=== PATIENT | male | born 1945 | race African-American/Black ===

== ENCOUNTER 2020-05-02 05:22 | Inpatient (IN) | payer MEDICARE, SELFPAY ==
[2020-05-02] VITALS (12 sets, daily range): BP systolic 133–177; BP diastolic 71–101; PULSE 62–86; RESP 16–30; TEMP 36.5–37.1; O2SAT 95–100; BMI 32.3
--- NOTE | 2020-05-02 06:03 | XR_ITS ---
EXAMINATION: CHEST 1 VIEW CLINICAL INFORMATION: Shortness of breath. COMPARISON: 05/26/2016. TECHNIQUE: An AP view of the chest is provided. FINDINGS: The cardiac silhouette is prominent, though stable. There is mild diffuse interstitial prominence. There is retrocardiac opacification and likely small left pleural effusion. The osseous structures are stable. XR/XR chest 1V IMPRESSION: Stable cardiomegaly with likely mild vascular congestion. Retrocardiac airspace disease and a small left pleural effusion.
--- NOTE | 2020-05-02 06:04 | ECG_ITS ---
Test Reason : SOB Blood Pressure : / mmHG Vent. Rate : 075 BPM Atrial Rate : 075 BPM P-R Int : 192 ms QRS Dur : 136 ms QT Int : 444 ms P-R-T Axes : 054 -11 133 degrees QTc Int : 495 ms Normal sinus rhythm Possible Left atrial enlargement Left bundle branch block Abnormal ECG When compared with ECG of 26-MAY-2016 16:27, Left bundle branch block is now Present Referred By: Lizbeth Gordon Electronically Signed By:MARCIA HERNANDEZ MD
--- NOTE | 2020-05-02 06:04 | ED_ITS ---
HPI - General Adult General Chief complaint: Dyspnea Stated complaint: SOB Time Seen by Provider: 05/02/20 05:52 Source: patient Mode of arrival: ambulatory Limitations: no limitations History of Present Illness HPI narrative: patient comes to emergency room complaining of shortness or breath for 4 days. Patient states tonight he was sleeping, he woke up gasping for air. Patient states his legs have been swollen more than usual. Patient is poor historian. patient has history of being admitted to the hospital in 2016 for CHF exacerbation MD complaint: shortness of breaths Related Data Home Medications Medication Instructions Recorded Confirmed allopurinol 100 mg PO DAILY 05/02/20 atorvastatin 20 mg PO DAILY 05/02/20 05/02/20 carvedilol 25 mg PO BID 05/02/20 05/02/20 furosemide 40 mg PO DAILY 05/02/20 05/02/20 hydralazine 50 mg PO BID 05/02/20 05/02/20 lisinopril 30 mg PO DAILY 05/02/20 05/02/20 Allergies Allergy/AdvReac Type Severity Reaction Status Date / Time No Known Allergies Allergy Verified 05/02/20 05:40 [No Known Allergies*] Review of Systems Review of Systems: Constitutional : No Weight loss, No Fever, No Chills, No Night Sweats, No Fatigue, No Malaise ENT/Mouth : No Hearing loss, No Ear Pain, No Nasal Congestion, No Sinus Pain, No Hoarseness, No sore throat, No Rhinorrhea, No Swallowing Difficulty Eyes: No Eye Pain, No Swelling, No Redness, No Foreign Body, No Discharge, No Vision Changes Cardiovascular shortness of breath with exertion, orthopnea Respiratory : dyspnea Gastrointestinal : No Nausea, No Vomiting, No Diarrhea, No Constipation, No abdominal Pain, No Hematochezia, No Melena Genitourinary : no irregular bleeding, No Dysuria, No Urinary Frequency, No Hematuria, No Urinary Incontinence, No Urgency, No Flank Pain, No Urinary Flow Changes, No Hesitancy Musculoskeletal : No joint pain, No Myalgias, No Joint Swelling Skin : No Skin Lesions, No rash Neuro : No Weakness, No Numbness, No Paresthesias, No Loss of Consciousness, No Dizziness, No Headache Psych : No Anxiety/Panic, No Depression, No SI/HI/AH/VH, No Social Issues, Heme/Lymph: No Bruising, No Bleeding,No Lymphadenopathy Endocrine : No Polyuria, No Polydipsia, No Temperature Intolerance [facility] Past Medical History Medical History (Updated 05/02/20 @ 08:17 by Lizbeth Gordon MD) CHF (congestive heart failure) HTN (hypertension) Hypercholesteremia Social History Social History Advance Directives: No Physical Exam Vital Signs: Vital Signs: Last Vital Signs Temp 98.0 F 05/02/20 05:41 Pulse 78 05/02/20 07:14 Resp 30 H 05/02/20 07:14 BP 163/93 H 05/02/20 07:14 Pulse Ox 100 05/02/20 07:14 Body Mass Index 32.3 Appearance: Alert. Oriented X3. No acute distress. Eyes: Pupils equal, round and reactive to light. ENT: Pharynx normal. Neck: Normal inspection. Neck supple. No lymph nodes noted. No crepitus CVS: Normal heart rate and rhythm. Pulses normal. Normal S1 and S2 Respiratory: No respiratory distress. patient is tachypneic, respiratory rate approximately 30, oxygen saturation in the low 90s, able to speak in full sentences, lung sounds decreased bilaterally, crackles bilaterally Abdomen: Soft and nontender. No rigidity. No distention. good BS x4 Skin: Skin warm and dry. Normal skin color. Normal skin turgor. Extremities: No lower extremity edema. No lower extremity edema. No Lacerati ons. No Rash Neuro: Oriented X 3. No motor deficit. No sensory deficit. Moving all extermities. No slurred speech. Medical Decision Making Lab Data Result diagrams: 05/02/20 06:36 05/02/20 06:36 Labs: Lab Results 05/02/20 05/02/20 05/02/20 Range/Units 06:36 06:36 06:36 WBC 6.2 (4.8-10.8) X10*3/uL RBC 3.86 L (4.60-5.80) X10*6/uL Hgb 11.9 L (14.0-18.0) g/dl Hct 37.1 L (42-52) % MCV 96.1 (80-98) fL MCH 30.8 (27.0-33.0) pg MCHC 32.1 (31.0-36.0) g/dl RDW 14.1 (11.0-16.0) % Plt Count 222 (160-400) X10*3/uL MPV 10.5 (9.4-12.4) fL Immature Gran % (Auto) 0.3 (0.0-0.4) % Neut % (Auto) 82.8 H (45-73) % Lymph % (Auto) 9.2 L (20-40) % [place] % (Auto) 6.9 (2-11) % Eos % (Auto) 0.6 (0-4) % Baso % (Auto) 0.2 (0-2) % Lymph # (Auto) 0.6 L (1.2-4.9) X10*3/uL [place] # (Auto) 0.4 (0.1-1.2) X10*3/uL Eos # (Auto) 0.0 (0.0-0.4) X10*3/uL Baso # (Auto) 0.0 (0.0-0.2) X10*3/uL Abs Immat Gran (auto) 0.02 (0.00-0.03) X10*3/uL Absolute Neuts (auto) 5.2 (2.0-8.3) X10*3/uL Absolute Nucleated RBC 0.000 (0.0-0.012) X10*3/uL Nucleated RBC % (auto) 0.0 (0.0-0.2) /100WBC Smear Tech's Comments VERIFIED Sodium 143 (135-145) mmol/L Potassium 3.7 (3.3-5.1) mmol/l Chloride 110 H (96-108) mmol/L Carbon Dioxide 25 (22-29) mmol/L Anion Gap 12 (12-20) BUN 34 H (9-16) mg/dL Creatinine 1.39 (0.5-1.4) mg/dL Estim Creat Clear Calc 48.4 Estimated GFR 50 Random Glucose 127 H (60-115) mg/dL Lactic Acid 0.8 (0.5-2.0) mmol/L Calcium 8.7 (8.4-10.2) mg/dL Total Bilirubin 0.3 (0.0-1.0) mg/dL Direct Bilirubin 0.2 (0.0-0.5) mg/dL AST 121 H (5-37) U/L ALT 159 H (0-40) U/L Alkaline Phosphatase 80 (39-117) U/L Troponin I High Sens (<3.5-35.0) ng/L B-Natriuretic Peptide (<100) pg/mL Total Protein 6.2 L (6.5-8.0) g/dL Albumin 3.8 (3.5-5.0) g/dL 05/02/20 Range/Units 06:36 WBC (4.8-10.8) X10*3/uL RBC (4.60-5.80) X10*6/uL Hgb (14.0-18.0) g/dl Hct (42-52) % MCV (80-98) fL MCH (27.0-33.0) pg MCHC (31.0-36.0) g/dl RDW (11.0-16.0) % Plt Count (160-400) X10*3/uL MPV (9.4-12.4) fL Immature Gran % (Auto) (0.0-0.4) % Neut % (Auto) (45-73) % Lymph % (Auto) (20-40) % [place] % (Auto) (2-11) % Eos % (Auto) (0-4) % Baso % (Auto) (0-2) % Lymph # (Auto) (1.2-4.9) X10*3/uL [place] # (Auto) (0.1-1.2) X10*3/uL Eos # (Auto) (0.0-0.4) X10*3/uL Baso # (Auto) (0.0-0.2) X10*3/uL Abs Immat Gran (auto) (0.00-0.03) X10*3/uL Absolute Neuts (auto) (2.0-8.3) X10*3/uL Absolute Nucleated RBC (0.0-0.012) X10*3/uL Nucleated RBC % (auto) (0.0-0.2) /100WBC Smear Tech's Comments Sodium (135-145) mmol/L Potassium (3.3-5.1) mmol/l Chloride (96-108) mmol/L Carbon Dioxide (22-29) mmol/L Anion Gap (12-20) BUN (9-16) mg/dL Creatinine (0.5-1.4) mg/dL Estim Creat Clear Calc Estimated GFR Random Glucose (60-115) mg/dL Lactic Acid (0.5-2.0) mmol/L Calcium (8.4-10.2) mg/dL Total Bilirubin (0.0-1.0) mg/dL Direct Bilirubin (0.0-0.5) mg/dL AST (5-37) U/L ALT (0-40) U/L Alkaline Phosphatase (39-117) U/L Troponin I High Sens 64.1 H (<3.5-35.0) ng/L B-Natriuretic Peptide 2259 H (<100) pg/mL Total Protein (6.5-8.0) g/dL Albumin (3.5-5.0) g/dL Discharge Plan Discharge Clinical Impression: CHF (congestive heart failure) Patient Disposition: Admitted As Inpatient Prescriptions: No Action furosemide 40 mg tablet 40 mg PO DAILY RF: 0 carvedilol 25 mg tablet 25 mg PO BID RF: 0 atorvastatin 20 mg tablet 20 mg PO DAILY RF: 0 allopurinol 100 mg tablet 100 mg PO DAILY RF: 0 lisinopril 30 mg tablet 30 mg PO DAILY RF: 0 hydralazine 50 mg tablet 50 mg PO BID RF: 0
[2020-05-02 06:52] LABS: Basophils Percent Auto 0.2 % (0-2); Eosinophils Percent Auto 0.6 % (0-4); Hematocrit 37.1 % (42-52); Hemoglobin 11.9 g/dl (14.0-18.0); Imm Gran Abs Auto 0.02 X10*3/uL (0.00-0.03); Imm Gran Pct Auto 0.3 % (0.0-0.4); Lymphocytes Absolute Auto 0.6 X10*3/uL (1.2-4.9); Lymphocytes Percent Auto 9.2 % (20-40); MANUAL DIFF FLAG SCAN; Mean Corpuscular HGB Conc 32.1 g/dl (31.0-36.0); Mean Corpuscular Hemoglobin 30.8 pg (27.0-33.0); Mean Corpuscular Volume 96.1 fL (80-98); Mean Platelet Volume 10.5 fL (9.4-12.4); Monocytes Absolute Auto 0.4 X10*3/uL (0.1-1.2); Monocytes Percent Auto 6.9 % (2-11); Neutrophils Absolute Auto 5.2 X10*3/uL (2.0-8.3); Neutrophils Percent Auto 82.8 % (45-73); Platelet Count 222 X10*3/uL (160-400); Red Blood Count 3.86 X10*6/uL (4.60-5.80); Red Cell Distribution Width 14.1 % (11.0-16.0); SCAN SMEAR FLAG 1; White Blood Count 6.2 X10*3/uL (4.8-10.8)
[2020-05-02 07:02] LABS: SLIDE REVIEW VERIFIED
[2020-05-02 07:09] LABS: Lactic Acid 0.8 mmol/L (0.5-2.0)
[2020-05-02] MEDS: Furosemide 100 MG/10 ML VIAL 60 MG IVPUSH (07:14)
[2020-05-02 07:20] LABS: Alanine Aminotransferase 159 U/L (0-40); Albumin Level 3.8 g/dL (3.5-5.0); Alkaline Phosphatase 80 U/L (39-117); Anion Gap 12 (12-20); Aspartate Amino Transferase 121 U/L (5-37); Bilirubin Direct 0.2 mg/dL (0.0-0.5); Bilirubin Total 0.3 mg/dL (0.0-1.0); Blood Urea Nitrogen 34 mg/dL (9-16); Calcium 8.7 mg/dL (8.4-10.2); Carbon Dioxide 25 mmol/L (22-29); Chloride 110 mmol/L (96-108); Creatinine Clr Calc Pharmacy 48.4; Estimated Glomerular Filt Rate 50; Glucose Random 127 mg/dL (60-115); Potassium 3.7 mmol/l (3.3-5.1); Sodium 143 mmol/L (135-145); Total Protein 6.2 g/dL (6.5-8.0)
[2020-05-02 07:22] LABS: B Type Natriuretic Peptide 2259 pg/mL (<100); Troponin-I High Sensitivity 64.1 ng/L (<3.5-35.0)
[2020-05-02 09:17] LABS: COVID-19 Test Negative (Negative)
[2020-05-02 09:33] LABS: Troponin-I High Sensitivity 85.3 ng/L (<3.5-35.0)
--- NOTE | 2020-05-02 09:54 | PC.NURSE ---
called to give report to C
--- NOTE | 2020-05-02 10:06 | PC.NURSE ---
GAVE REPORT TO [facility] RN
[2020-05-02] MEDS: lisinopriL 10 MG TABLET 30 MG PO (10:29)
[2020-05-02] MEDS: hydrALAZINE HCl 50 MG TABLET 25 MG PO (10:30)
[2020-05-02] MEDS: carvediloL 25 MG TABLET PO ×2 (10:30→20:29)
[2020-05-02] MEDS: Enoxaparin Sodium 40 MG/0.4 ML SYRINGE SUBCUT (10:32)
--- NOTE | 2020-05-02 11:07 | PM.CNCAR ---
History of Present Illness History of Present Illness Date of Consult: May 02, 2020 Requesting physician: Tomas Bailey Consult reason: congestive heart failure Chief complaint: CHF exacerbation Narrative: Thank you for calling us in consultation for management of congestive heart failure on [place]. He is a 74-year-old man with prior history of severe nonischemic cardiomyopathy as well as heart failure with reduced ejection fraction. He has been noncompliant with his office visit. In the past he has also been noncompliant with his medications. He says over the last month he has not been taking his medications as prescribed and for a week or so he has not been taking his medications at all. About 4 or 5 days ago he started getting significant increasing shortness of breath including shortness of breath at rest and possible orthopnea. He says he has lost weight. He does not notice that he has developed leg edema or any other symptoms. Denies any chest pain. No palpitations, lightheadedness, syncope. Unsure as to why he stopped taking his medications. No other systemic symptoms. Review of Systems Constitutional: Constitutional: Denies chills, Denies fever(s), Reports malaise and Reports poor appetite Eyes: Eyes: Reports no additional eye complaints ENT: Reports system reviewed and no additional complaints, except as documented Cardiovascular: Cardiovascular: Denies chest pain, Denies rapid heart rate, Reports pedal edema, Denies lightheadedness, Reports dyspnea on exertion and Reports orthopnea Respiratory: Respiratory: Denies chest congestion, Denies excessive phlegm production and Reports dyspnea on exertion Gastrointestinal: Gastrointestinal: Reports no additional gastrointestinal complaints Musculoskeletal: Musculoskeletal: Reports no additional musculoskeletal complaints Neurologic: Reports system reviewed and no additional complaints, except as documented Psychiatric: Psychiatric: Reports no additional psychiatric complaints Endocrine: Endocrine: Reports no additional endocrine complaints Hematologic/Lymphatic: Hematologic/Lymphatic: Reports no additional hematologic/lymphatic complaints [facility] Past Medical History Medical History CHF (congestive heart failure) HTN (hypertension) Hypercholesteremia Social History Social History Household Members: Spouse Housing: House Housing Other:: lives in a 2 family home per pt Do you presently have visiting nurse or other home services: Yes (Once a year per pt) Alcohol intake: never Smoking Status: Never smoker Use of substances other than those prescribed or required for medical reasons: No Have you been hit, kicked, punched, or otherwise hurt by someone within the past year? If so, by whom?: No Do you feel safe in your current relationship?: Yes Is there a partner from a previous relationship who is making you feel unsafe now?: No Are you made to feel afraid or neglected: No Advance Directives: No Do you have thoughts of harming others: None Do you have a plan to hurt others: No Plan Recently lost weight without trying: No Meds Allergies Allergy/AdvReac Type Severity Reaction Status Date / Time No Known Allergies Allergy Verified 05/02/20 05:40 [No Known Allergies*] Home Medications Medication Instructions Recorded Confirmed Type allopurinol 100 mg PO DAILY 05/02/20 05/02/20 History atorvastatin 20 mg PO DAILY 05/02/20 05/02/20 History carvedilol 25 mg PO BID 05/02/20 05/02/20 History furosemide 40 mg PO DAILY 05/02/20 05/02/20 History hydralazine 50 mg PO BID 05/02/20 05/02/20 History lisinopril 30 mg PO DAILY 05/02/20 05/02/20 History Physical Exam Vital Signs: Vital Signs: Last Vital Signs Temp 97.8 F 05/02/20 10:25 Pulse 76 05/02/20 10:30 Resp 20 05/02/20 10:25 BP 177/93 H 05/02/20 10:30 Pulse Ox 99 05/02/20 10:25 Body Mass Index 32.3 Const: General: cooperative, alert, awake and in distress (Mildly short of breath) Nutritional Appearance: obese Orientation/consciousness: patient oriented x3 Limitations: no limitations HENMT: Head: Yes normal to inspection, Yes normocephalic and Yes atraumatic Eyes: General: appearance normal, both eyes and all related structures Neck: Neck: Yes full ROM, Yes trachea midline, Yes supple and Yes JVD Chest: Chest palpation & inspection: normal inspection of the chest Resp: Effort & Inspection: normal respiratory effort Auscultation: rales bilateral at the base Cardio: Palpation: abnormal PMI (PMI is diffuse and heaving) displaced PMI Rate: regular rate Rhythm: regular rhythm Heart sounds: S1 normal heart sound present, S2 normal heart sound present and Gallop heart sound present S4 gallop Peripheral pulses: Peripheral pulses 2+ throughout GI: Inspection: Yes normal to inspection Auscultation: normal bowel sounds Skin: General skin exam: no rashes or lesions noted Neuro: General: patient oriented x3 and no focal motor deficits Extrem: General: No clubbing, No cyanosis and Yes edema Psych: Appearance: grossly normal Results Labs and Meds Result diagrams: 05/02/20 06:36 05/02/20 06:36 Lab results: Laboratory Results - last 24 hr 05/02/20 05/02/20 05/02/20 06:36 06:36 06:36 WBC 6.2 RBC 3.86 L Hgb 11.9 L Hct 37.1 L MCV 96.1 MCH 30.8 MCHC 32.1 RDW 14.1 Plt Count 222 MPV 10.5 Immature Gran % (Auto) 0.3 Neut % (Auto) 82.8 H Lymph % (Auto) 9.2 L [place] % (Auto) 6.9 Eos % (Auto) 0.6 Baso % (Auto) 0.2 Lymph # (Auto) 0.6 L [place] # (Auto) 0.4 Eos # (Auto) 0.0 Baso # (Auto) 0.0 Abs Immat Gran (auto) 0.02 Absolute Neuts (auto) 5.2 Absolute Nucleated RBC 0.000 Nucleated RBC % (auto) 0.0 Smear Tech's Comments VERIFIED Sodium 143 Potassium 3.7 Chloride 110 H Carbon Dioxide 25 Anion Gap 12 BUN 34 H Creatinine 1.39 Estim Creat Clear Calc 48.4 Estimated GFR 50 Random Glucose 127 H Lactic Acid 0.8 Calcium 8.7 Total Bilirubin 0.3 Direct Bilirubin 0.2 AST 121 H ALT 159 H Alkaline Phosphatase 80 Troponin I High Sens B-Natriuretic Peptide Total Protein 6.2 L Albumin 3.8 COVID-19 ([facility]) COVID-19 Clin Com 05/02/20 05/02/20 05/02/20 06:36 08:49 08:49 WBC RBC Hgb Hct MCV MCH MCHC RDW Plt Count MPV Immature Gran % (Auto) Neut % (Auto) Lymph % (Auto) [place] % (Auto) Eos % (Auto) Baso % (Auto) Lymph # (Auto) [place] # (Auto) Eos # (Auto) Baso # (Auto) Abs Immat Gran (auto) Absolute Neuts (auto) Absolute Nucleated RBC Nucleated RBC % (auto) Smear Tech's Comments Sodium Potassium Chloride Carbon Dioxide Anion Gap BUN Creatinine Estim Creat Clear Calc Estimated GFR Random Glucose Lactic Acid Calcium Total Bilirubin Direct Bilirubin AST ALT Alkaline Phosphatase Troponin I High Sens 64.1 H 85.3 H B-Natriuretic Peptide 2259 H Total Protein Albumin COVID-19 ([facility]) Negative COVID-19 Clin Com See Note IMPRESSION: Stable cardiomegaly with likely mild vascular congestion. Retrocardiac airspace disease and a small left pleural effusion. EKG shows normal sinus rhythm with left atrial enlargement with widened QRS suggestive of left bundle-branch block Assessment and Plan (1) Heart failure, systolic, with acute decompensation: Status: Acute acute decompensation of systolic heart failure secondary to noncompliance with medications. Patient has been noncompliant in the past especially also with his follow-ups in the office. He had done very well with medical therapy. We discussed about this in details with him. He is not sure as to why he stopped taking his medications but felt like it. Currently fluid overloaded. Continue IV diuresis with Lasix 40 mg b.i.d.. Will switch his lisinopril to Diovan 160 mg b.i.d., with a plan for eventually switching him to Entresto therapy for better outcome. Continue carvedilol therapy. Continue aggressive blood pressure control. May add nitro paste if blood pressure remains difficult to control. Hold off on hydralazine therapy. Continue strict intake and output chart. Daily weight monitoring. Continue to trend BMP and BNP on a daily basis. Echocardiogram can be requested as well. Out of bed to chair. DVT prophylaxis as per hospitalist team. (2) Nonischemic cardiomyopathy: Status: Acute See above. Continue neurohormonal modulation with carvedilol. Will switch lisinopril to Diovan and eventually to Entresto therapy. Hold off on hydralazine therapy at this point in time. Will follow with the patient. Thank you for inviting us in the consult of this patient
[2020-05-02] MEDS: Valsartan 160 MG TABLET PO ×2 (12:43→20:29)
--- NOTE | 2020-05-02 14:43 | PM.IMHP ---
History of Present Illness Date of Service: 05/02/20 Chief Complaint: Shortness of breath A 74 years old male with PMH of systolic CHF, CMP, HTN among others who presented to the hospital from with worsening shortness of breath and dyspnea. The patient reported he started feeling short of breath last Thursday and symptoms continue to get worse the last few days. This morning he woke up feeling very short of breath and dyspneic. He reports not taking his medications up to 2 months now for no clear reason. He has history of noncompliance with followups before with the clinic. He reports chest heaviness but denies any pain, palpitation, nausea or vomiting, change in bowel habit or urinary symptoms. In the emergency CXR showed signs of CHF exacerbation along with edema in his extremities. He was admitted for further evaluation and treatment. Review of Systems Review of Systems: No fever, chills or weakness No chest pain, palpitation Moderate to severe shortness of breath, dyspnea on exertion, orthopnea, dry coughing No abdominal pain, nausea or vomiting No urinary symptoms No any rash or wounds Yes all other systems are reviewed and are negative Neurologic: Reports system reviewed and no additional complaints, except as documented [facility] Medical History CHF (congestive heart failure) HTN (hypertension) Hypercholesteremia Nonischemic cardiomyopathy Social History Household Members: Spouse Housing: House Housing Other:: lives in a 2 family home per pt Do you presently have visiting nurse or other home services: Yes (Once a year per pt) Alcohol intake: never Smoking Status: Never smoker Use of substances other than those prescribed or required for medical reasons: No Have you been hit, kicked, punched, or otherwise hurt by someone within the past year? If so, by whom?: No Do you feel safe in your current relationship?: Yes Is there a partner from a previous relationship who is making you feel unsafe now?: No Are you made to feel afraid or neglected: No Advance Directives: No Do you have thoughts of harming others: None Do you have a plan to hurt others: No Plan Recently lost weight without trying: No Meds Allergies Allergy/AdvReac Type Severity Reaction Status Date / Time No Known Allergies Allergy Verified 05/02/20 05:40 [No Known Allergies*] Home Medications Medication Instructions Recorded Confirmed Type allopurinol 100 mg PO DAILY 05/02/20 05/02/20 History atorvastatin 20 mg PO DAILY 05/02/20 05/02/20 History carvedilol 25 mg PO BID 05/02/20 05/02/20 History furosemide 40 mg PO DAILY 05/02/20 05/02/20 History hydralazine 50 mg PO BID 05/02/20 05/02/20 History lisinopril 30 mg PO DAILY 05/02/20 05/02/20 History Physical Exam Vital Signs and Narrative: Vital Signs: Last Vital Signs Temp 97.9 F 05/02/20 12:00 Pulse 63 05/02/20 12:43 Resp 20 05/02/20 12:00 BP 140/71 H 05/02/20 12:43 Pulse Ox 95 05/02/20 12:00 Body Mass Index 32.3 Constitutional : Alert, oriented, not in distress Neck : Normal inspection, Supple Cardiovascular : RRR, S1 S2, +2 lower extremity edema Respiratory : Decrease bilateral air entry, bilateral bases crackles, no wheezes or rhonchi Gastrointestinal: soft, lax, Normal bowel sounds, Non tender Skin : Warm/Dry, No rash Neurological : Alert & oriented x3, No focal deficit Results Labs CBC and Chem 7: 05/02/20 06:36 05/02/20 06:36 Labs: Laboratory Results - last 24 hr 05/02/20 05/02/20 05/02/20 06:36 06:36 06:36 MCV 96.1 MCH 30.8 MCHC 32.1 RDW 14.1 Plt Count 222 MPV 10.5 Immature Gran % (Auto) 0.3 Neut % (Auto) 82.8 H Lymph % (Auto) 9.2 L [place] % (Auto) 6.9 Eos % (Auto) 0.6 Baso % (Auto) 0.2 Lymph # (Auto) 0.6 L [place] # (Auto) 0.4 Eos # (Auto) 0.0 Baso # (Auto) 0.0 Abs Immat Gran (auto) 0.02 Absolute Neuts (auto) 5.2 Absolute Nucleated RBC 0.000 Nucleated RBC % (auto) 0.0 Smear Tech's Comments VERIFIED Anion Gap 12 Estim Creat Clear Calc 48.4 Estimated GFR 50 Random Glucose 127 H Lactic Acid 0.8 Calcium 8.7 Total Bilirubin 0.3 Direct Bilirubin 0.2 AST 121 H ALT 159 H Alkaline Phosphatase 80 Troponin I High Sens B-Natriuretic Peptide Total Protein 6.2 L Albumin 3.8 COVID-19 ([facility]) COVID-19 Clin Com 05/02/20 05/02/20 05/02/20 06:36 08:49 08:49 MCV MCH MCHC RDW Plt Count MPV Immature Gran % (Auto) Neut % (Auto) Lymph % (Auto) [place] % (Auto) Eos % (Auto) Baso % (Auto) Lymph # (Auto) [place] # (Auto) Eos # (Auto) Baso # (Auto) Abs Immat Gran (auto) Absolute Neuts (auto) Absolute Nucleated RBC Nucleated RBC % (auto) Smear Tech's Comments Anion Gap Estim Creat Clear Calc Estimated GFR Random Glucose Lactic Acid Calcium Total Bilirubin Direct Bilirubin AST ALT Alkaline Phosphatase Troponin I High Sens 64.1 H 85.3 H B-Natriuretic Peptide 2259 H Total Protein Albumin COVID-19 ([facility]) Negative COVID-19 Clin Com See Note Imaging Radiologist's Impressions: Impressions Chest X-Ray 05/02/20 06:03 IMPRESSION: Stable cardiomegaly with likely mild vascular congestion. Retrocardiac airspace disease and a small left pleural effusion. Assessment and Plan (1) Heart failure, systolic, with acute decompensation: Status: Acute (2) Nonischemic cardiomyopathy: Status: Acute (3) HTN (hypertension): Status: Acute (4) CHF (congestive heart failure): Qualifiers: Heart failure chronicity: unspecified Heart failure type: unspecified Qualified Code(s): I50.9 - Heart failure, unspecified Status: Acute A 74 years old male with PMH of systolic CHF, CMP, HTN among others who presented to the hospital from with worsening shortness of breath and dyspnea. Acute CHF exacerbation, systolic Elevated BMP around 3000 Start Lasix 40 mg b.i.d. next [place] to repeat echo Follow intake and output Change from lisinopril to Diovan Cardiology input appreciated, consider starting Entresto at discharge Nonischemic cardiomyopathy Last echo from 2018 showed EF of 25% To repeat echo Medical management Uncontrolled HTN Continue carvedilol and hydralazine Change lisinopril to valsartan Discontinue hydralazine pair cardiology Consider Imdur if blood pressure not Better controlled Gout Continue allopurinol DVT PPX Lovenox
[2020-05-02] MEDS: 0.9 % Sodium Chloride Flush 3 ML SYRINGE IVFLUSH ×2 (15:56→20:29)
[2020-05-02] MEDS: Furosemide 40 MG/4 ML VIAL IVPUSH (15:58)
[2020-05-03] VITALS (7 sets, daily range): BP systolic 126–169; BP diastolic 64–86; PULSE 50–78; RESP 18–20; TEMP 36.6–37.8; O2SAT 92–97; BMI 32.3
[2020-05-03 05:05] LABS: Hemoglobin 11.7 g/dl (14.0-18.0); Mean Corpuscular HGB Conc 32.5 g/dl (31.0-36.0); Mean Corpuscular Hemoglobin 32.1 pg (27.0-33.0); Mean Corpuscular Volume 98.6 fL (80-98); Mean Platelet Volume 10.9 fL (9.4-12.4); Platelet Count 186 X10*3/uL (160-400); Red Blood Count 3.65 X10*6/uL (4.60-5.80); Red Cell Distribution Width 14.2 % (11.0-16.0); White Blood Count 4.2 X10*3/uL (4.8-10.8)
[2020-05-03 05:31] LABS: Anion Gap 12 (12-20); Blood Urea Nitrogen 27 mg/dL (9-16); Calcium 8.2 mg/dL (8.4-10.2); Carbon Dioxide 29 mmol/L (22-29); Chloride 106 mmol/L (96-108); Creatinine Clr Calc Pharmacy 60.1; Estimated Glomerular Filt Rate > 60; Glucose Random 87 mg/dL (60-115); Potassium 3.1 mmol/l (3.3-5.1); Sodium 144 mmol/L (135-145)
[2020-05-03 05:36] LABS: B Type Natriuretic Peptide 2323 pg/mL (<100)
[2020-05-03] MEDS: Furosemide 40 MG/4 ML VIAL IVPUSH ×2 (08:59→17:56)
[2020-05-03] MEDS: 0.9 % Sodium Chloride Flush 3 ML SYRINGE IVFLUSH ×3 (09:00→20:12)
[2020-05-03] MEDS: Atorvastatin Calcium 20 MG TABLET PO (09:00)
[2020-05-03] MEDS: carvediloL 25 MG TABLET PO ×2 (09:00→20:12)
[2020-05-03] MEDS: Valsartan 160 MG TABLET PO ×2 (09:00→20:12)
--- NOTE | 2020-05-03 09:03 | P.PNCA_ITS ---
Subjective Subjective Principal diagnosis: CHF Interval history: Patient is in good humor and feeling well today. Has diuresed well. Blood pressure still remains elevated. BNP still elevated. Still short of breath but much improved. Denies palpitations, chest pain, lightheadedness. Review of Systems Constitutional: Reports no additional constitutional complaints Cardiovascular: Denies chest pain, Reports pedal edema, Denies palpitations and Reports dyspnea on exertion Respiratory: Reports dyspnea on exertion Gastrointestinal: Reports no additional gastrointestinal complaints Reports system reviewed and no additional complaints, except as documented Endocrine: Reports no additional endocrine complaints and Denies palpitations Hematologic/Lymphatic: Reports no additional hematologic/lymphatic complaints Physical Exam Vital Signs: Last Vital Signs Temp 98.1 F 05/03/20 07:23 Pulse 72 05/03/20 07:23 Resp 18 05/03/20 07:23 BP 158/81 H 05/03/20 07:23 Pulse Ox 97 05/03/20 07:23 Body Mass Index 32.3 Const General: cooperative, healthy appearing, comfortable, no acute distress, alert and awake Nutritional Appearance: obese Orientation/consciousness: patient oriented x3 Limitations: no limitations HENMT Head: Yes normal to inspection, Yes normocephalic and Yes atraumatic Eyes General: appearance normal, both eyes and all related structures Neck Neck: Yes trachea midline, Yes supple and Yes JVD Chest Chest palpation & inspection: normal inspection of the chest Resp Effort & Inspection: normal respiratory effort Auscultation: rales (Much improved at bases) Cardio Jugular venous distension: JVD Palpation: abnormal PMI displaced PMI Rate: regular rate Rhythm: regular rhythm Heart sounds: S1 normal heart sound present and S2 normal heart sound present GI Inspection: Yes normal to inspection Auscultation: normal bowel sounds Skin General skin exam: no rashes or lesions noted Neuro General: patient oriented x3 Extrem General: No clubbing, No cyanosis and Yes pedal edema Psych Appearance: grossly normal Results Labs and Meds Result diagrams: 05/03/20 03:59 05/03/20 03:59 Lab results: Laboratory Results - last 24 hr 05/02/20 05/02/20 05/03/20 08:49 08:49 03:59 WBC RBC Hgb Hct MCV MCH MCHC RDW Plt Count MPV Absolute Nucleated RBC Nucleated RBC % (auto) Sodium Potassium Chloride Carbon Dioxide Anion Gap BUN Creatinine Estim Creat Clear Calc Estimated GFR Random Glucose Calcium Troponin I High Sens 85.3 H B-Natriuretic Peptide 2323 H COVID-19 ([facility]IA) Negative COVID-19 Clin Com See Note 05/03/20 05/03/20 03:59 03:59 WBC 4.2 L RBC 3.65 L Hgb 11.7 L Hct 36.0 L MCV 98.6 H MCH 32.1 MCHC 32.5 RDW 14.2 Plt Count 186 MPV 10.9 Absolute Nucleated RBC 0.000 Nucleated RBC % (auto) 0.0 Sodium 144 Potassium 3.1 L Chloride 106 Carbon Dioxide 29 Anion Gap 12 BUN 27 H Creatinine 1.12 Estim Creat Clear Calc 60.1 Estimated GFR > 60 Random Glucose 87 Calcium 8.2 L Troponin I High Sens B-Natriuretic Peptide COVID-19 ([facility]IA) COVID-19 Clin Com Progress Note: A&P Assessment and plan (1) Heart failure, systolic, with acute decompensation: Status: Acute Assessment and Plan: Decompensated heart failure due to noncompliance. Patient is gradually improving with IV diuresis. Continue IV diuresis for 1 more day. Trend BMP and BNP. Continue carvedilol and Diovan. Add Aldactone 25 mg to his regimen. E chocardiogram is pending Will follow with him. Importance of compliance with medication was discussed. Ambulate today. Will follow the patient. (2) Nonischemic cardiomyopathy: Status: Acute Assessment and Plan: Continue neurohormonal modulation with carvedilol and Diovan. Eventually switch him to Entresto as outpatient. Add Aldactone to his therapy as above. Fall Risk Details Current Medications: Current Medications Generic Name Dose Route Start Last Admin Trade Name Richie PRN Reason Stop Dose Admin Acetaminophen 650 mg 05/02/20 10:07 Acetaminophen 325 Mg Tablet PO Q6H PRN Pain, Mild (Pain Scale 1-3) Al Hydroxide/Mg Hydroxide 30 ml 05/02/20 10:07 Magnesium Hydrox/Alum Hydrox 30 Ml Oral.Susp PO Q4H PRN Heartburn/Nausea Allopurinol 100 mg 05/03/20 09:00 Allopurinol 100 Mg Tablet PO DAILY DEXTER Atorvastatin Calcium 20 mg 05/03/20 09:00 05/03/20 09:00 Atorvastatin Calcium 20 Mg Tablet PO 20 mg DAILY COUNTS INCLUDE 234 BEDS AT THE [facility] Administration Carvedilol 25 mg 05/02/20 10:07 05/03/20 09:00 Carvedilol 25 Mg Tablet PO 25 mg BID DEXTER Administration Protocol Enoxaparin Sodium 40 mg 05/02/20 11:00 05/02/20 10:32 Enoxaparin Sodium 40 Mg/0.4 Ml Syringe SUBCUT 40 mg Q24H DEXTER Administration Furosemide 40 mg 05/02/20 17:00 05/03/20 08:59 Furosemide 40 Mg/4 Ml Vial IVPUSH 40 mg BIDWM DEXTER Administration Protocol Ondansetron HCl 4 mg 05/02/20 10:07 Ondansetron Hcl 4 Mg/2 Ml Vial IVPUSH Q8H PRN Nausea and Vomiting Pharmacy Consult 1 each 05/02/20 07:46 Consult Rx Perform Med Rec MISCELLANE ONCE PRN Consult order Sodium Chloride 3 ml 05/02/20 16:00 05/03/20 09:00 0.9 % Sodium Chloride Flush 3 Ml Syringe IVFLUSH 3 ml QSHIFT DEXTER Administration Spironolactone 25 mg 05/03/20 09:00 Spironolactone 25 Mg Tablet PO DAILY COUNTS INCLUDE 234 BEDS AT THE [facility] Protocol Valsartan 160 mg 05/02/20 11:15 05/03/20 09:00 Valsartan 160 Mg Tablet PO 160 mg BID DEXTER Administration Protocol Time Spent With Patient Time: Total time spent is greater than 50% in coordination of care (as documented) at patient's floor/unit and/or counseling patient: Time with patient: 15 - 24 minutes
[2020-05-03] MEDS: allopurinoL 100 MG TABLET PO (09:07)
--- NOTE | 2020-05-03 09:55 | P.PNIM_ITS ---
Subjective Subjective Date of Service: 05/03/20 Interval History: Seen in f/u for decompensated heart failure due to non compliance, feels better, no sob ROS; Gen: no fever Resp: no sob, no cough CV: no chest, + WINKLER, + leg edema GI: No n/v, no abd pain Neuro: No confusion Physical Exam Vital Signs: Vital Signs: Last Vital Signs Temp 98.1 F 05/03/20 07:23 Pulse 72 05/03/20 07:23 Resp 18 05/03/20 07:23 BP 158/81 H 05/03/20 07:23 Pulse Ox 97 05/03/20 07:23 Body Mass Index 32.3 Constitutional : Alert, oriented, not in distress Neck : Normal inspection, Supple Cardiovascular : RRR, S1 S2, +1-2 lower extremity edema Respiratory : bilateral bases crackles, no wheezes or rhonchi Gastrointestinal: soft, lax, Normal bowel sounds, Non tender Skin : Warm/Dry, No rash Neurological : Alert & oriented x3, No focal deficit Objective Data Current Medications Generic Name Dose Route Start Last Admin Trade Name Freq PRN Reason Stop Dose Admin Acetaminophen 650 mg 05/02/20 10:07 Acetaminophen 325 Mg Tablet PO Q6H PRN Pain, Mild (Pain Scale 1-3) Al Hydroxide/Mg Hydroxide 30 ml 05/02/20 10:07 Magnesium Hydrox/Alum Hydrox 30 Ml Oral.Susp PO Q4H PRN Heartburn/Nausea Allopurinol 100 mg 05/03/20 09:00 05/03/20 09:07 Allopurinol 100 Mg Tablet PO 100 mg DAILY DEXTER Administration Atorvastatin Calcium 20 mg 05/03/20 09:00 05/03/20 09:00 Atorvastatin Calcium 20 Mg Tablet PO 20 mg DAILY DEXTER Administration Carvedilol 25 mg 05/02/20 10:07 05/03/20 09:00 Carvedilol 25 Mg Tablet PO 25 mg BID DEXTER Administration Protocol Enoxaparin Sodium 40 mg 05/02/20 11:00 05/02/20 10:32 Enoxaparin Sodium 40 Mg/0.4 Ml Syringe SUBCUT 40 mg Q24H DEXTER Administration Furosemide 40 mg 05/02/20 17:00 05/03/20 08:59 Furosemide 40 Mg/4 Ml Vial IVPUSH 40 mg BIDWM DEXTER Administration Protocol Ondansetron HCl 4 mg 05/02/20 10:07 Ondansetron Hcl 4 Mg/2 Ml Vial IVPUSH Q8H PRN Nausea and Vomiting Pharmacy Consult 1 each 05/02/20 07:46 Consult Rx Perform Med Rec MISCELLANE ONCE PRN Consult order Sodium Chloride 3 ml 05/02/20 16:00 05/03/20 09:00 0.9 % Sodium Chloride Flush 3 Ml Syringe IVFLUSH 3 ml QSHIFT DEXTER Administration Spironolactone 25 mg 05/03/20 09:00 Spironolactone 25 Mg Tablet PO DAILY ON LICENSE OF [facility] Protocol Valsartan 160 mg 05/02/20 11:15 05/03/20 09:00 Valsartan 160 Mg Tablet PO 160 mg BID DEXTER Administration Protocol Labs CBC & Chem 7: 05/03/20 03:59 05/03/20 03:59 Microbiology Microbiology Results: Microbiology 05/02/20 06:36 Blood - Venous Blood Culture - Preliminary No growth after 24 hours. 05/02/20 06:36 Blood - Venous Blood Culture - Preliminary No growth after 24 hours. Assessment and Plan (1) Heart failure, systolic, with acute decompensation: Status: Acute (2) Nonischemic cardiomyopathy: Status: Acute (3) HTN (hypertension): Status: Acute (4) CHF (congestive heart failure): Status: Acute Assessment and Plan: 74 years old male with PMH of systolic CHF, CMP, HTN among others who presented to the hospital from with worsening shortness of breath and dyspnea. Acute CHF exacerbation, systolic, improving Elevated BMP around 3000, repeat today IV Lasix 40 mg b.i.d. for one more day Follow intake and output Continue Diovan, add Aldactone 25 daily Cardiology input appreciated, consider starting Entresto at discharge echo pending Nonischemic cardiomyopathy Last echo from 2018 showed EF of 25% To repeat echo Medical management He has declined AICD Uncontrolled HTN Continue carvedilol, Diovan and Add Aldactone Gout Continue allopurinol DVT PPX Lovenox probably home tomorrow
[2020-05-03 10:18] LABS: B Type Natriuretic Peptide 2367 pg/mL (<100)
[2020-05-03 10:40] LABS: Anion Gap 14 (12-20); Blood Urea Nitrogen 26 mg/dL (9-16); Calcium 8.6 mg/dL (8.4-10.2); Carbon Dioxide 27 mmol/L (22-29); Chloride 105 mmol/L (96-108); Creatinine Clr Calc Pharmacy 54.7; Estimated Glomerular Filt Rate 57; Glucose Random 149 mg/dL (60-115); Potassium 3.3 mmol/l (3.3-5.1); Sodium 143 mmol/L (135-145)
[2020-05-03] MEDS: Enoxaparin Sodium 40 MG/0.4 ML SYRINGE SUBCUT (11:54)
[2020-05-03] MEDS: Spironolactone 25 MG TABLET PO (11:56)
--- NOTE | 2020-05-03 12:01 | MHC.CM.PN ---
PT REPORTS HE LIVES AT HOME WITH HIS AND IS INDEPENDENT WITH CARE AND MOBILITY. PT DENIES THE USE OF ANY DME AND REPORTS THE ONLY SERVICES HE HAS IS THE NURSE FROM HIS INSURANCE COMPANY THAT CHECKS IN ANNUALLY. PT HAS A HCP ON FILE NAMING HIS , LOGAN ([phone]) HIS AGENT, PT CONFIRMS THIS IS ACCURATE. PT ALSO CONFIRMS HIS PCP IS JANE BASS LISTED IN HIS CHART. PT REPORTS HE DOES NOT HAVE ANY CONCERNS RELATED TO GETTING HIS PRESCRIPTIONS. PT REPORTS HE TYPICALLY GETS THEM DELIVERED BUT WHEN HE NEEDS THEM RIGHT AWAY, HIS GOES TO [facility] ON [address] WAS DELIVERED CURRENT DC PLAN IS HOME WITH NO SERVICES PTS WILL PROVIDE TRANSPORTATION AT DC
[2020-05-04 03:42] VITALS: BP 161/73; PULSE 73; RESP 20; TEMP 37.2; O2SAT 97
[2020-05-04 07:50] VITALS: BP 186/76; PULSE 62; RESP 20; TEMP 36.7; O2SAT 93
[2020-05-04] MEDS: 0.9 % Sodium Chloride Flush 3 ML SYRINGE IVFLUSH (08:26)
[2020-05-04] MEDS: carvediloL 25 MG TABLET PO (08:26)
[2020-05-04] MEDS: Spironolactone 25 MG TABLET PO (08:26)
[2020-05-04] MEDS: Atorvastatin Calcium 20 MG TABLET PO (08:26)
[2020-05-04] MEDS: Valsartan 160 MG TABLET PO (08:26)
[2020-05-04] MEDS: allopurinoL 100 MG TABLET PO (08:26)
--- NOTE | 2020-05-04 09:18 | P.DS_ITS ---
DS: Providers Provider Date of admission: 05/02/20 09:11 Primary care physician: Deb Pete MD Consults: 05/02/20 10:07 Consult to Cardiology Routine Consulting Provider: Lorenzo Jordan Reason for consultation: For your kind eval of CHF exacerbation DS: Diagnosis Discharge Diagnosis (1) Heart failure, systolic, with acute decompensation: Status: Resolved (2) Nonischemic cardiomyopathy: (3) HTN (hypertension): (4) CHF (congestive heart failure): DS: Medications Discharge Medications Home Medications: Home Medications Medication Instructions Recorded Confirmed allopurinol 100 mg PO DAILY 05/02/20 05/02/20 atorvastatin 20 mg PO DAILY 05/02/20 05/02/20 carvedilol 25 mg PO BID 05/02/20 05/02/20 furosemide 40 mg PO DAILY 05/02/20 05/02/20 hydralazine 50 mg PO BID 05/02/20 05/02/20 lisinopril 30 mg PO DAILY 05/02/20 05/02/20 DS: Summary Hospital Course Hospital Course: HPI: A 74 years old male with PMH of systolic CHF, CMP, HTN among others who presented to the hospital from with worsening shortness of breath and dyspnea. The patient reported he started feeling short of breath last Thursday and symptoms continue to get worse the last few days. This morning he woke up feeling very short of breath and dyspneic. He reports not taking his medications up to 2 months now for no clear reason. He has history of noncompliance with followups before with the clinic. He reports chest heaviness but denies any pain, palpitation, nausea or vomiting, change in bowel habit or urinary symptoms.In the emergency CXR showed signs of CHF exacerbation along with edema in his extremities. He was admitted for further evaluation and treatment. Hospital course: During hospitalization, his symptoms were treated with IV Lasix with significant negative flui and is feeling better. Cardiology Dr. Jordan saw and guided his medication. He will continue Lasix at 40 mg daily, Coreg at 25 mg bid, Diovan 160 bid to replace Lisinopril 30 daily.Aldactone 25 mg daily added and Hydralazine is discontinued. He he will strat Entresto on outpatient basis. Med compliance has been stressed Time Spent with Patient Discharge coordination time: Greater than 30 minutes Physical Exam Vital Signs: Vital Signs: Last Vital Signs Temp 98.0 F 05/04/20 07:50 Pulse 62 05/04/20 07:50 Resp 20 05/04/20 07:50 BP 186/76 H 05/04/20 07:50 Pulse Ox 93 05/04/20 07:50 Body Mass Index 32.3 Constitutional : Alert, oriented, not in distress Neck : Normal inspection, Supple Cardiovascular : RRR, S1 S2, trace lower extremity edema Respiratory : bilateral bases crackles, no wheezes or rhonchi Gastrointestinal: soft, lax, Normal bowel sounds, Non tender Skin : Warm/Dry, No rash Neurological : Alert & oriented x3, No focal deficit DS: Data Data Completed and Pending Labs on day of discharge: 05/02/20 06:03 XR chest 1V Stat 05/02/20 06:04 ECG 12 lead EKG Stat Furosemide [Lasix] 60 mg IVPUSH ONCE ONE 05/02/20 06:09 EKG Documentation DIRECTED 05/02/20 06:36 B Type Natriuretic Peptide Stat Basic Metabolic Panel Stat Complete Blood Count Auto Diff Stat Lactic Acid Stat Liver Panel Stat SLIDE REVIEW Stat Troponin-I High Sensitivity Stat 05/02/20 08:02 Naloxone HCl [Narcan] 0.2 mg IVPUSH Q2M PRN 05/02/20 08:15 Midazolam HCl/NS [Versed] 50 mg in 50 ml IVCONT 2 mg/hr fentaNYL citrate/NS [Sublimaze/NS] 1,000 mcg in 100 ml IVCONT Per Protocol mcg/hr 05/02/20 08:49 COVID-19 ID NOW ([facility]) Stat Troponin-I High Sensitivity ONCE 05/02/20 09:06 Transfer Order Routine 05/02/20 Breakfast Low Sodium Diet 05/02/20 10:07 hydrALAZINE HCl [Apresoline] 25 mg PO BID lisinopriL [Zestril] 30 mg PO DAILY 05/02/20 10:07 IV insert/maintain Q4HR Vital Signs Q4HR 05/02/20 17:00 Furosemide [Lasix] 40 mg IVPUSH BIDWM 05/02/20 21:00 hydrALAZINE HCl [Apresoline] 25 mg PO BID 05/03/20 03:59 B Type Natriuretic Peptide Routine Basic Metabolic Panel DAILY@0600 Complete Blood Count no Diff DAILY@0600 05/03/20 09:29 B Type Natriuretic Peptide Routine Basic Metabolic Panel Routine Laboratory Last Values WBC 4.2 X10*3/uL (4.8-10.8) L 05/03/20 03:59 RBC 3.65 X10*6/uL (4.60-5.80) L 05/03/20 03:59 Hgb 11.7 g/dl (14.0-18.0) L 05/03/20 03:59 Hct 36.0 % (42-52) L 05/03/20 03:59 MCV 98.6 fL (80-98) H 05/03/20 03:59 MCH 32.1 pg (27.0-33.0) 05/03/20 03:59 MCHC 32.5 g/dl (31.0-36.0) 05/03/20 03:59 RDW 14.2 % (11.0-16.0) 05/03/20 03:59 Plt Count 186 X10*3/uL (160-400) 05/03/20 03:59 MPV 10.9 fL (9.4-12.4) 05/03/20 03:59 Immature Gran % (Auto) 0.3 % (0.0-0.4) 05/02/20 06:36 Neut % (Auto) 82.8 % (45-73) H 05/02/20 06:36 Lymph % (Auto) 9.2 % (20-40) L 05/02/20 06:36 [place] % (Auto) 6.9 % (2-11) 05/02/20 06:36 Eos % (Auto) 0.6 % (0-4) 05/02/20 06:36 Baso % (Auto) 0.2 % (0-2) 05/02/20 06:36 Lymph # (Auto) 0.6 X10*3/uL (1.2-4.9) L 05/02/20 06:36 [place] # (Auto) 0.4 X10*3/uL (0.1-1.2) 05/02/20 06:36 Eos # (Auto) 0.0 X10*3/uL (0.0-0.4) 05/02/20 06:36 Baso # (Auto) 0.0 X10*3/uL (0.0-0.2) 05/02/20 06:36 Abs Immat Gran (auto) 0.02 X10*3/uL (0.00-0.03) 05/02/20 06:36 Absolute Neuts (auto) 5.2 X10*3/uL (2.0-8.3) 05/02/20 06:36 Absolute Nucleated RBC 0.000 X10*3/uL (0.0-0.012) 05/03/20 03:59 Nucleated RBC % (auto) 0.0 /100WBC (0.0-0.2) 05/03/20 03:59 Smear Tech's Comments VERIFIED 05/02/20 06:36 Sodium 143 mmol/L (135-145) 05/03/20 09:29 Potassium 3.3 mmol/l (3.3-5.1) 05/03/20 09:29 Chloride 105 mmol/L (96-108) 05/03/20 09:29 Carbon Dioxide 27 mmol/L (22-29) 05/03/20 09:29 Anion Gap 14 (-20) 05/03/20 09:29 BUN 26 mg/dL (9-16) H 05/03/20 09:29 Creatinine 1.23 mg/dL (0.5-1.4) 05/03/20 09:29 Estim Creat Clear Calc 54.7 05/03/20 09:29 Estimated GFR 57 05/03/20 09:29 Random Glucose 149 mg/dL (60-115) H D 05/03/20 09:29 Lactic Acid 0.8 mmol/L (0.5-2.0) 05/02/20 06:36 Calcium 8.6 mg/dL (8.4-10.2) 05/03/20 09:29 Total Bilirubin 0.3 mg/dL (0.0-1.0) 05/02/20 06:36 Direct Bilirubin 0.2 mg/dL (0.0-0.5) 05/02/20 06:36 AST 121 U/L (5-37) H 05/02/20 06:36 ALT 159 U/L (0-40) H 05/02/20 06:36 Alkaline Phosphatase 80 U/L (39-117) 05/02/20 06:36 Troponin I High Sens 85.3 ng/L (<3.5-35.0) H 05/02/20 08:49 B-Natriuretic Peptide 2367 pg/mL (<100) H 05/03/20 09:29 Total Protein 6.2 g/dL (6.5-8.0) L 05/02/20 06:36 Albumin 3.8 g/dL (3.5-5.0) 05/02/20 06:36 COVID-19 (ANIA) Negative (Negative) 05/02/20 08:49 COVID-19 Clin Com See Note 05/02/20 08:49 Preliminary micro results at discharge 05/02/20 06:36 Blood Culture - Preliminary Blood - Venous No growth after 48 hours. 05/02/20 06:36 Blood Culture - Preliminary Blood - Venous No growth after 48 hours. Discharge Plan Discharge Anticipated Discharge Date/Time: 05/04/20 09:25 Patient Disposition: Home, Self-Care Referrals: Deb Vital MD [Primary Care Provider] - Discharge Medications: New valsartan [Diovan] 160 mg tablet 160 mg PO BID Qty: 60 RF: 0 spironolactone [Aldactone] 25 mg tablet 25 mg PO DAILY Qty: 30 RF: 0 hydralazine 25 mg Tablet 25 mg PO BID Qty: 60 RF: 0 Continued carvedilol 25 mg tablet 25 mg PO BID RF: 0 atorvastatin 20 mg tablet 20 mg PO DAILY RF: 0 allopurinol 100 mg tablet 100 mg PO DAILY RF: 0 furosemide 40 mg tablet 40 mg PO DAILY Qty: 30 RF: 0 Discontinued lisinopril 30 mg tablet 30 mg PO DAILY RF: 0 hydralazine 50 mg tablet 50 mg PO BID RF: 0 No Action lisinopril 30 mg tablet 30 mg PO DAILY RF: 0 metoclopramide HCl 10 mg tablet 10 mg PO Q6H PRN (Reason: nausea and vomiting) Qty: 30 RF: 0 Discharge Orders: Discharge Order (Routine); Ordered 05/04/20 Ordered By: Flo Peace Diet: advance to usual diet and low salt diet Activity on Discharge: As tolerated Discharge Date/Time: 05/04/20 13:08 Visit Report Forms: Patient Portal Discharge page Care Plan Goals: To prevent flare of heart failure Health Concerns: medication compliance Plan of Treatment: Take all medication including lasix, aldactone, diovan and lipitor as directed. Avoid drinking too much water and limit salt intak. Check daily weight and if your weight goes over 2 Ib a day, notify your primary care doctor or heart doctor. Make appointment to follow up with your docotor within a week
--- NOTE | 2020-05-04 10:54 | P.PNCA_ITS ---
Subjective Subjective Principal diagnosis: CHF Interval history: Patient is in good humor and feeling well today. Has diuresed well. Blood pressure still remains elevated. BNP still elevated yesterday. Shortness of breath has improved significantly. He has walked in the hallway without any significant issues. Review of Systems Constitutional: Denies body ache(s), Denies chills, Denies fever(s) and Denies weight gain Cardiovascular: Denies chest pain, Denies rapid heart rate, Denies lightheadedness, Denies Loss of Consciousness and Denies dyspnea Respiratory: Denies dyspnea Gastrointestinal: Reports no additional gastrointestinal complaints Musculoskeletal: Reports no additional musculoskeletal complaints Reports system reviewed and no additional complaints, except as documented Endocrine: Reports no additional endocrine complaints Physical Exam Vital Signs: Last Vital Signs Temp 98.0 F 05/04/20 07:50 Pulse 62 05/04/20 07:50 Resp 20 05/04/20 07:50 BP 186/76 H 05/04/20 07:50 Pulse Ox 93 05/04/20 07:50 Body Mass Index 32.3 Const General: cooperative, healthy appearing, no acute distress, alert and awake Nutritional Appearance: obese Orientation/consciousness: patient oriented x3 Limitations: no limitations HENMT Head: Yes normal to inspection, Yes normocephalic and Yes atraumatic Eyes General: appearance normal, both eyes and all related structures Neck Neck: Yes trachea midline, Yes supple and Yes no JVD Chest Chest palpation & inspection: normal inspection of the chest Resp Effort & Inspection: normal respiratory effort Auscultation: clear to auscultation bilaterally Cardio Palpation: abnormal PMI displaced PMI Rate: regular rate Rhythm: regular rhythm Heart sounds: S1 normal heart sound present, S2 normal heart sound present and Other heart sounds present (S4) Skin General skin exam: no rashes or lesions noted Neuro General: patient oriented x3 and no focal motor deficits Extrem General: Yes no clubbing, cyanosis or edema Psych Appearance: grossly normal Results Labs and Meds Result diagrams: 05/03/20 03:59 05/03/20 09:29 Progress Note: A&P Assessment and plan (1) Heart failure, systolic, with acute decompensation: Status: Acute Assessment and Plan: Heart failure exacerbation doing quite well. Appears to be euvolemic. Can be discharged home today today with p.o. Lasix 40 mg daily his usual dose. We discussed about heart failure management at home. Increase Lasix as needed was discussed with him as well. Daily weight monitoring and avoidance of salt loading was discussed. See other management as below. (2) Nonischemic cardiomyopathy: Status: Acute Assessment and Plan: Severe LV systolic dysfunction from before. Will repeat echocardiogram. Continue neurohormonal modulation with carvedilol and Diovan as well as added Aldactone yesterday. Will eventually as outpatient switch to Entresto therapy. Will add hydralazine 25 mg b.i.d. to his regimen for better blood pressure cont rol. Importance of compliance with medication was discussed. Advised to follow up in the office in 2 weeks time. Thank you for allowing me to partake in his care Fall Risk Details Current Medications: Current Medications Generic Name Dose Route Start Last Admin Trade Name Freq PRN Reason Stop Dose Admin Acetaminophen 650 mg 05/02/20 10:07 Acetaminophen 325 Mg Tablet PO Q6H PRN Pain, Mild (Pain Scale 1-3) Al Hydroxide/Mg Hydroxide 30 ml 05/02/20 10:07 Magnesium Hydrox/Alum Hydrox 30 Ml Oral.Susp PO Q4H PRN Heartburn/Nausea Allopurinol 100 mg 05/03/20 09:00 05/04/20 08:26 Allopurinol 100 Mg Tablet PO 100 mg DAILY DEXTER Administration Atorvastatin Calcium 20 mg 05/03/20 09:00 05/04/20 08:26 Atorvastatin Calcium 20 Mg Tablet PO 20 mg DAILY DEXTER Administration Carvedilol 25 mg 05/02/20 10:07 05/04/20 08:26 Carvedilol 25 Mg Tablet PO 25 mg BID DEXTER Administration Protocol Enoxaparin Sodium 40 mg 05/02/20 11:00 05/03/20 11:54 Enoxaparin Sodium 40 Mg/0.4 Ml Syringe SUBCUT 40 mg Q24H DEXTER Administration Hydralazine HCl 25 mg 05/04/20 10:50 Hydralazine Hcl 25 Mg Tablet PO BID DEXTER Protocol Ondansetron HCl 4 mg 05/02/20 10:07 Ondansetron Hcl 4 Mg/2 Ml Vial IVPUSH Q8H PRN Nausea and Vomiting Pharmacy Consult 1 each 05/02/20 07:46 Consult Rx Perform Med Rec MISCELLANE ONCE PRN Consult order Sodium Chloride 3 ml 05/02/20 16:00 05/04/20 08:26 0.9 % Sodium Chloride Flush 3 Ml Syringe IVFLUSH 3 ml QSHIFT DEXTER Administration Spironolactone 25 mg 05/03/20 09:00 05/04/20 08:26 Spironolactone 25 Mg Tablet PO 25 mg DAILY DEXTER Administration Protocol Valsartan 160 mg 05/02/20 11:15 05/04/20 08:26 Valsartan 160 Mg Tablet PO 160 mg BID DEXTER Administration Protocol Time Spent With Patient Time: Total time spent is greater than 50% in coordination of care (as documented) at patient's floor/unit and/or counseling patient: Time with patient: 15 - 24 minutes Procedures Abscess I/D Date of Service: 05/04/20
[2020-05-04] MEDS: hydrALAZINE HCl 25 MG TABLET PO (11:12)
--- NOTE | 2020-05-04 11:26 | MHC.CM.PN ---
pt expected to dc today home no servceliais
[2020-05-04 11:41] VITALS: BP 152/79; PULSE 58; RESP 18; TEMP 37; O2SAT 97
== END 2020-05-04 13:08 | disposition home or self-care (01) | DRG 293 ==
LOC: HO.ED 08:17 → HO.IMC 09:45
PROVIDERS: Admitting Provider Student in an Organized Health Care Education/Training Program; Emergency Provider Emergency Medicine; PCP Internal Medicine; Visit Provider Internal Medicine
DX: I11.0 Hypertensive heart disease with heart failure (principal); I50.23 Acute on chronic systolic (congestive) heart failure; I42.8 Other cardiomyopathies; E78.00 Pure hypercholesterolemia, unspecified; M10.9 Gout, unspecified; Z20.828 Contact with and (suspected) exposure to other viral communicable diseases; E66.9 Obesity, unspecified; Z68.32 Body mass index [BMI] 32.0-32.9, adult; Z79.899 Other long term (current) drug therapy
CPT/HCPCS: 36415; 71045; 80048; 80076; 83605; 83880; 84484; 85025; 85027; 87040; 87635; 93005; 96374; 96375; 99284; 99285; J1650; J1940

== ENCOUNTER 2020-05-11 13:06 | Outpatient (REF) | payer MEDICARE, SELFPAY ==
[2020-05-11 15:20] LABS: Anion Gap 11 (12-20); Blood Urea Nitrogen 19 mg/dL (9-16); Calcium 8.3 mg/dL (8.4-10.2); Carbon Dioxide 31 mmol/L (22-29); Chloride 106 mmol/L (96-108); Estimated Glomerular Filt Rate 49; Glucose Random 92 mg/dL (60-115); Sodium 144 mmol/L (135-145)
[2020-05-11 15:30] LABS: B Type Natriuretic Peptide 3486 pg/mL (<100)
== END 2020-05-11 13:07 | disposition home or self-care (01) ==
LOC: HO.LAB 13:06
PROVIDERS: PCP Internal Medicine; Visit Provider Internal Medicine Cardiovascular Disease
DX: I50.23 Acute on chronic systolic (congestive) heart failure (principal); I42.8 Other cardiomyopathies; I10 Essential (primary) hypertension
CPT/HCPCS: 80048; 83880

== ENCOUNTER → 2020-05-22 07:24 | Outpatient (REF) | payer MEDICARE, SELFPAY ==
--- NOTE | 2020-05-22 07:27 | CA_ITS ---
Transthoracic Echocardiogram Patient (Last, First, Middle): Tray Bey, Gender: Male Date of : 1945 Age: 74 Procedure Date: 05/22/2020 Procedure Type: Transthoracic Echocardiogram Location: OP Height: 175.26 cm Weight: 81.65 kg BSA: 1.98 m2 Heart Rate: bpm BP: 124 / 78 mmHg Press Writer: Referring MD: Lorenzo Jordan MD Industrial Relations Analyst: Lorenzo Jordan MD Symptoms: I50.23 - Acute on chronic systolic (congestive) heart failure Study Quality: Good ECG Rhythm: Sinus Conclusions: - 1. Moderately dilated LV with moderate LVH with severe LV systolic dysfunction with LVEF of 25-30% 2. Severely dilated left atrium 3. Moderate mitral regurgitation 4. Normal RV systolic pressure 5. No pericardial effusion Findings Left Ventricle Moderately increased left ventricular cavity size. There is moderately increased left ventricular wall thickness. The left ventricular systolic function is severely decreased. The visually estimated ejection fraction is between 25-30%. There is severe global hypokinesis. Spectral Doppler is indicative of an impaired relaxation filling pattern. E/E prime ratio is between 8 and 15 consistent with indeterminate filling pressures. Right Ventricle Normal right ventricular cavity size and systolic function. Atria The left atrium is severely dilated. There is no evidence of interatrial shunt. The right atrium is mildly dilated. Aortic Valve Normal aortic valve structure and function. There is no aortic valve stenosis. There is no aortic valve regurgitation. Mitral Valve There is mild anterior and posterior mitral leaflet thickening. The anterior mitral leaflet has restricted mobility. There is moderate mitral valve regurgitation. The mitral regurgitation jet is directed posteriorly. There is no mitral valve stenosis. There is moderate mitral annular dilatation. Pulmonic Valve The pulmonic valve was not well visualized. Tricuspid Valve Likely normal tricuspid valve structure and function. There is mild tricuspid valve regurgitation. The right ventricular systolic pressure is normal. The right ventricular systolic pressure is 17 mmHg. Normal right atrial pressure. There is no evidence of pulmonary hypertension. Great Vessels All visible segments of the aorta are normal in size. The pulmonary artery was not well visualized. Venous The inferior vena cava is normal in size and collapses greater than 50% with inspiration. Pericardium/Pleural There is no evidence of pericardial effusion. Prior Study Comparison Changes noted compared to prior study dated: 02/23/2018. MR appears to be at least moderate Measurements 2D Linear Measurements IVSd: 1.45 0.6-0.9/0.6-1.0 cm LVIDd: 5.88 3.9-5.3/4.2-5.9 cm LVIDd Index: 2.97 2.4-3.2/2.2-3.1 cm/m2 LVIDs: 5.10 2.0-3.6 cm LVPWd: 1.48 0.7-1.1 cm Ao Root: 3.40 2.1-3.5 cm LA Diam: 5.50 2.7-3.8/3.0-4.0 cm LAIDs Index: 2.78 1.5-2.3 cm/m2 LV Mass: 499.72 67-162/88-224 g LV Mass Index: 252.38 43-95/49-115 g/m2 LVOT Diam: 2.50 3.0+(-)1.3 cm 2D Systolic Function EF 4C: 30.80 >55% EF 2C: 27.30 >55% Mitral Valve MV Pk E: 0.59 MV PK A: 0.66 MV Decel Time: 173.00 E/A: 0.90 E'Lateral: 5.90 E'Medial: 6.48 E/E' Med: 9.10 E/E' Lat: 10.00 PHT: 51.00 MVA PHT: 4.31 Decel [place]: 3.43 Aortic Valve AoV Pk Eugenio: 1.77 AoV Mn Eugenio: 1.19 AoV VTI: 0.37 AoV Pk Grad: 13.00 Aov Mn Grad: 7.00 ROJELIO Cont.VTI: 2.12 LVOT LVOT Pk Eugenio: 0.87 LVOT Mn Eugenio: 0.60 LVOT VTI: 0.16 LVOT Pk Grad: 3.00 LVOT Mn Grad: 2.00 LVOT Diam: 2.50 LVOT Area: 4.91 Diastolic Function MV Pk E: 0.59 MV Pk A: 0.66 E/A: 0.90 E'Medial: 6.48 E/E' Med: 9.10 E' Laterial: 5.90 E/E' Lat: 10.00 Tricuspid Valve TR Pk Eugenio: 1.84 TR Pk Grad: 14.00 RA Press: 3.00 RVSP: 17.00 Great Vessels Aorta Ao Root-2D: 3.40 2.0-3.7 cm Ao Asc: 3.30 2.1-3.4 cm Pulmonary Valve PV Pk Eugenio: 1.17 Peak PV Grad: 5.00 Updated in Other Vendor System with Status of Final Lorenzo Jordan MD electronically signed on 05/23/2020 1:01:55 PM with status of Final
== END ==
LOC: HO.CARD 07:24
PROVIDERS: PCP Internal Medicine; Visit Provider Internal Medicine Cardiovascular Disease
DX: I50.23 Acute on chronic systolic (congestive) heart failure (principal); I42.8 Other cardiomyopathies; I10 Essential (primary) hypertension
CPT/HCPCS: 93306

== ENCOUNTER → 2020-05-28 09:43 | Outpatient (BNVA) | payer MEDICARE, SELFPAY | PROVIDERS: PCP Internal Medicine; Referring Provider Internal Medicine; Visit Provider Nurse Practitioner Family | DX: I50.22 Chronic systolic (congestive) heart failure (principal); I42.0 Dilated cardiomyopathy; E78.00 Pure hypercholesterolemia, unspecified; I10 Essential (primary) hypertension; I25.10 Atherosclerotic heart disease of native coronary artery without angina pectoris; Z98.890 Other specified postprocedural states | CPT/HCPCS: 99212 ==

== ENCOUNTER 2020-07-02 10:20 | Outpatient (REF) | payer MEDICARE, SELFPAY ==
[2020-07-02 13:53] LABS: B Type Natriuretic Peptide 1585 pg/mL (<100)
== END 2020-07-02 10:21 | disposition home or self-care (01) ==
LOC: HO.LAB 10:20
PROVIDERS: PCP Internal Medicine; Visit Provider Nurse Practitioner Family
DX: I11.0 Hypertensive heart disease with heart failure (principal); I50.22 Chronic systolic (congestive) heart failure; I25.10 Atherosclerotic heart disease of native coronary artery without angina pectoris; E78.00 Pure hypercholesterolemia, unspecified; Z79.899 Other long term (current) drug therapy; Z98.890 Other specified postprocedural states
CPT/HCPCS: 36415; 83880; Q3014

== ENCOUNTER 2020-07-20 13:19 | Outpatient (REF) | payer MEDICARE, SELFPAY ==
[2020-07-20 14:30] LABS: MANUAL DIFF FLAG NO
[2020-07-20 14:35] LABS: Eosinophils Absolute Auto 0.2 X10*3/uL (0.0-0.4); Eosinophils Percent Auto 4.1 % (0-4); Hematocrit 38.8 % (42-52); Hemoglobin 12.4 g/dl (14.0-18.0); Lymphocytes Absolute Auto 1.2 X10*3/uL (1.2-4.9); Lymphocytes Percent Auto 32.7 % (20-40); Mean Corpuscular Hemoglobin 31.4 pg (27.0-33.0); Mean Corpuscular Volume 98.2 fL (80-98); Mean Platelet Volume 10.6 fL (9.4-12.4); Monocytes Absolute Auto 0.4 X10*3/uL (0.1-1.2); Monocytes Percent Auto 11.6 % (2-11); Neutrophils Absolute Auto 1.9 X10*3/uL (2.0-8.3); Neutrophils Percent Auto 51.6 % (45-73); Platelet Count 201 X10*3/uL (160-400); Red Blood Count 3.95 X10*6/uL (4.60-5.80); Red Cell Distribution Width 14.8 % (11.0-16.0); White Blood Count 3.7 X10*3/uL (4.8-10.8)
[2020-07-20 15:04] LABS: Alanine Aminotransferase 9 U/L (0-40); Albumin Level 4.3 g/dL (3.5-5.0); Alkaline Phosphatase 54 U/L (39-117); Anion Gap 11 (12-20); Aspartate Amino Transferase 16 U/L (5-37); Bilirubin Total 0.6 mg/dL (0.0-1.0); Blood Urea Nitrogen 24 mg/dL (9-16); Calcium 9.2 mg/dL (8.4-10.2); Carbon Dioxide 32 mmol/L (22-29); Chloride 108 mmol/L (96-108); Cholesterol 142 mg/dL; Estimated Glomerular Filt Rate 54; Glucose Random 97 mg/dL (60-115); HDL Cholesterol 51 mg/dL; LDL Cholesterol Calculated 75 mg/dl; Potassium 4.4 mmol/L (3.3-5.1); Sodium 147 mmol/L (135-145); Total Protein 7.2 g/dL (6.5-8.0); Triglycerides 82 mg/dL
== END 2020-07-20 13:20 | disposition home or self-care (01) ==
LOC: HO.LAB 13:19
PROVIDERS: PCP Internal Medicine; Visit Provider Nurse Practitioner Family
DX: E78.00 Pure hypercholesterolemia, unspecified (principal); I11.0 Hypertensive heart disease with heart failure; I50.22 Chronic systolic (congestive) heart failure
CPT/HCPCS: 36415; 80053; 80061; 85025

== ENCOUNTER → 2020-08-21 12:30 | Outpatient (BNVA) | payer MEDICARE, SELFPAY | PROVIDERS: PCP Internal Medicine; Visit Provider Nurse Practitioner Family | DX: I50.22 Chronic systolic (congestive) heart failure (principal); I42.0 Dilated cardiomyopathy; E78.00 Pure hypercholesterolemia, unspecified; I10 Essential (primary) hypertension; I25.10 Atherosclerotic heart disease of native coronary artery without angina pectoris; Z98.890 Other specified postprocedural states | CPT/HCPCS: 99212 ==

== ENCOUNTER 2020-08-23 12:41 | Outpatient (REF) | payer MEDICARE, SELFPAY ==
[2020-08-23 13:13] LABS: MANUAL DIFF FLAG NO
[2020-08-23 13:20] LABS: Basophils Percent Auto 0.3 % (0-2); Eosinophils Absolute Auto 0.2 X10*3/uL (0.0-0.4); Hematocrit 40.1 % (42-52); Hemoglobin 12.7 g/dl (14.0-18.0); Imm Gran Abs Auto 0.01 X10*3/uL (0.00-0.03); Imm Gran Pct Auto 0.3 % (0.0-0.4); Lymphocytes Absolute Auto 1.2 X10*3/uL (1.2-4.9); Lymphocytes Percent Auto 33.8 % (20-40); Mean Corpuscular HGB Conc 31.7 g/dl (31.0-36.0); Mean Corpuscular Hemoglobin 31.4 pg (27.0-33.0); Mean Platelet Volume 10.6 fL (9.4-12.4); Monocytes Absolute Auto 0.5 X10*3/uL (0.1-1.2); Monocytes Percent Auto 15.3 % (2-11); Neutrophils Absolute Auto 1.5 X10*3/uL (2.0-8.3); Neutrophils Percent Auto 45.3 % (45-73); Platelet Count 196 X10*3/uL (160-400); Red Blood Count 4.05 X10*6/uL (4.60-5.80); Red Cell Distribution Width 14.6 % (11.0-16.0); White Blood Count 3.4 X10*3/uL (4.8-10.8)
[2020-08-23 13:44] LABS: Alanine Aminotransferase 20 U/L (0-40); Albumin Level 4.3 g/dL (3.5-5.0); Alkaline Phosphatase 71 U/L (39-117); Anion Gap 13 (12-20); Aspartate Amino Transferase 16 U/L (5-37); Bilirubin Total 0.4 mg/dL (0.0-1.0); Blood Urea Nitrogen 24 mg/dL (9-16); Calcium 9.4 mg/dL (8.4-10.2); Carbon Dioxide 29 mmol/L (22-29); Chloride 108 mmol/L (96-108); Cholesterol 141 mg/dL; Estimated Glomerular Filt Rate 47; Glucose Fasting 92 mg/dL (60-99); HDL Cholesterol 49 mg/dL; LDL Cholesterol Calculated 70 mg/dl; Potassium 4.1 mmol/L (3.3-5.1); Sodium 146 mmol/L (135-145); Total Protein 7.3 g/dL (6.5-8.0); Triglycerides 110 mg/dL
== END 2020-08-23 12:42 | disposition home or self-care (01) ==
LOC: HO.LAB 12:41
PROVIDERS: Nurse Practitioner Family; Visit Provider Nurse Practitioner Family
DX: I10 Essential (primary) hypertension (principal)
CPT/HCPCS: 36415; 80053; 80061; 85025

== ENCOUNTER → 2020-08-28 12:40 | Outpatient (REF) | payer MEDICARE, SELFPAY ==
--- NOTE | 2020-08-28 12:44 | CA_ITS ---
Transthoracic Echocardiogram Patient (Last, First, Middle): Tray Bey, Gender: Male Date of : 1945 Age: 75 Procedure Date: 08/28/2020 Procedure Type: Transthoracic Echocardiogram Location: OP Height: 182.88 cm Weight: 90.72 kg BSA: 2.13 m2 Heart Rate: bpm BP: 146 / 73 mmHg Rn Endocrinology: ILIA Referring MD: Charlene Mccray CARD PLAYERAdis Symptoms: I42.0 - Dilated cardiomyopathy Study Quality: Fair ECG Rhythm: Sinus Conclusions: - The left ventricular systolic function is severely decreased. The visually estimated ejection fraction is between 15-20%. Findings Left Ventricle Severely increased left ventricular cavity size. The left ventricular systolic function is severely decreased. The visually estimated ejection fraction is between 15-20%. Venous The inferior vena cava is normal in size and collapses greater than 50% with inspiration. Prior Study Comparison No significant change compared to prior study dated: 05/22/2020. Measurements M-Mode Liner Measurements Normals - Women/Men LVIDd: 7.33 3.9-5.3/4.2-5.9 cm LVIDd Index: 3.44 1.9-3.2 cm/m2 LVIDs: 6.27 2.0-3.8 cm M-Mode Volumes LV EDV: 283.00 LV ESV: 199.00 2D Linear Measurements LVIDd: 6.85 3.9-5.3/4.2-5.9 cm LVIDd Index: 3.22 2.4-3.2/2.2-3.1 cm/m2 LVIDs: 6.18 2.0-3.6 cm 2D Systolic Function EF 4C: 36.40 >55% EF 2C: 33.90 >55% M-Mode Systolic Function FS: 14.50 27-47/25-43% LVEF: 29.70 >55% Mitral Valve MV Pk E: 0.39 MV PK A: 0.72 MV Decel Time: 364.00 E/A: 0.50 E'Lateral: 4.24 E'Medial: 5.11 E/E' Med: 7.70 E/E' Lat: 9.30 PHT: 107.00 MVA PHT: 2.06 Decel [place]: 1.08 Diastolic Function MV Pk E: 0.39 MV Pk A: 0.72 E/A: 0.50 E'Medial: 5.11 E/E' Med: 7.70 E' Laterial: 4.24 E/E' Lat: 9.30 Tricuspid Valve RA Press: 3.00 Updated in Other Vendor System with Status of Final Jm Starr MD electronically signed on 08/29/2020 4:44:52 PM with status of Final
== END ==
LOC: HO.CARD 12:40
PROVIDERS: Visit Provider Nurse Practitioner Family
DX: I25.10 Atherosclerotic heart disease of native coronary artery without angina pectoris (principal); I42.0 Dilated cardiomyopathy
CPT/HCPCS: 93308

== ENCOUNTER → 2020-09-21 11:31 | Outpatient (BNVA) | payer MEDICARE, SELFPAY | PROVIDERS: PCP Internal Medicine; Visit Provider Nurse Practitioner Family | DX: I11.0 Hypertensive heart disease with heart failure (principal); I50.22 Chronic systolic (congestive) heart failure; I42.0 Dilated cardiomyopathy; I25.10 Atherosclerotic heart disease of native coronary artery without angina pectoris; E78.00 Pure hypercholesterolemia, unspecified; Z98.890 Other specified postprocedural states; Z79.899 Other long term (current) drug therapy | CPT/HCPCS: Q3014 ==

== ENCOUNTER 2022-05-27 14:13 | Inpatient (IN) | payer MEDICARE, SELFPAY ==
--- NOTE | ~2022-05-27 | XR_ITS ---
EXAMINATION: XR CHEST CLINICAL INFORMATION: Chest pain COMPARISON: Chest x-ray 05/02/2022 TECHNIQUE: 2 views of the chest were obtained. FINDINGS: Heart size mildly enlarged. Mild prominence of the central pulmonary vessels. No overt pulmonary edema. There are small bilateral pleural effusions blunting costophrenic angles bilaterally. No focal consolidation. No pneumothorax. Compared to prior chest x-ray 05/02/2022 severity of the pulmonary vascular congestion is slightly improved however the pleural effusions have increased in volume. XR/XR chest 2V IMPRESSION: Cardiomegaly. Mild pulmonary vascular congestion. Small bilateral pleural effusions.
--- NOTE | 2022-05-27 14:49 | ECG_ITS ---
Test Reason : chest pain Blood Pressure : / mmHG Vent. Rate : 099 BPM Atrial Rate : 099 BPM P-R Int : 166 ms QRS Dur : 130 ms QT Int : 408 ms P-R-T Axes : 065 -16 147 degrees QTc Int : 523 ms Normal sinus rhythm Possible Left atrial enlargement Left bundle branch block Abnormal ECG When compared with ECG of 02-MAY-2020 06:21, No significant change was found Referred By: Hannah Pemberton Electronically Signed By:KELLY LUCIO MD
[2022-05-27 15:11] VITALS: BP 162/109; PULSE 99; RESP 16; TEMP 36.3; O2SAT 98; BMI 26.5
[2022-05-27 15:14] VITALS: BP 150/96
--- NOTE | 2022-05-27 15:15 | ED_ITS ---
HPI - General Adult General Chief complaint: Chest Pain <Hannah Pemberton MD - Last Filed: 05/27/22 15:16> Stated complaint: Chest pain/abd pain sent by pcp <Hannah Pemberton MD - Last Filed: 05/27/22 15:16> Time Seen by Provider: 05/27/22 16:24 <Hannah Pemberton MD - Last Filed: 05/27/22 15:16> Source: patient <Paco Hernandez MD - Last Filed: 05/28/22 01:09> History of Present Illness HPI narrative: Patient is 76 years old with history of hypertension, hyperlipidemia, nonobstructive CAD, nonischemic cardiomyopathy, chronic systolic heart failure with ejection fraction 25-30% comes to the ER for choking feeling the chest for last 2 months apparently patient did not take all of his medication for last 2 months for different reasons as he was busy. Patient feels more shortness of breath when he lays flat or when ambulates On arrival in the triage patient blood pressure was 162/109 pulse rate 99 saturating 98% at room air lab workup done in triage prior to my evaluation showed normal CBC creatinine of 1.42, elevated troponin to 269.4 and BNP 2710 EKG with left bundle-branch block without any significant change <Paco Hernandez MD - Last Filed: 05/28/22 01:09> Related Data Home medications: Home Medications Medication Instructions Recorded Confirmed cyanocobalamin (vitamin B-12) 500 500 mcg PO DAILY 05/27/22 05/27/22 mcg tablet valsartan 160 mg tablet 1 tab PO BID 05/27/22 05/27/22 Previous Rx's Medication Instructions Recorded hydralazine 50 mg tablet 50 mg PO BID #180 tabs 07/19/21 furosemide 40 mg tablet 40 mg PO DAILY #90 tabs 03/31/22 atorvastatin 20 mg tablet 20 mg PO DAILY #90 tabs 05/06/22 carvedilol 25 mg tablet 25 mg PO BID #180 tabs 05/06/22 <Hannah Pemberton MD - Last Filed: 05/27/22 15:16> Allergies/adverse reactions: Allergies Allergy/AdvReac Type Severity Reaction Status Date / Time No Known Allergies Allergy Verified 10/02/21 15:46 [No Known Allergies*] <Hannah Pemberton MD - Last Filed: 05/27/22 15:16> Review of Systems Review of Systems: Yes all other systems are reviewed and are negative <Paco Hernandez MD - Last Filed: 05/28/22 01:09> [facility] Past Medical History Medical History: Medical History CAD (coronary artery disease) CHF (congestive heart failure) Chronic systolic HF (heart failure) Dilated cardiomyopathy High cholesterol HTN (hypertension) Hypercholesteremia Hypertension Nonischemic cardiomyopathy Obesity <Hannah Pemberton MD - Last Filed: 05/27/22 15:16> Surgical History: Surgical History H/O hernia repair History of cardiac cath (~05/2016) <Hannah Pemberton MD - Last Filed: 05/27/22 15:16> Family History Family History: Family History Father Hypertension Mother Stomach cancer <Hannah Pemberton MD - Last Filed: 05/27/22 15:16> Social History Social History: Social History Household Members: Spouse Housing: House Housing Other:: lives in a 2 family home per pt Do you presently have visiting nurse or other home services: Yes (Once a year per pt) Alcohol intake: never Patient Tobacco Use Status: Never used Tobacco Second Hand Smoke Exposure: No Advance Directives: No Advance Directives Information Provided: No service: No Current occupational status: retired Cognitive needs: No Hearing needs: No Vision needs: No <Hannah Pemberton MD - Last Filed: 05/27/22 15:16> Physical Exam ED Vital Signs: Vital Signs - 24 hr 05/27/22 15:11 05/27/22 15:14 05/27/22 17:07 Temperature 97.3 F 98.7 F Pulse Rate 99 93 Respiratory Rate 16 20 Blood Pressure 162/109 H 150/96 H 152/95 H Pulse Oximetry 98 94 Oxygen Delivery Method Room Air Room Air BMI result Body Mass Index 26.5 <Hannah Pemberton MD - Last Filed: 05/27/22 15:16> Vital Signs - 24 hr 05/27/22 15:11 05/27/22 15:14 05/27/22 17:07 Temperature 97.3 F 98.7 F Pulse Rate 99 93 Respiratory Rate 16 20 Blood Pressure 162/109 H 150/96 H 152/95 H Pulse Oximetry 98 94 Oxygen Delivery Method Room Air Room Air BMI result Body Mass Index 26.5 <Paco Hernandez MD - Last Filed: 05/28/22 01:09> Appearance: Alert. Oriented X3. No acute distress. Eyes: pallor++ ENT: Pharynx normal. Oral Mucosa moist Neck: Normal inspection. Neck supple. CVS: Normal heart rate and rhythm. Pulses normal. Respiratory: No respiratory distress. Equal air entry bilateral, decreased air entry bilateral with few crackles at the bases Abdomen: Soft and nontender. Bowel sounds are present, no mass palpable, no CVA tenderness Skin: Skin warm and dry. Normal skin color. Normal skin turgor. Extremities: 1+ lower extremity edema. No calf tenderness Neuro: Oriented X 3. No motor deficit. No sensory deficit.No cerebellar signs , cranial nerves II-XII intact <Paco Hernandez MD - Last Filed: 05/28/22 01:09> Course Course Course Narrative: 76M p/w feeling like a southern biscuit is stuck right there in the middle of the chest for 2 weeks. Denies lower extremity swelling/orthopnea/blood thinner use, fevers, chills. VS Reviewed GEN: NAD EARS: wnl THROAT: wnl LUNGS: CTAB CVS: RRR ABD: NT/ND <Hannah Pemberton MD - Last Filed: 05/27/22 15:16> Medications Administered Generic Name Dose Route Start Last Admin Trade Name Freq PRN Reason Stop Dose Admin Carvedilol 25 mg 05/27/22 21:00 05/27/22 21:50 Carvedilol 25 Mg Tablet PO 25 mg BID DEXTER Administration Protocol Furosemide 40 mg 05/27/22 18:00 05/27/22 18:06 Furosemide 40 Mg/4 Ml Vial IVPUSH Not Given BID@0900,1800 [facility] Protocol Hydralazine HCl 50 mg 05/27/22 21:00 05/27/22 21:50 Hydralazine Hcl 50 Mg Tablet PO 50 mg BID DEXTER Administration Protocol Sodium Chloride 3 ml 05/28/22 00:00 05/28/22 00:10 0.9 % Sodium Chloride Flush 3 Ml Syringe IVFLUSH Not Given QSHIFT [facility] Valsartan 160 mg 05/27/22 21:00 05/27/22 21:50 Valsartan 160 Mg Tablet PO 160 mg BID [facility] Administration Protocol Discontinued Medications Generic Name Dose Route Start Last Admin Trade Name Freq PRN Reason Stop Dose Admin Furosemide 20 mg 05/27/22 16:42 05/27/22 16:55 Furosemide 20 Mg/2 Ml Vial IVPUSH 05/27/22 16:43 20 mg ONCE ONE Administration Protocol Nitroglycerin 0.5 inch 05/27/22 16:43 05/27/22 16:55 Nitroglycerin 2 % Oint 1 Gm Packet TRANSDERMA 05/27/22 16:44 0.5 inch ONCE ONE Administration <Hannah Pemberton MD - Last Filed: 05/27/22 15:16> Medications Administered Generic Name Dose Route Start Last Admin Trade Name Freq PRN Reason Stop Dose Admin Carvedilol 25 mg 05/27/22 21:00 05/27/22 21:50 Carvedilol 25 Mg Tablet PO 25 mg BID [facility] Administration Protocol Furosemide 40 mg 05/27/22 18:00 05/27/22 18:06 Furosemide 40 Mg/4 Ml Vial IVPUSH Not Given BID@0900,1800 [facility] Protocol Hydralazine HCl 50 mg 05/27/22 21:00 05/27/22 21:50 Hydralazine Hcl 50 Mg Tablet PO 50 mg BID [facility] Administration Protocol Sodium Chloride 3 ml 05/28/22 00:00 05/28/22 00:10 0.9 % Sodium Chloride Flush 3 Ml Syringe IVFLUSH Not Given QSHIFT [facility] Valsartan 160 mg 05/27/22 21:00 05/27/22 21:50 Valsartan 160 Mg Tablet PO 160 mg BID [facility] Administration Protocol Discontinued Medications Generic Name Dose Route Start Last Admin Trade Name Freq PRN Reason Stop Dose Admin Furosemide 20 mg 05/27/22 16:42 05/27/22 16:55 Furosemide 20 Mg/2 Ml Vial IVPUSH 05/27/22 16:43 20 mg ONCE ONE Administration Protocol Nitroglycerin 0.5 inch 05/27/22 16:43 05/27/22 16:55 Nitroglycerin 2 % Oint 1 Gm Packet TRANSDERMA 05/27/22 16:44 0.5 inch ONCE ONE Administration <Paco Hernandez MD - Last Filed: 05/28/22 01:09> Medical Decision Making Medical Decision Making MDM Narrative: Patient with fluid overload with elevated BNP level elevated troponin without any significant delta change or ischemic changes EKG will admit patient for IV diuresis extractor filler to follow <Paco Hernandez MD - Last Filed: 05/28/22 01:09> Differential Diagnoses: Differential diagnosis (ACS/CHF/bronchitis/pneumonia/PE) Differential Diagnosis: The differential diagnosis associated with the patient?s presentation includes: <Paco Hernandez MD - Last Filed: 05/28/22 01:09> Lab Attestation: I reviewed the patient's lab results. <Paco Hernandez MD - Last Filed: 05/28/22 01:09> Independent interpretation of EKG, rhythm strip, radiology study: Independent interp EKG,rhythm strip, radiology study I performed an independent interpretation of the: EKG My interpretation is normal sinus rhythm heart rate 99 beats per minute left bundle-branch block no acute ST T wave changes no acute ischemia <Paco Hernandez MD - Last Filed: 05/28/22 01:09> Discharge Plan Discharge Clinical Impression: Congestive heart failure, Non-STEMI (non-ST elevated myocardial infarction) <Hannah Pemberton MD - Last Filed: 05/27/22 15:16> Patient Disposition: Admitted As Inpatient <Hannah Pemberton MD - Last Filed: 05/27/22 15:16>
[2022-05-27 15:31] LABS: MANUAL DIFF FLAG NO
[2022-05-27 15:42] LABS: Basophils Percent Auto 0.3 % (0-2); Eosinophils Absolute Auto 0.1 X10*3/uL (0.0-0.4); Eosinophils Percent Auto 2.3 % (0-4); Hematocrit 40.2 % (42.0-52.0); Imm Gran Abs Auto 0.01 X10*3/uL (0.00-0.03); Imm Gran Pct Auto 0.3 % (0.0-0.4); Lymphocytes Percent Auto 26.4 % (20-40); Mean Corpuscular HGB Conc 32.3 g/dl (31.0-36.0); Mean Corpuscular Hemoglobin 30.8 pg (27.0-33.0); Mean Corpuscular Volume 95.3 fL (80.0-98.0); Mean Platelet Volume 10.4 fL (9.4-12.4); Monocytes Absolute Auto 0.5 X10*3/uL (0.1-1.2); Neutrophils Absolute Auto 2.2 x10*3/uL (2.0-8.3); Neutrophils Percent Auto 56.7 % (45-73); Platelet Count 196 X10*3/uL (160-400); Red Blood Count 4.22 X10*6/uL (4.60-5.80); White Blood Count 3.9 X10*3/uL (4.8-10.8)
[2022-05-27 15:47] LABS: INTERNATIONAL NORM RATIO 1.1 (0.9-1.1); Prothrombin Time 12.4 SEC (10.0-13.1)
[2022-05-27 16:03] LABS: Alanine Aminotransferase 46 U/L (0-40); Albumin Level 3.8 g/dL (3.5-5.0); Alkaline Phosphatase 53 U/L (39-117); Anion Gap 10 (12-20); Aspartate Amino Transferase 35 U/L (5-37); Bilirubin Total 0.6 mg/dL (0.0-1.0); Blood Urea Nitrogen 24 mg/dL (9-16); Calcium 9.5 mg/dL (8.4-10.2); Carbon Dioxide 29 mmol/L (22-29); Chloride 112 mmol/L (96-108); Creatinine Clr Calc Pharmacy 44.9; Estimated Glomerular Filt Rate 48; Glucose Random 94 mg/dL (60-115); Sodium 146 mmol/L (135-145); Total Protein 6.2 g/dL (6.5-8.0)
[2022-05-27 16:07] LABS: B Type Natriuretic Peptide 2710 pg/mL (<100)
[2022-05-27 16:18] LABS: Troponin-I High Sensitivity 269.4 ng/L (<3.5-35.0)
[2022-05-27] MEDS: Nitroglycerin 2 % Oint 1 GM Packet 0.5 INCH TRANSDERMA (16:55)
[2022-05-27] MEDS: Furosemide 20 MG/2 ML VIAL IVPUSH (16:55)
[2022-05-27 17:07] VITALS: BP 152/95; PULSE 93; RESP 20; TEMP 37.1; O2SAT 94
--- NOTE | 2022-05-27 17:51 | PM.IMHP ---
History of Present Illness Date of Service: 05/27/22 [facility] Chief Complaint: Shortness of breath 76-year-old man presented to the ER with complaints of worsening shortness of breath and chest pressure. His was present during the interview and stated that their daughter had been his pills into a pillbox however patient reports that he has been taking his medications in over 3 months. His stated that about 3 months ago is when his daughter stops his pills however his did not realize that he was not taking the pills on his own. Patient did state that he has felt more short of breath especially with exertion, he denies orthopnea, chest pain, nausea, vomiting, diarrhea. In the ER, his blood pressure was noted to be elevated at 160 2/109, heart rate 99, oxygen saturation 98% room air. His troponin was 269.4 with BNP of 2710, creatinine 1.42. EKG showed left bundle-branch block without any significant change from previous. Patient was given a dose of IV Lasix in topical nitroglycerin in the ER. He will be admitted for further management and treatment of acute on chronic heart failure with reduced ejection fraction. Review of Systems Review of Systems: Denies any recent fever chills or decrease in appetite respiratory denies any shortness of breath coverage production cardiovascular denies chest pain gastrointestinal denies any dysphagia abdominal pain nausea vomiting or diarrhea genitourinary denies any dysuria frequency or hematuria musculoskeletal denies any joint pain or swelling neuropsych denies any weakness or seizures all other systems reviewed are negative [facility] Medical History CAD (coronary artery disease) CHF (congestive heart failure) Chronic systolic HF (heart failure) Dilated cardiomyopathy High cholesterol HTN (hypertension) Hypercholesteremia Hypertension Nonischemic cardiomyopathy Obesity Family History Father Hypertension Mother Stomach cancer Surgical History H/O hernia repair History of cardiac cath (~05/2016) Social History Household Members: Spouse Housing: House Housing Other:: lives in a 2 family home per pt Do you presently have visiting nurse or other home services: No Alcohol intake: never Patient Tobacco Use Status: Never used Tobacco e-Cigarette/Vaping Use: Never Used Second Hand Smoke Exposure: No (n/a) Advance Directives Date on File: 05/28/22 service: No Current occupational status: retired Cognitive needs: No Hearing needs: No Vision needs: No Meds Allergies Allergy/AdvReac Type Severity Reaction Status Date / Time No Known Allergies Allergy Verified 10/02/21 15:46 [No Known Allergies*] Active Medications: Current Medications Acetaminophen (Acetaminophen 325 Mg Tablet) 650 mg PO Q6H PRN PRN Reason: Pain, Mild (Pain Scale 1-3) Sodium Chloride (0.9 % Sodium Chloride Flush 3 Ml Syringe) [facility] Medications Medication Instructions Recorded Confirmed Last Taken Type cyanocobalamin (vitamin B-12) 500 500 mcg PO DAILY 05/27/22 05/27/22 Unknown History mcg tablet valsartan 160 mg tablet 1 tab PO BID 05/27/22 05/27/22 Unknown History Physical Exam Vital Signs and Narrative: Vital Signs: Last Vital Signs Temp 98.7 F 05/27/22 17:07 Pulse 93 05/27/22 17:07 Resp 20 05/27/22 17:07 BP 152/95 H 05/27/22 17:07 Pulse Ox 94 05/27/22 17:07 O2 Del Method 05/27/22 17:07 BMI result Body Mass Index 26.5 Appearing in no acute distress head is normocephalic atraumatic eyes pupils are PERRLA sclera is anicteric mouth throat mucous membranes are intact and moist JVD noted lung sounds scattered rales heart regular rate rhythm, clear S1, S2, +1 bilateral lower extremity pitting edema positive bowel sounds, abdomen is soft, nontender neuro patient is alert x3, no focal deficits Results Labs CBC and Chem 7: 05/27/22 15:24 05/30/22 06:02 Labs: Laboratory Results - last 24 hr 05/27/22 05/27/22 05/27/22 15:24 15:24 15:24 MCV 95.3 MCH 30.8 MCHC 32.3 RDW 14.0 Plt Count 196 MPV 10.4 Immature Gran % (Auto) 0.3 Neut % (Auto) 56.7 Lymph % (Auto) 26.4 [place] % (Auto) 14.0 H Eos % (Auto) 2.3 Baso % (Auto) 0.3 Lymph # (Auto) 1.0 L [place] # (Auto) 0.5 Eos # (Auto) 0.1 Baso # (Auto) 0.0 Abs Immat Gran (auto) 0.01 Absolute Neuts (auto) 2.2 Absolute Nucleated RBC 0.000 Nucleated RBC % (auto) 0.0 PT 12.4 INR 1.1 Anion Gap 10 L Estim Creat Clear Calc 44.9 Estimated GFR 48 Random Glucose 94 Calcium 9.5 Total Bilirubin 0.6 AST 35 ALT 46 H Alkaline Phosphatase 53 Troponin I High Sens B-Natriuretic Peptide Total Protein 6.2 L Albumin 3.8 05/27/22 05/27/22 15:24 15:24 MCV MCH MCHC RDW Plt Count MPV Immature Gran % (Auto) Neut % (Auto) Lymph % (Auto) [place] % (Auto) Eos % (Auto) Baso % (Auto) Lymph # (Auto) [place] # (Auto) Eos # (Auto) Baso # (Auto) Abs Immat Gran (auto) Absolute Neuts (auto) Absolute Nucleated RBC Nucleated RBC % (auto) PT INR Anion Gap Estim Creat Clear Calc Estimated GFR Random Glucose Calcium Total Bilirubin AST ALT Alkaline Phosphatase Troponin I High Sens 269.4 H* B-Natriuretic Peptide 2710 H Total Protein Albumin Imaging Radiologist's Impressions: Impressions Chest X-Ray 05/27/22 15:50 IMPRESSION: Cardiomegaly. Mild pulmonary vascular congestion. Small bilateral pleural effusions. Assessment and Plan (1) Congestive heart failure: Status: Acute Plan 76-year-old man with a significant history of ischemic cardiomyopathy, CAD admitted with acute on chronic congestive heart failure with reduced ejection fraction with noted dyspnea and chest pressure Acute on chronic congestive heart failure with reduced ejection fraction Reported that he had not taken his medications in over 3 months BNP 2710 Will start Lasix 40 mg twice daily Continue beta-malgorzata, aspirin and statin Echocardiogram Cardiology consultation Monitor on telemetry Daily weights, strict intake and output LIANA on CKD3 Secondary to acute heart failure Diurese Consider Nephrology consultation if no improvement diuresis Hypernatremia Secondary to fluid overload Diurese and monitor electrolytes Elevated troponin Likely secondary to acute heart failure however will repeat Is significantly elevated discussed with cardiology Hypertension Continue valsartan Needs good blood pressure control DVT prophylaxis with heparin Full code Patient will require 2 inpatient midnights for treatment of acute on chronic congestive heart failure requiring IV diuretics as well as close monitoring of his renal function Quality Stroke Does the patient have a stroke diagnosis?: No VTE Prior VTE?: No VTE Risk Level:: Medical - moderate - high VTE Device Contraindication: Treatment Not Indicated VTE Drug Contraindication: N/A - Med Ordered
[2022-05-27 18:03] LABS: Troponin-I High Sensitivity 344.1 ng/L (<3.5-35.0)
[2022-05-27 18:30] LABS: COVID-19 Test Negative (Negative); IDNOW Serial# 9DB6401D
--- NOTE | 2022-05-27 19:06 | PHA.MEDREC ---
Pharmacy Consult ? Medication Reconciliation Pharmacy has completed the medication reconciliation. Spoke to pt's and daughter over the phone, they noted they had an excess of prescription bottles because patient has been non-adherent. They were able to name atorvastatin, carvedilol, hydralazine and vitamin B. Asked about furosemide that was prescribed in early April however they did not have that prescription on hand. Spoke to Carmencita who agreed to continue meds as patient should be on.
--- NOTE | 2022-05-27 19:15 | MHC.CM.PN ---
IMM 05/27. Lives with . No DME or services. HCP on chart. HCP/ Jade Bey ([phone]). Per , unsure if patient taking all of his medications. Daughter was setting up his pills until 3 months ago. Pt does not believe he is vaccinated against Covid. D/C plan: home with [facility]. May need medication/chronic disease management. No referrals placed at this time, pending hospital course and recommendations at daily rounds. will provide transport. CM will follow for d/c planning.
[2022-05-27 20:14] LABS: Troponin-I High Sensitivity 302.2 ng/L (<3.5-35.0)
[2022-05-27 20:52] VITALS: BP 135/83; PULSE 88; RESP 20; TEMP 36.6; O2SAT 98
[2022-05-27] MEDS: carvediloL 25 MG TABLET PO (21:50)
[2022-05-27] MEDS: Valsartan 160 MG TABLET PO (21:50)
[2022-05-27] MEDS: hydrALAZINE HCl 50 MG TABLET PO (21:50)
[2022-05-27 22:32] VITALS: BP 139/87; PULSE 94; RESP 18; O2SAT 95
--- NOTE | 2022-05-27 22:33 | PC.NURSE ---
Pt resting no complaints at this time.
--- NOTE | 2022-05-28 00:30 | PC.NURSE ---
PT sleeping, respiration regular.
[2022-05-28 02:34] VITALS: BP 123/73; PULSE 72; RESP 21; TEMP 36.6; O2SAT 97
--- NOTE | 2022-05-28 02:43 | PC.NURSE ---
PT sleeping, respiration regular.
--- NOTE | 2022-05-28 05:58 | PC.NURSE ---
Pt resting, no needs expressed at this time.
[2022-05-28 06:00] VITALS: BMI 28.1
[2022-05-28 06:02] VITALS: BP 151/91; PULSE 82; RESP 16; TEMP 36.6; O2SAT 93
--- NOTE | 2022-05-28 07:00 | CA_ITS ---
Transthoracic Echocardiogram Patient (Last, First, Middle): Tray Bey, Gender: Male Date of : 1945 Age: 76 Procedure Date: 05/28/2022 Procedure Type: Transthoracic Echocardiogram Location: ER Height: 177.8 cm Weight: 88.91 kg BSA: 2.07 m2 Heart Rate: 81 bpm BP: 142 / 91 mmHg Testing Manager: JUDIT Referring MD: Carmencita Metz NP Associate Editor: Lorenzo Jordan MD Symptoms: Acute CHF Study Quality: Adequate ECG Rhythm: Sinus Conclusions: - 1. Severely dilated left ventricle with severe LV systolic dysfunction with LVEF of 15-20% with at least grade 2 diastolic dysfunction 2. Severely dilated left atrium 3. At least moderate eccentric mitral regurgitation 4. Normal measured RV systolic pressure with mildly elevated right atrial pressures 5. No gross pericardial effusion Findings Procedure Information Contrast agent, definity, is being given per protocol without apparent complications. Left Ventricle Severely increased left ventricular cavity size. There is normal left ventricular wall thickness. The left ventricular systolic function is severely decreased. The visually estimated ejection fraction is between 15 20%. Spectral Doppler is indicative of a pseudonormal filling pattern. Elevated filling pressures. Evidence suggests grade II (moderate) diastolic dysfunction. Right Ventricle Normal right ventricular cavity size and systolic function. Atria The left atrium is severely dilated. Interatrial shunt cannot be excluded. The right atrium is mildly dilated. Aortic Valve There is mild calcification of the aortic valve. There is no aortic valve stenosis. There is no aortic valve regurgitation. Mitral Valve There is mild anterior and posterior mitral leaflet thickening. There is moderate mitral valve regurgitation. The mitral regurgitation jet is directed posteriorly. There is no mitral valve stenosis. Pulmonic Valve The pulmonic valve was not well visualized. Tricuspid Valve Likely normal tricuspid valve structure and function. There is mild tricuspid valve regurgitation. The right ventricular systolic pressure is normal. The right ventricular systolic pressure is 35 mmHg. Mildly elevated right atrial pressure. There is no evidence of pulmonary hypertension. Great Vessels All visible segments of the aorta are normal in size. The pulmonary artery was not well visualized. Venous The inferior vena cava is mildly dilated and collapses less than 50% with inspiration. Pericardium/Pleural There is no evidence of pericardial effusion. Measurements 2D Linear Measurements IVSd: 1.15 0.6-0.9/0.6-1.0 cm LVIDd: 7.26 3.9-5.3/4.2-5.9 cm LVIDd Index: 3.51 2.4-3.2/2.2-3.1 cm/m2 LVIDs: 6.66 2.0-3.6 cm LVPWd: 0.92 0.7-1.1 cm LA Diam: 5.10 2.7-3.8/3.0-4.0 cm LAIDs Index: 2.46 1.5-2.3 cm/m2 LV Mass: 446.96 67-162/88-224 g LV Mass Index: 215.92 43-95/49-115 g/m2 LVOT Diam: 2.70 3.0+(-)1.3 cm 2D Systolic Function EF 4C: 22.00 >55% EF 2C: 26.30 >55% Mitral Valve MV Pk E: 0.87 MV PK A: 0.50 MV Decel Time: 167.00 E/A: 1.70 E'Lateral: 3.09 E'Medial: 5.22 E/E' Med: 16.70 E/E' Lat: 28.30 PHT: 49.00 MVA PHT: 4.49 Decel Runnels: 5.22 MR Vol - PW Dopp: 18.24 MR VTI: 1.52 MR ERO: 12.00 MR Alias Eugenio: 0.39 MR RAD: 0.50 Aortic Valve AoV Pk Eugenio: 1.76 AoV Pk Grad: 12.00 ROJELIO: 2.60 LVOT LVOT Pk Eugenio: 0.86 LVOT Mn Eugenio: 0.61 LVOT VTI: 0.15 LVOT Pk Grad: 3.00 LVOT Mn Grad: 2.00 LVOT Diam: 2.70 LVOT Area: 5.73 Diastolic Function MV Pk E: 0.87 MV Pk A: 0.50 E/A: 1.70 E'Medial: 5.22 E/E' Med: 16.70 E' Laterial: 3.09 E/E' Lat: 28.30 Right Ventricle TAPSE (mm): 23.00 TVS' Eugenio: 12.50 Tricuspid Valve TR Pk Eugenio: 2.59 TR Pk Grad: 27.00 RA Press: 8.00 RVSP: 35.00 Great Vessels Aorta Sinus of Valsalva: 3.40 2.0-3.5 cm Ao Asc: 3.20 2.1-3.4 cm Pulmonary Veins Pulm Vein S/D 0.40 Pulmonary Valve PV Pk Eugenio: 1.00 Peak PV Grad: 4.00 Updated in Other Vendor System with Status of Final Lorenzo Jordan MD electronically signed on 05/29/2022 3:11:02 PM with status of Final
[2022-05-28 07:05] LABS: Anion Gap 13 (12-20); Blood Urea Nitrogen 24 mg/dL (9-16); Carbon Dioxide 24 mmol/L (22-29); Chloride 112 mmol/L (96-108); Creatinine Clr Calc Pharmacy 55.1; Estimated Glomerular Filt Rate 55; Glucose Random 94 mg/dL (60-115); Potassium 4.7 mmol/L (3.3-5.1); Sodium 144 mmol/L (135-145)
[2022-05-28 07:11] LABS: B Type Natriuretic Peptide 2979 pg/mL (<100)
[2022-05-28 07:18] LABS: Troponin-I High Sensitivity 205.9 ng/L (<3.5-35.0)
[2022-05-28 08:32] VITALS: BP 138/82; PULSE 78; RESP 24; TEMP 36.8; O2SAT 95
--- NOTE | 2022-05-28 08:37 | P.CDIC_ITS ---
CDI Concurrent Query Documentation Clarification: PHYSICIAN'S DOCUMENTATION REQUEST Date of Query: 05/28/22 0837 Patient Name: Tray Bey Admit Date: 05/27/22 Dear Doctor, A review of the medical record indicates additional documentation may be needed. Please review below and update the documentation accordingly. Clinical Indicators: The following clinical information was noted in the record: Risk Factors/Clinical Indicators/Treatments 05/27/22: BUN 24 Creatinine 1.42 Est GFR 48 Please clarify which of the following accurately represents the patient's renal status: * Acute renal failure with suspected ATN * Acute renal failure with other pathology (medullary, papillary, or cortical necrosis) * Acute renal failure (with type, appropriate) on Chronic Kidney Disease (CKD) - see criteria * CKD, please provide stage - see criteria * Other (please specify) * Unable to determine Criteria for LIANA* Stages of Chronic Kidney Disease* 1. Increase in serum creatinine by ? 0.3 mg/dL Level Description GFR (?26.5 micromol/L) within 48 hours, or G1 Normal or High > 90 2. Increase in serum creatinine to ?1.5 times baseline, G2 Mildly decreased 60 ? 89 which is known or presumed to have occurred within 7 days, or G3a Mildly to moderately decreased 45 ? 59 3. Urine volume <0.5 mL/kg/hour for six hours G3b Moderately to severely decreased 30 - 44 G4 Severely decreased 15 ? 29 G5 Kidney failure < 15 *Source: Kidney Disease: Improving Global Outcomes (KDIGO) 2012 Use of terms such as suspected, likely, concern for, or probable (associated with a specific diagnosis that is being evaluated, monitored, or treated as if it exists) are acceptable and can be coded in the inpatient setting, when documented at the time of discharge. Thank you, Agustina Marie RN Extension: [phone] Please use your independent medical judgment in providing your response. THIS QUERY IS PART OF THE PERMANENT MEDICAL RECORD Other Diagnosis: ckd 3
--- NOTE | 2022-05-28 08:47 | PC.NURSE ---
ECHO done at bedside [id number]
[2022-05-28] MEDS: hydrALAZINE HCl 50 MG TABLET PO ×2 (09:09→23:16)
[2022-05-28] MEDS: Furosemide 40 MG/4 ML VIAL IVPUSH ×2 (09:10→19:15)
[2022-05-28] MEDS: Atorvastatin Calcium 20 MG TABLET PO (09:10)
[2022-05-28] MEDS: carvediloL 25 MG TABLET PO (09:10)
--- NOTE | 2022-05-28 09:13 | PC.NURSE ---
patient resting quietly with no complaints. at beside. continuous tele on. Denies CP. BBB at present (no change). NAD. able to speak full sentences with ease. skin p/w/d. will continue to monitor
--- NOTE | 2022-05-28 11:28 | HO.PM.IMPN ---
Subjective Subjective Date of Service: 05/28/22 Interval History: Seen in f/u for decompensated heart failure due to non compliance, feels better, no sob Physical Exam Vital Signs: Vital Signs: Last Vital Signs Temp 98.3 F 05/28/22 08:32 Pulse 78 05/28/22 08:32 Resp 24 H 05/28/22 08:32 BP 138/82 05/28/22 08:32 Pulse Ox 95 05/28/22 08:32 O2 Del Method 05/28/22 08:32 BMI result Body Mass Index 28.1 Appearing in no acute distress lung sounds are clear to auscultation, scattered rales heart regular rate rhythm, clear S1, S2 positive bowel sounds, abdomen is soft, nontender neuro patient is alert x3, no focal deficits Objective Data Active Medications Acetaminophen (Acetaminophen 325 Mg Tablet) 650 mg PO Q6H PRN PRN Reason: Pain, Mild (Pain Scale 1-3) Atorvastatin Calcium (Atorvastatin Calcium 20 Mg Tablet) 20 mg PO DAILY [facility] Last Admin: 05/28/22 09:10 Dose: 20 mg Documented By: ELENA Carvedilol (Carvedilol 25 Mg Tablet) 25 mg PO BID [facility]; Protocol Last Admin: 05/28/22 09:10 Dose: 25 mg Documented By: ELENA Cyanocobalamin (Cyanocobalamin (Vitamin B-12) 500 Mcg Tablet) 500 mcg PO DAILY [facility] Furosemide (Furosemide 40 Mg/4 Ml Vial) 40 mg IVPUSH BID@0900,1800 [facility]; Protocol Last Admin: 05/28/22 09:10 Dose: 40 mg Documented By: ELENA Hydralazine HCl (Hydralazine Hcl 50 Mg Tablet) 50 mg PO BID [facility]; Protocol Last Admin: 05/28/22 09:09 Dose: 50 mg Documented By: ELENA Magnesium Hydroxide (Milk Of Magnesia 30 Ml Oral.Susp) 30 ml PO DAILY PRN PRN Reason: Constipation Melatonin (Melatonin 3 Mg Tablet) 6 mg PO BEDTIME PRN PRN Reason: Insomnia Pharmacy Consult (Consult Rx Perform Med Rec) 1 each MISCELLANE ONCE PRN PRN Reason: Consult order Sodium Chloride (0.9 % Sodium Chloride Flush 3 Ml Syringe) 3 ml IVFLUSH QSHIFT [facility] Last Admin: 05/28/22 07:12 Dose: Not Given Documented By: PRETTY Non-Admin Reason: See Note Valsartan (Valsartan 160 Mg Tablet) 160 mg PO BID [facility]; Protocol Last Admin: 05/27/22 21:50 Dose: 160 mg Documented By: ELIANA Labs CBC & Chem 7: 05/27/22 15:24 05/28/22 06:37 Labs: Laboratory Results - last 24 hr 05/27/22 05/27/22 05/27/22 15:24 15:24 15:24 MCV 95.3 MCH 30.8 MCHC 32.3 RDW 14.0 Plt Count 196 MPV 10.4 Immature Gran % (Auto) 0.3 Neut % (Auto) 56.7 Lymph % (Auto) 26.4 [place] % (Auto) 14.0 H Eos % (Auto) 2.3 Baso % (Auto) 0.3 Lymph # (Auto) 1.0 L [place] # (Auto) 0.5 Eos # (Auto) 0.1 Baso # (Auto) 0.0 Abs Immat Gran (auto) 0.01 Absolute Neuts (auto) 2.2 Absolute Nucleated RBC 0.000 Nucleated RBC % (auto) 0.0 PT 12.4 INR 1.1 Anion Gap 10 L Estim Creat Clear Calc 44.9 Estimated GFR 48 Random Glucose 94 Calcium 9.5 Total Bilirubin 0.6 AST 35 ALT 46 H Alkaline Phosphatase 53 Troponin I High Sens B-Natriuretic Peptide Total Protein 6.2 L Albumin 3.8 COVID-19 (ANIA) COVID-[place] 05/27/22 05/27/22 05/27/22 15:24 15:24 17:32 MCV MCH MCHC RDW Plt Count MPV Immature Gran % (Auto) Neut % (Auto) Lymph % (Auto) [place] % (Auto) Eos % (Auto) Baso % (Auto) Lymph # (Auto) [place] # (Auto) Eos # (Auto) Baso # (Auto) Abs Immat Gran (auto) Absolute Neuts (auto) Absolute Nucleated RBC Nucleated RBC % (auto) PT INR Anion Gap Estim Creat Clear Calc Estimated GFR Random Glucose Calcium Total Bilirubin AST ALT Alkaline Phosphatase Troponin I High Sens 269.4 H* 344.1 H* B-Natriuretic Peptide 2710 H Total Protein Albumin COVID-19 (ANIA) COVID-19 Clin Com 05/27/22 05/27/22 05/28/22 18:11 19:27 06:37 MCV MCH MCHC RDW Plt Count MPV Immature Gran % (Auto) Neut % (Auto) Lymph % (Auto) [place] % (Auto) Eos % (Auto) Baso % (Auto) Lymph # (Auto) [place] # (Auto) Eos # (Auto) Baso # (Auto) Abs Immat Gran (auto) Absolute Neuts (auto) Absolute Nucleated RBC Nucleated RBC % (auto) PT INR Anion Gap Estim Creat Clear Calc Estimated GFR Random Glucose Calcium Total Bilirubin AST ALT Alkaline Phosphatase Troponin I High Sens 302.2 H* 205.9 H* B-Natriuretic Peptide Total Protein Albumin COVID-19 (ANIA) Negative COVID-19 Clin Com See Note 05/28/22 05/28/22 06:37 06:37 MCV MCH MCHC RDW Plt Count MPV Immature Gran % (Auto) Neut % (Auto) Lymph % (Auto) [place] % (Auto) Eos % (Auto) Baso % (Auto) Lymph # (Auto) [place] # (Auto) Eos # (Auto) Baso # (Auto) Abs Immat Gran (auto) Absolute Neuts (auto) Absolute Nucleated RBC Nucleated RBC % (auto) PT INR Anion Gap 13 Estim Creat Clear Calc 55.1 Estimated GFR 55 Random Glucose 94 Calcium 9.0 Total Bilirubin AST ALT Alkaline Phosphatase Troponin I High Sens B-Natriuretic Peptide 2979 H Total Protein Albumin COVID-19 (ANIA) COVID-19 Clin Com Assessment and Plan (1) Heart failure, systolic, with acute decompensation: Status: Acute Plan 76-year-old man with a significant history of ischemic cardiomyopathy, CAD admitted with acute on chronic congestive heart failure with reduced ejection fraction with noted dyspnea and chest pressure Acute on chronic congestive heart failure with reduced ejection fraction Reported that he had not taken his medications in over 3 months BNP 2979 today continue Lasix 40 mg twice daily Stop carvedilol given his acute decompensated heart failure Dive on stopped, Entresto started, Aldactone and Jardiance also added for neural hormonal modulation. Echocardiogram pending Cardiology following Monitor on telemetry Daily weights, strict intake and output LIANA on CKD3. Resolving Secondary to acute heart failure Diurese Consider Nephrology consultation if no improvement diuresis Hypernatremia. Resolved Secondary to fluid overload Diurese and monitor electrolytes Elevated troponin Likely secondary to acute heart failure troponins initially elevated but trended down did not require heparin as per cardiology Hypertension Needs better blood pressure control On Entresto, and Aldactone DVT prophylaxis with heparin Full code Attending Dr. Peace Disposition home when medically cleared continued hospitalization for treatment of acute on chronic congestive heart failure requiring IV diuretics as well as close monitoring of his renal function Quality Stroke Does the patient have a stroke diagnosis?: No VTE Prior VTE?: No VTE Risk Level:: Medical - moderate - high VTE Device Contraindication: Treatment Not Indicated VTE Drug Contraindication: N/A - Med Ordered
[2022-05-28] MEDS: Cyanocobalamin (Vitamin B-12) 500 MCG TABLET PO (11:30)
[2022-05-28] MEDS: Valsartan 160 MG TABLET PO (11:30)
--- NOTE | 2022-05-28 11:40 | P.CONCA_ITS ---
History of Present Illness History of Present Illness Date of Service: 05/28/22 Requesting physician: Carmencita Metz Consult reason: congestive heart failure Chief complaint: heart faiure Narrative: I was consulted to see Feliz in cardiology consultation today for decompensated congestive heart failure. History was obtained from the patient and from the chart and from patient's at bedside. Patient has prior history of severe nonischemic cardiomyopathy and noncompliance. Patient also history of heart failure with reduced ejection fraction but has had no hospitalization while he has been taking medications. His nonobstructive coronary artery disease by cardiac catheterization. In the past he has been advise importance of compliance with medication and has also been advise cardiac resynchronization therapy but he has declined. As per the he stopped taking medicines of unclear duration. Came to the hospital with chest pressure and shortness of breath. He had rising troponins and yesterday I was told that he had ischemic cardiomyopathy with chest pressure and. Decided to start him on IV heparin but this was not started appropriately. Patient since then has received diuresis. Intake and output chart is not well charted and appears that he is in positive balance. His blood pressure is much better control. On presentation blood pressure was very high as he has not been taking medications. As per the hospitalist team he is looking a lot better. Patient self is saying that he is feeling better. He does not provide an explanation as to why he is not taking his medications. As mentioned patient has been very noncompliant with his recommendations in the past. Review of Systems Constitutional: Constitutional: Reports no additional constitutional complaints Eyes: Eyes: Reports no additional eye complaints Cardiovascular: Cardiovascular: Reports chest pain at rest, Denies leg edema, Denies lightheadedness, Denies Loss of Consciousness, Denies palpitations and Reports dyspnea Respiratory: Respiratory: Reports no additional respiratory complaints and Reports dyspnea Gastrointestinal: Gastrointestinal: Reports no additional gastrointestinal complaints Genitourinary: Genitourinary: Reports no additional male genitourinary complaints Musculoskeletal: Musculoskeletal: Reports no additional musculoskeletal complaints Integumentary/Breasts: Skin/Breast: Reports system reviewed and no additional complaints, except as docu Neurologic: Reports system reviewed and no additional complaints, except as documented Psychiatric: Psychiatric: Reports no additional psychiatric complaints Endocrine: Endocrine: Reports no additional endocrine complaints and Denies palpitations PMFSH Past Medical History Medical History CAD (coronary artery disease) CHF (congestive heart failure) Chronic systolic HF (heart failure) Dilated cardiomyopathy High cholesterol HTN (hypertension) Hypercholesteremia Hypertension Nonischemic cardiomyopathy Obesity Family History Family History Father Hypertension Mother Stomach cancer Surgical History Surgical History H/O hernia repair History of cardiac cath (~05/2016) Social History Social History Household Members: Spouse Housing: House Housing Other:: lives in a 2 family home per pt Do you presently have visiting nurse or other home services: Yes (Once a year per pt) Alcohol intake: never Patient Tobacco Use Status: Never used Tobacco Second Hand Smoke Exposure: No Advance Directives: Yes Advance Directives on File: Yes Advance Directives Date on File: 05/28/22 service: No Current occupational status: retired Cognitive needs: No Hearing needs: No Vision needs: No Meds Allergies Allergy/AdvReac Type Severity Reaction Status Date / Time No Known Allergies Allergy Verified 10/02/21 15:46 [No Known Allergies*] Active Medications: Current Medications Acetaminophen (Acetaminophen 325 Mg Tablet) 650 mg PO Q6H PRN PRN Reason: Pain, Mild (Pain Scale 1-3) Atorvastatin Calcium (Atorvastatin Calcium 20 Mg Tablet) 20 mg PO DAILY [facility] Last Admin: 05/28/22 09:10 Dose: 20 mg Carvedilol (Carvedilol 25 Mg Tablet) 25 mg PO BID [facility]; Protocol Last Admin: 05/28/22 09:10 Dose: 25 mg Cyanocobalamin (Cyanocobalamin (Vitamin B-12) 500 Mcg Tablet) 500 mcg PO DAILY [facility] Last Admin: 05/28/22 11:30 Dose: 500 mcg Furosemide (Furosemide 40 Mg/4 Ml Vial) 40 mg IVPUSH BID@0900,1800 [facility]; Protocol Last Admin: 05/28/22 09:10 Dose: 40 mg Heparin Sodium (Porcine) (Heparin Sodium,Porcine 5,000 Unit/Ml Vial) 5,000 unit SUBCUT Q12H [facility] Hydralazine HCl (Hydralazine Hcl 50 Mg Tablet) 50 mg PO BID [facility]; Protocol Last Admin: 05/28/22 09:09 Dose: 50 mg Magnesium Hydroxide (Milk Of Magnesia 30 Ml Oral.Susp) 30 ml PO DAILY PRN PRN Reason: Constipation Melatonin (Melatonin 3 Mg Tablet) 6 mg PO BEDTIME PRN PRN Reason: Insomnia Pharmacy Consult (Consult Rx Perform Med Rec) 1 each MISCELLANE ONCE PRN PRN Reason: Consult order Sodium Chloride (0.9 % Sodium Chloride Flush 3 Ml Syringe) 3 ml IVFLUSH QSHIFT [facility] Last Admin: 05/28/22 07:12 Dose: Not Given Valsartan (Valsartan 160 Mg Tablet) 160 mg PO BID [facility]; Protocol Last Admin: 05/28/22 11:30 Dose: 160 mg Home Medications Medication Instructions Recorded Confirmed Last Taken Type cyanocobalamin (vitamin B-12) 500 500 mcg PO DAILY 05/27/22 05/27/22 Unknown History mcg tablet valsartan 160 mg tablet 1 tab PO BID 05/27/22 05/27/22 Unknown History Physical Exam Vital Signs: Vital Signs: Last Vital Signs Temp 98.3 F 05/28/22 08:32 Pulse 78 05/28/22 08:32 Resp 24 H 05/28/22 08:32 BP 138/82 05/28/22 08:32 Pulse Ox 95 05/28/22 08:32 O2 Del Method 05/28/22 08:32 BMI result Body Mass Index 28.1 Const: General: cooperative, comfortable, alert, awake and in distress mild and respiratory Nutritional Appearance: obese Orientation/consciousness: patient oriented x3 HEENT: Head: Yes normocephalic and Yes atraumatic Neck: Neck: Yes trachea midline, Yes supple and Yes no JVD Resp: Effort & Inspection: normal respiratory effort Auscultation: rales bilateral Cardio: Jugular venous distension: no JVD Palpation: abnormal PMI displaced PMI Rate: regular rate Rhythm: regular rhythm Heart sounds: S1 normal heart sound present, S2 normal heart sound present, no click, no gallops, no murmurs and no rubs GI: Auscultation: normal bowel sounds Skin: General skin exam: no rashes or lesions noted Neuro: General: patient oriented x3 and no focal motor deficits Extrem: General: Yes no clubbing, cyanosis or edema Psych: Appearance: grossly normal Objective Labs and Meds Result diagrams: 05/27/22 15:24 05/28/22 06:37 Lab results: Laboratory Results - last 24 hr 05/27/22 05/27/22 05/27/22 15:24 15:24 15:24 WBC 3.9 L RBC 4.22 L Hgb 13.0 L Hct 40.2 L MCV 95.3 MCH 30.8 MCHC 32.3 RDW 14.0 Plt Count 196 MPV 10.4 Immature Gran % (Auto) 0.3 Neut % (Auto) 56.7 Lymph % (Auto) 26.4 Henderson % (Auto) 14.0 H Eos % (Auto) 2.3 Baso % (Auto) 0.3 Lymph # (Auto) 1.0 L Henderson # (Auto) 0.5 Eos # (Auto) 0.1 Baso # (Auto) 0.0 Abs Immat Gran (auto) 0.01 Absolute Neuts (auto) 2.2 Absolute Nucleated RBC 0.000 Nucleated RBC % (auto) 0.0 PT 12.4 INR 1.1 Sodium 146 H Potassium 5.0 D Chloride 112 H Carbon Dioxide 29 Anion Gap 10 L BUN 24 H Creatinine 1.42 H Estim Creat Clear Calc 44.9 Estimated GFR 48 Random Glucose 94 Calcium 9.5 Total Bilirubin 0.6 AST 35 ALT 46 H Alkaline Phosphatase 53 Troponin I High Sens B-Natriuretic Peptide Total Protein 6.2 L Albumin 3.8 COVID-19 ([facility]) [employer] 05/27/22 05/27/22 05/27/22 15:24 15:24 17:32 WBC RBC Hgb Hct MCV MCH MCHC RDW Plt Count MPV Immature Gran % (Auto) Neut % (Auto) Lymph % (Auto) Henderson % (Auto) Eos % (Auto) Baso % (Auto) Lymph # (Auto) Henderson # (Auto) Eos # (Auto) Baso # (Auto) Abs Immat Gran (auto) Absolute Neuts (auto) Absolute Nucleated RBC Nucleated RBC % (auto) PT INR Sodium Potassium Chloride Carbon Dioxide Anion Gap BUN Creatinine Estim Creat Clear Calc Estimated GFR Random Glucose Calcium Total Bilirubin AST ALT Alkaline Phosphatase Troponin I High Sens 269.4 H* 344.1 H* B-Natriuretic Peptide 2710 H Total Protein Albumin COVID-19 ([facility]) [employer] 05/27/22 05/27/22 05/28/22 18:11 19:27 06:37 WBC RBC Hgb Hct MCV MCH MCHC RDW Plt Count MPV Immature Gran % (Auto) Neut % (Auto) Lymph % (Auto) Henderson % (Auto) Eos % (Auto) Baso % (Auto) Lymph # (Auto) Henderson # (Auto) Eos # (Auto) Baso # (Auto) Abs Immat Gran (auto) Absolute Neuts (auto) Absolute Nucleated RBC Nucleated RBC % (auto) PT INR Sodium Potassium Chloride Carbon Dioxide Anion Gap BUN Creatinine Estim Creat Clear Calc Estimated GFR Random Glucose Calcium Total Bilirubin AST ALT Alkaline Phosphatase Troponin I High Sens 302.2 H* 205.9 H* B-Natriuretic Peptide Total Protein Albumin COVID-19 ([facility]) Negative COVID-19 Clin Com See Note 05/28/22 05/28/22 06:37 06:37 WBC RBC Hgb Hct MCV MCH MCHC RDW Plt Count MPV Immature Gran % (Auto) Neut % (Auto) Lymph % (Auto) Henderson % (Auto) Eos % (Auto) Baso % (Auto) Lymph # (Auto) Henderson # (Auto) Eos # (Auto) Baso # (Auto) Abs Immat Gran (auto) Absolute Neuts (auto) Absolute Nucleated RBC Nucleated RBC % (auto) PT INR Sodium 144 Potassium 4.7 Chloride 112 H Carbon Dioxide 24 Anion Gap 13 BUN 24 H Creatinine 1.26 Estim Creat Clear Calc 55.1 Estimated GFR 55 Random Glucose 94 Calcium 9.0 Total Bilirubin AST ALT Alkaline Phosphatase Troponin I High Sens B-Natriuretic Peptide 2979 H Total Protein Albumin COVID-19 ([facility]) COVID-19 Clin Com EKG shows sinus rhythm with left bundle-branch block Imaging Radiologist's impression: Impressions Chest X-Ray 05/27/22 15:50 IMPRESSION: Cardiomegaly. Mild pulmonary vascular congestion. Small bilateral pleural effusions. Assessment and Plan (1) Heart failure, systolic, with acute decompensation: Status: Acute Patient presents with decompensated congestive heart failure related to noncompliance and due to elevated blood pressure. His troponin elevation is related to myocardial strain and elevated filling pressures and decompensated heart failure. Not related to acute coronary syndrome. Continue IV diuresis with Lasix. Strict intake and output chart needs to be pursued. I would hold off on carvedilol at this point time given his acute decompensated and that he is not taking his carvedilol on a regular basis and this could be a negative ionotropic agent. Would switch is Diovan to Entresto 49-51 mg b.i.d.. Add Aldactone 12.5 mg to his regimen. Also add Jardiance to his regimen. All these medications for neurohormonal modulation which has shown to improve prognosis and heart failure related admissions. However patient is noncompliant with medications as big issue. Please involve Case Management in his care to see if he can afford all his medications. I had a very long discussion with the patient patient's at bedside about compliance with medications. Patient's seem exasperated with his noncompliance. Patient offers no explanation for his noncompliance. I had a long discussion that this would and can lead to further deterioration of his cardiac function and can cause hemorrhagic stroke with his elevated blood pressure as well as a timely that. He showed understanding but remained noncommittal Will continue to follow with you. Procedures Date of Service Date of Service: 05/28/22
[2022-05-28] MEDS: Heparin Sodium,Porcine 5,000 UNIT/ML VIAL 5000 UNIT SUBCUT ×2 (13:18→23:19)
[2022-05-28 14:48] VITALS: BP 132/73; PULSE 70; RESP 24; TEMP 36.5; O2SAT 97
[2022-05-28 21:52] VITALS: BP 134/86; PULSE 78; RESP 17; O2SAT 98
[2022-05-28 23:13] VITALS: BP 138/86; PULSE 74; RESP 18; TEMP 36.5; O2SAT 98
[2022-05-28] MEDS: Sacubitril/Valsartan 49/51 1 TAB TABLET PO (23:16)
[2022-05-28] MEDS: 0.9 % Sodium Chloride Flush 3 ML SYRINGE IVFLUSH (23:17)
[2022-05-29] VITALS (7 sets, daily range): BP systolic 123–150; BP diastolic 64–95; PULSE 72–91; RESP 16–20; TEMP 36.4–37.2; O2SAT 95–99
[2022-05-29] MEDS: Furosemide 40 MG/4 ML VIAL IVPUSH ×2 (10:31→18:22)
[2022-05-29] MEDS: Cyanocobalamin (Vitamin B-12) 500 MCG TABLET PO (10:32)
[2022-05-29] MEDS: Empagliflozin 10 MG TABLET PO (10:32)
[2022-05-29] MEDS: Spironolactone 25 MG TABLET 12.5 MG PO (10:32)
[2022-05-29] MEDS: hydrALAZINE HCl 50 MG TABLET PO (10:32)
[2022-05-29] MEDS: Atorvastatin Calcium 20 MG TABLET PO (10:33)
--- NOTE | 2022-05-29 10:44 | PM.PNCARD ---
Subjective Subjective Date of Service: 05/29/22 Principal diagnosis: CHF Interval history: Patient currently is breathing well. Blood pressure is better controlled. Eyes and nose measured at -1 L overnight. Patient says he also has somewhat incontinent. BNP is further elevated. Review of Systems Constitutional: Reports no additional constitutional complaints Eyes: Reports no additional eye complaints Cardiovascular: Denies chest pain, Denies leg edema, Denies lightheadedness, Denies Loss of Consciousness, Denies palpitations and Reports dyspnea Respiratory: Reports no additional respiratory complaints and Reports dyspnea Gastrointestinal: Reports no additional gastrointestinal complaints Genitourinary: Reports no additional male genitourinary complaints Musculoskeletal: Reports no additional musculoskeletal complaints Skin/Breast: Reports system reviewed and no additional complaints, except as docu Psychiatric: Reports no additional psychiatric complaints Endocrine: Denies palpitations Physical Exam Vital Signs: Last Vital Signs Temp 97.9 F 05/29/22 04:00 Pulse 91 05/29/22 04:00 Resp 20 05/29/22 05:53 BP 123/80 05/29/22 05:53 Pulse Ox 98 05/29/22 05:53 O2 Del Method 05/29/22 05:53 BMI result Body Mass Index 28.1 Const General: cooperative, comfortable, no acute distress, alert and awake Nutritional Appearance: overweight Orientation/consciousness: patient oriented x3 Neck Neck: Yes trachea midline, Yes supple and Yes no JVD Cardio Jugular venous distension: no JVD Palpation: abnormal PMI displaced PMI Rate: regular rate Rhythm: regular rhythm Heart sounds: S1 normal heart sound present, S2 normal heart sound present, no click, no gallops, no murmurs and no rubs GI Auscultation: normal bowel sounds Skin General skin exam: no rashes or lesions noted Neuro General: patient oriented x3 and no focal motor deficits Extrem General: Yes no clubbing, cyanosis or edema Objective Labs and Meds Result diagrams: 05/27/22 15:24 05/28/22 06:37 Progress Note: A&P Assessment and plan (1) Heart failure, systolic, with acute decompensation: Status: Acute Assessment and Plan: Patient with decompensated congestive heart failure responding to current therapy. BNP is further elevated although renal function is improved suggestive improving heart failure status. Continue IV diuresis with Lasix. Strict intake and output chart needs to be pursued. Can restart carvedilol 12.5 mg b.i.d., given that his blood pressure is on the lower side discontinue hydralazine therapy. Continue Entresto and spironolactone. Continue to monitor renal function electrolytes and replace as needed. Follow-up BMP tomorrow. Out of bed to chair and DVT prophylaxis. Again had a discussion with him about compliance of medications in presence of his daughter and his . Will continue to follow with you Time Spent With Patient Time: Total time spent is greater than 50% in coordination of care (as documented) at patient's floor/unit and/or counseling patient: Progress Note: Quality Stroke Does the patient have a stroke diagnosis?: No Procedures Date of Service Date of Service: 05/29/22
--- NOTE | 2022-05-29 10:45 | PC.NURSE ---
pt resting quietly, and daughter at bedside, took pt's belongings home with her, belongings form signed by pt acknowledging that his took his clothes with her. he denies c/p, no apparent distressed. meds given as documented.
[2022-05-29] MEDS: Heparin Sodium,Porcine 5,000 UNIT/ML VIAL 5000 UNIT SUBCUT (12:13)
[2022-05-29] MEDS: Sacubitril/Valsartan 49/51 1 TAB TABLET PO ×2 (12:13→19:58)
--- NOTE | 2022-05-29 13:22 | P.PNIM_ITS ---
Subjective Subjective Date of Service: 05/29/22 Interval History: seen and examined this morning follow up for CHF seems a little disoriented this am, but just woke up denies shortness of breath at this time. Review of Systems Review of Systems: Yes all other systems are reviewed and are negative Constitutional Constitutional: Denies chills and Denies fever(s) ENT Ears, Nose, Mouth, and Throat: Denies dizziness Cardiovascular Cardiovascular: Denies chest pain, Denies palpitations and Denies dyspnea Respiratory Respiratory: Denies cough and Denies dyspnea Gastrointestinal Gastrointestinal: Denies abdominal pain Neurologic Neurologic: Denies dizziness Endocrine Endocrine: Denies palpitations Physical Exam Vital Signs: Vital Signs: Last Vital Signs Temp 97.6 F 05/29/22 11:43 Pulse 80 05/29/22 11:43 Resp 18 05/29/22 11:43 BP 129/78 05/29/22 11:43 Pulse Ox 95 05/29/22 11:43 O2 Del Method 05/29/22 11:43 BMI result Body Mass Index 28.1 Const: General: alert and awake Nutritional Appearance: average body habitus Resp: Effort & Inspection: normal respiratory effort and able to speak in complete sentences Cardio: Jugular venous distension: no JVD Rate: regular rate Heart sounds: S1 normal heart sound present and S2 normal heart sound present GI: Inspection: No distended Palpation (GI): Soft to palpation Neuro: Other: no focal deficits noted Extrem: General: Yes no pedal edema Objective Data Active Medications Acetaminophen (Acetaminophen 325 Mg Tablet) 650 mg PO Q6H PRN PRN Reason: Pain, Mild (Pain Scale 1-3) Atorvastatin Calcium (Atorvastatin Calcium 20 Mg Tablet) 20 mg PO DAILY [facility] Last Admin: 05/29/22 10:33 Dose: 20 mg Documented By: LOUISA Cyanocobalamin (Cyanocobalamin (Vitamin B-12) 500 Mcg Tablet) 500 mcg PO DAILY [facility] Last Admin: 05/29/22 10:32 Dose: 500 mcg Documented By: LOUISA Empagliflozin (Empagliflozin 10 Mg Tablet) 10 mg PO DAILY [facility] Last Admin: 05/29/22 10:32 Dose: 10 mg Documented By: LOUISA Furosemide (Furosemide 40 Mg/4 Ml Vial) 40 mg IVPUSH BID@0900,1800 [facility]; Protocol Last Admin: 05/29/22 10:31 Dose: 40 mg Documented By: LOUISA Heparin Sodium (Porcine) (Heparin Sodium,Porcine 5,000 Unit/Ml Vial) 5,000 unit SUBCUT Q12H [facility] Last Admin: 05/29/22 12:13 Dose: 5,000 unit Documented By: LOUISA Hydralazine HCl (Hydralazine Hcl 50 Mg Tablet) 50 mg PO BID [facility]; Protocol Last Admin: 05/29/22 10:32 Dose: 50 mg Documented By: LOUISA Magnesium Hydroxide (Milk Of Magnesia 30 Ml Oral.Susp) 30 ml PO DAILY PRN PRN Reason: Constipation Melatonin (Melatonin 3 Mg Tablet) 6 mg PO BEDTIME PRN PRN Reason: Insomnia Pharmacy Consult (Consult Rx Perform Med Rec) 1 each MISCELLANE ONCE PRN PRN Reason: Consult order Sacubitril/Valsartan (Sacubitril/Valsartan 49/51 1 Tab Tablet) 1 tab PO BID [facility]; Protocol Last Admin: 05/29/22 12:13 Dose: 1 tab Documented By: LOUISA Sodium Chloride (0.9 % Sodium Chloride Flush 3 Ml Syringe) 3 ml IVFLUSH QSHIFT [facility] Last Admin: 05/29/22 10:16 Dose: Not Given Documented By: LOUISA Non-Admin Reason: IV Running Spironolactone (Spironolactone 25 Mg Tablet) 12.5 mg PO DAILY [facility]; Protocol Last Admin: 05/29/22 10:32 Dose: 12.5 mg Documented By: LOUISA Labs CBC & Chem 7: 05/27/22 15:24 05/28/22 06:37 Assessment and Plan (1) Heart failure, systolic, with acute decompensation: Status: Acute Plan 76-year-old man with a significant history of ischemic cardiomyopathy, CAD admitted with acute on chronic congestive heart failure with reduced ejection fraction with noted dyspnea and chest pressure Acute on chronic congestive heart failure with reduced ejection fraction Reported that he had not taken his medications in over 3 months continue IV Lasix 40 mg twice daily resume carvedilol at 12. 5 bid Diovan stopped, Entresto started, Aldactone and Jardiance also added for neural hormonal modulation. Echocardiogram report pending Cardiology following Daily weights, strict intake and output LIANA on CKD3. Improving Secondary to acute heart failure follow BMP Hypernatremia. Resolved Secondary to fluid overload Diurese and monitor electrolytes Elevated troponin Likely secondary to acute heart failure troponins initially elevated but trended down did not require heparin as per cardiology Hypertension continue Entresto, and Aldactone resume coreg 12.5 bid d/c hydralazine DVT prophylaxis with heparin Full code Attending Dr. Peace Disposition home when medically cleared continued hospitalization for treatment of acute on chronic congestive heart failure requiring IV diuretics as well as close monitoring of his renal function Quality Stroke Does the patient have a stroke diagnosis?: No VTE Prior VTE?: No VTE Risk Level:: Medical - moderate - high VTE Device Contraindication: Treatment Not Indicated VTE Drug Contraindication: N/A - Med Ordered
[2022-05-29] MEDS: 0.9 % Sodium Chloride Flush 3 ML SYRINGE IVFLUSH (17:04)
[2022-05-29] MEDS: carvediloL 12.5 MG TABLET PO (19:58)
[2022-05-30] MEDS: 0.9 % Sodium Chloride Flush 3 ML SYRINGE IVFLUSH ×3 (00:24→18:10)
[2022-05-30] MEDS: Heparin Sodium,Porcine 5,000 UNIT/ML VIAL 5000 UNIT SUBCUT ×2 (00:24→11:22)
[2022-05-30 04:00] VITALS: BP 133/71; PULSE 74; RESP 20; TEMP 37.2; O2SAT 92
[2022-05-30 06:00] VITALS: BMI 14.1
[2022-05-30 07:09] VITALS: BP 135/73; PULSE 74; RESP 20; TEMP 37.2; O2SAT 96
[2022-05-30 07:18] LABS: Anion Gap 14 (12-20); Blood Urea Nitrogen 24 mg/dL (9-16); Carbon Dioxide 25 mmol/L (22-29); Chloride 106 mmol/L (96-108); Creatinine Clr Calc Pharmacy 29.8; Estimated Glomerular Filt Rate 53; Glucose Random 99 mg/dL (60-115); Potassium 3.6 mmol/L (3.3-5.1); Sodium 141 mmol/L (135-145)
[2022-05-30] MEDS: Cyanocobalamin (Vitamin B-12) 500 MCG TABLET PO (07:23)
[2022-05-30] MEDS: carvediloL 12.5 MG TABLET PO (07:23)
[2022-05-30] MEDS: Sacubitril/Valsartan 49/51 1 TAB TABLET PO (07:23)
[2022-05-30] MEDS: Empagliflozin 10 MG TABLET PO (07:23)
[2022-05-30] MEDS: Atorvastatin Calcium 20 MG TABLET PO (07:23)
[2022-05-30] MEDS: Spironolactone 25 MG TABLET 12.5 MG PO (07:24)
[2022-05-30] MEDS: Furosemide 40 MG/4 ML VIAL IVPUSH (07:24)
[2022-05-30 11:11] VITALS: BMI 28.1
[2022-05-30] MEDS: Milk of Magnesia 30 ML ORAL.SUSP PO (11:23)
[2022-05-30] MEDS: Acetaminophen 325 MG TABLET 650 MG PO (11:24)
[2022-05-30 11:30] VITALS: BP 91/55; PULSE 61; RESP 20; TEMP 36.6; O2SAT 97
--- NOTE | 2022-05-30 12:36 | P.PNCA_ITS ---
Subjective Subjective Date of Service: 05/30/22 <SANTANA Oshea - Last Filed: 05/30/22 12:58> 05/30/22 <Lorenzo Jordan MD - Last Filed: 05/30/22 14:25> Principal diagnosis: CHF, Nonischemic CMP <SANTANA Oshea - Last Filed: 05/30/22 12:58> Interval history: Seen at 1015. Today he reports feeling well. Breathing is comfortable, no chest pains, palpitations. Family members at bedside. Tele showing SR, IVCD, PVCs, rate 60-80s. Still on IV lasix and has been started on appropriate HF meds. <SANTANA Oshea - Last Filed: 05/30/22 12:58> Review of Systems Review of Systems as above <SANTANA Oshea - Last Filed: 05/30/22 12:58> Yes all other systems are reviewed and are negative <SANTANA Oshea - Last Filed: 05/30/22 12:58> Physical Exam Vital Signs: Last Vital Signs Temp 97.9 F 05/30/22 11:30 Pulse 61 05/30/22 11:30 Resp 20 05/30/22 11:30 BP 91/55 L 05/30/22 11:30 Pulse Ox 97 05/30/22 11:30 O2 Del Method 05/30/22 11:30 BMI result Body Mass Index 28.1 <SANTANA Oshea - Last Filed: 05/30/22 12:58> Const General: cooperative, healthy appearing, comfortable and no acute distress <SANTANA Oshea - Last Filed: 05/30/22 12:58> Orientation/consciousness: patient oriented x3 <SANTANA Oshea - Last Filed: 05/30/22 12:58> Neck Neck: Yes normal visual inspection and Yes no JVD <SANTANA Oshea - Last Filed: 05/30/22 12:58> Resp Effort & Inspection: normal respiratory effort <SANTANA Oshea - Last Filed: 05/30/22 12:58> Auscultation: clear to auscultation bilaterally, no crackles, no rales, no rhonchi and no wheezes <CATRACHITO Ohsea - Last Filed: 05/30/22 12:58> Cardio Jugular venous distension: no JVD <SANTANA Oshea - Last Filed: 05/30/22 12:58> Rate: regular rate <CATRACHITO Oshea - Last Filed: 05/30/22 12:58> Rhythm: regular rhythm <CATRACHITO Oshea - Last Filed: 05/30/22 12:58> Heart sounds: S1 normal heart sound present, S2 normal heart sound present, no gallops, no murmurs and no rubs <Charlene MccrayYAKeiry - Last Filed: 05/30/22 12:58> Skin General skin exam: no rashes or lesions noted <Charlene Mccray CATRACHITO - Last Filed: 05/30/22 12:58> Neuro General: patient oriented x3 <Charlene MccrayYAKeiry - Last Filed: 05/30/22 12:58> Extrem General: Yes normal to inspection <CATRACHITO Oshea - Last Filed: 05/30/22 12:58> Psych Appearance: grossly normal <Charlene Mccray GLOBAL LOGISTICS ANALYSTKeiry - Last Filed: 05/30/22 12:58> Mental Status: mental status grossly normal <Charlene Mccray CATRACHITO - Last Filed: 05/30/22 12:58> Speech and movement: Normal speech and movement present <Charlene MccrayYAKeiry - Last Filed: 05/30/22 12:58> Objective Labs and Meds Result diagrams: : 05/27/22 15:24 05/30/22 06:02 <Charlene MccrayYAKeiry - Last Filed: 05/30/22 12:58> Lab results: Laboratory Results - last 24 hr 05/30/22 06:02 Sodium 141 Potassium 3.6 D Chloride 106 Carbon Dioxide 25 Anion Gap 14 BUN 24 H Creatinine 1.31 Estim Creat Clear Calc 29.8 Estimated GFR 53 Random Glucose 99 Calcium 9.0 <Charlene MccrayCATRACHITO - Last Filed: 05/30/22 12:58> Progress Note: A&P Assessment and plan (1) Heart failure, systolic, with acute decompensation: Status: Acute <SANTANA Oshea - Last Filed: 05/30/22 12:58> Assessment and Plan: Hx of nonischemic CMP, chronic systolic HF. Notes indicate he has been compliant with meds at home. Admit with decompensated heart failure. BNP elevated to 2979. Troponin elevation related to heart strain. Echocardiogram showed EF 15-20%, grade 2 diastolic dysfunction, moderate MR, severely dilated left atrium. He has been diuresed with IV Lasix with negative fluid balance 1500 cc since admission. On clinical exam he appears euvolemic. He reports breathing is normal. Oxygen sat 96% on room air. He has been started on carvedilol and Entresto for neurohormonal modulation. BP had been normal range however low on last check. Will stop IV Lasix and changed to p.o. once daily. Will reduce Carvedilol to 6.25mg po BID. Will reduce Entresto to 24/26 mg BID. Continue to monitor BP. Will check BNP in am. We will follow. <SANTANA Oshea - Last Filed: 05/30/22 12:58> Hx of nonischemic CMP, chronic systolic HF. Notes indicate he has been compliant with meds at home. Admit with decompensated heart failure. BNP elevated to 2979. Troponin elevation related to heart strain. Echocardiogram showed EF 15-20%, grade 2 diastolic dysfunction, moderate MR, severely dilated left atrium. He has been diuresed with IV Lasix with negative fluid balance 1500 cc since admission. On clinical exam he appears euvolemic. He reports breathing is normal. Oxygen sat 96% on room air. He has been started on carvedilol and Entresto for neurohormonal modulation. BP had been normal range however low on last check. Will stop IV Lasix and changed to p.o. once daily. Will reduce Carvedilol to 6.25mg po BID. Will reduce Entresto to 24/26 mg BID. Continue to monitor BP. Will check BNP in am. We will follow. Patient seen and examined. Case discussed with Charlene Mccray. Patient is feeling much better. Blood pressures improved. LV ejection fraction is 15-20%. BNP needs to be rechecked. Blood pressure on the lower side. Will reduce Entresto as well as carvedilol. Continue Aldactone therapy. Reduce Lasix and switch to p.o. Lasix. Importance of compliance with medication was discussed. Ambulate as tolerated. Potential discharge tomorrow if BNP is greater than 50% reduced compared to admission BNP <Lorenzo Jordan MD - Last Filed: 05/30/22 14:25> (2) Dilated cardiomyopathy: Status: Acute <SANTANA Oshea - Last Filed: 05/30/22 12:58> (3) Hypertension: Status: Acute <SANTANA Oshea - Last Filed: 05/30/22 12:58> Time Spent With Patient Time: Total time spent is greater than 50% in coordination of care (as documente d) at patient's floor/unit and/or counseling patient: 22 <SANTANA Oshea - Last Filed: 05/30/22 12:58> Progress Note: Quality Stroke Does the patient have a stroke diagnosis?: No <SANTANA Oshea - Last Filed: 05/30/22 12:58> Procedures Date of Service Date of Service: 05/30/22 <SANTANA Oshea - Last Filed: 05/30/22 12:58>
--- NOTE | 2022-05-30 12:39 | HO.PM.IMPN ---
Subjective Subjective Date of Service: 05/30/22 Interval History: f/u on heart failure symptomatically feels better Review of Systems no sob no chest pain Physical Exam Vital Signs: Vital Signs: Last Vital Signs Temp 97.9 F 05/30/22 11:30 Pulse 61 05/30/22 11:30 Resp 20 05/30/22 11:30 BP 91/55 L 05/30/22 11:30 Pulse Ox 97 05/30/22 11:30 O2 Del Method 05/30/22 11:30 BMI result Body Mass Index 28.1 Const: General: alert and awake Nutritional Appearance: average body habitus Resp: Effort & Inspection: normal respiratory effort and able to speak in complete sentences Cardio: Jugular venous distension: no JVD Rate: regular rate Heart sounds: S1 normal heart sound present and S2 normal heart sound present GI: Inspection: No distended Palpation (GI): Soft to palpation Neuro: Other: no focal deficits noted Extrem: General: Yes no pedal edema Objective Data Active Medications Acetaminophen (Acetaminophen 325 Mg Tablet) 650 mg PO Q6H PRN PRN Reason: Pain, Mild (Pain Scale 1-3) Last Admin: 05/30/22 11:24 Dose: 650 mg Documented By: BRADLEY Atorvastatin Calcium (Atorvastatin Calcium 20 Mg Tablet) 20 mg PO DAILY [facility] Last Admin: 05/30/22 07:23 Dose: 20 mg Documented By: BRADLEY Carvedilol (Carvedilol 12.5 Mg Tablet) 12.5 mg PO BID [facility]; Protocol Last Admin: 05/30/22 07:23 Dose: 12.5 mg Documented By: BRADLEY Cyanocobalamin (Cyanocobalamin (Vitamin B-12) 500 Mcg Tablet) 500 mcg PO DAILY [facility] Last Admin: 05/30/22 07:23 Dose: 500 mcg Documented By: BRADLEY Empagliflozin (Empagliflozin 10 Mg Tablet) 10 mg PO DAILY [facility] Last Admin: 05/30/22 07:23 Dose: 10 mg Documented By: BRADLEY Furosemide (Furosemide 40 Mg/4 Ml Vial) 40 mg IVPUSH BID@0900,1800 [facility]; Protocol Last Admin: 05/30/22 07:24 Dose: 40 mg Documented By: BRADLEY Heparin Sodium (Porcine) (Heparin Sodium,Porcine 5,000 Unit/Ml Vial) 5,000 unit SUBCUT Q12H [facility] Last Admin: 05/30/22 11:22 Dose: 5,000 unit Documented By: BRADLEY Magnesium Hydroxide (Milk Of Magnesia 30 Ml Oral.Susp) 30 ml PO DAILY PRN PRN Reason: Constipation Last Admin: 05/30/22 11:23 Dose: 30 ml Documented By: BRADLEY Melatonin (Melatonin 3 Mg Tablet) 6 mg PO BEDTIME PRN PRN Reason: Insomnia Pharmacy Consult (Consult Rx Perform Med Rec) 1 each MISCELLANE ONCE PRN PRN Reason: Consult order Sacubitril/Valsartan (Sacubitril/Valsartan 49/51 1 Tab Tablet) 1 tab PO BID [facility]; Protocol Last Admin: 05/30/22 07:23 Dose: 1 tab Documented By: BRADLEY Sodium Chloride (0.9 % Sodium Chloride Flush 3 Ml Syringe) 3 ml IVFLUSH QSHIFT [facility] Last Admin: 05/30/22 07:24 Dose: 3 ml Documented By: BRADLEY Spironolactone (Spironolactone 25 Mg Tablet) 12.5 mg PO DAILY [facility]; Protocol Last Admin: 05/30/22 07:24 Dose: 12.5 mg Documented By: BRADLEY Labs CBC & Chem 7: 05/27/22 15:24 05/30/22 06:02 Labs: Laboratory Results - last 24 hr 05/30/22 06:02 Anion Gap 14 Estim Creat Clear Calc 29.8 Estimated GFR 53 Random Glucose 99 Calcium 9.0 Assessment and Plan (1) Heart failure, systolic, with acute decompensation: Status: Acute Plan 76-year-old man with a significant history of ischemic cardiomyopathy, CAD admitted with acute on chronic congestive heart failure with reduced ejection fraction with noted dyspnea and chest pressure Acute on chronic congestive heart failure with reduced ejection fraction Reported that he had not taken his medications in over 3 months continue IV Lasix 40 mg twice, reduce to daily continue carvedilol at 12. 5 bid Diovan stopped, Entresto started, Aldactone and Jardiance also added for neural hormonal modulation. Echocardiogram EF 1520 Cardiology following Daily weights, strict intake and output check BNP tomorrow ILANA on CKD3, at baselin follow BMP Hypernatremia. Resolved Secondary to fluid overload Diurese and monitor electrolytes Elevated troponin Likely secondary to acute heart failure troponins initially elevated but trended down did not require heparin as per cardiology Hypertension continue Entresto, and Aldactone resume coreg 12.5 bid d/c hydralazine DVT prophylaxis with heparin Full code Disposition home when medically cleared continued hospitalization for treatment of acute on chronic congestive heart failure requiring IV diuretics as well as close monitoring of his renal function Quality Stroke Does the patient have a stroke diagnosis?: No VTE Prior VTE?: No VTE Risk Level:: Medical - moderate - high VTE Device Contraindication: Treatment Not Indicated VTE Drug Contraindication: N/A - Med Ordered
--- NOTE | 2022-05-30 14:50 | MHC.CM.PN ---
per rounds pt will not be ready for dc today dc plans remain the same as home w/vna
[2022-05-30 15:37] VITALS: BP 86/48; PULSE 75; RESP 16; TEMP 36.3; O2SAT 94
[2022-05-30 19:20] VITALS: BP 127/72; PULSE 71; RESP 16; TEMP 36.1; O2SAT 92
[2022-05-30] MEDS: Sacubitril/Valsartan 24/26 1 TAB TABLET PO (19:44)
[2022-05-30] MEDS: carvediloL 6.25 MG TABLET PO (19:46)
[2022-05-30 23:53] VITALS: BP 109/60; PULSE 73; RESP 20; TEMP 36.8; O2SAT 95
[2022-05-31] MEDS: Heparin Sodium,Porcine 5,000 UNIT/ML VIAL 5000 UNIT SUBCUT ×2 (00:37→12:18)
[2022-05-31] MEDS: 0.9 % Sodium Chloride Flush 3 ML SYRINGE IVFLUSH ×2 (00:37→10:07)
[2022-05-31 03:46] VITALS: BP 122/69; PULSE 74; RESP 20; TEMP 36.6; O2SAT 97
[2022-05-31 06:00] VITALS: BMI 26.4
[2022-05-31 07:27] LABS: Anion Gap 15 (12-20); Blood Urea Nitrogen 33 mg/dL (9-16); Carbon Dioxide 25 mmol/L (22-29); Chloride 105 mmol/L (96-108); Creatinine Clr Calc Pharmacy 39.1; Estimated Glomerular Filt Rate 41; Glucose Random 96 mg/dL (60-115); Potassium 3.6 mmol/L (3.3-5.1); Sodium 141 mmol/L (135-145)
[2022-05-31 07:34] LABS: B Type Natriuretic Peptide 1078 pg/mL (<100)
[2022-05-31 08:00] VITALS: BP 108/62; PULSE 51; RESP 16; TEMP 36.3; O2SAT 94
[2022-05-31] MEDS: Spironolactone 25 MG TABLET 12.5 MG PO (10:05)
[2022-05-31] MEDS: Sacubitril/Valsartan 24/26 1 TAB TABLET PO ×2 (10:05→20:04)
[2022-05-31] MEDS: Empagliflozin 10 MG TABLET PO (10:06)
[2022-05-31] MEDS: Atorvastatin Calcium 20 MG TABLET PO (10:06)
[2022-05-31] MEDS: Cyanocobalamin (Vitamin B-12) 500 MCG TABLET PO (10:07)
--- NOTE | 2022-05-31 10:38 | P.PNIM_ITS ---
Subjective Subjective Date of Service: 05/31/22 Interval History: f/u on heart failure symptomatically feels better, no sob, Scr rising Review of Systems no sob no chest pain Physical Exam Vital Signs: Vital Signs: Last Vital Signs Temp 97.3 F 05/31/22 08:00 Pulse 51 05/31/22 08:00 Resp 16 05/31/22 08:00 BP 108/62 05/31/22 08:00 Pulse Ox 94 05/31/22 08:00 O2 Del Method 05/31/22 08:00 BMI result Body Mass Index 26.4 Const: General: alert and awake Nutritional Appearance: average body habitus Resp: Effort & Inspection: normal respiratory effort and able to speak in complete sentences Cardio: Jugular venous distension: no JVD Rate: regular rate Heart sounds: S1 normal heart sound present and S2 normal heart sound present GI: Inspection: No distended Palpation (GI): Soft to palpation Neuro: Other: no focal deficits noted Extrem: General: Yes no pedal edema Objective Data Active Medications Acetaminophen (Acetaminophen 325 Mg Tablet) 650 mg PO Q6H PRN PRN Reason: Pain, Mild (Pain Scale 1-3) Last Admin: 05/30/22 11:24 Dose: 650 mg Documented By: BRADLEY Atorvastatin Calcium (Atorvastatin Calcium 20 Mg Tablet) 20 mg PO DAILY [facility] Last Admin: 05/31/22 10:06 Dose: 20 mg Documented By: ALETA Carvedilol (Carvedilol 6.25 Mg Tablet) 6.25 mg PO BID [facility]; Protocol Last Admin: 05/31/22 10:06 Dose: Not Given Documented By: ALETA Non-Admin Reason: HR< 60 Cyanocobalamin (Cyanocobalamin (Vitamin B-12) 500 Mcg Tablet) 500 mcg PO DAILY [facility] Last Admin: 05/31/22 10:07 Dose: 500 mcg Documented By: ALETA Empagliflozin (Empagliflozin 10 Mg Tablet) 10 mg PO DAILY [facility] Last Admin: 05/31/22 10:06 Dose: 10 mg Documented By: ALETA Heparin Sodium (Porcine) (Heparin Sodium,Porcine 5,000 Unit/Ml Vial) 5,000 unit SUBCUT Q12H [facility] Last Admin: 05/31/22 00:37 Dose: 5,000 unit Documented By: ROSA MARIA Magnesium Hydroxide (Milk Of Magnesia 30 Ml Oral.Susp) 30 ml PO DAILY PRN PRN Reason: Constipation Last Admin: 05/30/22 11:23 Dose: 30 ml Documented By: BRADLEY Melatonin (Melatonin 3 Mg Tablet) 6 mg PO BEDTIME PRN PRN Reason: Insomnia Pharmacy Consult (Consult Rx Perform Med Rec) 1 each MISCELLANE ONCE PRN PRN Reason: Consult order Sacubitril/Valsartan (Sacubitril/Valsartan 1 Tab Tablet) 1 tab PO BID [facility]; Protocol Last Admin: 05/31/22 10:05 Dose: 1 tab Documented By: ALETA Sodium Chloride (0.9 % Sodium Chloride Flush 3 Ml Syringe) 3 ml IVFLUSH QSHIFT [facility] Last Admin: 05/31/22 10:07 Dose: 3 ml Documented By: ALETA Spironolactone (Spironolactone 25 Mg Tablet) 12.5 mg PO DAILY [facility]; Protocol Last Admin: 05/31/22 10:05 Dose: 12.5 mg Documented By: ALETA Labs CBC & Chem 7: 05/27/22 15:24 05/31/22 06:39 Labs: Laboratory Results - last 24 hr 05/31/22 05/31/22 06:39 06:39 Anion Gap 15 Estim Creat Clear Calc 39.1 Estimated GFR 41 Random Glucose 96 Calcium 9.0 B-Natriuretic Peptide 1078 H Assessment and Plan (1) Heart failure, systolic, with acute decompensation: Status: Acute Plan 76-year-old man with a significant history of ischemic cardiomyopathy, CAD admitted with acute on chronic congestive heart failure with reduced ejection fraction with noted dyspnea and chest pressure Acute on chronic congestive heart failure with reduced ejection fraction Reported that he had not taken his medications in over 3 months Hold Lasix today d/t rising Creatinine continue carvedilol at 12. 5 bid Diovan stopped, Entresto started, Aldactone and Jardiance also added for neural hormonal modulation. Echocardiogram EF 15 Cardiology following Daily weights, strict intake and output check BNP is coming down LIANA on CKD3, Scr rising and holding Lasix today follow BMP Hypernatremia. Resolved Secondary to fluid overload Diurese and monitor electrolytes Elevated troponin Likely secondary to acute heart failure troponins initially elevated but trended down did not require heparin as per cardiology Hypertension continue Entresto, and Aldactone resume coreg 12.5 bid d/c hydralazine DVT prophylaxis with heparin Full code Disposition home when medically cleared continued hospitalization for treatment of acute on chronic congestive heart failure requiring IV diuretics as well as close monitoring of his renal function Time Spent With Patient Time: Total time managing care of this patient today ____ minutes. Quality Stroke Does the patient have a stroke diagnosis?: No VTE Prior VTE?: No VTE Risk Level:: Medical - moderate - high VTE Device Contraindication: Treatment Not Indicated VTE Drug Contraindication: N/A - Med Ordered
[2022-05-31 11:46] VITALS: BP 104/57; PULSE 73; RESP 18; TEMP 36.3; O2SAT 97
--- NOTE | 2022-05-31 12:31 | P.PNCA_ITS ---
Subjective Subjective Date of Service: 05/31/22 Principal diagnosis: CHF, Nonischemic CMP Interval history: Patient feeling well. No shortness of breath. No lightheadedness, syncope. No arrhythmias Review of Systems Review of Systems Yes all other systems are reviewed and are negative Physical Exam Vital Signs: Last Vital Signs Temp 97.3 F 05/31/22 11:46 Pulse 73 05/31/22 11:46 Resp 18 05/31/22 11:46 BP 104/57 L 05/31/22 11:46 Pulse Ox 97 05/31/22 11:46 O2 Del Method 05/31/22 11:46 BMI result Body Mass Index 26.4 Const General: cooperative, healthy appearing, comfortable and no acute distress Orientation/consciousness: patient oriented x3 Neck Neck: Yes normal visual inspection and Yes no JVD Resp Effort & Inspection: normal respiratory effort Auscultation: clear to auscultation bilaterally, no crackles, no rales, no rhonchi and no wheezes Cardio Jugular venous distension: no JVD Rate: regular rate Rhythm: regular rhythm Heart sounds: S1 normal heart sound present, S2 normal heart sound present, no gallops, no murmurs and no rubs Skin General skin exam: no rashes or lesions noted Neuro General: patient oriented x3 Extrem General: Yes normal to inspection Psych Appearance: grossly normal Mental Status: mental status grossly normal Speech and movement: Normal speech and movement present Objective Labs and Meds Result diagrams: 05/27/22 15:24 05/31/22 06:39 Lab results: Laboratory Results - last 24 hr 05/31/22 05/31/22 06:39 06:39 Sodium 141 Potassium 3.6 Chloride 105 Carbon Dioxide 25 Anion Gap 15 BUN 33 H Creatinine 1.63 H Estim Creat Clear Calc 39.1 Estimated GFR 41 Random Glucose 96 Calcium 9.0 B-Natriuretic Peptide 1078 H Progress Note: A&P Assessment and plan (1) Heart failure, systolic, with acute decompensation: Status: Acute Assessment and Plan: Decompensated heart failure secondary to severe nonischemic cardiomyopathy due t o noncompliance with medications. Blood pressure is over corrected. Adjustments made yesterday with reduction dose of carvedilol as well as Entresto. Continue the same. Advised to monitor blood pressure at home. Low- salt diet was advised. Can be discharged home today on in addition spironolact one 12.5 mg, Jardiance 10 mg as well as Lasix 40 mg. CHF education to be provided. Will follow-up with lab work in 3-4 days. Will follow up in the clinic in 10-14 days. Thank you for allowing me to partake in his care Time Spent With Patient Time: Total time managing care of this patient today ____ minutes. Progress Note: Quality Stroke Does the patient have a stroke diagnosis?: No Procedures Date of Service Date of Service: 05/31/22
[2022-05-31 15:12] VITALS: BP 101/52; PULSE 72; RESP 17; TEMP 36.5; O2SAT 94
[2022-05-31 19:11] VITALS: BP 125/67; PULSE 74; RESP 20; TEMP 36.3; O2SAT 95
[2022-05-31] MEDS: carvediloL 6.25 MG TABLET PO (20:04)
[2022-05-31 23:41] VITALS: BP 129/83; PULSE 67; RESP 20; TEMP 36.5; O2SAT 96
[2022-06-01] MEDS: 0.9 % Sodium Chloride Flush 3 ML SYRINGE IVFLUSH ×2 (00:29→09:08)
[2022-06-01] MEDS: Heparin Sodium,Porcine 5,000 UNIT/ML VIAL 5000 UNIT SUBCUT (00:29)
[2022-06-01 03:13] VITALS: BP 124/96; PULSE 64; RESP 20; TEMP 36.3; O2SAT 93
[2022-06-01 05:48] VITALS: BMI 26.9
[2022-06-01 07:12] VITALS: BP 122/75; PULSE 71; RESP 18; TEMP 36.6; O2SAT 95
[2022-06-01 07:34] LABS: Anion Gap 15 (12-20); Blood Urea Nitrogen 43 mg/dL (9-16); Carbon Dioxide 24 mmol/L (22-29); Chloride 106 mmol/L (96-108); Creatinine Clr Calc Pharmacy 38.9; Estimated Glomerular Filt Rate 41; Glucose Random 89 mg/dL (60-115); Potassium 3.8 mmol/L (3.3-5.1); Sodium 141 mmol/L (135-145)
[2022-06-01] MEDS: Atorvastatin Calcium 20 MG TABLET PO (09:05)
[2022-06-01] MEDS: carvediloL 6.25 MG TABLET PO (09:05)
[2022-06-01] MEDS: Sacubitril/Valsartan 24/26 1 TAB TABLET PO (09:05)
[2022-06-01] MEDS: Cyanocobalamin (Vitamin B-12) 500 MCG TABLET PO (09:06)
[2022-06-01] MEDS: Empagliflozin 10 MG TABLET PO (09:06)
[2022-06-01] MEDS: Spironolactone 25 MG TABLET 12.5 MG PO (09:06)
--- NOTE | 2022-06-01 09:48 | P.DS_ITS ---
DS: Providers Provider Date of Service: 06/01/22 Date of admission: 05/27/22 17:47 Primary care physician: Deb Pete MD Consults: 05/27/22 17:59 Consult to Cardiology Routine Consulting Provider: Lorenzo Jordan Reason for consultation: Acute on chronic heart failure with reduced ejection fraction Has provider been notified: No DS: Diagnosis Discharge Diagnosis (1) Heart failure, systolic, with acute decompensation: Status: Acute DS: Summary Hospital Course Hospital Course: Chief Complaint: Shortness of breath 76-year-old man presented to the ER with complaints of worsening shortness of breath and chest pressure.? His was present during the interview and stated that their daughter had been his pills into a pillbox however patient reports that he has been taking his medications in over 3 months.? His stated that about 3 months ago is when his daughter stops his pills however his did not realize that he was not taking the pills on his own.? P atient did state that he has felt more short of breath especially with exertion, he denies orthopnea, chest pain, nausea, vomiting, diarrhea.? In the ER, his blood pressure was noted to be elevated at 160 2/109, heart rate 99, oxygen saturation 98% room air.? His troponin was 269.4 with BNP of 2710, creatinine 1.42.? EKG showed left bundle-branch block without any significant change from previous.? Patient was given a dose of IV Lasix in topical nitroglycerin in the ER.? He will be admitted for further management and treatment of acute on chronic heart failure with reduced ejection fraction. Hospital course: He presented with shortness of breath due to acute exacerbation of systolic heart failure due to non compliance with his medication, having not taking meds for nearly 3 months. His EF is 15 to 20 %, while in the hospital he was treated with IV Lasix and restarted on Aldactone, Coreg dose has been reduced to 6.25 twice a day, Valsartan is stopped and in place Entresto addded, Jardiance is added as new med also. There is has been some bump in serum creatine but is stable, presently at 1.64 which is not changed from prior day, at baseline has CKD 3 with baseline Creatine around 1.4, should have outpatient labs. He is instructed to avoid salty food, drink no more than 2 L of water, for investing the weight at home and await himself on a daily basis LIANA on CKD3, baseline creatinine 1.4 present 1.6 and essentially unchanged from prior date, Lasix will be resumed. He will need outpatient follow-up on these lab suggest that this will be check in the middle of this coming week. Hypernatremia. resolved Elevated troponin--d/t heart failure, no evidence of acute ischemia and no indication for further testing or treament Hypertension Hydralazine stopped . Coreg reduced to 6.25 mg twice a day from 625 mg twice a day. Entresto added. Time Spent with Patient Time attestation: Total time managing care of this patient today ____ minutes. Discharge coordination time: Greater than 30 minutes Quality: Safe Use of Opioids Does Pt have an Active Cancer Diagnosis on the Problem List?: No Quality: Stroke Does the patient have a stroke diagnosis?: No Physical Exam Vital Signs: Vital Signs: Last Vital Signs Temp 97.9 F 06/01/22 07:12 Pulse 71 06/01/22 07:12 Resp 18 06/01/22 07:12 BP 122/75 06/01/22 07:12 Pulse Ox 95 06/01/22 07:12 O2 Del Method 06/01/22 07:12 BMI result Body Mass Index 26.9 Const: Other: General: AO X 3, no acute distress Resp: CTA bilateral CVS: S1,S2,RRR GI: +BS, NT, no distention Skin: No rash Neuro: motor grossly intact Psych: appropriate affect DS: Data Data Completed and Pending Labs on day of discharge: Laboratory Results - last 24 hr 06/01/22 05:54 Sodium 141 Potassium 3.8 Chloride 106 Carbon Dioxide 24 Anion Gap 15 BUN 43 H Creatinine 1.64 H Estim Creat Clear Calc 38.9 Estimated GFR 41 Random Glucose 89 Calcium 9.0 Discharge Plan Discharge Anticipated Discharge Date/Time: 06/01/22 09:38 Patient Disposition: Home Health Service Discharge Diagnosis: Acute on chronic systolic heart failure Referrals: Deb Vital MD [Primary Care Provider] - 1 Week Discharge Medications: New Entresto 24-26 mg Tablet 1 tab PO BID Qty: 60 0RF Protocol: Hold for SBP< HOLD for SBP < : 90 carvedilol 6.25 mg Tablet 6.25 mg PO BID Qty: 60 0RF Protocol: Hold for SBP/HR < HOLD for SBP < : 90 HOLD for HR < : 60 spironolactone 25 mg Tablet 12.5 mg PO DAILY Qty: 30 0RF Protocol: Hold for SBP< HOLD for SBP < : 90 Jardiance 10 mg Tablet 10 mg PO DAILY Qty: 30 0RF Continued furosemide 40 mg tablet 40 mg PO DAILY Qty: 90 3RF atorvastatin 20 mg tablet 20 mg PO DAILY Qty: 90 3RF cyanocobalamin (vitamin B-12) 500 mcg Tablet 500 mcg PO DAILY Discontinued hydralazine 50 mg tablet 50 mg PO BID Qty: 180 3RF carvedilol 25 mg tablet 25 mg PO BID Qty: 180 3RF valsartan 160 mg tablet 1 tab PO BID Discharge Orders: Discharge Order (Routine); Ordered 06/01/22 Ordered By: Flo Peace Diet: Low salt diet Activity on Discharge: As tolerated Stand Alone Forms: Patient Portal Discharge page Other Ambulatory Orders: Basic Metabolic Panel (Routine) Timeframe: [id number] Facility: [facility] - Location: Laboratory Ordered By: Flo Peace Care Plan Goals: control of heart failure Health Concerns: Heart failure, chronic kidney disease Plan of Treatment: Stop taking Hydralazine Stop taking valsartan Continue taking Lasix, avoid salty food, do not drink in excess of more than 2 L a day water Take sacubitril (Entresto) as recommended Coreg (carvedilol) dose has been reduced to 6.25 mg twice a day. Follow-up with your primary care doctor within a week, Follow-up with Dr. Jordan your heart doctor. Get lab done later this week VNA check BMP on 06/04 Assessment: as above
--- NOTE | 2022-06-01 10:45 | MHC.CM.PN ---
PT CLEARED TO DC TODAY, [facility] ORDERED DUE TO PT NOT YET BEING ESTABLISHED WITH HIS PCP, [facility] IS [facility]CLEAR IF [facility] INDICATED [facility] ARE WILLING TO ACCEPT AND WILL INITIATE CARE ON THURSDAY, HOWEVER THIS WILL BE DEPENDENT ON DR ABERNATHY WILLINGNESS TO SIGN ORDERS MD AWARE PT WILL ARRANGE TRANSPORT
--- NOTE | 2022-06-01 10:52 | P.F2F_ITS ---
Service Date Service Date: 06/01/22 Encounter Date of encounter: 06/01/22 Reasons for Services Signs and symptoms assessed: Heart failure, shortness of Reason for correction: medication management and teach disease management Homebound: Leaving the home is medically contraindicated at this time without the asist of a device and/or another person due th the listed conditions above and below. Reason homebound: shortness of breath with minimal effort Homebound supporting statement: Homebound due to shortness of breath from heart failure and therefore needs the assistance of another person Certification: Based on the above findings, I certify that this patient is confined to the home and needs intermittent correction care, physical therapy and/or speech therapy, or continues to need occupational therapy. The patient is under my care, and I have initiated the establishment of the plan of care. The patient will be followed by a physician who will periodically review the plan of care. Time Spent With Patient Time: Total time managing care of this patient today ____ minutes.
== END 2022-06-01 12:30 | disposition home health service (06) | DRG 291 ==
LOC: HO.ED 16:47 → HO.EDOVER 18:02 → HO.IMC 05-29 16:50
PROVIDERS: Nurse Practitioner Acute Care; Nurse Practitioner Family; Physician Assistant Medical; Student in an Organized Health Care Education/Training Program; Admitting Provider Internal Medicine; Emergency Provider Internal Medicine; PCP Internal Medicine; Visit Provider Internal Medicine
DX: I13.0 Hypertensive heart and chronic kidney disease with heart failure and stage 1 through stage 4 chronic kidney disease, or unspecified chronic kidney disease (principal); I50.23 Acute on chronic systolic (congestive) heart failure; N17.9 Acute kidney failure, unspecified; E87.0 Hyperosmolality and hypernatremia; R79.89 Other specified abnormal findings of blood chemistry; I42.0 Dilated cardiomyopathy; N18.30 Chronic kidney disease, stage 3 unspecified; I25.10 Atherosclerotic heart disease of native coronary artery without angina pectoris; Z20.822 Contact with and (suspected) exposure to COVID-19; Z91.14 Patient's other noncompliance with medication regimen; Z79.899 Other long term (current) drug therapy
CPT/HCPCS: 36415; 71046; 80048; 80053; 83880; 84484; 85025; 85610; 87635; 93005; 93306; 99285; J1940; Q9957

== ENCOUNTER 2022-06-06 08:16 | Outpatient (REF) | payer MEDICARE, SELFPAY ==
[2022-06-06 10:35] LABS: Anion Gap 14 (12-20); Blood Urea Nitrogen 39 mg/dL (9-16); Calcium 9.2 mg/dL (8.4-10.2); Carbon Dioxide 22 mmol/L (22-29); Chloride 111 mmol/L (96-108); Estimated Glomerular Filt Rate 45; Glucose Random 83 mg/dL (60-115); Potassium 4.3 mmol/L (3.3-5.1); Sodium 143 mmol/L (135-145)
[2022-06-06 10:36] LABS: B Type Natriuretic Peptide 2916 pg/mL (<100)
== END 2022-06-06 08:17 | disposition home or self-care (01) ==
LOC: HO.LAB 08:16
PROVIDERS: Internal Medicine; PCP Internal Medicine; Visit Provider Internal Medicine Cardiovascular Disease
DX: I50.23 Acute on chronic systolic (congestive) heart failure (principal); I21.4 Non-ST elevation (NSTEMI) myocardial infarction; I25.10 Atherosclerotic heart disease of native coronary artery without angina pectoris; N18.9 Chronic kidney disease, unspecified
CPT/HCPCS: 36415; 80048; 83880

== ENCOUNTER 2022-06-12 09:13 | Outpatient (REF) | payer MEDICARE, SELFPAY ==
[2022-06-12 11:07] LABS: Anion Gap 9 (12-20); Blood Urea Nitrogen 30 mg/dL (9-16); Calcium 9.5 mg/dL (8.4-10.2); Carbon Dioxide 28 mmol/L (22-29); Chloride 111 mmol/L (96-108); Estimated Glomerular Filt Rate 40; Glucose Random 112 mg/dL (60-115); Potassium 4.2 mmol/L (3.3-5.1); Sodium 144 mmol/L (135-145)
[2022-06-12 11:49] LABS: B Type Natriuretic Peptide 2695 pg/mL (<100)
== END 2022-06-12 09:14 | disposition home or self-care (01) ==
LOC: HO.LAB 09:13
PROVIDERS: PCP Internal Medicine; Visit Provider Internal Medicine Cardiovascular Disease
DX: I50.22 Chronic systolic (congestive) heart failure (principal); I25.10 Atherosclerotic heart disease of native coronary artery without angina pectoris
CPT/HCPCS: 36415; 80048; 83880; 99212

== ENCOUNTER → 2022-08-25 11:06 | Outpatient (BNVA) | payer MEDICARE, SELFPAY | PROVIDERS: PCP Internal Medicine; Referring Provider Internal Medicine; Visit Provider Internal Medicine Cardiovascular Disease | DX: I50.22 Chronic systolic (congestive) heart failure (principal) | CPT/HCPCS: 99212 ==

== ENCOUNTER 2022-11-24 12:18 | Outpatient (REF) | payer MEDICARE, SELFPAY ==
[2022-10-30 07:51] VITALS: BP 120/74; BP 130/80
[2022-11-24 10:32] VITALS: BP 120/74; BMI 25.4
[2022-11-24 14:08] LABS: Anion Gap 15 (12-20); Blood Urea Nitrogen 20 mg/dL (9-16); Calcium 9.3 mg/dL (8.4-10.2); Carbon Dioxide 27 mmol/L (22-29); Chloride 109 mmol/L (96-108); Estimated Glomerular Filt Rate > 60; Glucose Random 118 mg/dL (60-115); Potassium 3.9 mmol/L (3.3-5.1); Sodium 147 mmol/L (135-145)
[2022-11-24 14:09] LABS: B Type Natriuretic Peptide 4065 pg/mL (<100)
== END 2022-11-24 12:19 | disposition home or self-care (01) ==
LOC: HO.LAB 12:18
PROVIDERS: PCP Internal Medicine; Referring Provider Internal Medicine; Visit Provider Internal Medicine Cardiovascular Disease
DX: I50.22 Chronic systolic (congestive) heart failure (principal)
CPT/HCPCS: 36415; 80048; 83880; 99212

== ENCOUNTER 2022-12-01 12:48 | Inpatient (IN) | payer MEDICARE, SELFPAY ==
[2022-10-30 07:51] VITALS: BP 120/74; BP 130/80
--- NOTE | 2022-12-01 | ECG_ITS ---
Test Reason : A fib? Blood Pressure : / mmHG Vent. Rate : 116 BPM Atrial Rate : 000 BPM P-R Int : 000 ms QRS Dur : 130 ms QT Int : 376 ms P-R-T Axes : 000 -06 150 degrees QTc Int : 522 ms Atrial fibrillation with rapid ventricular response with premature ventricular or aberrantly conducted complexes Left bundle branch block Abnormal ECG When compared with ECG of 01-DEC-2022 13:43, Atrial fibrillation has replaced Sinus rhythm Referred By: Ayana Zamora Electronically Signed By:KELLY LUCIO MD
--- NOTE | ~2022-12-01 | XR_ITS ---
EXAMINATION: XR CHEST CLINICAL INFORMATION: Shortness of breath, CHF. Pitting edema lower extremity. COMPARISON: Chest radiographs 05/27/2022, 05/02/2020 TECHNIQUE: Upright AP view of the chest is performed. FINDINGS: There is lordotic patient positioning. Enlarged cardiopericardial silhouette is similar to prior studies. There is even distribution pulmonary vascularity but no engorgement of the central vasculature. No Sadie B lines. There are probable trace bilateral effusions blunting the costophrenic sulci. No lobar or segmental airspace consolidation or effusion. XR/XR chest 1V IMPRESSION: - Enlarged cardiopericardial silhouette similar to prior studies. - Probable trace effusions. Lungs otherwise clear.
--- NOTE | ~2022-12-01 | US_ITS ---
EXAMINATION: US VENOUS WITH DOPPLER UPPER EXTREMITY, LEFT CLINICAL INFORMATION: Pitting edema. COMPARISON: Chest radiograph 12/01/2022. TECHNIQUE: Ultrasound of the upper extremity is performed using compression sonography and color and pulse Doppler flow with assessment of augmentation of flow. There is also imaging and Doppler assessment of the jugular and subclavian veins. Spectral analysis with color-flow imaging is performed. FINDINGS: Respiratory variation, normal compression, and augmented flow are noted throughout the upper extremity including the axillary, brachial, cubital, and radial and ulnar veins. There is normal flow in the internal jugular and subclavian veins. There is no visible deep or superficial thrombophlebitis. Additional imaging overlying posterior elbow area of swelling demonstrates some focal fluid overlying the triceps suggesting a small bursal effusion. This measures approximately 0.6 cm thickness by 1.7 cm across. Nonspecific soft tissue edema also noted left wrist. US/US venous duplex UE LT IMPRESSION: -No DVT demonstrated in the left upper extremity. -Bursal effusion overlying the olecranon approximately 0.6 cm thickness by 1.7 cm across.
[2022-12-01 13:22] VITALS: BP 138/63; PULSE 92; RESP 17; TEMP 36.6; O2SAT 96; BMI 25.1
--- NOTE | 2022-12-01 13:22 | ED.GENADULT ---
HPI - General Adult General Chief complaint: General Medical Stated complaint: Swollen legs/Sollwen hands Time Seen by Provider: 12/01/22 14:58 Source: patient and family Mode of arrival: ambulatory Limitations: no limitations History of Present Illness HPI narrative: 77-year-old male presents with lower extremity edema. Symptoms started approximately 1 week ago. He is diet compliant. Takes his medications appropriately. His primary care provider increased his Lasix from 40-80 mg daily. Despite this, his lower extremity edema is progressively gotten worse. He denies any chest pain or shortness of breath. He is not ambulating much due to pain in his lower extremities. He denies any orthopnea, PND or dyspnea on exertion. Patient is followed by Cardiology. Has a history of systolic heart failure. His last ejection fraction was approximately 20%. Patient also does describe some mild nausea over the same period of time. Patient noticed some swelling left upper extremity. Related Data Home Medications Medication Instructions Recorded Confirmed cyanocobalamin (vitamin B-12) 500 500 mcg PO DAILY 05/27/22 09/09/22 mcg tablet spironolactone 25 mg tablet 25 mg PO DAILY 08/25/22 09/09/22 Previous Rx's Medication Instructions Recorded furosemide 40 mg tablet 40 mg PO DAILY #90 tabs 03/31/22 atorvastatin 20 mg tablet 20 mg PO DAILY #90 tabs 05/06/22 carvedilol 6.25 mg tablet 6.25 mg PO BID #60 tabs 06/01/22 empagliflozin 10 mg tablet 10 mg PO DAILY #30 tabs 06/01/22 (Jardiance) valsartan 40 mg tablet 40 mg PO BID 90 days #180 tabs 11/21/22 Allergies Allergy/AdvReac Type Severity Reaction Status Date / Time No Known Allergies Allergy Verified 12/01/22 13:22 [No Known Allergies*] Review of Systems Review of Systems: CONSTITUTIONAL: Denies weight loss, fever and chills. HEENT: Denies changes in vision and hearing. RESPIRATORY: Denies SOB and cough. CV: Denies palpitations no CP. GI: Denies abdominal pain, +nausea,- vomiting and diarrhea. : Denies dysuria and urinary frequency. MSK: Denies myalgia and joint pain. SKIN: Denies rash and pruritus. NEUROLOGICAL: Denies headache and syncope. PSYCHIATRIC: Denies recent changes in mood. Denies anxiety and depression. All other ROS are negative unless in HPI [facility] Past Medical History Medical History CAD (coronary artery disease) CHF (congestive heart failure) Chronic systolic HF (heart failure) Congestive heart failure Dilated cardiomyopathy Heart failure, systolic, with acute decompensation High cholesterol HTN (hypertension) Hypercholesteremia Hypertension Nonischemic cardiomyopathy Obesity Surgical History H/O hernia repair History of cardiac cath (~05/2016) Family History Family History Father Hypertension Mother Stomach cancer Social History Social History Household Members: Spouse Housing: House Housing Other:: lives in a 2 family home per pt Do you presently have visiting nurse or other home services: No Alcohol intake: never Patient Tobacco Use Status: Never used Tobacco e-Cigarette/Vaping Use: Never Used Second Hand Smoke Exposure: No (n/a) Advance Directives: Yes Advance Directives on File: Yes Advance Directives Date on File: 05/28/22 service: No Current occupational status: retired Cognitive needs: No Hearing needs: No Vision needs: No Physical Exam ED Vital Signs: Vital Signs - 24 hr 12/01/22 13:22 Temperature 98 F Pulse Rate 92 Respiratory Rate 17 Blood Pressure 138/63 Pulse Oximetry 96 BMI result Body Mass Index 25.1 GEN: Well developed, no acute distress, alert, oriented HEENT: Normocephalic, atraumatic, normal external ears, nose appears normal, no oropharyngeal edema or exudates Eyes: Normal to appearance Neck: Supple, no lymphadenopathy Respiratory: Talks in complete sentences, no respiratory distress, clear to auscultation bilaterally Cardiovascular: Regular rate and rhythm, no murmurs rubs or gallops Abdomen: Soft, nontender, nondistended, no guarding, no rebound Back: No CVA tenderness Extremities: No clubbing cyanosis 3+ edema Neurologic: No focal neurologic deficits, cranial nerves 2-12 intact, strength is 5/5 bilaterally Skin: No rash Course Course Course Narrative: RME: 77yo M w/PMHx HTN, CKD, CAD, CHF, c/o increasing pedal and LUE pitting edema x1 week. Patient follows with Dr. Jordan, has increase Lasix to 80 mg daily x1 week without improvement. Reports mild SOB. 4+ bilateral LE pitting edema & LUE pitting edema EKG, labs, CXR, venous duplex ultrasound ordered Full HPI, ROS and PE to be performed by primary ED provider. Reevaluation(s) Reevaluation #1: Workup is complete. Patient has heart failure that is fairly outpatient diuresis. I did contact patient's blocker polishing who agrees with inpatient status. I contacted the hospitalist. Discussed all results with the patient and family. Time: 15:26 Medical Decision Making Medical Decision Making [facility] Narrative: 77-year-old male with history of systolic heart failure, CKD presents with lower extremity edema. Damn reveals 3 to 4+ by pedal edema. His lungs are clear to auscultation bilaterally. Patient has failed outpatient diuresis. Suspect patient will need to be admitted to the hospital. Workup will include laboratory analysis, chest x-ray, ultrasound lower extremities. Will re-evaluate the patient. Will consult the patient's blocker polishing. Differential Diagnosis Differential Diagnoses: The differential diagnosis associated with the presentation includes (CHF, peripheral edema, anasarca, pulmonary edema, hypoalbuminemia) Admission/Observation Consideration of admission/observation: Escalation of care including admission/observation considered Consult Healthcare Provider Management of the patient was discussed with: Hospitalist and Wafer Production Worker (Cardiology) Lab Data [facility] Lab Attestation statement: I reviewed the patient's lab results. 12/01/22 13:57 12/01/22 13:57 Labs: Lab Results 12/01/22 12/01/22 12/01/22 Range/Units 13:57 13:57 13:57 WBC 7.6 (4.8-10.8) X10*3/uL RBC 3.76 L (4.60-5.80) X10*6/uL Hgb 11.6 L (14.0-18.0) g/dl Hct 36.4 L (42.0-52.0) % MCV 96.8 (80.0-98.0) fL MCH 30.9 (27.0-33.0) pg MCHC 31.9 (31.0-36.0) g/dl RDW 14.0 (11.0-16.0) % Plt Count 225 (160-400) X10*3/uL MPV 10.5 (9.4-12.4) fL Immature Gran % (Auto) 0.5 H (0.0-0.4) % Neut % (Auto) 76.7 H (45-73) % Lymph % (Auto) 6.5 L (20-40) % [place] % (Auto) 16.2 H (2-11) % Eos % (Auto) 0.0 (0-4) % Baso % (Auto) 0.1 (0-2) % Lymph # (Auto) 0.5 L (1.2-4.9) X10*3/uL [place] # (Auto) 1.2 (0.1-1.2) X10*3/uL Eos # (Auto) 0.0 (0.0-0.4) X10*3/uL Baso # (Auto) 0.0 (0.0-0.2) X10*3/uL Abs Immat Gran (auto) 0.04 H (0.00-0.03) X10*3/uL Absolute Neuts (auto) 5.8 (2.0-8.3) x10*3/uL Absolute Nucleated RBC 0.000 (0.0-0.012) X10*3/uL Nucleated RBC % (auto) 0.0 (0.0-0.2) /100WBC PT 14.3 H (10.0-13.1) SEC INR 1.2 H (0.9-1.1) Sodium 143 (135-145) mmol/L Potassium 3.9 (3.3-5.1) mmol/L Chloride 106 (96-108) mmol/L Carbon Dioxide 28 (22-29) mmol/L Anion Gap 13 (12-20) BUN 23 H (9-16) mg/dL Creatinine 1.25 (0.5-1.4) mg/dL Estim Creat Clear Calc 51.8 Estimated GFR 56 Random Glucose 102 (60-115) mg/dL Calcium 8.7 D (8.4-10.2) mg/dL Magnesium 2.1 (1.6-2.6) mg/dL Total Bilirubin 0.7 (0.0-1.0) mg/dL Direct Bilirubin 0.3 (0.0-0.5) mg/dL AST 93 H (5-37) U/L ALT 88 H (0-40) U/L Alkaline Phosphatase 72 (39-117) U/L Troponin I High Sens (<3.5-35.0) ng/L B-Natriuretic Peptide (<100) pg/mL Total Protein 5.9 L (6.5-8.0) g/dL Albumin 3.2 L (3.5-5.0) g/dL 12/01/22 12/01/22 Range/Units 13:57 13:57 WBC (4.8-10.8) X10*3/uL RBC (4.60-5.80) X10*6/uL Hgb (14.0-18.0) g/dl Hct (42.0-52.0) % MCV (80.0-98.0) fL MCH (27.0-33.0) pg MCHC (31.0-36.0) g/dl RDW (11.0-16.0) % Plt Count (160-400) X10*3/uL MPV (9.4-12.4) fL Immature Gran % (Auto) (0.0-0.4) % Neut % (Auto) (45-73) % Lymph % (Auto) (20-40) % [place] % (Auto) (2-11) % Eos % (Auto) (0-4) % Baso % (Auto) (0-2) % Lymph # (Auto) (1.2-4.9) X10*3/uL [place] # (Auto) (0.1-1.2) X10*3/uL Eos # (Auto) (0.0-0.4) X10*3/uL Baso # (Auto) (0.0-0.2) X10*3/uL Abs Immat Gran (auto) (0.00-0.03) X10*3/uL Absolute Neuts (auto) (2.0-8.3) x10*3/uL Absolute Nucleated RBC (0.0-0.012) X10*3/uL Nucleated RBC % (auto) (0.0-0.2) /100WBC PT (10.0-13.1) SEC INR (0.9-1.1) Sodium (135-145) mmol/L Potassium (3.3-5.1) mmol/L Chloride (96-108) mmol/L Carbon Dioxide (22-29) mmol/L Anion Gap (12-20) BUN (9-16) mg/dL Creatinine (0.5-1.4) mg/dL Estim Creat Clear Calc Estimated GFR Random Glucose (60-115) mg/dL Calcium (8.4-10.2) mg/dL Magnesium (1.6-2.6) mg/dL Total Bilirubin (0.0-1.0) mg/dL Direct Bilirubin (0.0-0.5) mg/dL AST (5-37) U/L ALT (0-40) U/L Alkaline Phosphatase (39-117) U/L Troponin I High Sens 88.2 H D (<3.5-35.0) ng/L B-Natriuretic Peptide 4192 H (<100) pg/mL Total Protein (6.5-8.0) g/dL Albumin (3.5-5.0) g/dL Independent Interpretation I performed an independent interpretation of an: EKG (Normal sinus rhythm heart rate 91, left bundle-branch block, LVH, no acute ST elevations or depressions) and Plain X-Ray (Chest: Cardiomegaly, CHF) Independent Historian Clinical information obtained from an independent historian. History obtained from or confirmed by: Spouse External Record Review External record reviewed: Office record and Prior outpatient radiology Prescription Management I considered prescription management with: Pain Medication Chronic Conditions Patient?s care impacted by: Other (CKD, CHF) Discharge Plan Discharge Clinical Impression: Chronic systolic HF (heart failure) Patient Disposition: Admitted As Inpatient Prescriptions: No Action furosemide 40 mg tablet 40 mg PO DAILY Qty: 90 3RF atorvastatin 20 mg tablet 20 mg PO DAILY Qty: 90 3RF valsartan 40 mg tablet 40 mg PO BID 90 Days Qty: 180 3RF cyanocobalamin (vitamin B-12) 500 mcg Tablet 500 mcg PO DAILY carvedilol 6.25 mg Tablet 6.25 mg PO BID Qty: 60 0RF Protocol: Hold for SBP/HR < HOLD for SBP < : 90 HOLD for HR < : 60 Jardiance 10 mg Tablet 10 mg PO DAILY Qty: 30 0RF spironolactone 25 mg tablet 25 mg PO DAILY Protocol: Hold for SBP< HOLD for SBP < : 90
--- NOTE | 2022-12-01 13:24 | ECG_ITS ---
Test Reason : swelling Blood Pressure : / mmHG Vent. Rate : 091 BPM Atrial Rate : 091 BPM P-R Int : 164 ms QRS Dur : 130 ms QT Int : 406 ms P-R-T Axes : 048 -25 126 degrees QTc Int : 499 ms Normal sinus rhythm with sinus arrhythmia Left bundle branch block Abnormal ECG When compared with ECG of 27-MAY-2022 15:15, No significant change was found Referred By: Juju Villaseñor Electronically Signed By:KELLY LUCIO MD
--- NOTE | 2022-12-01 13:59 | MHC.EDTECH ---
EKG completed and signed by . Labs drawn and sent
[2022-12-01 14:03] LABS: MANUAL DIFF FLAG NO
[2022-12-01 14:05] LABS: Basophils Percent Auto 0.1 % (0-2); Hematocrit 36.4 % (42.0-52.0); Hemoglobin 11.6 g/dl (14.0-18.0); Imm Gran Abs Auto 0.04 X10*3/uL (0.00-0.03); Imm Gran Pct Auto 0.5 % (0.0-0.4); Lymphocytes Absolute Auto 0.5 X10*3/uL (1.2-4.9); Lymphocytes Percent Auto 6.5 % (20-40); Mean Corpuscular HGB Conc 31.9 g/dl (31.0-36.0); Mean Corpuscular Hemoglobin 30.9 pg (27.0-33.0); Mean Corpuscular Volume 96.8 fL (80.0-98.0); Mean Platelet Volume 10.5 fL (9.4-12.4); Monocytes Absolute Auto 1.2 X10*3/uL (0.1-1.2); Monocytes Percent Auto 16.2 % (2-11); Neutrophils Absolute Auto 5.8 x10*3/uL (2.0-8.3); Neutrophils Percent Auto 76.7 % (45-73); Platelet Count 225 X10*3/uL (160-400); Red Blood Count 3.76 X10*6/uL (4.60-5.80); White Blood Count 7.6 X10*3/uL (4.8-10.8)
[2022-12-01 14:21] LABS: Alanine Aminotransferase 88 U/L (0-40); Albumin Level 3.2 g/dL (3.5-5.0); Alkaline Phosphatase 72 U/L (39-117); Anion Gap 13 (12-20); Aspartate Amino Transferase 93 U/L (5-37); Bilirubin Direct 0.3 mg/dL (0.0-0.5); Bilirubin Total 0.7 mg/dL (0.0-1.0); Blood Urea Nitrogen 23 mg/dL (9-16); Calcium 8.7 mg/dL (8.4-10.2); Carbon Dioxide 28 mmol/L (22-29); Chloride 106 mmol/L (96-108); Creatinine Clr Calc Pharmacy 51.8; Estimated Glomerular Filt Rate 56; Glucose Random 102 mg/dL (60-115); Magnesium 2.1 mg/dL (1.6-2.6); Potassium 3.9 mmol/L (3.3-5.1); Sodium 143 mmol/L (135-145); Total Protein 5.9 g/dL (6.5-8.0)
[2022-12-01 14:26] LABS: B Type Natriuretic Peptide 4192 pg/mL (<100)
[2022-12-01 14:27] LABS: INTERNATIONAL NORM RATIO 1.2 (0.9-1.1); Prothrombin Time 14.3 SEC (10.0-13.1)
[2022-12-01 14:28] LABS: Troponin-I High Sensitivity 88.2 ng/L (<3.5-35.0)
--- NOTE | 2022-12-01 15:36 | PM.IMHP ---
History of Present Illness Date of Service: 12/01/22 Chief Complaint: SOB and leg edema 69-year-old man presented to the ER with complaints of worsening shortness of breath. He does have a history of systolic heart failure. He reports increased shortness of breath, lower extremity edema. Reports compliance with taking his medications every day. He denied chest pain, nausea, vomiting, diarrhea, recent travel, sick contacts. BNP was noted to be elevated at 4192, troponin 88.2 with no acute changes on EKG no complaints of chest pain. Mild elevation noted to liver enzymes. Chest x-ray indicative of congestive heart failure. In the ER he was given IV Lasix, Zofran and Tylenol. He will be admitted for further management and treatment of acute on chronic congestive heart failure. Review of Systems Review of Systems: Denies any recent fever chills or decrease in appetite respiratory denies any shortness of breath coverage production cardiovascular is adjustment of any PND or edema gastrointestinal denies any dysphagia abdominal pain nausea vomiting or diarrhea genitourinary denies any dysuria frequency or hematuria musculoskeletal denies any joint pain or swelling neuropsych denies any weakness or seizures all other systems reviewed are negative [facility] Medical History (Updated 12/01/22 @ 15:42 by Carmencita Metz NP) CAD (coronary artery disease) Chronic systolic HF (heart failure) Dilated cardiomyopathy Hypercholesteremia Hypertension Nonischemic cardiomyopathy Obesity Family History Father Hypertension Mother Stomach cancer Surgical History H/O hernia repair History of cardiac cath (~05/2016) Social History Household Members: Spouse and Children Housing: House Housing Other:: lives in a 2 family home per pt Do you presently have visiting nurse or other home services: 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 If so, by whom?: No Do you feel safe in your current relationship?: Yes Is there a partner from a previous relationship who is making you feel unsafe now?: No Are you made to feel afraid or neglected: No Advance Directives: Yes Advance Directives on File: Yes Advance Directives Date on File: 05/28/22 Do you have thoughts of harming others: None Do you have a plan to hurt others: No Plan Recently lost weight without trying: No Nutrition Risks: No Nutritional Risk service: No Current occupational status: retired Cognitive needs: No Hearing needs: No Vision needs: No Meds Allergies Allergy/AdvReac Type Severity Reaction Status Date / Time No Known Allergies Allergy Verified 12/01/22 13:22 [No Known Allergies*] Active Medications: Current Medications Acetaminophen (Acetaminophen 325 Mg Tablet) 650 mg PO Q6H PRN PRN Reason: Pain, Mild (Pain Scale 1-3) Furosemide (Furosemide 100 Mg/10 Ml Vial) 80 mg IVPUSH BID@0900,1800 DEXTER; Protocol Heparin Sodium (Porcine) (Heparin Sodium,Porcine 5,000 Unit/Ml Vial) 5,000 unit SUBCUT Q12H DEXTER Ondansetron HCl (Ondansetron Hcl 4 Mg/2 Ml Vial) 4 mg IVPUSH Q8H PRN PRN Reason: Nausea and Vomiting Pharmacy Consult (Consult Rx Perform Med Rec) 1 each MISCELLANE ONCE PRN PRN Reason: Consult order Sodium Chloride (0.9 % Sodium Chloride Flush 3 Ml Syringe) 3 ml IVFLUSH QSHIFT [facility] Home Medications Medication Instructions Recorded Confirmed Last Taken Type carvedilol 25 mg tablet 25 mg PO BID 12/01/22 12/01/22 12/01/22 09:00 History furosemide 40 mg tablet 40 mg PO BID@0900,1600 12/01/22 12/01/22 12/01/22 09:00 History Physical Exam Vital Signs and Narrative: Vital Signs: Last Vital Signs Temp 98 F 12/01/22 13:22 Pulse 92 12/01/22 13:22 Resp 17 12/01/22 13:22 BP 138/63 12/01/22 13:22 Pulse Ox 96 12/01/22 13:22 BMI result Body Mass Index 25.1 Appearing in no acute distress head is normocephalic atraumatic eyes pupils are PERRLA sclera is anicteric mouth throat mucous membranes are intact and moist neck is supple no lymphadenopathy, no JVD noted lung sounds are clear to auscultation heart regular rate rhythm, clear S1, S2 positive bowel sounds, abdomen is soft, nontender neuro patient is alert x3, no focal deficits Results Labs 12/01/22 13:57 12/01/22 13:57 Labs: Laboratory Results - last 24 hr 12/01/22 12/01/22 12/01/22 13:57 13:57 13:57 MCV 96.8 MCH 30.9 MCHC 31.9 RDW 14.0 Plt Count 225 MPV 10.5 Immature Gran % (Auto) 0.5 H Neut % (Auto) 76.7 H Lymph % (Auto) 6.5 L [place] % (Auto) 16.2 H Eos % (Auto) 0.0 Baso % (Auto) 0.1 Lymph # (Auto) 0.5 L [place] # (Auto) 1.2 Eos # (Auto) 0.0 Baso # (Auto) 0.0 Abs Immat Gran (auto) 0.04 H Absolute Neuts (auto) 5.8 Absolute Nucleated RBC 0.000 Nucleated RBC % (auto) 0.0 PT 14.3 H INR 1.2 H Anion Gap 13 Estim Creat Clear Calc 51.8 Estimated GFR 56 Random Glucose 102 Calcium 8.7 D Magnesium 2.1 Total Bilirubin 0.7 Direct Bilirubin 0.3 AST 93 H ALT 88 H Alkaline Phosphatase 72 Troponin I High Sens B-Natriuretic Peptide Total Protein 5.9 L Albumin 3.2 L 12/01/22 12/01/22 13:57 13:57 MCV MCH MCHC RDW Plt Count MPV Immature Gran % (Auto) Neut % (Auto) Lymph % (Auto) [place] % (Auto) Eos % (Auto) Baso % (Auto) Lymph # (Auto) [place] # (Auto) Eos # (Auto) Baso # (Auto) Abs Immat Gran (auto) Absolute Neuts (auto) Absolute Nucleated RBC Nucleated RBC % (auto) PT INR Anion Gap Estim Creat Clear Calc Estimated GFR Random Glucose Calcium Magnesium Total Bilirubin Direct Bilirubin AST ALT Alkaline Phosphatase Troponin I High Sens 88.2 H D B-Natriuretic Peptide 4192 H Total Protein Albumin Imaging Radiologist's Impressions: Impressions Chest X-Ray 12/01/22 14:05 IMPRESSION: - Enlarged cardiopericardial silhouette similar to prior studies. - Probable trace effusions. Lungs otherwise clear. Assessment and Plan (1) Essential hypertension: Status: Acute Plan 76-year-old man with a significant history of ischemic cardiomyopathy, CAD admitted with acute on chronic congestive heart failure with reduced ejection fraction with noted dyspnea and chest pressure Acute on chronic congestive heart failure with reduced ejection fraction BNP 4192 Will start Lasix 80 mg twice daily IV Continue beta-malgorzata, aspirin and statin Cardiology consultation Monitor on telemetry Daily weights, strict intake and output CKD3 baseline Elevated troponin Likely secondary to acute heart failure If significantly elevated discuss with cardiology Hypertension Continue valsartan DVT prophylaxis with heparin Full code Patient will require 2 inpatient midnights for treatment of acute on chronic congestive heart failure requiring IV diuretics as well as close monitoring of his renal function Time Spent With Patient Time: Total time managing care of this patient today ____ minutes. Quality Stroke Does the patient have a stroke diagnosis?: No VTE Prior VTE?: No VTE Risk Level:: Medical - moderate - high VTE Device Contraindication: Treatment Not Indicated VTE Drug Contraindication: N/A - Med Ordered
[2022-12-01] MEDS: Furosemide 100 MG/10 ML VIAL 80 MG IVPUSH ×2 (16:10→20:32)
[2022-12-01] MEDS: 0.9 % Sodium Chloride Flush 3 ML SYRINGE IVFLUSH ×2 (16:11→20:32)
[2022-12-01 16:12] VITALS: BP 135/79; PULSE 98; RESP 18; O2SAT 97
[2022-12-01] MEDS: Heparin Sodium,Porcine 5,000 UNIT/ML VIAL 5000 UNIT SUBCUT (17:53)
--- NOTE | 2022-12-01 18:41 | PHA.MEDREC ---
Pharmacy Consult ? Medication Reconciliation Pharmacy has completed the medication reconciliation.
[2022-12-01 19:15] VITALS: BP 117/74; PULSE 93; RESP 20; TEMP 37.2; O2SAT 96
[2022-12-01 23:37] VITALS: BP 166/71; PULSE 86; RESP 18; TEMP 37.1; O2SAT 95
[2022-12-02 04:00] VITALS: BP 116/80; PULSE 113; RESP 18; TEMP 37.1; O2SAT 96
[2022-12-02] MEDS: Heparin Sodium,Porcine 5,000 UNIT/ML VIAL 5000 UNIT SUBCUT ×2 (05:10→17:26)
[2022-12-02 06:07] LABS: B Type Natriuretic Peptide 4583 pg/mL (<100)
[2022-12-02 06:15] LABS: Alanine Aminotransferase 89 U/L (0-40); Albumin Level 3.1 g/dL (3.5-5.0); Alkaline Phosphatase 71 U/L (39-117); Anion Gap 14 (12-20); Aspartate Amino Transferase 73 U/L (5-37); Bilirubin Total 0.7 mg/dL (0.0-1.0); Blood Urea Nitrogen 25 mg/dL (9-16); Calcium 8.8 mg/dL (8.4-10.2); Carbon Dioxide 27 mmol/L (22-29); Chloride 105 mmol/L (96-108); Creatinine Clr Calc Pharmacy 56.3; Estimated Glomerular Filt Rate > 60; Glucose Random 112 mg/dL (60-115); Potassium 3.7 mmol/L (3.3-5.1); Sodium 142 mmol/L (135-145); Total Protein 5.7 g/dL (6.5-8.0)
[2022-12-02 08:00] VITALS: BP 137/92; PULSE 108; RESP 20; TEMP 36.9; O2SAT 97
--- NOTE | 2022-12-02 08:59 | MHC.CM.PN ---
IMM 12/02/22. Pt admitted with dx CHF. Pt lives at home with his /HCP Jade ([phone]), pt is independent/self-care. D/C plan to return home self-care vs home with [facility]. Pt did have [facility] a few months ago, but is not currently active with them. Pts Jade will find out which [facility] agency it was and get back to us. Pts to transport pt home. PCP: Deb Pete
[2022-12-02] MEDS: Furosemide 100 MG/10 ML VIAL 80 MG IVPUSH ×2 (09:01→17:26)
[2022-12-02] MEDS: 0.9 % Sodium Chloride Flush 3 ML SYRINGE IVFLUSH ×2 (09:01→17:26)
[2022-12-02 11:05] VITALS: BP 140/64; PULSE 99; RESP 20; TEMP 36.9; O2SAT 97
--- NOTE | 2022-12-02 11:54 | P.PNIM_ITS ---
Subjective Subjective Date of Service: 12/02/22 Review of Systems Follow up CHF feeling better today denies sob Physical Exam Vital Signs: Vital Signs: Last Vital Signs Temp 98.5 F 12/02/22 11:05 Pulse 99 12/02/22 11:05 Resp 20 12/02/22 11:05 BP 140/64 H 12/02/22 11:05 Pulse Ox 97 12/02/22 11:05 O2 Del Method Room Air 12/02/22 11:05 BMI result Body Mass Index 25.1 Appearing in no acute distress lung sounds are clear to auscultation heart regular rate rhythm, clear S1, S2 positive bowel sounds, abdomen is soft, nontender neuro patient is alert x3, no focal deficits Bilat LE pitting edema Objective Data Active Medications Acetaminophen (Acetaminophen 325 Mg Tablet) 650 mg PO Q6H PRN PRN Reason: Pain, Mild (Pain Scale 1-3) Furosemide (Furosemide 100 Mg/10 Ml Vial) 80 mg IVPUSH BID@0900,1800 [facility]; Protocol Last Admin: 12/02/22 09:01 Dose: 80 mg Documented By: LULA Heparin Sodium (Porcine) (Heparin Sodium,Porcine 5,000 Unit/Ml Vial) 5,000 unit SUBCUT Q12H [facility] Last Admin: 12/02/22 05:10 Dose: 5,000 unit Documented By: LILO Ondansetron HCl (Ondansetron Hcl 4 Mg/2 Ml Vial) 4 mg IVPUSH Q8H PRN PRN Reason: Nausea and Vomiting Pharmacy Consult (Consult Rx Perform Med Rec) 1 each MISCELLANE ONCE PRN PRN Reason: Consult order Sodium Chloride (0.9 % Sodium Chloride Flush 3 Ml Syringe) 3 ml IVFLUSH QSHIFT [facility] Last Admin: 12/02/22 09:01 Dose: 3 ml Documented By: LULA Labs 12/01/22 13:57 12/02/22 05:20 Labs: Laboratory Results - last 24 hr 12/01/22 12/01/22 12/01/22 13:57 13:57 13:57 MCV 96.8 MCH 30.9 MCHC 31.9 RDW 14.0 Plt Count 225 MPV 10.5 Immature Gran % (Auto) 0.5 H Neut % (Auto) 76.7 H Lymph % (Auto) 6.5 L [place] % (Auto) 16.2 H Eos % (Auto) 0.0 Baso % (Auto) 0.1 Lymph # (Auto) 0.5 L [place] # (Auto) 1.2 Eos # (Auto) 0.0 Baso # (Auto) 0.0 Abs Immat Gran (auto) 0.04 H Absolute Neuts (auto) 5.8 Absolute Nucleated RBC 0.000 Nucleated RBC % (auto) 0.0 PT 14.3 H INR 1.2 H Anion Gap 13 Estim Creat Clear Calc 51.8 Estimated GFR 56 Random Glucose 102 Calcium 8.7 D Magnesium 2.1 Total Bilirubin 0.7 Direct Bilirubin 0.3 AST 93 H ALT 88 H Alkaline Phosphatase 72 Troponin I High Sens B-Natriuretic Peptide Total Protein 5.9 L Albumin 3.2 L 12/01/22 12/01/22 12/02/22 13:57 13:57 05:20 MCV MCH MCHC RDW Plt Count MPV Immature Gran % (Auto) Neut % (Auto) Lymph % (Auto) [place] % (Auto) Eos % (Auto) Baso % (Auto) Lymph # (Auto) [place] # (Auto) Eos # (Auto) Baso # (Auto) Abs Immat Gran (auto) Absolute Neuts (auto) Absolute Nucleated RBC Nucleated RBC % (auto) PT INR Anion Gap 14 Estim Creat Clear Calc 56.3 Estimated GFR > 60 Random Glucose 112 Calcium 8.8 Magnesium Total Bilirubin 0.7 Direct Bilirubin AST 73 H ALT 89 H Alkaline Phosphatase 71 Troponin I High Sens 88.2 H D B-Natriuretic Peptide 4192 H Total Protein 5.7 L Albumin 3.1 L 12/02/22 05:20 MCV MCH MCHC RDW Plt Count MPV Immature Gran % (Auto) Neut % (Auto) Lymph % (Auto) [place] % (Auto) Eos % (Auto) Baso % (Auto) Lymph # (Auto) [place] # (Auto) Eos # (Auto) Baso # (Auto) Abs Immat Gran (auto) Absolute Neuts (auto) Absolute Nucleated RBC Nucleated RBC % (auto) PT INR Anion Gap Estim Creat Clear Calc Estimated GFR Random Glucose Calcium Magnesium Total Bilirubin Direct Bilirubin AST ALT Alkaline Phosphatase Troponin I High Sens B-Natriuretic Peptide 4583 H Total Protein Albumin Assessment and Plan (1) B12 deficiency: Status: Acute Plan 76-year-old man with a significant history of ischemic cardiomyopathy, CAD admitted with acute on chronic congestive heart failure with reduced ejection fraction with noted dyspnea and chest pressure Acute on chronic congestive heart failure with reduced ejection fraction BNP 4583 Lasix 80 mg twice daily IV Continue aspirin and statin Cardiology consultation Monitor on telemetry neg 1.7L Daily weights, strict intake and output CKD3 baseline Elevated troponin Likely secondary to acute heart failure If significantly elevated discuss with cardiology Hypertension Continue valsartan DVT prophylaxis with heparin Full code continued hospital stay for treatment of acute on chronic congestive heart failure requiring IV diuretics as well as close monitoring of his renal function Time Spent With Patient Time: Total time managing care of this patient today ____ minutes. Quality Stroke Does the patient have a stroke diagnosis?: No VTE Prior VTE?: No VTE Risk Level:: Medical - moderate - high VTE Device Contraindication: Treatment Not Indicated VTE Drug Contraindication: N/A - Med Ordered
[2022-12-02 19:23] VITALS: BP 114/59; PULSE 88; RESP 20; TEMP 37.4; O2SAT 96
[2022-12-02] MEDS: Valsartan 40 MG TABLET PO (19:48)
[2022-12-03] VITALS (7 sets, daily range): BP systolic 97–140; BP diastolic 59–77; PULSE 69–106; RESP 18–20; TEMP 36.3–38; O2SAT 92–98
[2022-12-03 03:29] LABS: Anion Gap 15 (12-20); Blood Urea Nitrogen 28 mg/dL (9-16); Calcium 8.8 mg/dL (8.4-10.2); Carbon Dioxide 26 mmol/L (22-29); Chloride 105 mmol/L (96-108); Creatinine Clr Calc Pharmacy 49.4; Estimated Glomerular Filt Rate 53; Glucose Random 117 mg/dL (60-115); Magnesium 2.1 mg/dL (1.6-2.6); Potassium 3.4 mmol/L (3.3-5.1); Sodium 143 mmol/L (135-145)
[2022-12-03] MEDS: Heparin Sodium,Porcine 5,000 UNIT/ML VIAL 5000 UNIT SUBCUT ×2 (06:02→17:34)
[2022-12-03 07:03] LABS: B Type Natriuretic Peptide 3537 pg/mL (<100)
[2022-12-03 07:28] LABS: Anion Gap 13 (12-20); Blood Urea Nitrogen 28 mg/dL (9-16); Calcium 8.9 mg/dL (8.4-10.2); Carbon Dioxide 29 mmol/L (22-29); Chloride 105 mmol/L (96-108); Creatinine Clr Calc Pharmacy 46.3; Estimated Glomerular Filt Rate 49; Glucose Random 116 mg/dL (60-115); Potassium 3.6 mmol/L (3.3-5.1); Sodium 143 mmol/L (135-145)
[2022-12-03] MEDS: Furosemide 100 MG/10 ML VIAL 80 MG IVPUSH (08:44)
[2022-12-03] MEDS: Atorvastatin Calcium 20 MG TABLET PO (08:44)
[2022-12-03] MEDS: 0.9 % Sodium Chloride Flush 3 ML SYRINGE IVFLUSH (08:45)
[2022-12-03] MEDS: Valsartan 40 MG TABLET PO ×2 (08:45→20:02)
--- NOTE | 2022-12-03 09:41 | P.PNIM_ITS ---
Subjective Subjective Date of Service: 12/03/22 Review of Systems Follow up CHF feeling better today denies sob still with rales and sob Physical Exam Vital Signs: Vital Signs: Last Vital Signs Temp 97.3 F 12/03/22 07:27 Pulse 75 12/03/22 07:27 Resp 20 12/03/22 07:27 BP 115/62 12/03/22 07:27 Pulse Ox 92 12/03/22 07:27 O2 Del Method Room Air 12/03/22 07:27 BMI result Body Mass Index 25.1 Appearing in no acute distress lung sounds are clear to auscultation heart regular rate rhythm, clear S1, S2 positive bowel sounds, abdomen is soft, nontender neuro patient is alert x3, no focal deficits Objective Data Active Medications Acetaminophen (Acetaminophen 325 Mg Tablet) 650 mg PO Q6H PRN PRN Reason: Pain, Mild (Pain Scale 1-3) Atorvastatin Calcium (Atorvastatin Calcium 20 Mg Tablet) 20 mg PO DAILY [facility] Last Admin: 12/03/22 08:44 Dose: 20 mg Documented By: FILIPE Furosemide (Furosemide 100 Mg/10 Ml Vial) 80 mg IVPUSH BID@0900,1800 [facility]; Protocol Last Admin: 12/03/22 08:44 Dose: 80 mg Documented By: FILIPE Heparin Sodium (Porcine) (Heparin Sodium,Porcine 5,000 Unit/Ml Vial) 5,000 unit SUBCUT Q12H [facility] Last Admin: 12/03/22 06:02 Dose: 5,000 unit Documented By: KALEE Ondansetron HCl (Ondansetron Hcl 4 Mg/2 Ml Vial) 4 mg IVPUSH Q8H PRN PRN Reason: Nausea and Vomiting Pharmacy Consult (Consult Rx Perform Med Rec) 1 each MISCELLANE ONCE PRN PRN Reason: Consult order Sodium Chloride (0.9 % Sodium Chloride Flush 3 Ml Syringe) 3 ml IVFLUSH QSHIFT [facility] Last Admin: 12/03/22 08:45 Dose: 3 ml Documented By: FILIPE Valsartan (Valsartan 40 Mg Tablet) 40 mg PO BID [facility]; Protocol Last Admin: 12/03/22 08:45 Dose: 40 mg Documented By: FILIPE Labs 12/01/22 13:57 12/03/22 06:19 Labs: Laboratory Results - last 24 hr 12/03/22 12/03/22 12/03/22 02:31 06:19 06:19 Anion Gap 15 13 Estim Creat Clear Calc 49.4 46.3 Estimated GFR 53 49 Random Glucose 117 H 116 H Calcium 8.8 8.9 Magnesium 2.1 B-Natriuretic Peptide 3537 H Assessment and Plan (1) B12 deficiency: Status: Acute Plan 76-year-old man with a significant history of ischemic cardiomyopathy, CAD admitted with acute on chronic congestive heart failure with reduced ejection fraction with noted dyspnea and chest pressure Acute on chronic congestive heart failure with reduced ejection fraction BNP 4583 Lasix 10/hr lopressor 12.5 mg BID added Continue aspirin and statin Cardiology following Monitor on telemetry neg 1.9L Daily weights, strict intake and output CKD3 baseline Elevated troponin Likely secondary to acute heart failure Hypertension Continue valsartan DVT prophylaxis with heparin Full code continued hospital stay for treatment of acute on chronic congestive heart failure requiring IV diuretics as well as close monitoring of his renal function Time Spent With Patient Time: Total time managing care of this patient today ____ minutes. Quality Stroke Does the patient have a stroke diagnosis?: No VTE Prior VTE?: No VTE Risk Level:: Medical - moderate - high VTE Device Contraindication: Treatment Not Indicated VTE Drug Contraindication: N/A - Med Ordered
[2022-12-03] MEDS: Furosemide 200 MG in 0.9 % Sodium Chloride 80 ML IVCONT (12:29)
[2022-12-03] MEDS: Metoprolol Tartrate 12.5 MG HALFTAB PO ×2 (12:30→20:02)
--- NOTE | 2022-12-03 13:17 | P.CONCA_ITS ---
History of Present Illness History of Present Illness Date of Service: 12/03/22 Consult reason: atrial fibrillation and congestive heart failure Chief complaint: CHF Narrative: I was consulted to see Tray in cardiology consultation today for persistent shortness of breath and congestive heart failure. I had recently seen him in the office, patient has prior history of severe nonischemic cardiomyopathy with heart failure with reduced ejection fraction with chronic kidney disease and left bundle-branch block. Patient also has hypertension. He has in the past been noncompliant with medication but more recently has been compliant with his follow-up sent medications. Was seen in the office and was felt that he might be retaining fluid and we had actually called him to increase his Lasix. However as per the he continues to have worsening leg edema and had nocturnal shortness of breath and because of not improving leg edema was brought to the emergency room. He was admitted with decompensated heart failure on 12/01 with a BNP of 4192. He has been diuresed and as per the his leg edema looks much better. However since admission is developed atrial fibrillation rapid ventricular response. This is a new finding for him. Patient has no prior history of atrial fibrillation. Patient denies any significant symptoms but clinically appears to be short of breath. He also has weakness and cannot carry himself requiring assistance. He denies any lightheadedness, syncope. Blood pressures remained stable. Review of Systems Constitutional: Constitutional: Reports weakness and Reports other (Lack of balance) Eyes: Eyes: Reports no additional eye complaints Cardiovascular: Cardiovascular: Denies chest pain, Reports leg edema, Denies lightheadedness, Denies Loss of Consciousness, Denies palpitations, Reports dyspnea, Reports dyspnea on exertion and Reports orthopnea Respiratory: Respiratory: Reports no additional respiratory complaints, Reports dyspnea and Reports dyspnea on exertion Genitourinary: Genitourinary: Reports no additional male genitourinary complaints Musculoskeletal: Musculoskeletal: Reports no additional musculoskeletal complaints Integumentary/Breasts: Skin/Breast: Reports system reviewed and no additional complaints, except as docu Neurologic: Reports system reviewed and no additional complaints, except as documented and Reports weakness Psychiatric: Psychiatric: Reports no additional psychiatric complaints Endocrine: Endocrine: Reports no additional endocrine complaints and Denies palpitations PMFSH Past Medical History Medical History CAD (coronary artery disease) Chronic systolic HF (heart failure) Dilated cardiomyopathy Hypercholesteremia Hypertension Nonischemic cardiomyopathy Obesity Family History Family History Father Hypertension Mother Stomach cancer Surgical History Surgical History H/O hernia repair History of cardiac cath (~05/2016) Social History Social History Household Members: Spouse and Children Housing: House Housing Other:: lives in a 2 family home per pt Do you presently have visiting nurse or other home services: No (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 If so, by whom?: No Do you feel safe in your current relationship?: Yes Is there a partner from a previous relationship who is making you feel unsafe now?: No Are you made to feel afraid or neglected: No Advance Directives: Yes Advance Directives on File: Yes Advance Directives Date on File: 05/28/22 Do you have thoughts of harming others: None Do you have a plan to hurt others: No Plan Recently lost weight without trying: No Nutrition Risks: No Nutritional Risk service: No Current occupational status: retired Cognitive needs: No Hearing needs: No Vision needs: No Meds Allergies Allergy/AdvReac Type Severity Reaction Status Date / Time No Known Allergies Allergy Verified 12/01/22 13:22 [No Known Allergies*] Active Medications: Current Medications Acetaminophen (Acetaminophen 325 Mg Tablet) 650 mg PO Q6H PRN PRN Reason: Pain, Mild (Pain Scale 1-3) Atorvastatin Calcium (Atorvastatin Calcium 20 Mg Tablet) 20 mg PO DAILY [facility] Last Admin: 12/03/22 08:44 Dose: 20 mg Heparin Sodium (Porcine) (Heparin Sodium,Porcine 5,000 Unit/Ml Vial) 5,000 unit SUBCUT Q12H [facility] Last Admin: 12/03/22 06:02 Dose: 5,000 unit Furosemide 200 mg/ Sodium (Chloride) 100 mls @ 5 mls/hr IVCONT .Q20H [facility] Last Admin: 12/03/22 12:29 Dose: 10 mg/hr, 5 mls/hr Metoprolol Tartrate (Metoprolol Tartrate 12.5 Mg Halftab) 12.5 mg PO BID [facility]; Protocol Last Admin: 12/03/22 12:30 Dose: 12.5 mg Ondansetron HCl (Ondansetron Hcl 4 Mg/2 Ml Vial) 4 mg IVPUSH Q8H PRN PRN Reason: Nausea and Vomiting Pharmacy Consult (Consult Rx Perform Med Rec) 1 each MISCELLANE ONCE PRN PRN Reason: Consult order Sodium Chloride (0.9 % Sodium Chloride Flush 3 Ml Syringe) 3 ml IVFLUSH QSHIFT [facility] Last Admin: 12/03/22 08:45 Dose: 3 ml Valsartan (Valsartan 40 Mg Tablet) 40 mg PO BID [facility]; Protocol Last Admin: 12/03/22 08:45 Dose: 40 mg Home Medications Medication Instructions Recorded Confirmed Last Taken Type carvedilol 25 mg tablet 25 mg PO BID 12/01/22 12/01/22 12/01/22 09:00 History furosemide 40 mg tablet 40 mg PO BID@0900,1600 12/01/22 12/01/22 12/01/22 09:00 History Physical Exam 2 Vital Signs: Vital Signs: Last Vital Signs Temp 98.7 F 12/03/22 11:46 Pulse 95 12/03/22 11:46 Resp 20 12/03/22 11:46 BP 128/74 12/03/22 11:46 Pulse Ox 94 12/03/22 11:46 O2 Del Method Room Air 12/03/22 11:46 BMI result Body Mass Index 25.1 Const: General: cooperative and in distress mild and respiratory Nutritional Appearance: average body habitus Orientation/consciousness: patient oriented x3 HEENT: Head: Yes normocephalic and Yes atraumatic Neck: Neck: Yes trachea midline, Yes supple and Yes JVD Resp: Effort & Inspection: normal respiratory effort Auscultation: rales bilateral at the base and 1/[address] up Cardio: Jugular venous distension: JVD Rate: tachycardic Rhythm: abnormal rhythm irregularly irregular Heart sounds: S1 normal heart sound present, S2 normal heart sound present, no click, no gallops, no murmurs and no rubs GI: Auscultation: normal bowel sounds Skin: General skin exam: no rashes or lesions noted Neuro: General: patient oriented x3 and no focal motor deficits Extrem: General: No clubbing, No cyanosis and Yes edema Objective Labs and Meds 12/01/22 13:57 12/03/22 06:19 Lab results: Laboratory Results - last 24 hr 12/03/22 12/03/22 12/03/22 02:31 06:19 06:19 Sodium 143 143 Potassium 3.4 3.6 Chloride 105 105 Carbon Dioxide 26 29 Anion Gap 15 13 BUN 28 H 28 H Creatinine 1.31 1.40 Estim Creat Clear Calc 49.4 46.3 Estimated GFR 53 49 Random Glucose 117 H 116 H Calcium 8.8 8.9 Magnesium 2.1 B-Natriuretic Peptide 3537 H Assessment and Plan (1) Heart failure, systolic, with acute decompensation: Status: Resolved Patient still appears to be in decompensated congestive heart failure bilateral rales and shortness of breath. BNP is improved slightly. I would continue to diurese him aggressively. Strict intake and output chart needs to be pursued w ith addition of 10 mg an hour Lasix drip. Continue monitor renal function as well as his BNP. Continue valsartan therapy. In the past he has not been able to afford Entresto therapy. Will add metoprolol therapy for rate control as well as neurohormonal modulation. Also add Aldactone 12.5 mg to his regimen. He has also not been able to afford Jardiance therapy in the past has refused to take it. Will most likely benefit from rhythm control approach although will need to be optimized prior to pursuing the same. (2) Atrial fibrillation with rapid ventricular response: Status: Acute Atrial fibrillation with rapid ventricular response, new finding for him. Will need rate control but eventually I thing will benefit from rhythm control approach and will require PIPO guided cardioversion. Would start him on metoprolol 12.5 mg q.6 hours for rate control. Also start him on Eliquis 5 mg b.i.d.. If his heart failure syndrome improved significantly over the next couple of days will pursue IPPO guided cardioversion on Thursday. Will continue to follow with you Time Spent With Patient Time: Total time managing care of this patient today ____ minutes. Procedures Date of Service Date of Service: 12/03/22
[2022-12-04 03:15] VITALS: BP 104/70; PULSE 100; RESP 20; TEMP 37.1; O2SAT 94
[2022-12-04] MEDS: Heparin Sodium,Porcine 5,000 UNIT/ML VIAL 5000 UNIT SUBCUT (05:33)
[2022-12-04 07:14] VITALS: BP 132/78; PULSE 94; RESP 20; TEMP 37; O2SAT 94
[2022-12-04 07:36] LABS: Anion Gap 12 (12-20); Blood Urea Nitrogen 32 mg/dL (9-16); Carbon Dioxide 29 mmol/L (22-29); Chloride 104 mmol/L (96-108); Estimated Glomerular Filt Rate 55; Glucose Random 115 mg/dL (60-115); Magnesium 2.2 mg/dL (1.6-2.6); Potassium 3.3 mmol/L (3.3-5.1); Sodium 142 mmol/L (135-145)
[2022-12-04] MEDS: Spironolactone 25 MG TABLET 12.5 MG PO (08:20)
[2022-12-04] MEDS: Metoprolol Tartrate 12.5 MG HALFTAB PO ×3 (08:20→20:27)
[2022-12-04] MEDS: Apixaban 5 MG TABLET PO ×2 (08:20→20:27)
[2022-12-04] MEDS: Valsartan 40 MG TABLET PO ×2 (08:20→20:27)
[2022-12-04] MEDS: Atorvastatin Calcium 20 MG TABLET PO (08:20)
[2022-12-04] MEDS: 0.9 % Sodium Chloride Flush 3 ML SYRINGE IVFLUSH ×2 (08:22→20:28)
--- NOTE | 2022-12-04 10:28 | P.PNCA_ITS ---
Subjective Subjective Date of Service: 12/04/22 Principal diagnosis: Decompensated CHF, atrial fibrillation. Interval history: Patient breathing better. Intake and output chart is not well maintain. Currently receiving Lasix drip and he said he has been diuresing. He has renal function is improved. Still remains in atrial fibrillation with rapid ventricular response with multiple runs of nonsustained VT. Patient denies any palpitations. Complains of weakness. Review of Systems Constitutional: Reports weakness Eyes: Reports no additional eye complaints Cardiovascular: Denies chest pain, Reports leg edema, Denies lightheadedness, Denies Loss of Consciousness and Reports dyspnea Respiratory: Reports dyspnea Gastrointestinal: Reports no additional gastrointestinal complaints Musculoskeletal: Reports other (Leg pain) Reports system reviewed and no additional complaints, except as documented and Reports weakness Physical Exam Vital Signs: Last Vital Signs Temp 98.6 F 12/04/22 07:14 Pulse 94 12/04/22 07:14 Resp 20 12/04/22 07:14 BP 132/78 12/04/22 07:14 Pulse Ox 94 12/04/22 07:14 O2 Del Method Room Air 12/04/22 07:14 BMI result Body Mass Index 25.1 Const General: cooperative and in distress mild and respiratory Nutritional Appearance: average body habitus Orientation/consciousness: patient oriented x3 HEENT Head: Yes normocephalic and Yes atraumatic Neck Neck: Yes trachea midline, Yes supple and Yes JVD Resp Effort & Inspection: normal respiratory effort Auscultation: rales bilateral at the base and 1/[address] up Cardio Jugular venous distension: JVD Rate: tachycardic Rhythm: abnormal rhythm irregularly irregular Heart sounds: S1 normal heart sound present, S2 normal heart sound present, no click, no gallops, no murmurs and no rubs GI Auscultation: normal bowel sounds Skin General skin exam: no rashes or lesions noted Neuro General: patient oriented x3 and no focal motor deficits Extrem General: No clubbing, No cyanosis and Yes edema Objective Labs and Meds 12/01/22 13:57 12/04/22 07:13 Lab results: Laboratory Results - last 24 hr 12/04/22 07:13 Sodium 142 Potassium 3.3 Chloride 104 Carbon Dioxide 29 Anion Gap 12 BUN 32 H Creatinine 1.27 Estim Creat Clear Calc 51.0 Estimated GFR 55 Random Glucose 115 Calcium 9.0 Magnesium 2.2 Progress Note: A&P Assessment and plan (1) Heart failure, systolic, with acute decompensation: Status: Resolved Assessment and Plan: Continue IV Lasix drip. Continue valsartan and maximize as tolerated. Maximize metoprolol therapy to 12.5 mg q.6 hours. Add digoxin 0.25 mg IV push q.6 hours x3 doses. Continue spironolactone. Continue strict intake and output chart which does not appear to be appropriately monitored at this point time. Continue monitor renal function. Replace electrolytes as needed. I think he will benefit from PIPO guided cardioversion to monitor to reestablish AV sy nchrony to help with his cardiac function. (2) Atrial fibrillation with rapid ventricular response: Status: Acute Assessment and Plan: Atrial fibrillation with rapid ventricular response which appears to be new onset. Contributing to his heart failure syndrome. Will pursue rate control f or today but I think he will benefit from rhythm control approach will do PIPO guided cardioversion tomorrow. Discussed the procedures in. Risks and benefits were discussed. He understands and agrees. Will tentatively schedule for tomorrow. Continue Eliquis therapy. Keep him NPO past midnight but give Eliquis dose tomorrow morning. Will follow with him Time Spent With Patient Time: Total time managing care of this patient today ____ minutes. Progress Note: Quality Stroke Does the patient have a stroke diagnosis?: No Procedures Date of Service Date of Service: 12/04/22
[2022-12-04 11:14] VITALS: BP 109/58; PULSE 84; RESP 20; TEMP 37.1; O2SAT 96
--- NOTE | 2022-12-04 11:33 | MHC.CM.PN ---
EMR reviewed and per MD rounds, pt is not medically cleared for D/C with a continued need for IV diuretics. CM will continue to follow.
[2022-12-04] MEDS: Digoxin 0.5 MG/2 ML AMPUL 0.25 MG IVPUSH ×2 (11:35→18:28)
[2022-12-04] MEDS: Furosemide 200 MG in 0.9 % Sodium Chloride 80 ML IVCONT (11:35)
--- NOTE | 2022-12-04 14:33 | HO.PM.IMPN ---
Subjective Subjective Date of Service: 12/04/22 Interval History: seen and examined this morning Follow-up For CHF reporting discomfort in bilateral ankles, denies shortness of breath, cough, chest pain Review of Systems Review of Systems: Yes all other systems are reviewed and are negative Constitutional Constitutional: Denies chills and Denies fever(s) Cardiovascular Cardiovascular: Denies chest pain, Denies palpitations and Denies dyspnea Respiratory Respiratory: Denies cough and Denies dyspnea Gastrointestinal Gastrointestinal: Denies abdominal pain Endocrine Endocrine: Denies palpitations Physical Exam Vital Signs: Vital Signs: Last Vital Signs Temp 98.7 F 12/04/22 11:14 Pulse 84 12/04/22 11:14 Resp 20 12/04/22 11:14 BP 109/58 L 12/04/22 11:14 Pulse Ox 96 12/04/22 11:14 O2 Del Method Room Air 12/04/22 11:14 BMI result Body Mass Index 25.1 Const: General: cooperative, comfortable, no acute distress, alert and awake Nutritional Appearance: average body habitus Orientation/consciousness: oriented to person and oriented to place Resp: Effort & Inspection: normal respiratory effort and able to speak in complete sentences Auscultation: crackles Cardio: Rate: regular rate Heart sounds: S1 normal heart sound present and S2 normal heart sound present GI: Inspection: No distended Palpation (GI): Soft to palpation and nontender Neuro: Other: grossly nonfocal General: oriented to person, oriented to place and moves all extremities Extrem: Other: b/l ankle edema Objective Data Active Medications Acetaminophen (Acetaminophen 325 Mg Tablet) 650 mg PO Q6H PRN PRN Reason: Pain, Mild (Pain Scale 1-3) Apixaban (Apixaban 5 Mg Tablet) 5 mg PO BID [facility] Last Admin: 12/04/22 08:20 Dose: 5 mg Documented By: GREYSON Atorvastatin Calcium (Atorvastatin Calcium 20 Mg Tablet) 20 mg PO DAILY [facility] Last Admin: 12/04/22 08:20 Dose: 20 mg Documented By: GREYSON Digoxin (Digoxin 0.5 Mg/2 Ml Ampul) 0.25 mg IVPUSH Q6H [facility] Stop: 12/04/22 23:01 Last Admin: 12/04/22 11:35 Dose: 0.25 mg Documented By: GREYSON Furosemide 200 mg/ Sodium (Chloride) 100 mls @ 5 mls/hr IVCONT .Q20H [facility] Last Admin: 12/04/22 11:35 Dose: 10 mg/hr, 5 mls/hr Documented By: GREYSON Metoprolol Tartrate (Metoprolol Tartrate 12.5 Mg Halftab) 12.5 mg PO Q6H [facility]; Protocol Ondansetron HCl (Ondansetron Hcl 4 Mg/2 Ml Vial) 4 mg IVPUSH Q8H PRN PRN Reason: Nausea and Vomiting Pharmacy Consult (Consult Rx Perform Med Rec) 1 each MISCELLANE ONCE PRN PRN Reason: Consult order Sodium Chloride (0.9 % Sodium Chloride Flush 3 Ml Syringe) 3 ml IVFLUSH QSHIFT [facility] Last Admin: 12/04/22 08:22 Dose: 3 ml Documented By: GREYSON Spironolactone (Spironolactone 25 Mg Tablet) 12.5 mg PO DAILY [facility]; Protocol Last Admin: 12/04/22 08:20 Dose: 12.5 mg Documented By: GREYSON Valsartan (Valsartan 40 Mg Tablet) 40 mg PO BID [facility]; Protocol Last Admin: 12/04/22 08:20 Dose: 40 mg Documented By: GREYSON Labs 12/01/22 13:57 12/04/22 07:13 Labs: Laboratory Results - last 24 hr 12/04/22 07:13 Anion Gap 12 Estim Creat Clear Calc 51.0 Estimated GFR 55 Random Glucose 115 Calcium 9.0 Magnesium 2.2 Assessment and Plan (1) Chronic systolic HF (heart failure): Status: Acute (2) Atrial fibrillation with rapid ventricular response: Status: Acute Plan 76-year-old man with a significant history of ischemic cardiomyopathy, CAD admitted with acute on chronic congestive heart failure with reduced ejection fraction with noted dyspnea and chest pressure Acute on chronic HFrEF BNP trending down continue Lasix drip increase lopressor 12.5 mg to q6h continue valsartan Continue aspirin and statin Cardiology following Monitor on telemetry Daily weights, strict intake and output atrial fibrillation with rapid ventricular response, new onset HR improving Plan for cardioversion in a.m., NPO at midnight continue metoprolol, increase frequency as above, will load with digoxin Cardiology following Started on Eliquis for AC chronic normocytic anemia H/ H at baseline, above transfusion threshold mild transaminitis Likely related to congestion secondary to CHF CKD3 baseline Elevated troponin Likely demand secondary to rapid afib Hypertension Continue valsartan DVT prophylaxis with eliquis Full code attending-Dr. Aguirre continued hospital stay for treatment of acute on chronic congestive heart failure requiring IV diuretics as well as close monitoring of his renal function Time Spent With Patient Time: Total time managing care of this patient today ____ minutes. Quality Stroke Does the patient have a stroke diagnosis?: No VTE Prior VTE?: No VTE Risk Level:: Medical - moderate - high VTE Device Contraindication: Treatment Not Indicated VTE Drug Contraindication: N/A - Med Ordered
[2022-12-04 15:16] VITALS: BP 102/58; PULSE 82; RESP 18; TEMP 37.4; O2SAT 92
[2022-12-04 20:00] VITALS: BP 137/65; PULSE 66; RESP 20; TEMP 36.4; O2SAT 97
[2022-12-04 23:51] VITALS: BP 135/77; PULSE 52; RESP 18; TEMP 37; O2SAT 94
[2022-12-05] VITALS (10 sets, daily range): BP systolic 96–155; BP diastolic 47–83; PULSE 57–82; RESP 16–20; TEMP 36.1–37.1; O2SAT 92–98
[2022-12-05] MEDS: Digoxin 0.5 MG/2 ML AMPUL 0.25 MG IVPUSH (00:38)
[2022-12-05] MEDS: Metoprolol Tartrate 12.5 MG HALFTAB PO ×3 (02:01→21:09)
[2022-12-05] MEDS: Furosemide 200 MG in 0.9 % Sodium Chloride 80 ML IVCONT ×2 (03:08→23:21)
[2022-12-05 07:08] LABS: Magnesium 2.1 mg/dL (1.6-2.6)
[2022-12-05 08:15] LABS: Anion Gap 15 (12-20)
[2022-12-05 08:17] LABS: Blood Urea Nitrogen 35 mg/dL (9-16); Carbon Dioxide 27 mmol/L (22-29); Chloride 104 mmol/L (96-108); Creatinine Clr Calc Pharmacy 49.1; Estimated Glomerular Filt Rate 52; Glucose Random 103 mg/dL (60-115); Potassium 3.3 mmol/L (3.3-5.1); Sodium 143 mmol/L (135-145)
[2022-12-05] MEDS: Apixaban 5 MG TABLET PO ×2 (08:30→21:08)
[2022-12-05] MEDS: Atorvastatin Calcium 20 MG TABLET PO (08:30)
[2022-12-05] MEDS: Valsartan 40 MG TABLET PO (08:30)
[2022-12-05] MEDS: Spironolactone 25 MG TABLET 12.5 MG PO (08:30)
[2022-12-05] MEDS: 0.9 % Sodium Chloride Flush 3 ML SYRINGE IVFLUSH (08:31)
--- NOTE | 2022-12-05 13:49 | PC.NURSE ---
voided in the urinal 200ml
--- NOTE | 2022-12-05 14:04 | MHC.SHP ---
Pre-Procedural Eval Section A Date of Service: 12/05/22 The patient is an INPATIENT: Yes Changes since office visit: Yes Changes in Medication and Yes Patient answered all questions; No Cold of Flu in the past 2 weeks and No New Medical Problems The History & Physical has been completed within 30 days and I have reviewed it.: Yes Section B Chief Complaint: CHF Allergies: Allergies Allergy/AdvReac Type Severity Reaction Status Date / Time No Known Allergies Allergy Verified 12/01/22 13:22 [No Known Allergies*] Plan I have reviewed the history and physical and performed a pertinent physical examination on my patient. No changes have occurred unless specified. Time Spent With Patient Time: Total time managing care of this patient today ____ minutes.
--- NOTE | 2022-12-05 14:05 | P.PNCA_ITS ---
Subjective Subjective Date of Service: 12/05/22 Principal diagnosis: Decompensated CHF, atrial fibrillation. Interval history: Patient remains with atrial fibrillation with slightly rapid ventricular response with better rate control with IV and increase medical therapy. Says he is not short of breath. Negative balance of about 1800 cc. Review of Systems Constitutional: Reports no additional constitutional complaints Cardiovascular: Denies lightheadedness, Denies Loss of Consciousness, Denies palpitations and Reports dyspnea on exertion Respiratory: Reports no additional respiratory complaints and Reports dyspnea on exertion Reports system reviewed and no additional complaints, except as documented Psychiatric: Reports no additional psychiatric complaints Endocrine: Denies palpitations Physical Exam Vital Signs: Last Vital Signs Temp 97 F 12/05/22 13:36 Pulse 78 12/05/22 13:36 Resp 20 12/05/22 13:36 BP 146/78 H 12/05/22 13:36 Pulse Ox 97 12/05/22 13:36 O2 Del Method Room Air 12/05/22 13:36 BMI result Body Mass Index 25.1 Const General: cooperative and in distress mild and respiratory Nutritional Appearance: average body habitus Orientation/consciousness: patient oriented x3 HEENT Head: Yes normocephalic and Yes atraumatic Neck Neck: Yes trachea midline and Yes supple Resp Effort & Inspection: normal respiratory effort Auscultation: rales bilateral at the base and 1/[address] up Cardio Rate: tachycardic Rhythm: abnormal rhythm irregularly irregular Heart sounds: S1 normal heart sound present, S2 normal heart sound present, no click, no gallops, no murmurs and no rubs GI Auscultation: normal bowel sounds Skin General skin exam: no rashes or lesions noted Neuro General: patient oriented x3 and no focal motor deficits Extrem General: No clubbing, No cyanosis and Yes edema Objective Labs and Meds 12/01/22 13:57 12/05/22 06:24 Lab results: Laboratory Results - last 24 hr 12/05/22 06:24 Sodium 143 Potassium 3.3 Chloride 104 Carbon Dioxide 27 Anion Gap 15 BUN 35 H Creatinine 1.32 Estim Creat Clear Calc 49.1 Estimated GFR 52 Random Glucose 103 Calcium 9.0 Magnesium 2.1 Progress Note: A&P Assessment and plan (1) Heart failure, systolic, with acute decompensation: Status: Resolved Assessment and Plan: Heart failure with acute decompensation. Clinically improving. Continue IV di uresis with Lasix drip. Strict intake and output chart needs to be pursued. Increase valsartan to 80 mg b.i.d. and spironolactone to 25 mg daily. Hold off on digoxin for planned synchronized cardioversion later today. Continue monitor renal function as well as electrolytes and replace as needed. Will continue to follow, plan to pursue rhythm control, see below. (2) Atrial fibrillation with rapid ventricular response: Status: Acute Assessment and Plan: Atrial fibrillation with difficult control rate in this elderly gentleman with severe LV systolic dysfunction heart failure. Will benefit from rhythm control approach. Although on known any clot burden in his left atrium and therefore require PIPO guided cardioversion. Will pursue the same. Continue Eliquis therapy. Hold off on digoxin today. Will continue maximize metoprolol and then if he successfully converted back to sinus rhythm will start him on amiodarone therapy to maintain rhythm as he will require this in the future. Plan was discussed in details the family and they understand agree. Time Spent With Patient Time: Total time managing care of this patient today ____ minutes. Progress Note: Quality Stroke Does the patient have a stroke diagnosis?: No Procedures Date of Service Date of Service: 12/05/22
--- NOTE | 2022-12-05 14:05 | CA_ITS ---
Transesophageal Echocardiogram Patient (Last, First, Middle): Tray Bey, Gender: Male Date of : 1945 Age: 77 Procedure Date: 12/05/2022 Procedure Type: Transesophageal Echocardiogram Location: [facility] [place] Height: 180.34 cm Weight: 81.65 kg BSA: 2.02 m2 Heart Rate: bpm BP: 107 / 47 mmHg Rehabilitation Services Counselor: Referring MD: Lorenzo Jordan MD Symptoms: Pre cardioversion Conclusion: ??? 1. Dilated left ventricle severe LV systolic dysfunction with LVEF of 10-15% 2. Biatrial enlargement, left greater than right 3. No intracardiac thrombi or masses or vegetations 4. No intracardiac shunting 5. At least moderate to severe mitral regurgitation 6. [id number] atherosclerotic plaque noted in the descending thoracic aorta 7. Trivial pericardial effusion noted Findings Procedure Information Consent was obtained prior to the procedure. Pre PIPO oral cavity was checked and revealed no overcrowding. The adult 3D probe was passed with no difficulty. This was a technically good study. Left Ventricle Severely increased left ventricular cavity size. The left ventricular systolic function is severely decreased. The visually estimated ejection fraction is between 10-15%. Diastolic function is indeterminate on the basis of available data. Right Ventricle Mildly increased right ventricular cavity size. There is low normal right ventricular systolic function. Atria The left atrium is moderately dilated. There is no evidence of interatrial shunt. mild intensity smoke formation seen with the left atrial appendage cavity. No clots or masses. The left atrial appendage is large without any evidence of filling defect consistent with clots. There is no significant smoke formation seen. Left upper and right upper pulmonary were identified draining into the left atrium. The right atrium is mildly dilated. mild smoke formation seen. IVC in SVC drain normally into the right atrium. Right atrial appendage identified without any significant clots. Aortic Valve There is mild thickening of the aortic valve. There is no aortic valve stenosis. There is no aortic valve regurgitation. Mitral Valve There is mild anterior and posterior mitral leaflet thickening. There is moderate to severe mitral valve regurgitation. There is no mitral valve stenosis. Pulmonic Valve The pulmonic valve is likely normal. There is no pulmonic valve regurgitation. Tricuspid Valve Normal tricuspid valve structure. There is trace tricuspid valve regurgitation. The right ventricular systolic pressure is not calculated. Great Vessels Moderate plaque is seen in the arch and descending thoracic aorta. The pulmonary artery is mildly dilated. Venous The inferior vena cava is normal in size and collapses greater than 50% with inspiration. Pericardium/Pleural There is a trivial circumferential pericardial effusion. Prior Study Comparison No prior study available for comparison. Updated by Lorenzo Jordan on 04:10 PM with Status of Final Lorenzo Jordan MD electronically signed on 12/05/2022 4:10:33 PM with status of Final
--- NOTE | 2022-12-05 14:10 | P.CONAN_ITS ---
HPI - Anesthesia Eval Consult details Narrative: 77 yo M presenting for PIPO/CV. Admitted with atrial fibrillation with RVR. Hx of systolic HF with EF 15-20%. [facility] Active Problems Active Problems: All Active Problems (Updated 12/03/22 @ 13:22 by Lorenzo Jordan MD) Atrial fibrillation with rapid ventricular response (Acute) B12 deficiency (Acute) Essential hypertension (Acute) CKD (chronic kidney disease) stage 3, GFR 30-59 ml/min (Acute) Dyslipidemia (Acute) Hospital discharge follow-up (Acute) CKD (chronic kidney disease) (Acute) Contact dermatitis (Acute) Visual changes (Acute) Left shoulder pain (Acute) CAD (coronary artery disease) (Acute) Obesity (Acute) Chronic systolic HF (heart failure) (Acute) High cholesterol (Acute) Past Medical History Medical History CAD (coronary artery disease) Chronic systolic HF (heart failure) Dilated cardiomyopathy Hypercholesteremia Hypertension Nonischemic cardiomyopathy Obesity Family History Family History Father Hypertension Mother Stomach cancer Surgical History Surgical History H/O hernia repair History of cardiac cath (~05/2016) History of Problems with Anesthesia: No Social History Social History Household Members: Spouse and Children Housing: House Housing Other:: lives in a 2 family home per pt Do you presently have visiting nurse or other home services: 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 If so, by whom?: No Do you feel safe in your current relationship?: Yes Is there a partner from a previous relationship who is making you feel unsafe now?: No Are you made to feel afraid or neglected: No Advance Directives: Yes Advance Directives on File: Yes Advance Directives Date on File: 05/28/22 Do you have thoughts of harming others: None Do you have a plan to hurt others: No Plan Recently lost weight without trying: No Nutrition Risks: No Nutritional Risk service: No Current occupational status: retired Cognitive needs: No Hearing needs: No Vision needs: No Meds Allergies Allergy/AdvReac Type Severity Reaction Status Date / Time No Known Allergies Allergy Verified 12/01/22 13:22 [No Known Allergies*] Active Medications: Current Medications Acetaminophen (Acetaminophen 325 Mg Tablet) 650 mg PO Q6H PRN PRN Reason: Pain, Mild (Pain Scale 1-3) Apixaban (Apixaban 5 Mg Tablet) [address] [facility] Last Admin: 12/05/22 08:30 Dose: 5 mg Atorvastatin Calcium (Atorvastatin Calcium 20 Mg Tablet) [address] [facility] Last Admin: 12/05/22 08:30 Dose: 20 mg Furosemide 200 mg/ Sodium (Chloride) 100 mls @ 5 mls/hr IVCONT .Q20H [facility] Last Admin: 12/05/22 03:08 Dose: 10 mg/hr, 5 mls/hr Metoprolol Tartrate (Metoprolol Tartrate 12.5 Mg Halftab) 12.[address] [facility]; Protocol Last Admin: 12/05/22 08:30 Dose: 12.5 mg Ondansetron HCl (Ondansetron Hcl 4 Mg/2 Ml Vial) 4 mg IVPUSH Q8H PRN PRN Reason: Nausea and Vomiting Pharmacy Consult (Consult Rx Perform Med Rec) 1 each MISCELLANE ONCE PRN PRN Reason: Consult order Sodium Chloride (0.9 % Sodium Chloride Flush 3 Ml Syringe) [address] [facility] Last Admin: 12/05/22 08:31 Dose: 3 ml Spironolactone (Spironolactone 25 Mg Tablet) 12.[address] [facility]; Protocol Last Admin: 12/05/22 08:30 Dose: 12.5 mg Valsartan (Valsartan 40 Mg Tablet) [address] [facility]; Protocol Last Admin: 12/05/22 08:30 Dose: 40 mg Home Medications Medication Instructions Recorded Confirmed Last Taken Type carvedilol 25 mg tablet 25 mg PO BID 12/01/22 12/01/22 12/01/22 09:00 History furosemide 40 mg tablet 40 mg PO BID@0900,1600 12/01/22 12/01/22 12/01/22 09:00 History Exam Exam Date and Time: December 05, 2022 1410 Height,Weight and Vital Signs: Height 5 ft 11 in Weight 81.647 kg Last Vital Signs Temp 97 F 12/05/22 13:36 Pulse 78 12/05/22 13:36 Resp 20 12/05/22 13:36 BP 146/78 H 12/05/22 13:36 Pulse Ox 97 12/05/22 13:36 O2 Del Method Room Air 12/05/22 13:36 Pertinent Lab Results Pertinent Lab Results: Laboratory Tests 12/01/22 12/01/22 12/01/22 13:57 13:57 13:57 WBC 7.6 RBC 3.76 L Hgb 11.6 L Hct 36.4 L MCV 96.8 MCH 30.9 MCHC 31.9 RDW 14.0 Plt Count 225 MPV 10.5 Immature Gran % (Auto) 0.5 H Neut % (Auto) 76.7 H Lymph % (Auto) 6.5 L Gosper % (Auto) 16.2 H Eos % (Auto) 0.0 Baso % (Auto) 0.1 Lymph # (Auto) 0.5 L Gos[place] # (Auto) 1.2 Eos # (Auto) 0.0 Baso # (Auto) 0.0 Abs Immat Gran (auto) 0.04 H Absolute Neuts (auto) 5.8 Absolute Nucleated RBC 0.000 Nucleated RBC % (auto) 0.0 PT 14.3 H INR 1.2 H Sodium 143 Potassium 3.9 Chloride 106 Carbon Dioxide 28 Anion Gap 13 BUN 23 H Creatinine 1.25 Estim Creat Clear Calc 51.8 Estimated GFR 56 Random Glucose 102 Calcium 8.7 D Magnesium 2.1 Total Bilirubin 0.7 Direct Bilirubin 0.3 AST 93 H ALT 88 H Alkaline Phosphatase 72 Troponin I High Sens B-Natriuretic Peptide Total Protein 5.9 L Albumin 3.2 L 12/01/22 12/01/22 12/02/22 13:57 13:57 05:20 WBC RBC Hgb Hct MCV MCH MCHC RDW Plt Count MPV Immature Gran % (Auto) Neut % (Auto) Lymph % (Auto) Gosper % (Auto) Eos % (Auto) Baso % (Auto) Lymph # (Auto) Gosper # (Auto) Eos # (Auto) Baso # (Auto) Abs Immat Gran (auto) Absolute Neuts (auto) Absolute Nucleated RBC Nucleated RBC % (auto) PT INR Sodium 142 Potassium 3.7 Chloride 105 Carbon Dioxide 27 Anion Gap 14 BUN 25 H Creatinine 1.15 Estim Creat Clear Calc 56.3 Estimated GFR > 60 Random Glucose 112 Calcium 8.8 Magnesium Total Bilirubin 0.7 Direct Bilirubin AST 73 H ALT 89 H Alkaline Phosphatase 71 Troponin I High Sens 88.2 H D B-Natriuretic Peptide 4192 H Total Protein 5.7 L Albumin 3.1 L 12/02/22 12/03/22 12/03/22 05:20 02:31 06:19 WBC RBC Hgb Hct MCV MCH MCHC RDW Plt Count MPV Immature Gran % (Auto) Neut % (Auto) Lymph % (Auto) Gosper % (Auto) Eos % (Auto) Baso % (Auto) Lymph # (Auto) Gos[place] # (Auto) Eos # (Auto) Baso # (Auto) Abs Immat Gran (auto) Absolute Neuts (auto) Absolute Nucleated RBC Nucleated RBC % (auto) PT INR Sodium 143 143 Potassium 3.4 3.6 Chloride 105 105 Carbon Dioxide 26 29 Anion Gap 15 13 BUN 28 H 28 H Creatinine 1.31 1.40 Estim Creat Clear Calc 49.4 46.3 Estimated GFR 53 49 Random Glucose 117 H 116 H Calcium 8.8 8.9 Magnesium 2.1 Total Bilirubin Direct Bilirubin AST ALT Alkaline Phosphatase Troponin I High Sens B-Natriuretic Peptide 4583 H Total Protein Albumin 12/03/22 12/04/22 12/05/22 06:19 07:13 06:24 WBC RBC Hgb Hct MCV MCH MCHC RDW Plt Count MPV Immature Gran % (Auto) Neut % (Auto) Lymph % (Auto) Gosper % (Auto) Eos % (Auto) Baso % (Auto) Lymph # (Auto) Gosper # (Auto) Eos # (Auto) Baso # (Auto) Abs Immat Gran (auto) Absolute Neuts (auto) Absolute Nucleated RBC Nucleated RBC % (auto) PT INR Sodium 142 143 Potassium 3.3 3.3 Chloride 104 104 Carbon Dioxide 29 27 Anion Gap 12 15 BUN 32 H 35 H Creatinine 1.27 1.32 Estim Creat Clear Calc 51.0 49.1 Estimated GFR 55 52 Random Glucose 115 103 Calcium 9.0 9.0 Magnesium 2.2 2.1 Total Bilirubin Direct Bilirubin AST ALT Alkaline Phosphatase Troponin I High Sens B-Natriuretic Peptide 3537 H Total Protein Albumin Airway Mallampati Class: II TM Dist: >3cm Neck ROM: Limited Loose/Missing/Broken Teeth: No (patient denies any loose or broken teeth) Heart: S1S2 Lungs: CTAB Assessment and Plan Assessment Anesthesia Assessment: Anesthesia Plan Discussed and Chart Reviewed Final Anesthetic Review History of Problems with Anesthesia: No NPO: Yes ASA Class: IV Final Preanesthetic Review: No Changes in Pt Med Stat, Meds/Allgs Chart Reviewed, Consent Obtained/Reviewed and Anes Risks/Benef Reviewed Patient Risk: High Procedure Risk: Low Anesthetic Plan Anesthetic Plan: MAC: and Agree w/ Assess. and Plan Disposition: Standard PACU
--- NOTE | 2022-12-05 14:21 | HO.PM.IMPN ---
Subjective Subjective Date of Service: 12/05/22 Interval History: seen and examined this morning Follow-up for CHF, AFib No overnight events No specific complaints this morning, patient reports improvement in breathing plan for cardioversion today Review of Systems Review of Systems: Yes all other systems are reviewed and are negative Constitutional Constitutional: Denies chills and Denies fever(s) Cardiovascular Cardiovascular: Denies chest pain, Denies palpitations and Denies dyspnea Respiratory Respiratory: Denies cough and Denies dyspnea Gastrointestinal Gastrointestinal: Denies abdominal pain, Denies nausea and Denies vomiting Endocrine Endocrine: Denies palpitations Physical Exam Vital Signs: Vital Signs: Last Vital Signs Temp 97 F 12/05/22 13:36 Pulse 78 12/05/22 13:36 Resp 20 12/05/22 13:36 BP 146/78 H 12/05/22 13:36 Pulse Ox 97 12/05/22 13:36 O2 Del Method Room Air 12/05/22 13:36 BMI result Body Mass Index 25.1 Const: General: cooperative, comfortable, no acute distress, alert and awake Nutritional Appearance: average body habitus Orientation/consciousness: oriented to person and oriented to place Resp: Effort & Inspection: normal respiratory effort and able to speak in complete sentences Cardio: Rate: regular rate Heart sounds: S1 normal heart sound present and S2 normal heart sound present GI: Inspection: No distended Palpation (GI): Soft to palpation and nontender Neuro: Other: grossly nonfocal General: oriented to person, oriented to place and moves all extremities Extrem: Other: b/l ankle edema Objective Data Active Medications Acetaminophen (Acetaminophen 325 Mg Tablet) 650 mg PO Q6H PRN PRN Reason: Pain, Mild (Pain Scale 1-3) Apixaban (Apixaban 5 Mg Tablet) 5 mg PO BID [facility] Last Admin: 12/05/22 08:30 Dose: 5 mg Documented By: LULA Atorvastatin Calcium (Atorvastatin Calcium 20 Mg Tablet) 20 mg PO DAILY [facility] Last Admin: 12/05/22 08:30 Dose: 20 mg Documented By: LULA Furosemide 200 mg/ Sodium (Chloride) 100 mls @ 5 mls/hr IVCONT .Q20H [facility] Last Admin: 12/05/22 03:08 Dose: 10 mg/hr, 5 mls/hr Documented By: NEELIMA Metoprolol Tartrate (Metoprolol Tartrate 12.5 Mg Halftab) 12.5 mg PO Q6H [facility]; Protocol Last Admin: 12/05/22 08:30 Dose: 12.5 mg Documented By: LULA Ondansetron HCl (Ondansetron Hcl 4 Mg/2 Ml Vial) 4 mg IVPUSH Q8H PRN PRN Reason: Nausea and Vomiting Pharmacy Consult (Consult Rx Perform Med Rec) 1 each MISCELLANE ONCE PRN PRN Reason: Consult order Sodium Chloride (0.9 % Sodium Chloride Flush 3 Ml Syringe) 3 ml IVFLUSH QSHIFT [facility] Last Admin: 12/05/22 08:31 Dose: 3 ml Documented By: LULA Spironolactone (Spironolactone 25 Mg Tablet) 12.5 mg PO DAILY [facility]; Protocol Last Admin: 12/05/22 08:30 Dose: 12.5 mg Documented By: LULA Valsartan (Valsartan 40 Mg Tablet) 40 mg PO BID [facility]; Protocol Last Admin: 12/05/22 08:30 Dose: 40 mg Documented By: LULA Labs 12/01/22 13:57 12/05/22 06:24 Labs: Laboratory Results - last 24 hr 12/05/22 06:24 Anion Gap 15 Estim Creat Clear Calc 49.1 Estimated GFR 52 Random Glucose 103 Calcium 9.0 Magnesium 2.1 Assessment and Plan (1) Atrial fibrillation with rapid ventricular response: Status: Acute (2) Acute exacerbation of CHF (congestive heart failure): Status: Acute Plan 76-year-old man with a significant history of ischemic cardiomyopathy, CAD admitted with acute on chronic congestive heart failure with reduced ejection fraction with noted dyspnea and chest pressure Acute on chronic HFrEF BNP trending down continue Lasix drip increase lopressor 12.5 mg to q6h continue valsartan Continue aspirin and statin Cardiology following Monitor on telemetry Daily weights, strict intake and output follow lytes atrial fibrillation with rapid ventricular response, new onset HR improving Plan for cardioversion today continue metoprolol hold off on digoxin due to CV planned for today Cardiology following Started on Eliquis for AC chronic normocytic anemia H/ H at baseline, above transfusion threshold mild transaminitis Likely related to congestion secondary to CHF CAD continue BB, statin CKD3 SCr at baseline Elevated troponin Likely demand secondary to rapid afib Hypertension Continue valsartan DVT prophylaxis with eliquis Full code attending-Dr. Aguirre continued hospital stay for treatment of acute on chronic congestive heart failure requiring IV diuretics as well as close monitoring of his renal function Time Spent With Patient Time: Total time managing care of this patient today ____ minutes. Quality Stroke Does the patient have a stroke diagnosis?: No VTE Prior VTE?: No VTE Risk Level:: Medical - moderate - high VTE Device Contraindication: Treatment Not Indicated VTE Drug Contraindication: N/A - Med Ordered
--- NOTE | 2022-12-05 14:58 | HO.CARDIVERS ---
Cardioversion Procedure Note Cardioversion Date of Procedure: Today Ordering Provider: Myself Performing Provider: Myself Indication for Procedure: New onset atrial fibrillation with systolic heart failure Pre-Op Diagnosis: Same Post-Op Diagnosis: Sinus rhythm Performed with Transesophageal Echo: Yes PIPO findings (if PIPO Performed): Reported separately History: See my progress notes Consent: Verbal and Written consent was obtained from the patient before starting and after confirming oral anticoagulation use. The patient was made aware of the risk of synchronized cardioversion including benefits and alternatives Procedure: After consent obtained, cardioversion pads were attached in anteroposterior configuration and the patient was sedated by the anesthesia team. Once adequate sedation achieved, patient was delivered 200 joules of biphasic synchronized energy in anteroposterior configuration Complications: None Impression: Successful conversion to sinus rhythm Recommendations: 1. 12 lead EKG 2. Start amiodarone drip as per the protocol 3. Continue metoprolol 4. Continue oral anticoagulation therapy
--- NOTE | 2022-12-05 15:10 | ECG_ITS ---
Test Reason : S/P CARDIOVERSION Blood Pressure : / mmHG Vent. Rate : 077 BPM Atrial Rate : 000 BPM P-R Int : 000 ms QRS Dur : 136 ms QT Int : 436 ms P-R-T Axes : 000 -22 147 degrees QTc Int : 493 ms Normal sinus rhythm with Premature atrial complexes Left ventricular hypertrophy with QRS widening and repolarization abnormality ( R in aVL , [place] product , Romhilt-Frey ) Abnormal ECG When compared with ECG of 01-DEC-2022 22:37, Vent. rate has decreased BY 39 BPM Left bundle branch block is no longer Present Normal sinus rhythm has replaced Atrial fibrillation Referred By: Lorenzo Jordan Electronically Signed By:LORENZO JORDAN MD
--- NOTE | 2022-12-05 15:48 | MHC.CM.PN ---
PER MD ROUNDS, PT NOT YET READY TO DC CARDIOVERSION PLANNED FOR TOMORROW DCP: HOME WITH [facility]
[2022-12-05] MEDS: Amiodarone HCL 900 MG in 0.9 % Sodium Chloride 500 ML 34.53 MG IVCONT (16:23)
[2022-12-05] MEDS: Valsartan 80 MG TABLET PO (21:08)
[2022-12-06] VITALS (8 sets, daily range): BP systolic 133–164; BP diastolic 65–80; PULSE 53–81; RESP 17–20; TEMP 36.3–37; O2SAT 90–99
[2022-12-06] MEDS: Metoprolol Tartrate 12.5 MG HALFTAB PO ×2 (02:21→08:44)
[2022-12-06 06:20] LABS: Hematocrit 35.9 % (42.0-52.0); Hemoglobin 11.5 g/dl (14.0-18.0); Mean Corpuscular Hemoglobin 31.1 pg (27.0-33.0); Mean Platelet Volume 10.3 fL (9.4-12.4); Platelet Count 335 X10*3/uL (160-400); Red Cell Distribution Width 13.7 % (11.0-16.0); White Blood Count 5.9 X10*3/uL (4.8-10.8)
[2022-12-06 06:32] LABS: Anion Gap 15 (12-20); Blood Urea Nitrogen 30 mg/dL (9-16); Calcium 8.9 mg/dL (8.4-10.2); Carbon Dioxide 28 mmol/L (22-29); Chloride 104 mmol/L (96-108); Creatinine Clr Calc Pharmacy 57.3; Estimated Glomerular Filt Rate > 60; Glucose Random 100 mg/dL (60-115); Potassium 3.2 mmol/L (3.3-5.1); Sodium 144 mmol/L (135-145)
[2022-12-06] MEDS: Atorvastatin Calcium 20 MG TABLET PO (08:44)
[2022-12-06] MEDS: Valsartan 80 MG TABLET PO (08:44)
[2022-12-06] MEDS: Apixaban 5 MG TABLET PO ×2 (08:45→22:15)
[2022-12-06] MEDS: Potassium Chloride Packet 20 MEQ PACKET 40 MEQ PO (08:45)
[2022-12-06] MEDS: Spironolactone 25 MG TABLET PO (08:45)
--- NOTE | 2022-12-06 10:41 | P.PNCA_ITS ---
Subjective Subjective Date of Service: 12/06/22 Principal diagnosis: Decompensated CHF, atrial fibrillation. Interval history: Patient status post PIPO guided cardioversion yesterday. Maintaining rhythm. His breathing is improved. He also says his leg edema is improved but continues to have difficulty with pain in his right foot and cannot bear weight on it. M aintain rhythm with PACs. Currently on IV amiodarone drip. Blood pressure is elevated. Review of Systems Constitutional: Reports weakness Eyes: Reports no additional eye complaints Cardiovascular: Reports no additional cardiovascular complaints Respiratory: Reports no additional respiratory complaints Gastrointestinal: Reports no additional gastrointestinal complaints Musculoskeletal: Reports other (Right foot pain) Reports system reviewed and no additional complaints, except as documented and Reports weakness Physical Exam Vital Signs: Last Vital Signs Temp 97.4 F 12/06/22 07:09 Pulse 67 12/06/22 07:09 Resp 20 12/06/22 07:09 BP 150/79 H 12/06/22 07:09 Pulse Ox 98 12/06/22 07:09 O2 Del Method Nasal Cannula 12/06/22 07:09 O2 Flow Rate 1.5 12/06/22 07:09 BMI result Body Mass Index 25.1 Const General: cooperative, comfortable, no acute distress, alert and awake Nutritional Appearance: average body habitus Orientation/consciousness: patient oriented x3 Neck Neck: Yes trachea midline, Yes supple and Yes no JVD Resp Effort & Inspection: normal respiratory effort Auscultation: clear to auscultation bilaterally Cardio Jugular venous distension: no JVD Rate: regular rate Rhythm: abnormal rhythm with ectopic beats Heart sounds: S1 normal heart sound present, S2 normal heart sound present, no click, no gallops and no murmurs GI Auscultation: normal bowel sounds Skin General skin exam: no rashes or lesions noted Neuro General: patient oriented x3 and no focal motor deficits Extrem General: Yes no clubbing, cyanosis or edema Objective Labs and Meds 12/06/22 05:57 12/06/22 05:57 Lab results: Laboratory Results - last 24 hr 12/06/22 12/06/22 05:57 05:57 WBC 5.9 RBC 3.70 L Hgb 11.5 L Hct 35.9 L MCV 97.0 MCH 31.1 MCHC 32.0 RDW 13.7 Plt Count 335 D MPV 10.3 Absolute Nucleated RBC 0.000 Nucleated RBC % (auto) 0.0 Sodium 144 Potassium 3.2 L Chloride 104 Carbon Dioxide 28 Anion Gap 15 BUN 30 H Creatinine 1.13 Estim Creat Clear Calc 57.3 Estimated GFR > 60 Random Glucose 100 Calcium 8.9 Progress Note: A&P Assessment and plan (1) Acute exacerbation of CHF (congestive heart failure): Status: Acute Assessment and Plan: Patient with acute exacerbation heart failure with marked LV systolic dysfunction status post cardioversion. Heart failure syndrome appears signif icantly improved at this point time. Would switch his metoprolol to 25 mg b.i.d. for neurohormonal modulation as well as rhythm control. Increase valsartan to 160 mg b.i.d. given his elevated blood pressure. Continue spironolactone. Blood pressure continues to remain elevated will add combinatio n of hydralazine and Isordil. Also his Lasix can be switched to oral 80 mg b.i.d.. In the past he has not been able to afford Entresto and Jardiance and with therefore avoid adding those medications. Continue to pursue rhythm control approach. (2) Atrial fibrillation with rapid ventricular response: Status: Acute Assessment and Plan: Atrial fibrillation rapid ventricular response she is new status post PIPO guided cardioversion. Patient is doing well on it. Can switch to amiodarone p.o. 400 mg b.i.d. loading for 2 weeks followed by 200 mg daily. Continue full oral anticoagulation with Eliquis. (3) Right foot pain: Status: Acute Assessment and Plan: Patient has right foot pain to me clinically appears to be gout. I would treated with colchicine and if it does not respond would treated with steroids. Will continue to follow with you Time Spent With Patient Time: Total time managing care of this patient today ____ minutes. Progress Note: Quality Stroke Does the patient have a stroke diagnosis?: No Procedures Date of Service Date of Service: 12/06/22
[2022-12-06] MEDS: Colchicine 0.6 MG TABLET PO (12:30)
--- NOTE | 2022-12-06 14:12 | P.PNIM_ITS ---
Subjective Subjective Date of Service: 12/06/22 Interval History: seen and examined this morning follow up for chf, afib s/p CV yesterday, maintained in NSR feels well. no specific complaints Review of Systems Review of Systems: Yes all other systems are reviewed and are negative Constitutional Constitutional: Denies chills and Denies fever(s) ENT Ears, Nose, Mouth, and Throat: Denies dizziness Cardiovascular Cardiovascular: Denies chest pain, Denies palpitations and Denies dyspnea Respiratory Respiratory: Denies cough and Denies dyspnea Gastrointestinal Gastrointestinal: Denies abdominal pain Neurologic Neurologic: Denies dizziness Endocrine Endocrine: Denies palpitations Physical Exam Vital Signs: Vital Signs: Last Vital Signs Temp 98 F 12/06/22 11:29 Pulse 64 12/06/22 11:29 Resp 20 12/06/22 11:29 BP 143/66 H 12/06/22 11:29 Pulse Ox 95 12/06/22 13:47 O2 Del Method Room Air 12/06/22 13:47 O2 Flow Rate 1.5 12/06/22 11:29 BMI result Body Mass Index 25.1 Const: General: cooperative, comfortable, no acute distress, alert and awake Nutritional Appearance: average body habitus Orientation/consciousness: oriented to person and oriented to place Resp: Effort & Inspection: normal respiratory effort, able to speak in complete sentences, no respiratory distress and no use of accessory muscles Cardio: Rate: regular rate Heart sounds: S1 normal heart sound present and S2 normal heart sound present GI: Inspection: No distended Palpation (GI): Soft to palpation and nontender : Other: bowman draining yellow urine Neuro: Other: grossly nonfocal General: oriented to person, oriented to place, moves all extremities and CN's II-XI intact bilaterally Extrem: Other: b/l ankle edema Objective Data Active Medications Acetaminophen (Acetaminophen 325 Mg Tablet) 650 mg PO Q6H PRN PRN Reason: Pain, Mild (Pain Scale 1-3) Amiodarone HCl (Amiodarone Hcl 200 Mg Tablet) 400 mg PO BID [facility] Apixaban (Apixaban 5 Mg Tablet) 5 mg PO BID [facility] Last Admin: 12/06/22 08:45 Dose: 5 mg Documented By: NIKOLE Atorvastatin Calcium (Atorvastatin Calcium 20 Mg Tablet) 20 mg PO DAILY [facility] Last Admin: 12/06/22 08:44 Dose: 20 mg Documented By: NIKOLE Furosemide (Furosemide 100 Mg/10 Ml Vial) 80 mg IVPUSH BID@0900,1800 [facility]; Protocol Metoprolol Tartrate (Metoprolol Tartrate 50 Mg Tablet) 50 mg PO BID [facility]; Protocol Ondansetron HCl (Ondansetron Hcl 4 Mg/2 Ml Vial) 4 mg IVPUSH Q8H PRN PRN Reason: Nausea and Vomiting Pharmacy Consult (Consult Rx Perform Med Rec) 1 each MISCELLANE ONCE PRN PRN Reason: Consult order Sodium Chloride (0.9 % Sodium Chloride Flush 3 Ml Syringe) 3 ml IVFLUSH QSHIFT [facility] Last Admin: 12/06/22 08:45 Dose: Not Given Documented By: NIKOLE Non-Admin Reason: IV Running Spironolactone (Spironolactone 25 Mg Tablet) 25 mg PO DAILY [facility]; Protocol Last Admin: 12/06/22 08:45 Dose: 25 mg Documented By: NIKOLE Valsartan (Valsartan 160 Mg Tablet) 160 mg PO BID [facility]; Protocol Labs 12/06/22 05:57 12/06/22 05:57 Labs: Laboratory Results - last 24 hr 12/06/22 12/06/22 05:57 05:57 MCV 97.0 MCH 31.1 MCHC 32.0 RDW 13.7 Plt Count 335 D MPV 10.3 Absolute Nucleated RBC 0.000 Nucleated RBC % (auto) 0.0 Anion Gap 15 Estim Creat Clear Calc 57.3 Estimated GFR > 60 Random Glucose 100 Calcium 8.9 Assessment and Plan (1) Right foot pain: Status: Acute (2) Acute exacerbation of CHF (congestive heart failure): Status: Acute (3) Atrial fibrillation with rapid ventricular response: Status: Acute Plan 76-year-old man with a significant history of ischemic cardiomyopathy, CAD admitted with acute on chronic congestive heart failure with reduced ejection fraction with noted dyspnea and chest pressure Acute on chronic HFrEF BNP trending down initially treated with Lasix drip, will transition to 80 mg IV bid change lopressor 25 bid continue valsartan, increase to 160 bid started on aldactone Continue aspirin and statin Cardiology following Monitor on telemetry Daily weights, strict intake and output follow lytes atrial fibrillation with rapid ventricular response, new onset HR improving s/p successful cardioversion 12/05, now in NSR transition amiodarone drip to p.o. amiodarone 400 bid x 14 days then 200 mg daily continue metoprolol, change to bid Cardiology following Started on Eliquis for AC acute gout right foot colchicine x1 - recommended dose due to interaction with amio avoid NSAIDs, steroids due to chf hypokalemia, mild K 3.2 Replace and follow chronic normocytic anemia H/ H at baseline, above transfusion threshold mild transaminitis Likely related to congestion secondary to CHF follow LFTs CAD continue BB, statin CKD3 SCr at baseline Elevated troponin Likely demand secondary to rapid afib DVT prophylaxis with eliquis Full code attending-Dr. Mccray pt eval pending continued hospital stay for treatment of acute on chronic congestive heart failure requiring IV diuretics as well as close monitoring of his renal function Time Spent With Patient Time: Total time managing care of this patient today ____ minutes. Quality Stroke Does the patient have a stroke diagnosis?: No VTE Prior VTE?: No VTE Risk Level:: Medical - moderate - high VTE Device Contraindication: Treatment Not Indicated VTE Drug Contraindication: N/A - Med Ordered
[2022-12-06 15:20] LABS: Alanine Aminotransferase 129 U/L (0-40); Albumin Level 2.8 g/dL (3.5-5.0); Alkaline Phosphatase 71 U/L (39-117); Aspartate Amino Transferase 100 U/L (5-37); Bilirubin Direct 0.2 mg/dL (0.0-0.5); Bilirubin Total 0.5 mg/dL (0.0-1.0); Total Protein 6.5 g/dL (6.5-8.0)
[2022-12-06] MEDS: 0.9 % Sodium Chloride Flush 3 ML SYRINGE IVFLUSH ×2 (17:07→22:16)
[2022-12-06] MEDS: Furosemide 100 MG/10 ML VIAL 80 MG IVPUSH (17:09)
[2022-12-06] MEDS: Amiodarone HCL 200 MG TABLET 400 MG PO (22:15)
[2022-12-06] MEDS: Metoprolol Tartrate 50 MG TABLET PO (22:15)
[2022-12-06] MEDS: Valsartan 160 MG TABLET PO (22:16)
[2022-12-07 03:51] VITALS: BP 148/79; PULSE 73; RESP 20; TEMP 36.7; O2SAT 98
[2022-12-07 06:54] LABS: Anion Gap 11 (12-20); Blood Urea Nitrogen 29 mg/dL (9-16); Calcium 9.1 mg/dL (8.4-10.2); Carbon Dioxide 32 mmol/L (22-29); Chloride 105 mmol/L (96-108); Creatinine Clr Calc Pharmacy 57.8; Estimated Glomerular Filt Rate > 60; Glucose Random 103 mg/dL (60-115); Potassium 3.4 mmol/L (3.3-5.1); Sodium 145 mmol/L (135-145)
[2022-12-07] MEDS: Amiodarone HCL 200 MG TABLET 400 MG PO ×2 (07:23→20:12)
[2022-12-07] MEDS: Apixaban 5 MG TABLET PO ×2 (07:23→20:12)
[2022-12-07] MEDS: Valsartan 160 MG TABLET PO ×2 (07:24→20:13)
[2022-12-07] MEDS: Atorvastatin Calcium 20 MG TABLET PO (07:24)
[2022-12-07] MEDS: Metoprolol Tartrate 50 MG TABLET PO ×2 (07:24→20:12)
[2022-12-07] MEDS: Furosemide 100 MG/10 ML VIAL 80 MG IVPUSH (07:24)
[2022-12-07] MEDS: 0.9 % Sodium Chloride Flush 3 ML SYRINGE IVFLUSH ×3 (07:25→20:15)
[2022-12-07 07:29] VITALS: BP 159/79; PULSE 65; RESP 18; TEMP 36.5; O2SAT 96
[2022-12-07] MEDS: Spironolactone 25 MG TABLET PO (07:30)
[2022-12-07 10:26] LABS: Magnesium 2.3 mg/dL (1.6-2.6)
[2022-12-07 11:31] VITALS: BP 140/63; PULSE 72; RESP 20; TEMP 36.1; O2SAT 95
--- NOTE | 2022-12-07 12:37 | P.PNCA_ITS ---
Subjective Subjective Date of Service: 12/07/22 Principal diagnosis: Decompensated CHF, atrial fibrillation. Interval history: His foot pain is better. Remains in sinus rhythm. Blood pressure is still mildly elevated. Otherwise tolerating medications no significant shortness of breath. Review of Systems Constitutional: Reports no additional constitutional complaints Cardiovascular: Denies chest pain, Denies rapid heart rate, Denies lightheadedness, Denies Loss of Consciousness and Denies dyspnea Respiratory: Reports no additional respiratory complaints and Denies dyspnea Skin/Breast: Reports system reviewed and no additional complaints, except as docu Reports system reviewed and no additional complaints, except as documented Psychiatric: Reports no additional psychiatric complaints Physical Exam Vital Signs: Last Vital Signs Temp 97 F 12/07/22 11:31 Pulse 72 12/07/22 11:31 Resp 20 12/07/22 11:31 BP 140/63 H 12/07/22 11:31 Pulse Ox 95 12/07/22 11:31 O2 Del Method Room Air 12/07/22 11:31 O2 Flow Rate 1.5 12/06/22 11:29 BMI result Body Mass Index 25.1 Const General: cooperative, comfortable, no acute distress, alert and awake Nutritional Appearance: average body habitus Orientation/consciousness: patient oriented x3 Neck Neck: Yes trachea midline, Yes supple and Yes no JVD Resp Effort & Inspection: normal respiratory effort Auscultation: clear to auscultation bilaterally Cardio Jugular venous distension: no JVD Rate: regular rate Rhythm: abnormal rhythm with ectopic beats Heart sounds: S1 normal heart sound present, S2 normal heart sound present, no click, no gallops and no murmurs GI Auscultation: normal bowel sounds Skin General skin exam: no rashes or lesions noted Neuro General: patient oriented x3 and no focal motor deficits Extrem General: Yes no clubbing, cyanosis or edema Objective Labs and Meds 12/06/22 05:57 12/07/22 05:40 Lab results: Laboratory Results - last 24 hr 12/06/22 12/07/22 05:57 05:40 Sodium 145 Potassium 3.4 Chloride 105 Carbon Dioxide 32 H Anion Gap 11 L BUN 29 H Creatinine 1.12 Estim Creat Clear Calc 57.8 Estimated GFR > 60 Random Glucose 103 Calcium 9.1 Magnesium 2.3 Total Bilirubin 0.5 Direct Bilirubin 0.2 AST 100 H ALT 129 H Alkaline Phosphatase 71 Total Protein 6.5 Albumin 2.8 L Progress Note: A&P Assessment and plan (1) Acute exacerbation of CHF (congestive heart failure): Status: Acute Assessment and Plan: Acute congestive heart failure secondary to severe LV systolic dysfunction setting of left bundle-branch block and prior hypertensive cardiomyopathy. Clinically appears a lot better. Continue rhythm control approach. Continue current neurohormonal modulation. Cannot afford to Jardiance or Entresto thera py. Continue valsartan, Aldactone and metoprolol therapy for now. Switch to p.o. Lasix. Heart failure education was provided. Continue replace electrolytes and potassium to be above 4. CHF management was discussed in details. He understands from this in the past. He has declined ICD placement in past including Bi V ICD which would help his heart failure syndrome. He is having runs of nonsustained VT, currently on amiodarone therapy for AFib and will continue the same. High risk for sudden cardiac that. (2) Atrial fibrillation with rapid ventricular response: Status: Acute Assessment and Plan: Atrial fibrillation status post PIPO guided cardioversion. Doing well from that perspective. Continue amiodarone loading as prescribed for 400 mg b.i.d. for 2 weeks followed by 200 mg daily. Continue metoprolol therapy. Continue full oral anticoagulation, currently on Eliquis 5 mg b.i.d.. Will sign of the case and follow if need be. Will set up for outpatient follow- up. Thank you for allowing me to partake in his care Time Spent With Patient Time: Total time managing care of this patient today ____ minutes. Progress Note: Quality Stroke Does the patient have a stroke diagnosis?: No Procedures Date of Service Date of Service: 12/07/22
[2022-12-07 14:00] VITALS: O2SAT 94
--- NOTE | 2022-12-07 14:28 | HO.PM.IMPN ---
Subjective Subjective Date of Service: 12/07/22 Interval History: seen and examined this morning follow up for chf, afib feeling well this am ankle pain improved Review of Systems Review of Systems: Yes all other systems are reviewed and are negative Constitutional Constitutional: Denies chills and Denies fever(s) ENT Ears, Nose, Mouth, and Throat: Denies dizziness Cardiovascular Cardiovascular: Denies chest pain, Denies palpitations and Denies dyspnea Respiratory Respiratory: Denies cough and Denies dyspnea Gastrointestinal Gastrointestinal: Denies abdominal pain, Denies nausea and Denies vomiting Neurologic Neurologic: Denies dizziness Endocrine Endocrine: Denies palpitations Physical Exam Vital Signs: Vital Signs: Last Vital Signs Temp 97 F 12/07/22 11:31 Pulse 72 12/07/22 11:31 Resp 20 12/07/22 11:31 BP 140/63 H 12/07/22 11:31 Pulse Ox 94 12/07/22 14:00 O2 Del Method Room Air 12/07/22 14:00 O2 Flow Rate 1.5 12/06/22 11:29 BMI result Body Mass Index 25.1 Const: General: cooperative, comfortable, no acute distress, alert and awake Nutritional Appearance: average body habitus Orientation/consciousness: oriented to person and oriented to place Resp: Effort & Inspection: normal respiratory effort, able to speak in complete sentences, no respiratory distress and no use of accessory muscles Auscultation: clear to auscultation bilaterally Cardio: Rate: regular rate Heart sounds: S1 normal heart sound present and S2 normal heart sound present GI: Inspection: No distended Palpation (GI): Soft to palpation and nontender Neuro: Other: grossly nonfocal General: oriented to person, oriented to place, moves all extremities and CN's II-XI intact bilaterally Extrem: Other: minimal ankle edema Objective Data Active Medications Acetaminophen (Acetaminophen 325 Mg Tablet) 650 mg PO Q6H PRN PRN Reason: Pain, Mild (Pain Scale 1-3) Amiodarone HCl (Amiodarone Hcl 200 Mg Tablet) 400 mg PO BID [facility] Stop: 12/20/22 20:59 Last Admin: 12/07/22 07:23 Dose: 400 mg Documented By: NIKOLE Apixaban (Apixaban 5 Mg Tablet) 5 mg PO BID [facility] Last Admin: 12/07/22 07:23 Dose: 5 mg Documented By: NIKOLE Atorvastatin Calcium (Atorvastatin Calcium 20 Mg Tablet) 20 mg PO DAILY [facility] Last Admin: 12/07/22 07:24 Dose: 20 mg Documented By: NIKOLE Furosemide (Furosemide 100 Mg/10 Ml Vial) 80 mg IVPUSH BID@0900,1800 [facility]; Protocol Last Admin: 12/07/22 07:24 Dose: 80 mg Documented By: NIKOLE Metoprolol Tartrate (Metoprolol Tartrate 50 Mg Tablet) 50 mg PO BID [facility]; Protocol Last Admin: 12/07/22 07:24 Dose: 50 mg Documented By: NIKOLE Ondansetron HCl (Ondansetron Hcl 4 Mg/2 Ml Vial) 4 mg IVPUSH Q8H PRN PRN Reason: Nausea and Vomiting Pharmacy Consult (Consult Rx Perform Med Rec) 1 each MISCELLANE ONCE PRN PRN Reason: Consult order Sodium Chloride (0.9 % Sodium Chloride Flush 3 Ml Syringe) 3 ml IVFLUSH QSHIFT [facility] Last Admin: 12/07/22 07:25 Dose: 3 ml Documented By: NIKOLE Spironolactone (Spironolactone 25 Mg Tablet) 25 mg PO DAILY [facility]; Protocol Last Admin: 12/07/22 07:30 Dose: 25 mg Documented By: NIKOLE Valsartan (Valsartan 160 Mg Tablet) 160 mg PO BID [facility]; Protocol Last Admin: 12/07/22 07:24 Dose: 160 mg Documented By: NIKOLE Labs 12/06/22 05:57 12/07/22 05:40 Labs: Laboratory Results - last 24 hr 12/06/22 12/07/22 05:57 05:40 Anion Gap 11 L Estim Creat Clear Calc 57.8 Estimated GFR > 60 Random Glucose 103 Calcium 9.1 Magnesium 2.3 Total Bilirubin 0.5 Direct Bilirubin 0.2 AST 100 H ALT 129 H Alkaline Phosphatase 71 Total Protein 6.5 Albumin 2.8 L Assessment and Plan (1) Right foot pain: Status: Acute (2) Acute exacerbation of CHF (congestive heart failure): Status: Acute (3) Atrial fibrillation with rapid ventricular response: Status: Acute Plan 76-year-old man with a significant history of ischemic cardiomyopathy, CAD admitted with acute on chronic congestive heart failure with reduced ejection fraction with noted dyspnea and chest pressure Acute on chronic HFrEF initially treated with Lasix drip, then 80 mg IV bid contiue lopressor 50 bid continue valsartan, increase to 160 bid started on aldactone this admission Continue statin atrial fibrillation with rapid ventricular response, new onset HR improving s/p successful cardioversion 12/05, remains in NSR transition amiodarone drip to p.o. amiodarone 400 bid x 14 days then 200 mg daily continue metoprolol continue Eliquis for AC, started this admission acute gout. improving right foot colchicine x1 - recommended dose due to interaction with amio avoid NSAIDs, steroids due to chf hypokalemia improved chronic normocytic anemia H/ H at baseline, above transfusion threshold mild transaminitis Likely related to congestion secondary to CHF still elevated - will hold statin CAD continue BB statin on hold for elevated LFTs CKD3 SCr at baseline Elevated troponin Likely demand secondary to rapid afib DVT prophylaxis with eliquis Full code attending-Dr. Redding seen by PT - rec STR - consider re-eval in am since right foot pain improving continued hospital stay for safe disposition Time Spent With Patient Time: Total time managing care of this patient today ____ minutes. Quality Stroke Does the patient have a stroke diagnosis?: No VTE Prior VTE?: No VTE Risk Level:: Medical - moderate - high VTE Device Contraindication: Treatment Not Indicated VTE Drug Contraindication: N/A - Med Ordered
[2022-12-07 16:00] VITALS: BP 155/77; PULSE 72; RESP 18; TEMP 36.6; O2SAT 95
[2022-12-07] MEDS: Furosemide 40 MG TABLET 80 MG PO (18:42)
[2022-12-07 20:00] VITALS: BP 121/68; PULSE 70; RESP 18; TEMP 36.4; O2SAT 98
[2022-12-08] VITALS: BP 140/76; PULSE 67; RESP 18; TEMP 36.7; O2SAT 96
[2022-12-08 03:48] VITALS: BP 134/70; PULSE 68; RESP 16; TEMP 36.5; O2SAT 99
[2022-12-08 07:38] VITALS: BP 126/75; PULSE 65; RESP 18; TEMP 36.1; O2SAT 97
[2022-12-08] MEDS: Spironolactone 25 MG TABLET PO (08:40)
[2022-12-08] MEDS: Amiodarone HCL 200 MG TABLET 400 MG PO (08:40)
[2022-12-08] MEDS: Valsartan 160 MG TABLET PO (08:41)
[2022-12-08] MEDS: Furosemide 40 MG TABLET 80 MG PO (08:41)
[2022-12-08] MEDS: 0.9 % Sodium Chloride Flush 3 ML SYRINGE IVFLUSH (08:41)
[2022-12-08] MEDS: Apixaban 5 MG TABLET PO (08:41)
[2022-12-08] MEDS: Metoprolol Tartrate 50 MG TABLET PO (08:41)
--- NOTE | 2022-12-08 10:38 | MHC.CM.PN ---
Addendum entered by Roselia Zurita RN 12/08/22 10:58: [facility] OFFERING BED PENDING INSURANCE AUTH, BED ACCEPTED ON BEHALF OF PT, D/T PT'S INSURANCE ANTIC PT WILL REMAIN INPT UNTIL AUTH RECEIVED, NOT LIKELY UNTIL TOMORROW 12/09. Original Note: EMR REVIEWED, CM MET W/PT AND AT BEDSIDE, PT'S REPORTS THEY PREFER EITHER FACILITY ON [address], IF EITHER OF THOSE FACILITIES DO NOT TAKE PT'S INSURANCE THEY PREFER [facility] DOES NOT TAKE PT'S AARP, REFERRAL EXPANDED TO [facility], CM WILL CONT TO FOLLOW.
[2022-12-08 11:38] VITALS: BP 124/58; PULSE 60; RESP 18; TEMP 36.2; O2SAT 96
--- NOTE | 2022-12-08 13:19 | MHC.CM.PN ---
IMM 12/08/22, PT MEDICALLY CLEARED FOR D/C TO STR AT [facility], CM MET W/PT WHO HAD DIFFICULTY VERBALIZING AND REQUESTED CM CONTACT HIS LOGAN WHO REPORTS SHE IS OKAY W/AN APPROX 4PM DISCHARGE AND SHE WILL GO TO FACILITY BETWEEN 4-4:30PM TO SIGN [facility] FOR BLS TRANSPORT
--- NOTE | 2022-12-08 13:22 | P.DS_ITS ---
DS: Providers Provider Date of Service: 12/08/22 Date of admission: 12/01/22 15:29 Date of discharge: 12/08/22 Primary care physician: Deb Pete MD Admitting clinician: Carmencita Metz [facility] Consults: 12/02/22 11:53 Consult to Cardiology Routine Consulting Provider: [facility] Reason for consultation: CHF Attending physician on discharge: Ney Fermin Discharging clinician: Sondra Torres DS: Diagnosis Discharge Diagnosis (1) Right foot pain: Status: Acute (2) Acute exacerbation of CHF (congestive heart failure): Status: Acute (3) Atrial fibrillation with rapid ventricular response: Status: Acute DS: Summary Hospital Course Hospital Course: HPI on admission by Carmencita Metz NP: 69-year-old man presented to the ER with complaints of worsening shortness of breath.? He does have a history of systolic heart failure.? He reports increased shortness of breath, lower extremity edema.? Reports compliance with taking his medications every day.? He denied chest pain, nausea, vomiting, diarrhea, recent travel, sick contacts.? BNP was noted to be elevated at 4192, troponin 88.2 with no acute changes on EKG no complaints of chest pain.? Mild elevation noted to liver enzymes.? Chest x-ray indicative of congestive heart failure.? In the ER he was given IV Lasix, Zofran and Tylenol.? He will be admitted for further management and treatment of acute on chronic congestive heart failure. Hospital Course: admitted to telemetry for management of acute on chronic heart failure with reduced ejection fraction. He was followed by Cardiology throughout admission.Treated with IV Lasix drip and transition to 80 mg IV Lasix b.i.d.. Carvedilol changed to Lopressor 50 mg b.i.d. and valsartan was increased to 160 mg b.i.d.. He diuresed well with improvements clinically and was also started on Aldactone. He did develop new onset atrial fibrillation with rapid ventricular rate. Given new onset AFib with systolic heart failure, was successfully cardioverted on 12/05 and maintained normal sinus rhythm. He was initiated on amiodarone drip and transition to p.o. amiodarone. Cardiology recommending ongoing treatment with amiodarone 400 mg b.i.d. times 14 days then transition to 200 mg daily. He will continue amiodarone 400 mg bi daily until 7/ p.m., then initiate 200 mg daily. He was initiated on Eliquis 5 mg twice daily for anticoagulation and tolerated this well. H/ H remained stable overall. No bleeding episodes. He did develop acute gout flare in the right ankle and was given 1 time dose of colchicine 0.6 mg -recommend dose due to interaction with amiodarone on 12/05. Decision was made to forego NSAIDs or steroids due to CHF. He did experience improvement in pain though was given additional 1 time dose of colchicine 0.6 mg on day of discharge. He was evaluated by Physical therapy who is recommending short-term rehab given deconditioning and generalized weakness. He will discharge to [facility] and is advised to follow up with cardiology outpatient. Acute on chronic HFrEF initially treated with Lasix drip, then 80 mg IV bid. Continue lasix 80mg PO BID contiue lopressor 50 bid continue valsartan, increase to 160 bid started on aldactone this admission. Continue spironolactone 25 mg daily Per cardiology recommends biventricular ICD, but patient has declines. follow- up outpatient with Cardiology atrial fibrillation with rapid ventricular response,? new onset HR stable s/p successful cardioversion 12/05, remains in NSR transitioned from amiodarone drip to p.o. amiodarone 400 bid x 14 days (Initiated 12/06 pm), then 200 mg daily continue metoprolol continue Eliquis for AC, started this admission. H/H stable acute gout. improving right foot colchicine x1? 12/06- recommended dose due to interaction with amio. 2nd dose given 12/08 avoid NSAIDs, steroids due to chf hypokalemia improved- Keep K >4.0 per cardiology chronic normocytic anemia H/ H at baseline, above transfusion threshold mild transaminitis Likely related to congestion secondary to CHF still elevated? - will hold statin Continues to improve. PCP to consider resuming statin CAD continue BB statin on hold for elevated LFTs CKD3 SCr at baseline Elevated troponin Likely demand secondary to rapid afib Time spent discussing smoking cessation with patient: more than 10 minutes Status at Discharge Functional status at discharge: uses cane/walker Overall status at discharge: patient is progressing back to baseline Time Spent with Patient Time attestation: Total time managing care of this patient today ____ minutes. Discharge coordination time: Greater than 30 minutes Quality: Safe Use of Opioids Does Pt have an Active Cancer Diagnosis on the Problem List?: No Quality: Stroke Does the patient have a stroke diagnosis?: No Physical Exam Vital Signs: Vital Signs: Last Vital Signs Temp 97.2 F 12/08/22 11:38 Pulse 60 12/08/22 11:38 Resp 18 12/08/22 11:38 BP 124/58 L 12/08/22 11:38 Pulse Ox 96 12/08/22 11:38 O2 Del Method Room Air 12/08/22 11:38 O2 Flow Rate 1.5 12/06/22 11:29 BMI result Body Mass Index 25.1 Constitutional - Awake and Alert, No apparent distress Eyes - PERRLA, EOMI Cardiovascular - S1S2, RRR, No edema Respiratory - Normal lung expansion, Normal respiratory effort, No respiratory distress, CTA bilaterally Gastrointestinal - NT / ND; +BS; No rebound or guarding - No CVA tenderness Extremities - no calf tenderness bilaterally, mild swelling right ankle without erythema or warmth, no edema Skin - Warm/Dry Neurological - Alert & oriented x3, CN II-XII in tact, 5/5 strength BUE and BLE Psychological - Appropriate affect Discharge Plan Discharge Anticipated Discharge Date/Time: 12/08/22 15:23 Patient Disposition: Xfer SNF Discharge Diagnosis: CHF exacerbation, AFib with RVR, acute gout flare Referrals: [facility] [place] [Outside] - 1 Day (short term rehab) Deb Vital MD [Primary Care Provider] - 1 Week Lorenzo Jordan MD [Physician] - 1 Week Discharge Medications: New Eliquis 5 mg Tablet 5 mg PO BID Qty: 60 0RF furosemide 40 mg Tablet 80 mg PO BID@0900,1800 Qty: 60 0RF Protocol: Hold for SBP< HOLD for SBP < : 90 amiodarone 200 mg Tablet 400 mg PO BID Qty: 11 0RF spironolactone 25 mg Tablet 25 mg PO DAILY Qty: 60 0RF Protocol: Hold for SBP< HOLD for SBP < : 90 metoprolol tartrate 50 mg Tablet 50 mg PO BID Qty: 60 0RF Protocol: Hold for SBP/HR < HOLD for SBP < : 90 HOLD for HR < : 60 valsartan 160 mg Tablet 160 mg PO BID Qty: 60 0RF Protocol: Hold for SBP< HOLD for SBP < : 90 amiodarone 200 mg tablet 200 mg PO DAILY Qty: 30 0RF Rx Instructions: Start 200mg daily after completing amiodorone 400mg BID on 12/20 Continued atorvastatin 20 mg tablet 20 mg PO DAILY Qty: 90 3RF Discontinued valsartan 40 mg tablet 40 mg PO BID 90 Days Qty: 180 3RF carvedilol 25 mg tablet 25 mg PO BID furosemide 40 mg tablet 40 mg PO BID@0900,1600 Discharge Orders: Discharge Order (Routine); Ordered 12/08/22 Ordered By: Sondra Torres Diet: cardiac diet Activity on Discharge: As tolerated Stand Alone Forms: Patient Portal Discharge page Care Plan Goals: Transfer to [facility] Health Concerns: Afib with rapid ventricular rate congestive heart failure acute gout flare generalized weakness Plan of Treatment: atrial fibrillation -rate now controlled - underwent successful cardioversion - continue Eliquis 5 mg twice daily, metoprolol - continue amiodarone 400 mg twice daily until 12/20, then initiate amiodarone 200 -mg daily - follow-up with cardiology outpatient congestive heart failure - clinically improved - continue Lasix 80 mg twice daily and spironolactone - maintain potassium levels greater than 4.0 - follow-up outpatient with Cardiology. Acute gout flare - right ankle- pain improved but does persist - given 1 time dose colchicine 0.6 mg on 12/06, repeated on 12/08. Use with caution with amiodarone Assessment: as above
[2022-12-08 14:00] VITALS: O2SAT 96
[2022-12-08 14:25] LABS: Alanine Aminotransferase 77 U/L (0-40); Albumin Level 2.8 g/dL (3.5-5.0); Alkaline Phosphatase 70 U/L (39-117); Anion Gap 12 (12-20); Aspartate Amino Transferase 43 U/L (5-37); Bilirubin Total 0.3 mg/dL (0.0-1.0); Blood Urea Nitrogen 29 mg/dL (9-16); Calcium 9.4 mg/dL (8.4-10.2); Carbon Dioxide 31 mmol/L (22-29); Chloride 105 mmol/L (96-108); Estimated Glomerular Filt Rate 55; Glucose Random 131 mg/dL (60-115); Sodium 144 mmol/L (135-145); Total Protein 6.7 g/dL (6.5-8.0)
== END 2022-12-08 16:05 | disposition skilled nursing facility (03) | DRG 291 ==
LOC: HO.ED 15:28 → HO.EDOVER 15:36 → HO.IMC 16:22
PROVIDERS: Internal Medicine; Internal Medicine Cardiovascular Disease; Physician Assistant; Physician Assistant Medical; Admitting Provider Nurse Practitioner Acute Care; Emergency Provider Emergency Medicine; PCP Internal Medicine; Visit Provider Physician Assistant
PROC: 5A2204Z Restoration of Cardiac Rhythm, Single (ICD-10-PCS; CPT 93312; principal; 2022-12-05 14:00)
PROC: 5A2204Z Restoration of Cardiac Rhythm, Single (ICD-10-PCS; 2022-12-05 14:00)
DX: I13.0 Hypertensive heart and chronic kidney disease with heart failure and stage 1 through stage 4 chronic kidney disease, or unspecified chronic kidney disease (principal); I50.23 Acute on chronic systolic (congestive) heart failure; I24.8 Other forms of acute ischemic heart disease; E53.8 Deficiency of other specified B group vitamins; D64.9 Anemia, unspecified; M10.071 Idiopathic gout, right ankle and foot; N18.30 Chronic kidney disease, stage 3 unspecified; I48.91 Unspecified atrial fibrillation; D63.1 Anemia in chronic kidney disease; E87.6 Hypokalemia; I25.10 Atherosclerotic heart disease of native coronary artery without angina pectoris; Z79.899 Other long term (current) drug therapy
CPT/HCPCS: 36415; 71045; 80048; 80053; 80076; 83735; 83880; 84484; 85025; 85027; 85610; 92960; 93005; 93971; 97162; 99285; J0282; J0283; J1160; J1643; J1940; J2370

== ENCOUNTER 2022-12-18 09:22 | Outpatient (REF) | payer MEDICARE, SELFPAY ==
[2022-10-30 07:51] VITALS: BP 120/74; BP 130/80
[2022-12-18 11:25] LABS: B Type Natriuretic Peptide 3895 pg/mL (<100)
[2022-12-18 11:32] LABS: Alanine Aminotransferase 37 U/L (0-40); Albumin Level 3.5 g/dL (3.5-5.0); Alkaline Phosphatase 90 U/L (39-117); Anion Gap 16 (12-20); Aspartate Amino Transferase 27 U/L (5-37); Bilirubin Direct 0.1 mg/dL (0.0-0.5); Bilirubin Total 0.3 mg/dL (0.0-1.0); Blood Urea Nitrogen 48 mg/dL (9-16); Calcium 9.9 mg/dL (8.4-10.2); Carbon Dioxide 27 mmol/L (22-29); Chloride 106 mmol/L (96-108); Estimated Glomerular Filt Rate 25; Glucose Random 99 mg/dL (60-115); Potassium 4.6 mmol/L (3.3-5.1); Sodium 144 mmol/L (135-145); Total Protein 7.5 g/dL (6.5-8.0)
[2022-12-18 11:43] LABS: TSH reflex Free T4 5.68 uIU/mL (0.32-4.0)
[2022-12-18 13:11] LABS: Free T4 (Free Thyroxine) 1.15 ng/dL (0.71-1.85)
== END 2022-12-18 09:23 | disposition home or self-care (01) ==
LOC: HO.LAB 09:22
PROVIDERS: PCP Internal Medicine; Visit Provider Internal Medicine Cardiovascular Disease
DX: I50.22 Chronic systolic (congestive) heart failure (principal); I48.0 Paroxysmal atrial fibrillation
CPT/HCPCS: 36415; 80048; 80076; 83880; 84439; 84443; 93005; 99212

== ENCOUNTER 2023-01-15 10:25 | Outpatient (AMB) | payer MEDICARE, SELFPAY ==
[2022-10-30 07:51] VITALS: BP 120/74; BP 130/80
[2023-01-15 10:30] VITALS: BP 108/60; PULSE 51; O2SAT 99; BMI 23.0
--- NOTE | 2023-01-15 10:30 | A.OFFPC_ITS ---
Vital Signs 01/15/23 10:30 Height 5 ft 11 in Weight 165 lb BMI 23.0 BP 108/60 Blood Pressure Location Lt brachial Position Sitting Pulse 51 Pulse Source Pulse Oximeter Pulse Oximetry (%) 99 Oxygen Delivery Method Room Air Intake Visit Reasons: chf Intake Note: Patient here for a follow up CHF Mirror Polisher Required: No Accompanied by: Spouse Allergies No Known Allergies [No Known Allergies*] Allergy (Verified 01/15/23 10:40) Medication List - Last Reconciled 01/15/23 by Deb Pete MD amiodarone 200 mg PO DAILY 90 days apixaban (Eliquis) 5 mg PO BID 90 days atorvastatin 20 mg PO DAILY furosemide 40 mg See Protocol PO BID@0900,1800 metoprolol tartrate 50 mg See Protocol PO BID 90 days [raised toilet seat with arm rest As directed] Shower Chair As directed spironolactone 25 mg See Protocol PO DAILY 90 days valsartan 160 mg See Protocol PO BID Tobacco use date assessed: 09/09/22 Fall risk assessment: No Falls in past year Last assessed Fall Risk: 01/15/23 Dental Screening Dental Screen Date: 01/15/23 Did you have a dental visit in the last 12 months?: No Did you have a dental problem in the last 6 months where you did not have access to dental care?: No Was dental information given to patient?: Patient declined HPI HPI Comments History of Present Illness Details This is a 77-year-old male with chronic systolic congestive heart failure, atrial fibrillation, dyslipidemia and chronic kidney disease stage 4 that comes today accompanied by for follow-up on his conditions. Last echocardiogram was done last month showing ejection fraction of 10-15%. Has elevated BNP that correlates with his congestive heart failure. Cardiology advise for a biventricular pacemaker which he declines. He is awake, alert and oriented to time and person but not to place. His Jade is is healthcare proxy but she will not do anything that he does not want. Atrial fibrillation also follow by cardiology and is on chronic anticoagulation. Lipid panel was ordered. Has chronic kidney disease that has worsened from stage III to stage IV. Will be referred to Nephrology for his chronic kidney disease. Has some anemia that will be monitor and this is most likely due to chronic kidney disease. [facility] Medical History (Updated 01/15/23 @ 11:51 by Deb Pete MD) Acute exacerbation of CHF (congestive heart failure) Atrial fibrillation with rapid ventricular response B12 deficiency CAD (coronary artery disease) Chronic systolic HF (heart failure) Dilated cardiomyopathy Essential hypertension Hypercholesteremia Hypertension Nonischemic cardiomyopathy Obesity Surgical History H/O hernia repair History of cardiac cath (~05/2016) Family History Father Hypertension Mother Stomach cancer Social History Household Members: Spouse and Children Housing: House Housing Other:: lives in a 2 family home per pt Do you presently have visiting nurse or other home 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 Denilson Murillo, Rosio Munoz, Neno Walsh and colleagues, with an educational radha from [employer]. Review of Systems Const All systems reviewed & are unremarkable except as noted in HPI and below Eyes Reports no additional complaints, Denies change in vision and Denies other visual disturbances Card Denies chest pain at rest, Denies chest pain with activity, Denies edema, Denies irregular heart rhythm, Denies claudication, Denies dyspnea, Denies dyspnea on exertion, Denies orthopnea, Denies paroxysmal nocturnal dyspnea and Denies slow heart rate Resp Denies cough, Denies dyspnea and Denies dyspnea on exertion GI Denies abdominal pain, Denies change in bowel habits, Denies excessive flatus, Denies nausea and Denies vomiting Denies urinary hesitancy, Denies urinary incontinence and Denies urinary urgency Musc Denies atrophy, Denies deformity and Denies limited range of motion Skin/Breast Denies bleeding lesions, Denies changing lesions and Denies rash Physical exam (Primary Care) Vital Signs: Last Vital Signs Pulse 51 01/15/23 10:30 BP 108/60 01/15/23 10:30 Pulse Ox 99 01/15/23 10:30 Oxygen Delivery Method Room Air 01/15/23 10:30 BMI result Body Mass Index 23.0 Tobacco/Smoking Status: Tobacco use Status Tobacco use date assessed 09/09/22 01/15/23 10:36 Patient Tobacco Use Status Never used Tobacco 01/15/23 10:36 e-Cigarette/Vaping Use Never Used 01/15/23 10:36 Thrive Assessment: Date of Thrive Assessment Date Thrive assessed 09/09/22 01/15/23 10:36 Const Orientation/consciousness: oriented to person and oriented to time Eyes General: appearance normal, both eyes and all related structures Eyelids: Yes eyelids normal Conjunctivae: conjunctivae normal Neck Neck: Yes normal visual inspection and Yes supple Resp Effort & Inspection: normal respiratory effort Auscultation: clear to auscultation bilaterally Cardio Jugular venous distension: no JVD Rate: regular rate Rhythm: regular rhythm Heart sounds: S1 normal heart sound present and S2 normal heart sound present Neuro General: oriented to person and oriented to time Extrem General: Yes full ROM Right lower extremity: lower leg Details: pitting edema Details: 1+ Left lower extremity: lower leg Details: pitting edema Details: 1+ Assessment and Plan Assessment & Plan (1) Chronic systolic HF (heart failure): Code(s): I50.22 - Chronic systolic (congestive) heart failure Plan: Use diuretics as needed. Follow-up with Cardiology. The goal is to not gain 5 lb in a week. (2) Paroxysmal atrial fibrillation: Code(s): I48.0 - Paroxysmal atrial fibrillation Plan: Continue Doacs. The goal is heart rate control. (3) CKD (chronic kidney disease) stage 4, GFR 15-29 ml/min: Code(s): N18.4 - Chronic kidney disease, stage 4 (severe) Plan: Referred to Nephrology. Keep blood pressure within goal being less than 130/80. Avoid NSAIDs. (4) Dyslipidemia: Code(s): E78.5 - Hyperlipidemia, unspecified Plan: Continue statins. Repeat lipid panel. Orders: Orders [facility] [place]. Panel Fast Today N18.4 - Chronic kidney disease, stage 4 (severe) Lipid Panel Today E78.5 - Hyperlipidemia, unspecified NT-proBNP Today I50.22 - Chronic systolic (congestive) heart failure Free T4 (Free Thyroxine) Today R79.89 - Other specified abnormal findings of blood chemistry Thyroid Stimulating Hormone Today I48.0 - Paroxysmal atrial fibrillation, R79.89 - Other specified abnormal findings of blood chemistry Thyroglobulin Antibodies Today R79.89 - Other specified abnormal findings of blood chemistry Thyroid Peroxidase Antibodies Today R79.89 - Other specified abnormal findings of blood chemistry IRON PROFILE Today D64.9 - Anemia, unspecified Complete Blood Count Auto Diff Today D64.9 - Anemia, unspecified Referrals Nephrology Referral N18.4 - Chronic kidney disease, stage 4 (severe) Medications: Discontinued furosemide 40 mg PO DAILY 90 tabs 3RF Coding Level of Care Code Est Pt Level 4 (64216) Diagnoses Chronic systolic HF (heart failure) I50.22 Paroxysmal atrial fibrillation I48.0 CKD (chronic kidney disease) stage 4, GFR 15-29 ml/min N18.4 Dyslipidemia E78.5 Time Spent (min) 23
== END 2023-01-15 10:52 | disposition home or self-care (01) ==
PROVIDERS: PCP Internal Medicine; Visit Provider Internal Medicine
DX: I50.22 Chronic systolic (congestive) heart failure (principal); I48.0 Paroxysmal atrial fibrillation; N18.4 Chronic kidney disease, stage 4 (severe); E78.5 Hyperlipidemia, unspecified
CPT/HCPCS: 99214

== ENCOUNTER 2023-01-15 11:05 | Outpatient (REF) | payer MEDICARE, SELFPAY ==
[2022-10-30 07:51] VITALS: BP 120/74; BP 130/80
[2023-01-15 13:26] LABS: Alanine Aminotransferase 9 U/L (0-40); Albumin Level 3.9 g/dL (3.5-5.0); Alkaline Phosphatase 46 U/L (39-117); Anion Gap 17 (12-20); Aspartate Amino Transferase 14 U/L (5-37); Bilirubin Total 0.3 mg/dL (0.0-1.0); Blood Urea Nitrogen 69 mg/dL (9-16); Carbon Dioxide 22 mmol/L (22-29); Chloride 104 mmol/L (96-108); Cholesterol 131 mg/dL; Estimated Glomerular Filt Rate 18; Glucose Fasting 85 mg/dL (60-99); HDL Cholesterol 47 mg/dL; LDL Cholesterol Calculated 63 mg/dl; Potassium 5.2 mmol/L (3.3-5.1); Sodium 138 mmol/L (135-145); Total Protein 7.6 g/dL (6.5-8.0); Triglycerides 105 mg/dL
[2023-01-15 13:44] LABS: Free T4 (Free Thyroxine) 1.18 ng/dL (0.71-1.85); Thyroid Stimulating Hormone 3.11 uIU/mL (0.32-4.0)
[2023-01-17 02:13] LABS: Thyroglobulin Antibodies <1 IU/mL (< or = 1); Thyroid Peroxidase Antibodies <1 IU/mL (<9)
[2023-01-20 21:18] LABS: NT-proBNP 12395 pg/mL (<450)
== END 2023-01-15 11:06 | disposition home or self-care (01) ==
LOC: HO.LAB 11:05
PROVIDERS: PCP Internal Medicine; Visit Provider Internal Medicine
DX: N18.4 Chronic kidney disease, stage 4 (severe) (principal); I50.22 Chronic systolic (congestive) heart failure; R79.89 Other specified abnormal findings of blood chemistry; I48.0 Paroxysmal atrial fibrillation; E78.5 Hyperlipidemia, unspecified
CPT/HCPCS: 36415; 80053; 80061; 83880; 84439; 84443; 86376; 86800

== ENCOUNTER 2023-02-19 10:14 | Outpatient (REF) | payer MEDICARE, SELFPAY ==
[2023-02-05 12:08] VITALS: BP 100/50; BP 108/50; BP 122/64; BMI 23.8
[2023-02-19 12:38] LABS: B Type Natriuretic Peptide 1468 pg/mL (<100)
[2023-02-19 12:51] LABS: Anion Gap 13 (12-20); Blood Urea Nitrogen 91 mg/dL (9-16); Calcium 10.1 mg/dL (8.4-10.2); Carbon Dioxide 29 mmol/L (22-29); Chloride 108 mmol/L (96-108); Estimated Glomerular Filt Rate 19; Glucose Random 80 mg/dL (60-115); Potassium 4.3 mmol/L (3.3-5.1); Sodium 146 mmol/L (135-145)
== END 2023-02-19 10:15 | disposition home or self-care (01) ==
LOC: HO.LAB 10:14
PROVIDERS: PCP Internal Medicine; Visit Provider Internal Medicine Cardiovascular Disease
DX: I25.10 Atherosclerotic heart disease of native coronary artery without angina pectoris (principal); I50.22 Chronic systolic (congestive) heart failure; I48.0 Paroxysmal atrial fibrillation
CPT/HCPCS: 36415; 80048; 83880; 93005; 99212

== ENCOUNTER 2023-02-19 10:14 | Outpatient (AMB) | payer MEDICARE, SELFPAY ==
[2022-10-30 07:51] VITALS: BP 120/74; BP 130/80
[2023-02-05 12:08] VITALS: BP 100/50; BP 108/50; BP 122/64; BMI 23.8
[2023-02-19 10:22] VITALS: BP 100/62; PULSE 52; BMI 23.1
--- NOTE | 2023-02-19 10:22 | MHC.OFFVIS ---
Intake Vital Signs 02/19/23 10:22 Height 5 ft 10 in Weight 160 lb 14.999 oz BMI 23.1 BP 100/62 Blood Pressure Location Lt brachial Position Sitting Pulse 52 Intake Visit Reasons: 2 mth f/up Intake Note: 2 month follow-up with ekg Reel Hooker Required: No Contact Assembler: Contact Assembler Present Accompanied by: Spouse Allergies No Known Allergies [No Known Allergies*] Allergy (Verified 01/15/23 10:40) Medication List - Last Reconciled 02/19/23 by Lorenzo Jordan MD amiodarone 200 mg PO DAILY 90 days apixaban (Eliquis) 5 mg PO BID 90 days atorvastatin 20 mg PO DAILY furosemide 40 mg See Protocol PO BID@0900,1800 metoprolol tartrate 50 mg See Protocol PO BID 90 days [raised toilet seat with arm rest As directed] Shower Chair As directed spironolactone 25 mg See Protocol PO DAILY 90 days valsartan 160 mg See Protocol PO BID HPI HPI Comments History of Present Illness Details Tray comes for follow-up. He has been doing very well. He is accompanied by his . He has been taking all his medications. He feels a lot more energy and exercise routinely. He is currently participate in cardiac rehab. No hospitalization the last 2 months. Denies any weight gain, orthopnea, PND, leg edema. Last potassium done about a month ago was 5.2. Will follow-up. Creatinine was further elevated at 3.38. He continues to have diuretic response to his medications. No bleeding issues or neurologic events. No prolonged palpitations irregular heartbeat. [facility] Medical History Acute exacerbation of CHF (congestive heart failure) Atrial fibrillation with rapid ventricular response B12 deficiency CAD (coronary artery disease) Chronic systolic HF (heart failure) Dilated cardiomyopathy Essential hypertension Hypercholesteremia Hypertension Nonischemic cardiomyopathy Obesity Surgical History H/O hernia repair History of cardiac cath (~05/2016) Family History Father Hypertension Mother Stomach cancer Social History Household Members: Spouse and Children Housing: House Housing Other:: lives in a 2 family home per pt Do you presently have visiting nurse or other home 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) Alcohol intake: never Patient Tobacco Use Status: Never used Tobacco e-Cigarette/Vaping Use: Never Used Second Hand Smoke Exposure: No (n/a) Advance Directives Date on File: 05/28/22 service: No Current occupational status: retired Cognitive needs: No Hearing needs: No Vision needs: No Review of Systems Const Denies chills, Denies fatigue, Denies fever(s), Denies frequent falls, Denies weakness, Denies weight gain and Denies weight loss ENT Denies dizziness Card Denies chest pain, Denies leg edema, Denies lightheadedness, Denies palpitations, Denies dyspnea, Denies dyspnea on exertion, Denies orthopnea and Denies other (loss of consciousness) Resp Denies cough, Denies dyspnea and Denies dyspnea on exertion GI Denies hematochezia and Denies change in stool character Musc Denies abnormal gait, Denies muscle weakness, Denies numbness, Denies radiating pain into limb and Denies tingling Neuro Denies abnormal gait, Denies dizziness, Denies frequent falls, Denies numbness, Denies tingling and Denies weakness Endo Denies fatigue and Denies palpitations Physical Exam Vital Signs: Last Vital Signs Pulse 52 02/19/23 10:22 BP 100/62 02/19/23 10:22 BMI result Body Mass Index 23.1 Const General: cooperative, comfortable, no acute distress, alert, awake and Physically active Nutritional Appearance: average body habitus Orientation/consciousness: patient oriented x3 Limitations: no limitations Neck Neck: Yes trachea midline, Yes supple and Yes no JVD Resp Effort & Inspection: normal respiratory effort Auscultation: clear to auscultation bilaterally Cardio Jugular venous distension: no JVD Palpation: abnormal PMI displaced PMI Rate: regular rate Rhythm: regular rhythm Heart sounds: S1 normal heart sound present, S2 normal heart sound present, no click, no gallops and no murmurs GI Auscultation: normal bowel sounds Neuro General: patient oriented x3 and no focal motor deficits Extrem General: Yes no clubbing, cyanosis or edema Office Procedures EKG Details: EKG shows sinus bradycardia with LVH with repolarization abnormality and QRS widening with leftward axis [id number], Complete Assessment & Plan Assessment & Plan (1) Chronic systolic HF (heart failure): Code(s): I50.22 - Chronic systolic (congestive) heart failure Plan: Advanced systolic heart failure most likely hypertension related, secondary nonischemic cardiomyopathy with last echocardiogram LVEF of 15-20% with significantly dilated left ventricle. Patient has had no hospitalization the last many months since has been compliant medications pain in the past he has had issues with noncompliance. He has multiple comorbidities including advanced renal dysfunction, atrial fibrillation which is currently suppressed as well as anemia. He has done well with intense medical therapy. Advised to continue current diuretic regimen. Advised to continue to participate in phase 2 cardiac rehabilitation and exercise on his own. Importance of neurohormonal modulation with valsartan, spironolactone as well as metoprolol was discussed. Advise renal function today. Importance of compliance was discussed again. Also advised to maintain activity level and nutrition status. Also advised to follow-up with Nephrology. (2) Paroxysmal atrial fibrillation: Code(s): I48.0 - Paroxysmal atrial fibrillation Plan: Paroxysmal atrial fibrillation which has done well with rhythm control approach. He has done very well with his heart failure syndrome with rhythm control approach will continue pursue rhythm control approach. Continue amiodarone therapy. Annual check for amiodarone toxicity. Treat thyroid suppression as per your office. Continue current full oral anticoagulation, currently on Eliquis 5 mg b.i.d.. Quarterly renal function test will be pursued. (3) CAD (coronary artery disease): Code(s): I25.10 - Atherosclerotic heart disease of [place] coronary artery without angina pectoris Qualifiers: Coronary Disease-Associated Artery/Lesion type: [place] artery [place] vs. transplanted heart: [place] heart Associated angina: without angina Qualified Code(s): I25.10 - Atherosclerotic heart disease of [place] coronary artery without angina pectoris Plan: CAD, nonobstructive. No interventions required from that perspective. No further workup required. Continue risk factor modification. Continue statin therapy. Currently on full oral anticoagulation with Eliquis and therefore would avoid antiplatelet therapy. Blood pressure is well optimized, continue current therapy. Will follow up in the clinic in 3 months time. Greater than 40 minutes was spent in managing his complex care. Orders: Orders Basic Metabolic Panel Today I50.22 - Chronic systolic (congestive) heart failure B Type Natriuretic Peptide Today I50.22 - Chronic systolic (congestive) heart failure Medications: Discontinued furosemide 40 mg PO DAILY 90 tabs 3RF Coding Level of Care Code Est Pt Level 5 (86146) Diagnoses Chronic systolic HF (heart failure) I50.22 Paroxysmal atrial fibrillation I48.0 CAD (coronary artery disease) I25.10 Coronary Disease-Associated Artery/Lesion type: [place] artery [place] vs. transplanted heart: [place] heart Associated angina: without angina CPT Codes EKG - CPT: 88791-[id number], Complete ([id number])
== END 2023-02-19 10:41 | disposition home or self-care (01) ==
PROVIDERS: PCP Internal Medicine; Visit Provider Internal Medicine Cardiovascular Disease
DX: I50.22 Chronic systolic (congestive) heart failure (principal); I48.0 Paroxysmal atrial fibrillation; I25.10 Atherosclerotic heart disease of native coronary artery without angina pectoris
CPT/HCPCS: 93010; 99215

== ENCOUNTER 2023-06-09 15:08 | Outpatient (REF) | payer MEDICARE, SELFPAY ==
[2023-03-13 15:16] VITALS: BP 100/50; BP 108/50; BP 122/64; BMI 23.8
[2023-06-09 18:03] LABS: B Type Natriuretic Peptide 752 pg/mL (<100)
[2023-06-09 18:19] LABS: Alanine Aminotransferase 9 U/L (0-40); Albumin Level 3.8 g/dL (3.5-5.0); Alkaline Phosphatase 61 U/L (39-117); Anion Gap 13 (12-20); Aspartate Amino Transferase 18 U/L (5-37); Bilirubin Total 0.2 mg/dL (0.0-1.0); Blood Urea Nitrogen 44 mg/dL (9-16); Calcium 9.5 mg/dL (8.4-10.2); Carbon Dioxide 30 mmol/L (22-29); Chloride 106 mmol/L (96-108); Estimated Glomerular Filt Rate 28; Glucose Random 88 mg/dL (60-115); Potassium 4.3 mmol/L (3.3-5.1); Sodium 145 mmol/L (135-145)
[2023-06-09 18:25] LABS: TSH reflex Free T4 2.61 uIU/mL (0.32-4.0)
== END 2023-06-09 15:09 | disposition home or self-care (01) ==
LOC: HO.LAB 15:08
PROVIDERS: PCP Internal Medicine; Visit Provider Nurse Practitioner Family
DX: I13.0 Hypertensive heart and chronic kidney disease with heart failure and stage 1 through stage 4 chronic kidney disease, or unspecified chronic kidney disease (principal); N18.4 Chronic kidney disease, stage 4 (severe); I50.22 Chronic systolic (congestive) heart failure; I48.0 Paroxysmal atrial fibrillation; I42.0 Dilated cardiomyopathy; I25.10 Atherosclerotic heart disease of native coronary artery without angina pectoris; R79.89 Other specified abnormal findings of blood chemistry; E78.00 Pure hypercholesterolemia, unspecified; Z79.899 Other long term (current) drug therapy
CPT/HCPCS: 36415; 80053; 83880; 84443; 93005; 99212

== ENCOUNTER 2023-06-09 15:08 | Outpatient (AMB) | payer MEDICARE, SELFPAY ==
[2023-03-13 15:16] VITALS: BP 100/50; BP 108/50; BP 122/64; BMI 23.8
--- NOTE | 2023-06-09 15:25 | A.OFFVIS_ITS ---
Intake Vital Signs 06/09/23 15:26 Height 5 ft 10 in Weight 181 lb 10.574 oz BMI 26.1 BP 120/64 Blood Pressure Location Rt brachial Position Sitting Pulse 62 Pulse Source Monitor Intake Visit Reasons: follow-up leg swelling Tar Heater Operator Required: No Oracle Applications Analyst: Oracle Applications Analyst Present Accompanied by: Significant Other Allergies No Known Allergies [No Known Allergies*] Allergy (Verified 06/09/23 15:28) Medication List - Last Reconciled 06/09/23 by SANTANA Oshea amiodarone 200 mg PO DAILY 90 days apixaban (Eliquis) 5 mg PO BID 90 days atorvastatin 20 mg PO DAILY carvedilol 25 mg PO BID 90 days furosemide 40 mg See Protocol PO BID@0900,1800 metoprolol tartrate 50 mg See Protocol PO BID 90 days [raised toilet seat with arm rest As directed] Shower Chair As directed spironolactone 25 mg See Protocol PO DAILY 90 days valsartan 160 mg See Protocol PO BID HPI follow-up leg swelling HPI Details Tray is a 77-year-old male past medical history of hypertension, hyperlipidemia, paroxysmal AFib, dilated cardiomyopathy, heart failure with reduced EF, coronary artery disease who presents for follow-up. Today he reports he has been doing well since his last visit in January. He denies having any chest discomfort at rest or with activity. He denies shortness of breath, palpitations, presyncope, syncope, PND, orthopnea or edema. He does only light physical activity around the house. He says he takes his meds as directed. Has not had any recent blood work. is present. [facility] Medical History (Updated 06/09/23 @ 16:25 by SANTANA Oshea) Dilated cardiomyopathy Acute exacerbation of CHF (congestive heart failure) Atrial fibrillation with rapid ventricular response B12 deficiency Essential hypertension CAD (coronary artery disease) Obesity Chronic systolic HF (heart failure) Hypertension Nonischemic cardiomyopathy Hypercholesteremia Surgical History History of cardiac cath (~05/2016) H/O hernia repair Family History Father Hypertension Mother Stomach cancer Social History Household Members: Spouse and Children Housing: House Housing Other:: lives in a 2 family home per pt Do you presently have visiting nurse or other home services: 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) Alcohol intake: never Patient Tobacco Use Status: Never used Tobacco e-Cigarette/Vaping Use: Never Used Second Hand Smoke Exposure: No (n/a) Advance Directives Date on File: 05/28/22 service: No Current occupational status: retired Cognitive needs: No Hearing needs: No Vision needs: No Review of Systems Const All systems reviewed & are unremarkable except as noted in HPI and below ENT Denies dizziness Card Denies chest pain, Denies chest pain at rest, Denies chest pain with activity, Denies rapid heart rate, Denies pedal edema, Denies edema, Reports leg edema, Denies lightheadedness, Denies palpitations, Denies dyspnea, Denies dyspnea on exertion and Denies orthopnea Resp Denies cough, Denies dyspnea and Denies dyspnea on exertion GI Denies hematochezia and Denies change in stool character Musc Denies abnormal gait, Denies limited range of motion, Denies muscle cramps, Denies muscle weakness, Denies numbness, Denies radiating pain into limb, Denies stiffness and Denies tingling Neuro Denies abnormal gait, Denies dizziness, Denies numbness and Denies tingling Endo Denies palpitations Physical Exam Vital Signs: Last Vital Signs Pulse 62 06/09/23 15:26 BP 120/64 06/09/23 15:26 BMI result Body Mass Index 26.1 Const General: cooperative, healthy appearing, comfortable and no acute distress Orientation/consciousness: patient oriented x3 Neck Neck: Yes normal visual inspection Resp Effort & Inspection: normal respiratory effort Auscultation: clear to auscultation bilaterally, no rales, no rhonchi and no wheezes Cardio Jugular venous distension: no JVD Rate: regular rate Rhythm: regular rhythm Heart sounds: S1 normal heart sound present, S2 normal heart sound present, no murmurs and no rubs Neuro General: patient oriented x3 Extrem Other: mild lower leg edema with sock markings General: Yes normal to inspection Psych Appearance: grossly normal Mental Status: mental status grossly normal Speech and movement: Normal speech and movement present Office Procedures EKG Details: Today, read by me, normal sinus rhythm, LVH with QRS widening and repolarization abnormality, no acute findings, overall unchanged from last EKG, rate 62, QTC 481 millisecond [id number], Complete Assessment & Plan Assessment & Plan (1) Chronic systolic HF (heart failure): Code(s): I50.22 - Chronic systolic (congestive) heart failure Plan: History of advanced systolic heart failure most likely related to hypertension, secondary to nonischemic cardiomyopathy. Last echocardiogram 12/05/2022 showing EF 10-15%, moderate to severe mitral regurgitation. No recent hospitalizations for decompensated heart failure. Last labs done 02/01/2023 showed creatinine 3.13. No known recheck since that time. He tells me he does not follow with the kidney doctor. He continues on Lasix 40 mg b.i.d.. He is also on carvedilol, valsartan, spironolactone for neurohormonal modulation. He does not appear fluid overloaded on exam today. He does have some mild lower leg edema with sock markings. His lungs are clear on exam. Will check labs today including CMP, BNP. Plan to call him with any medication adjustments needed. Cardiology office visit in 3-4 months, sooner if needed (2) Dilated cardiomyopathy: Code(s): I42.0 - Dilated cardiomyopathy Plan: As above (3) Paroxysmal atrial fibrillation: Code(s): I48.0 - Paroxysmal atrial fibrillation Plan: History of paroxysmal atrial fibrillation. Currently being treated with rhythm control. He is on amiodarone and pulse is very regular on examination today. EKG from today shows normal sinus rhythm, LVH with repolarization abnormality, rate 62. No reports of heart palpitations. He is on Eliquis for anticoagulation. No bleeding issues reported. Continue current treatment will add TSH to his labs. (4) On amiodarone therapy: Code(s): Z79.899 - Other fdc (current) drug therapy Plan: As above (5) Elevated serum creatinine: Code(s): R79.89 - Other specified abnormal findings of blood chemistry Plan: Recheck today (6) CAD (coronary artery disease): Code(s): I25.10 - Atherosclerotic heart disease of [place] coronary artery without angina pectoris Qualifiers: Associated angina: without angina Coronary Disease-Associated Artery/Lesion type: [place] artery [place] vs. transplanted heart: [place] heart Qualified Code(s): I25.10 - Atherosclerotic heart disease of [place] coronary artery without angina pectoris Plan: Stable with no reports of anginal sounding symptoms. He is not on aspirin as he is on Eliquis. He is on atorvastatin with ideal LDL goal less than 70. He is on metoprolol tartrate 50 mg b.i.d.. (7) High cholesterol: Code(s): E78.00 - Pure hypercholesterolemia, unspecified Plan: Flippin LDL goal less than 70. Labs done on 03/13/2023 showed LDL 63. Continue atorvastatin. Plan Time spent on chart review, documentation, interview and assessment Orders: Orders B Type Natriuretic Peptide Today I50.22 - Chronic systolic (congestive) heart failure Comprehensive Met. Panel Today N18.4 - Chronic kidney disease, stage 4 (severe) TSH reflex Free T4 Today Z79.899 - Other intermediate accountant (current) drug therapy Coding Level of Care Code Est Pt Level 4 (56617) Diagnoses Chronic systolic HF (heart failure) I50.22 Dilated cardiomyopathy I42.0 Paroxysmal atrial fibrillation I48.0 On amiodarone therapy Z79.899 Elevated serum creatinine R79.89 Coronary artery disease involving [place] coronary artery of [place] heart without angina pectoris I25.10 Associated angina: without angina Coronary Disease-Associated Artery/Lesion type: [place] artery [place] vs. transplanted heart: [place] heart High cholesterol E78.00 CPT Codes EKG - CPT: 77361-[id number], Complete ([id number]) Time Spent (min) 28
[2023-06-09 15:26] VITALS: BP 120/64; PULSE 62; BMI 26.1
== END 2023-06-09 15:56 | disposition home or self-care (01) ==
PROVIDERS: PCP Internal Medicine; Visit Provider Nurse Practitioner Family
DX: I50.22 Chronic systolic (congestive) heart failure (principal); I42.0 Dilated cardiomyopathy; I48.0 Paroxysmal atrial fibrillation; Z79.899 Other long term (current) drug therapy; R79.89 Other specified abnormal findings of blood chemistry; I25.10 Atherosclerotic heart disease of native coronary artery without angina pectoris; E78.00 Pure hypercholesterolemia, unspecified
CPT/HCPCS: 93010; 99214

== ENCOUNTER 2023-08-21 13:26 | Outpatient (REF) | payer MEDICARE, SELFPAY ==
[2023-03-13 15:16] VITALS: BP 100/50; BP 108/50; BP 122/64; BMI 23.8
[2023-08-21 13:42] LABS: MANUAL DIFF FLAG NO
[2023-08-21 14:07] LABS: Appearance Urine Hazy; Color Urine Yellow; Glucose Urine UA Negative (Negative); Leukocyte Esterase Urine Moderate (2+) (Negative); Nitrite Urine Negative (Negative); Specific Gravity - Urine 1.025 (1.005-1.025); UMIC TRIGGER UA YES; Urine Blood Trace (Negative); Urine Ketones Negative (Negative); Urine Protein Trace mg/dL (Neg-Trace)
[2023-08-21 14:11] LABS: Eosinophils Absolute Auto 0.1 X10*3/uL (0.0-0.4); Eosinophils Percent Auto 3.6 % (0-4); Hematocrit 36.7 % (42.0-52.0); Hemoglobin 11.8 g/dl (14.0-18.0); Imm Gran Abs Auto 0.01 X10*3/uL (0.00-0.03); Imm Gran Pct Auto 0.3 % (0.0-0.4); Lymphocytes Absolute Auto 1.4 X10*3/uL (1.2-4.9); Mean Corpuscular HGB Conc 32.2 g/dl (31.0-36.0); Mean Corpuscular Hemoglobin 31.5 pg (27.0-33.0); Mean Corpuscular Volume 97.9 fL (80.0-98.0); Mean Platelet Volume 10.6 fL (9.4-12.4); Monocytes Absolute Auto 0.5 X10*3/uL (0.1-1.2); Monocytes Percent Auto 12.6 % (2-11); Neutrophils Absolute Auto 1.9 x10*3/uL (2.0-8.3); Neutrophils Percent Auto 47.5 % (45-73); Platelet Count 210 X10*3/uL (160-400); Red Blood Count 3.75 X10*6/uL (4.60-5.80); White Blood Count 3.9 X10*3/uL (4.8-10.8)
[2023-08-21 14:23] LABS: Estimated Average Glucose 100 mg/dL; Hemoglobin A1c % 5.1 % (<6.0)
[2023-08-21 14:48] LABS: Creatinine Urine 258.44 mg/dL; Microalbum/Creatinine Ratio Ur 32.8 ug/mg cr (<30); Protein/Creatinine Ratio, Ur 0.11 (<0.2); Total Protein Urine Random 29 mg/dL (<12)
[2023-08-21 14:57] LABS: Parathyroid Hormone Intact 232.1 pg/mL (8.7-77.1)
[2023-08-21 15:03] LABS: Anion Gap 15 (12-20); Blood Urea Nitrogen 32 mg/dL (9-16); Calcium 9.6 mg/dL (8.4-10.2); Carbon Dioxide 24 mmol/L (22-29); Chloride 113 mmol/L (96-108); Estimated Glomerular Filt Rate 39; Iron 65 mcg/dL (45-160); Magnesium 2.2 mg/dL (1.6-2.6); Percent Iron Saturation 28 % (15-50); Phosphorus 3.1 mg/dL (2.7-4.5); Potassium 4.3 mmol/L (3.3-5.1); Sodium 148 mmol/L (135-145); Total Iron Binding Capacity 231 mcg/dL (228-428); Unsaturated Iron Binding 166 ug/dL; Uric Acid 8.2 mg/dL (3.4-7.0)
[2023-08-21 15:14] LABS: Bacteria Urine 1+ (None Seen); Hyaline Casts Urine 0-2 /LPF (0-2); RBC Urine 0-2 /HPF (0-2); Squamous Epithelial Cell Urine 0-2 /HPF (0-2); WBC Urine 0-5 /HPF (0-5)
[2023-08-21 15:19] LABS: Ferritin 169 ng/mL (20-250); Vitamin D 25-OH Total 22.9 ng/mL (>30)
[2023-08-24 15:23] LABS: Kappa/Lambda Lt Ch Free Ratio 1.64 (0.26-1.65); Lambda Light Chain, Free Serum 30.5 mg/L (5.7-26.3)
== END 2023-08-21 13:27 | disposition home or self-care (01) ==
LOC: HO.LAB 13:26
PROVIDERS: PCP Internal Medicine; Visit Provider Internal Medicine
DX: N18.32 Chronic kidney disease, stage 3b (principal)
CPT/HCPCS: 36415; 80051; 81001; 81003; 82043; 82306; 82310; 82565; 82570; 82728; 83036; 83521; 83540; 83735; 83970; 84100; 84156; 84520; 84550; 85025

== ENCOUNTER 2023-08-28 10:03 | Outpatient (REF) | payer MEDICARE, SELFPAY ==
[2023-03-13 15:16] VITALS: BP 100/50; BP 108/50; BP 122/64; BMI 23.8
[2023-08-28 10:31] LABS: MANUAL DIFF FLAG NO
[2023-08-28 10:40] LABS: Eosinophils Percent Auto 0.2 % (0-4); Hematocrit 36.5 % (42.0-52.0); Hemoglobin 11.7 g/dl (14.0-18.0); Imm Gran Abs Auto 0.02 X10*3/uL (0.00-0.03); Imm Gran Pct Auto 0.4 % (0.0-0.4); Lymphocytes Absolute Auto 0.6 X10*3/uL (1.2-4.9); Mean Corpuscular HGB Conc 32.1 g/dl (31.0-36.0); Mean Corpuscular Hemoglobin 31.2 pg (27.0-33.0); Mean Corpuscular Volume 97.3 fL (80.0-98.0); Mean Platelet Volume 10.3 fL (9.4-12.4); Monocytes Absolute Auto 0.5 X10*3/uL (0.1-1.2); Monocytes Percent Auto 9.4 % (2-11); Neutrophils Absolute Auto 4.5 x10*3/uL (2.0-8.3); Platelet Count 204 X10*3/uL (160-400); Red Blood Count 3.75 X10*6/uL (4.60-5.80); Red Cell Distribution Width 14.8 % (11.0-16.0); White Blood Count 5.6 X10*3/uL (4.8-10.8)
[2023-08-28 11:47] LABS: Appearance Urine Clear; Color Urine Yellow; Glucose Urine UA Negative (Negative); Leukocyte Esterase Urine Moderate (2+) (Negative); Nitrite Urine Negative (Negative); PH 5.5 (5.0-9.0); Specific Gravity - Urine 1.025 (1.005-1.025); UMIC TRIGGER UA YES; Urine Blood Negative (Negative); Urine Ketones Trace mg/dL (Negative); Urine Protein 30 (1+) mg/dL (Neg-Trace)
[2023-08-28 11:51] LABS: Bacteria Urine None Seen (None Seen); Hyaline Casts Urine 0-2 /LPF (0-2); RBC Urine 0-2 /HPF (0-2); Squamous Epithelial Cell Urine 0-2 /HPF (0-2)
[2023-08-28 12:27] LABS: Microalbum/Creatinine Ratio Ur 38.1 ug/mg cr (<30); Protein/Creatinine Ratio, Ur 0.16 (<0.2); Total Protein Urine Random 40 mg/dL (<12)
[2023-08-28 12:37] LABS: Parathyroid Hormone Intact 168.9 pg/mL (8.7-77.1)
[2023-08-28 12:49] LABS: Anion Gap 11 (12-20); Blood Urea Nitrogen 33 mg/dL (9-16); Calcium 9.5 mg/dL (8.4-10.2); Carbon Dioxide 25 mmol/L (22-29); Chloride 113 mmol/L (96-108); Estimated Glomerular Filt Rate 42; Sodium 145 mmol/L (135-145); Uric Acid 9.5 mg/dL (3.4-7.0)
[2023-08-28 13:10] LABS: Vitamin D 25-OH Total 21.3 ng/mL (>30)
== END 2023-08-28 10:04 | disposition home or self-care (01) ==
LOC: HO.LAB 10:03
PROVIDERS: PCP Internal Medicine; Visit Provider Internal Medicine
DX: E87.0 Hyperosmolality and hypernatremia (principal); I13.0 Hypertensive heart and chronic kidney disease with heart failure and stage 1 through stage 4 chronic kidney disease, or unspecified chronic kidney disease; I50.22 Chronic systolic (congestive) heart failure; N18.32 Chronic kidney disease, stage 3b
CPT/HCPCS: 36415; 80051; 81001; 82043; 82306; 82310; 82565; 82570; 83970; 84156; 84520; 84550; 85025

== ENCOUNTER 2023-11-14 05:28 | Emergency (ER) | payer MEDICARE, SELFPAY ==
[2023-03-13 15:16] VITALS: BP 100/50; BP 108/50; BP 122/64; BMI 23.8
--- NOTE | ~2023-11-14 | CT_ITS ---
EXAMINATION: CT abdomen pelvis wo IV con CLINICAL INFORMATION: Reason for Exam Abdominal pain, early satiety, never colonoscopy COMPARISON: No prior CT available for comparison. TECHNIQUE: Multidetector volumetric imaging was performed from the superior aspect of the liver through the pubic symphysis study done with oral contrast, no IV contrast given. Sagittal and coronal reformatted images were obtained on the technologist's workstation. This CT examination was performed using dose optimization techniques as appropriate, variously including the following: *Automated exposure control *Adjustment of mA and/or kV according to patient size (this includes techniques or standardized protocols for targeted exams where dose is matched to indication/reason for exam; i.e. extremities or head) *Use of iterative reconstruction technique DLP: 1173. mGy-cm FINDINGS: LOWER THORAX: The heart is enlarged. Bilateral small pleural effusion. Mild interstitial opacification and interlobular septal thickening could be congestion mild edema versus mild infiltrates.. HEPATOBILIARY: Evaluation of the liver is limited on a noncontrast CT scan. There is normal in size. GALLBLADDER: Gallbladder distended, there are few small gallstones. SPLEEN: Spleen is normal in size. PANCREAS: No focal mass or ductal dilatation. STOMACH AND GASTROINTESTINAL TRACT: Stomach is grossly unremarkable. There is no bowel distention or thickening. No CT evidence of appendicitis. ADRENALS: There are bilateral hypertrophy of the adrenal glands, left adrenal nodule 2.4 x 2 cm the attenuation of its matrix is below 0 suggesting lipid rich adenoma. KIDNEYS/URETERS: Bilateral renal vascular calcifications. No hydronephrosis, stones or solid mass lesions. URINARY BLADDER: There is circumferential wall thickening of the urinary bladder nonspecific CT finding and can be seen in patient with cystitis, chronic outflow obstruction, less commonly diffuse neoplastic process. PELVIC VISCERA: Unremarkable PERITONEUM: No free air or fluid. LYMPH NODES: No lymphadenopathy. VASCULAR:Heavy aortic and bilateral iliac vascular calcifications, no aneurysm. BONES, ABDOMINAL WALL AND SOFT TISSUES: Age-appropriate changes of the spine and skeletal system, no destructive osteolytic or osteosclerotic bone lesion found CT/CT abdomen pelvis wo IV con IMPRESSION: 1. No CT evidence of acute intra-abdominal process to explain patient's pain symptoms. 2. There is circumferential wall thickening of the urinary bladder nonspecific CT finding and can be seen in patient with cystitis, chronic outflow obstruction, less commonly diffuse neoplastic process. 3. Cardiomegaly, bilateral small pleural effusion, mild interstitial opacification and interlobular septal thickening at lung bases could be mild congestion versus mild infiltrates. 4. Cholelithiasis. 5. Bilateral adrenal hypertrophy, left adrenal nodule 2.4 cm the attenuation of its matrix is below 0 suggesting lipid rich adenoma. Adrenal nodules of any size exhibiting a CT density of =<10 HU are overwhelmingly likely to represent lipid rich benign adenomas for which no followup imaging is recommended.
[2023-11-14 05:35] VITALS: BP 125/75; PULSE 100; RESP 16; TEMP 36.4; O2SAT 97; BMI 25.8
--- NOTE | 2023-11-14 05:44 | ECG_ITS ---
Test Reason : abd pain Blood Pressure : / mmHG Vent. Rate : 092 BPM Atrial Rate : 092 BPM P-R Int : 186 ms QRS Dur : 144 ms QT Int : 424 ms P-R-T Axes : 061 -26 136 degrees QTc Int : 524 ms Sinus rhythm with marked sinus arrhythmia with occasional Premature ventricular complexes Left bundle branch block Abnormal ECG When compared with ECG of 05-DEC-2022 15:43, Premature ventricular complexes are now Present Premature atrial complexes are no longer Present Left bundle branch block is now Present Referred By: Generic ED Physician Electronically Signed By:Shaheed Mak
--- NOTE | 2023-11-14 06:01 | MHC.EDTECH ---
PATIENT EKG TAKEN AND WAS READ BY PROVIDER ,BLOOD DRAWN AND SENT TO LAB .
[2023-11-14 06:04] LABS: Eosinophils Absolute Auto 0.1 X10*3/uL (0.0-0.4); Eosinophils Percent Auto 2.2 % (0-4); Hematocrit 36.6 % (42.0-52.0); Hemoglobin 12.3 g/dl (14.0-18.0); Lymphocytes Absolute Auto 0.9 X10*3/uL (1.2-4.9); Lymphocytes Percent Auto 29.2 % (20-40); MANUAL DIFF FLAG NO; Mean Corpuscular HGB Conc 33.6 g/dl (31.0-36.0); Mean Corpuscular Hemoglobin 32.3 pg (27.0-33.0); Mean Corpuscular Volume 96.1 fL (80.0-98.0); Mean Platelet Volume 10.9 fL (9.4-12.4); Monocytes Absolute Auto 0.5 X10*3/uL (0.1-1.2); Monocytes Percent Auto 14.3 % (2-11); Neutrophils Absolute Auto 1.8 x10*3/uL (2.0-8.3); Neutrophils Percent Auto 54.3 % (45-73); Platelet Count 168 X10*3/uL (160-400); Red Blood Count 3.81 X10*6/uL (4.60-5.80); Red Cell Distribution Width 14.8 % (11.0-16.0); White Blood Count 3.2 X10*3/uL (4.8-10.8)
[2023-11-14 06:34] LABS: Anion Gap 14 (12-20); Blood Urea Nitrogen 36 mg/dL (9-16); Calcium 9.4 mg/dL (8.4-10.2); Carbon Dioxide 22 mmol/L (22-29); Chloride 113 mmol/L (96-108); Creatinine Clr Calc Pharmacy 30.8; Estimated Glomerular Filt Rate 35; Glucose Random 103 mg/dL (60-115); Potassium 3.6 mmol/L (3.3-5.1); Sodium 145 mmol/L (135-145)
--- NOTE | 2023-11-14 07:46 | ED_ITS ---
HPI - Abdominal Pain General Chief Complaint: Abdominal Pain Stated Complaint: both arm pains Time Seen by Provider: 11/14/23 07:04 Source: patient Mode of arrival: ambulatory History of Present Illness ED Provider: Dr Pemberton HPI narrative: 78-year-old male with significant CAD history comes in with complaints of 1 week of his abdomen feeling like water is running through it , never had a colonoscopy, reports that his bowel movements are not going well but denies fever/chills/nausea/vomiting/shortness of breath/chest pain but reports he has been experiencing early satiety which his has also noticed. Related Data Previous Rx's ?Medication ?Instructions ?Recorded Shower Chair #1 ea 12/17/22 raised toilet seat with arm rest #1 ea 12/17/22 apixaban 5 mg tablet (Eliquis) 5 mg PO BID 90 days #180 tabs 03/27/23 atorvastatin 20 mg tablet 20 mg PO DAILY #90 tabs 04/02/23 carvedilol 25 mg tablet 25 mg PO BID 90 days #180 tabs 04/02/23 metoprolol tartrate 50 mg tablet 50 mg PO BID 90 days #180 tabs 06/10/23 amiodarone 200 mg tablet 200 mg PO DAILY 90 days #90 tabs 08/27/23 furosemide 40 mg tablet 40 mg PO DAILY 90 days #90 tabs 08/27/23 valsartan 160 mg tablet 160 mg PO DAILY #90 tabs 09/08/23 spironolactone 25 mg tablet 25 mg PO DAILY 90 days #90 tabs 09/09/23 cefdinir 300 mg capsule 300 mg PO BID 7 days #14 caps 11/14/23 Allergies Allergy/AdvReac Type Severity Reaction Status Date / Time No Known Allergies Allergy Verified 11/14/23 05:42 [No Known Allergies*] Review of Systems Review of Systems Pertinent positives and negatives as stated in HPI PMFSH Past Medical History Source: nursing notes reviewed Medical History Dilated cardiomyopathy Acute exacerbation of CHF (congestive heart failure) Atrial fibrillation with rapid ventricular response B12 deficiency Essential hypertension CAD (coronary artery disease) Obesity Chronic systolic HF (heart failure) Hypertension Nonischemic cardiomyopathy Hypercholesteremia Surgical History History of cardiac cath (~05/2016) H/O hernia repair Family History Family History Father Hypertension Mother Stomach cancer Social History Social History Household Members: Spouse and Children Housing: House Housing Other:: lives in a 2 family home per pt Do you 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 have 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) Alcohol intake: never Patient Tobacco Use Status: Never used Tobacco Smoked in Last 30 Days: No e-Cigarette/Vaping Use: Never Used Second Hand Smoke Exposure: No (n/a) Use of substances other than those prescribed or required for medical reasons: No Advance Directives: Yes Advance Directives on File: Yes Advance Directives Date on File: 05/28/22 Do you have a plan to hurt others: No Plan service: No Current occupational status: retired Cognitive needs: No Hearing needs: No Vision needs: No Physical Exam ED Vital Signs: Vital Signs - 24 hr 11/14/23 05:35 11/14/23 07:52 11/14/23 11:16 Temperature 97.5 F 98.2 F 97.8 F Pulse Rate 100 79 80 Respiratory Rate 16 20 21 H Blood Pressure 125/75 135/85 131/87 Pulse Oximetry 97 95 97 Oxygen Delivery Method Room Air Room Air Room Air 11/14/23 14:37 Temperature 97.3 F Pulse Rate 79 Respiratory Rate 16 Blood Pressure 134/88 Pulse Oximetry 98 Oxygen Delivery Method Room Air BMI result Body Mass Index 25.8 VITAL SIGNS: Reviewed. GENERAL: Well developed, well nourished, in no acute distress. HEAD: Normocephalic/atraumatic EYES: PERRLA, EOMI EARS: Ext canals without abnormality NOSE: Nares patent bilateral OROPHARYNX: no oral lesions noted, posterior pharynx clear NECK: Supple, no adenopathy LUNGS: Normal breath sounds. No adventitious sounds or accessory muscle use. SpO2<97> CARDIOVASCULAR: Regular rate and rhythm without noted murmurs ABDOMEN: Soft, non-tender, non-distended with bowel sounds. MUSCULOSKELETAL: No tenderness, deformities, or effusions noted on gross inspection. EXTREMITIES: No cyanosis, clubbing or edema. SKIN: Inspection of the skin reveals no rashes NEUROLOGIC: Alert and oriented x 4. Strength and sensation to light touch were grossly intact x 4. Medical Decision Making Medical Decision Making [facility] Narrative: 78-year-old male with history and clinical presentation, DDX: Bowel mass, no concern for discrete obstruction, no concern for intra-abdominal infection, will evaluate for cardiac issues given significant past medical history. I reviewed all investigations and patient's hematologic indices are stable with a mild leukopenia which it appears that patient has had previously, afebrile, normocytic anemia unchanged and no thrombocytopenia. Chemistry indices are chronically stable with CKD and otherwise no electrolyte derangements and high sensitivity troponin is noted to be elevated but flat without acute changes on EKG and no complaints of chest pain. CT abdomen pelvis negative for any acute intra-abdominal findings. Urinalysis is positive in this gentleman and he will be placed on 1 week of antibiotics with initial antibiotics being given here in the emergency room. All results and findings discussed with him at bedside. Differential Diagnosis Differential Diagnoses: The differential diagnosis associated with the presentation includes Please see the discussion above Admission/Observation Consideration of admission/observation: Escalation of care including admission/observation considered Please see the discussion above Lab Data [facility] Lab Attestation statement: I reviewed the patient's lab results. Please see the discussion above 11/14/23 05:59 11/14/23 05:59 Labs: Lab Results 11/14/23 11/14/23 11/14/23 Range/Units 05:59 08:41 14:37 WBC 3.2 L (4.8-10.8) X10*3/uL RBC 3.81 L (4.60-5.80) X10*6/uL Hgb 12.3 L (14.0-18.0) g/dl Hct 36.6 L (42.0-52.0) % MCV 96.1 (80.0-98.0) fL MCH 32.3 (27.0-33.0) pg MCHC 33.6 (31.0-36.0) g/dl RDW 14.8 (11.0-16.0) % Plt Count 168 (160-400) X10*3/uL MPV 10.9 (9.4-12.4) fL Immature Gran % (Auto) 0.0 (0.0-0.4) % Neut % (Auto) 54.3 (45-73) % Lymph % (Auto) 29.2 (20-40) % [place] % (Auto) 14.3 H (2-11) % Eos % (Auto) 2.2 (0-4) % Baso % (Auto) 0.0 (0-2) % Lymph # (Auto) 0.9 L (1.2-4.9) X10*3/uL [place] # (Auto) 0.5 (0.1-1.2) X10*3/uL Eos # (Auto) 0.1 (0.0-0.4) X10*3/uL Baso # (Auto) 0.0 (0.0-0.2) X10*3/uL Abs Immat Gran (auto) 0.00 (0.00-0.03) X10*3/uL Absolute Neuts (auto) 1.8 L (2.0-8.3) x10*3/uL Absolute Nucleated RBC 0.000 (0.0-0.012) X10*3/uL Nucleated RBC % (auto) 0.0 (0.0-0.2) /100WBC Sodium 145 (135-145) mmol/L Potassium 3.6 (3.3-5.1) mmol/L Chloride 113 H (96-108) mmol/L Carbon Dioxide 22 (22-29) mmol/L Anion Gap 14 (12-20) BUN 36 H (9-16) mg/dL Creatinine 1.88 H (0.5-1.4) mg/dL Estim Creat Clear Calc 30.8 Estimated GFR 35 Random Glucose 103 (60-115) mg/dL Calcium 9.4 (8.4-10.2) mg/dL Troponin I High Sens 57.0 H 51.6 H (<3.5-35.0) ng/L Urine Color Yellow Urine Appearance Clear Urine pH 5.5 (5.0-9.0) Ur Specific [place] 1.020 (1.005-1.025) Urine Protein 30 (1+) H (Neg-Trace) mg/dL Urine Glucose (UA) Negative (Negative) mg/dL Urine Ketones Negative (Negative) mg/dL Urine Blood Negative (Negative) Urine Nitrite Negative (Negative) Ur Leukocyte Esterase Moderate (2+) H (Negative) Radiology Impression Discussion of test interpretation with radiology: I have reviewed the radiologist's reading. Radiologist Impression: Please see the discussion above External Record Review External record reviewed: Outpatient record, Prior outpatient labs and Prior outpatient radiology Chronic Conditions Patient?s care impacted by: Other CAD Medications Administered Discontinued Medications Generic Name Dose Route Start Last Admin Trade Name Richie PRN Reason Stop Dose Admin Diatrizoate Meglum/Diatrizoate Sod 30 ml 11/14/23 10:41 11/14/23 10:41 Diatrizoate Meglumine, Sodium 30 Ml Solution PO 11/14/23 10:42 30 ml ONCE ONE Administration Critical Care Time Critical Care Time Critical Care Time: Yes Total Critical Care Time: 45 Attestation: I personally attest to this time spent taking care of the patient. Discharge Plan Discharge Clinical Impression: Urinary tract infection Patient Disposition: Home, Self-Care Instructions: Urinary Tract Infection in Men (ED) Additional Instructions: 1. Resume all home medications as prescribed. 2. Complete the entire course of antibiotics as prescribed. 3. Follow-up with your primary care doctor by calling the office on Thursday. Return to the ER for any worsening symptoms. Prescriptions: New cefdinir 300 mg capsule 300 mg PO BID 7 Days Qty: 14 0RF No Action (DME) Shower Chair Misc See Rx Instructions .Route Qty: 1 0RF Rx Instructions: As directed (DME) raised toilet seat with arm rest See Rx Instructions .Route .MEDSUPPLY Qty: 1 0RF Rx Instructions: As directed Eliquis 5 mg tablet 5 mg PO BID 90 Days Qty: 180 1RF atorvastatin 20 mg tablet 20 mg PO DAILY Qty: 90 3RF carvedilol 25 mg tablet 25 mg PO BID 90 Days Qty: 180 1RF Rx Instructions: must administer with a meal/food metoprolol tartrate 50 mg tablet 50 mg PO BID 90 Days Qty: 180 1RF Protocol: Hold for SBP/HR < HOLD for SBP < : 90 HOLD for HR < : 60 furosemide 40 mg tablet 40 mg PO DAILY 90 Days Qty: 90 3RF Protocol: Hold for SBP< HOLD for SBP < : 90 amiodarone 200 mg tablet 200 mg PO DAILY 90 Days Qty: 90 1RF Rx Instructions: Start 200mg daily after completing amiodorone 400mg BID on 12/20 valsartan 160 mg tablet 160 mg PO DAILY Qty: 90 3RF spironolactone 25 mg tablet 25 mg PO DAILY 90 Days Qty: 90 1RF Protocol: Hold for SBP< HOLD for SBP < : 90 Referrals: Deb Vital MD [Primary Care Provider] - Print Language: Ukrainian
[2023-11-14 07:52] VITALS: BP 135/85; PULSE 79; RESP 20; TEMP 36.8; O2SAT 95
[2023-11-14 09:05] LABS: Troponin-I High Sensitivity 51.6 ng/L (<3.5-35.0)
[2023-11-14] MEDS: Diatrizoate Meglumine, Sodium 30 ML SOLUTION PO (10:41)
[2023-11-14 11:16] VITALS: BP 131/87; PULSE 80; RESP 21; TEMP 36.6; O2SAT 97
--- NOTE | 2023-11-14 11:17 | ECG_ITS ---
Test Reason : HYPERTENSION Blood Pressure : / mmHG Vent. Rate : 087 BPM Atrial Rate : 087 BPM P-R Int : 178 ms QRS Dur : 144 ms QT Int : 432 ms P-R-T Axes : 064 -23 140 degrees QTc Int : 519 ms Sinus rhythm with frequent Premature ventricular complexes and Premature atrial complexes Left bundle branch block Abnormal ECG When compared with ECG of 14-NOV-2023 05:46, Premature atrial complexes are now Present Referred By: Hannah Pemberton Electronically Signed By:Shaheed Mak
--- NOTE | 2023-11-14 13:12 | PC.NURSE ---
patient was not able to produce a urine, he forgot and voided into the toilet instead of the cup. bladder scan showed 4ml only. Provider aware of this and will hydrate and try another sample later.
[2023-11-14 14:37] VITALS: BP 134/88; PULSE 79; RESP 16; TEMP 36.3; O2SAT 98
[2023-11-14 14:44] LABS: Appearance Urine Clear; Color Urine Yellow; Glucose Urine UA Negative (Negative); Leukocyte Esterase Urine Moderate (2+) (Negative); Nitrite Urine Negative (Negative); PH 5.5 (5.0-9.0); UMIC TRIGGER UACC YES; Urine Blood Negative (Negative); Urine Ketones Negative (Negative); Urine Protein 30 (1+) mg/dL (Neg-Trace)
[2023-11-14 14:48] LABS: Bacteria Urine None Seen (None Seen); Hyaline Casts Urine 0-2 /LPF (0-2); RBC Urine 0-2 /HPF (0-2); Squamous Epithelial Cell Urine 0-2 /HPF (0-2); UACC Culture Trigger YES; WBC Urine 21-50 /HPF (0-5)
[2023-11-14 15:15] VITALS: BP 120/60; PULSE 66; RESP 18; TEMP 36.8; O2SAT 95
== END 2023-11-14 15:17 | disposition home or self-care (01) ==
PROVIDERS: Emergency Provider Student in an Organized Health Care Education/Training Program; PCP Internal Medicine
DX: N39.0 Urinary tract infection, site not specified (principal); I11.0 Hypertensive heart disease with heart failure; I50.9 Heart failure, unspecified; E78.00 Pure hypercholesterolemia, unspecified; I48.20 Chronic atrial fibrillation, unspecified; Z79.01 Long term (current) use of anticoagulants; Z79.02 Long term (current) use of antithrombotics/antiplatelets; Z79.899 Other long term (current) drug therapy
CPT/HCPCS: 36415; 51798; 74176; 80048; 81001; 84484; 85025; 87086; 93005; 99284

== ENCOUNTER → 2023-11-14 05:44 | Outpatient (BNV) | payer MEDICARE, SELFPAY ==
[2023-03-13 15:16] VITALS: BP 100/50; BP 108/50; BP 122/64; BMI 23.8
== END ==
PROVIDERS: Emergency Provider Student in an Organized Health Care Education/Training Program; PCP Internal Medicine; Visit Provider Internal Medicine Cardiovascular Disease
DX: I49.3 Ventricular premature depolarization (principal)
CPT/HCPCS: 93010

== ENCOUNTER 2023-11-23 16:31 | Outpatient (AMB) | payer MEDICARE, SELFPAY ==
[2023-03-13 15:16] VITALS: BP 100/50; BP 108/50; BP 122/64; BMI 23.8
[2023-11-23 16:34] VITALS: BP 118/76; BMI 28.4
--- NOTE | 2023-11-23 16:34 | MHC.PC.OV ---
Vital Signs 11/23/23 16:34 Height 5 ft 8 in Weight 187 lb BMI 28.4 BP 118/76 Blood Pressure Location Lt brachial Position Sitting Intake Visit Reasons: UTI meds Intake Note: UTI, loss of appetite [employer] Required: No Accompanied by: Spouse Allergies No Known Allergies [No Known Allergies*] Allergy (Verified 11/23/23 16:53) Medication List - Last Reconciled 11/23/23 by Deb Pete MD amiodarone 200 mg PO DAILY 90 days apixaban (Eliquis) 5 mg PO BID 90 days atorvastatin 20 mg PO DAILY carvedilol 25 mg PO BID 90 days furosemide 40 mg See Protocol PO DAILY 90 days metoprolol tartrate 50 mg See Protocol PO BID 90 days [raised toilet seat with arm rest As directed] Shower Chair As directed spironolactone 25 mg See Protocol PO DAILY 90 days valsartan 160 mg PO DAILY Tobacco use date assessed: 11/23/23 Fall risk assessment: No Falls in past year Last assessed Fall Risk: 11/23/23 Dental Screening Dental Screen Date: 11/23/23 Did you have a dental visit in the last 12 months?: No Did you have a dental problem in the last 6 months where you did not have access to dental care?: No Was dental information given to patient?: Patient declined HPI HPI Comments History of Present Illness Details This is a 78-year-old male with chronic systolic congestive heart failure, paroxysmal atrial fibrillation and chronic kidney disease stage 3 that comes today accompanied by for ER discharge follow-up. He went to ER due to abdominal pain and had a CT scan of the abdomen and pelvis showing cholelithiasis. He said he has pain diffuse but more prominent in the right upper quadrant area. Was found to have urinary tract infection and completed antibiotics. Denies any dysuria or polyuria. Will be referred to General surgery due to cholelithiasis. Has not gain 5 lb in a week. Congestive heart failure and atrial fibrillation are follow by cardiology. Last ejection fraction was 15-20% but has not had exacerbation requiring hospitalization. On chronic anticoagulation for atrial fibrillation. Denies chest pain or shortness on breath. Chronic kidney disease has been follow by Nephrology and has markedly improved with last GFR being 35. [facility] Medical History (Updated 11/23/23 @ 17:53 by Deb Pete MD) CKD (chronic kidney disease) stage 4, GFR 15-29 ml/min Dilated cardiomyopathy Acute exacerbation of CHF (congestive heart failure) Atrial fibrillation with rapid ventricular response B12 deficiency Essential hypertension CAD (coronary artery disease) Obesity Chronic systolic HF (heart failure) Hypertension Nonischemic cardiomyopathy Hypercholesteremia Surgical History History of cardiac cath (~05/2016) H/O hernia repair Family History Father Hypertension Mother Stomach cancer Social History Household Members: Spouse and Children Housing: House Housing Other:: lives in a 2 family home per pt Do you presently have 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 1. Little interest or pleasure in doing things: not at all 2. Feeling down, depressed, or hopeless: not at all 3. Trouble falling or staying asleep, or sleeping too much: several days 4. Feeling tired or having little energy: not at all 5. Poor appetite or overeating: several days 6. Feeling bad about yourself - or that you are a failure or have let yourself or your family down: not at all 7. Trouble concentrating on things, such as reading the newspaper or watching television: not at all 8. Moving or speaking so slowly that other people could have noticed. Or the opposite - being so fidgety or restless that you have been moving around a lot more than usual: not at all 9. Thoughts that you would be better off or of hurting yourself in some way: not at all Total score: 2 Depression Screening Interpretation: Negative Depression Screening Done: Yes 85021 - PHQ-9 Billing: Yes Source: Developed by Drs. Rosio Romeo, Neno Walsh and colleagues, with an educational radha from [employer]. Thrive Questionnaire Date Thrive assessed: 11/23/23 I am a: Patient What is your living situation today?: I have a steady place to live Within the past 12 months, did the food you bought not last and you didn't have the money to get more?: Never true Within the past 12 months, did you worry whether your food would run out before you got money to buy more?: Never true Do you have trouble paying for medicines?: No Do you have trouble getting transportation to medical appointments?: No Do you have trouble paying your heating and electricity bill?: No Do you have trouble taking care of your child, family member or friend?: No Do you have trouble with day-to-day activities such as bathing, preparing meals, shopping, managing finances, etc.?: No Are you currently unemployed and looking for a job?: No Are you interested in more education?: No Please select the resources that you would like help with: None Currently or been in a relationship where the following occur: no concerns reported THRIVE Score: 0 AUDIT C Alcohol Use Questionnaire (AUDIT-C) 1. How often do you have a drink containing alcohol?: Never Total Score: 0 Score Reviewed/Action Taken: No BEAR-7 AMB Questionnaire BEAR-7 Date BEAR - 7 assessed: 11/23/23 Feeling nervous, anxious, or on edge: 0 = Not at all Not being able to stop or control worryin = Not at all Worrying too much about different things: 0 = Not at all Trouble relaxin = Not at all Being so restless that it is hard to sit still: 0 = Not at all Becoming easily annoyed or irritable: 0 = Not at all Feeling afraid as if something awful might happen: 0 = Not at all Total BEAR-7 score (0-4 normal; 5-9 mild; 10-14 moderate; 15-21 severe): 0 Source: Developed by Rosio Mcallister, Neno Walsh and colleagues, with an educational radha from [employer]. BEAR-7 Assessment Billing BEAR-7 Assessment Tool: BEAR-7 Assessment 68967 Review of Systems Const All systems reviewed & are unremarkable except as noted in HPI and below Card Denies chest pain at rest, Denies chest pain with activity, Denies edema, Denies irregular heart rhythm, Denies claudication, Denies dyspnea, Denies dyspnea on exertion, Denies orthopnea, Denies paroxysmal nocturnal dyspnea and Denies slow heart rate Resp Denies cough, Denies dyspnea and Denies dyspnea on exertion GI Reports abdominal pain, Denies change in bowel habits, Denies excessive flatus, Denies nausea and Denies vomiting Physical exam (Primary Care) Vital Signs: Last Vital Signs BP 118/76 11/23/23 16:34 BMI result Body Mass Index 28.4 Tobacco/Smoking Status: Tobacco use Status Tobacco use date assessed 11/23/23 11/23/23 16:43 Patient Tobacco Use Status Never used Tobacco 11/23/23 16:43 e-Cigarette/Vaping Use Never Used 11/23/23 16:43 PHQ-9: PHQ-9 Score PHQ-9: Total score 2 11/23/23 17:27 Depression Screening Interpretation: Negative Thrive Assessment: Date of Thrive Assessment Date Thrive assessed 11/23/23 11/23/23 16:43 Currently or been in a relationship where the following occur: no concerns reported Const General: cooperative and no acute distress Resp Effort & Inspection: normal respiratory effort Auscultation: clear to auscultation bilaterally Cardio Jugular venous distension: no JVD Rate: regular rate Rhythm: regular rhythm Heart sounds: Murmur heart sound present GI Inspection: Yes normal to inspection Palpation (GI): Soft to palpation and Tenderness to palpation present (GI) in the RUQ Auscultation: normal bowel sounds Extrem General: Yes full ROM Assessment and Plan Assessment & Plan (1) Cholelithiasis: Code(s): K80.20 - Calculus of gallbladder without cholecystitis without obstruction Qualifiers: Cholelithiasis location: gallbladder Cholecystitis presence: without cholecystitis Biliary obstruction: without biliary obstruction Qualified Code(s): K80.20 - Calculus of gallbladder without cholecystitis without obstruction Plan: Referred to general surgery. (2) CKD stage 3b, GFR 30-44 ml/min: Code(s): N18.32 - Chronic kidney disease, stage 3b Plan: Follow-up with nephrology. Avoid NSAIDs. Keep blood pressure less than 130/80. (3) Paroxysmal atrial fibrillation: Code(s): I48.0 - Paroxysmal atrial fibrillation Plan: Continue amiodarone and chronic anticoagulation. Follow-up with Cardiology. (4) Chronic systolic HF (heart failure): Code(s): I50.22 - Chronic systolic (congestive) heart failure Plan: Continue diuretics. The goal is to not gain 5 lb in a week. Continue carvedilol. Continue Eliquis. Orders: Referrals General Surgery Referral K80.20 - Calculus of gallbladder without cholecystitis without obstruction Coding Level of Care Code Est Pt Level 4 (83625) Complex EM visit Add On G2211 Diagnoses Calculus of gallbladder without cholecystitis without obstruction K80.20 Cholelithiasis location: gallbladder Cholecystitis presence: without cholecystitis Biliary obstruction: without biliary obstruction CKD stage 3b, GFR 30-44 ml/min N18.32 Paroxysmal atrial fibrillation I48.0 Chronic systolic HF (heart failure) I50.22 Additional Codes BEAR-7 Assessment Billing - BEAR-7 Assessment Tool: BEAR-7 Assessment 35684 ([id number]) Time Spent (min) 25
== END 2023-11-23 17:07 | disposition home or self-care (01) ==
LOC: HO.HMGH 16:31
PROVIDERS: PCP Internal Medicine; Visit Provider Internal Medicine
DX: K80.20 Calculus of gallbladder without cholecystitis without obstruction (principal); N18.32 Chronic kidney disease, stage 3b; I48.0 Paroxysmal atrial fibrillation; I50.22 Chronic systolic (congestive) heart failure
CPT/HCPCS: 99214; G2211

== ENCOUNTER 2023-12-08 14:19 | Outpatient (AMB) | payer MEDICARE, SELFPAY ==
[2023-03-13 15:16] VITALS: BP 100/50; BP 108/50; BP 122/64; BMI 23.8
--- NOTE | 2023-12-08 14:20 | MHC.OFFVIS ---
Vital Signs 12/08/23 14:29 Height 5 ft 8 in Weight 183 lb 4 oz BMI 27.9 BP 164/85 H Blood Pressure Location Lt brachial Position Sitting Pulse 92 Intake Visit Reasons: Cholecystitis Intake Note: Patient is seen in office for evaluation and treatment of cholecystitis. Pt c/o: went to ED due to abdominal pain, states as this time has no pain, nausea, vomit, diarrhea or consitpation, states he eats well not as much as she would like he takes ensure CT:11/14/23 Health Systems Analyst Required: No Accompanied by: Spouse Allergies No Known Allergies [No Known Allergies*] Allergy (Verified 12/08/23 14:28) Medication List - Last Reconciled 12/08/23 by Keanu Angeles MD acetaminophen 500 mg PO Q6H PRN 30 days amiodarone 200 mg PO DAILY 90 days apixaban (Eliquis) 5 mg PO BID 90 days atorvastatin 20 mg PO DAILY carvedilol 25 mg PO BID 90 days furosemide 40 mg See Protocol PO DAILY 90 days metoprolol tartrate 50 mg See Protocol PO BID 90 days [raised toilet seat with arm rest As directed] Shower Chair As directed spironolactone 25 mg See Protocol PO DAILY 90 days valsartan 160 mg PO DAILY HPI Comments Details: 78-year-old male patient significant for dilated cardiomyopathy, chronic systolic heart failure, chronic kidney disease stage IIIB, paroxysmal atrial fibrillation and coronary artery disease presenting with a recent history of lower abdominal pain in the suprapubic region. The patient woke up in the middle of the night complaining of the pain and subsequently presented to the emergency department for further evaluation. He reports never having a colonoscopy. He initially reported difficulty moving his bowels as well. Workup in the emergency department revealed a urinary tract infection. CT abdomen and pelvis revealed a thickened urinary bladder wall. Gallstones were also noted within the gallbladder. He presents today to discuss management of the cholelithiasis. He currently denies any abdominal pain, nausea or vomiting. He is mainly eating ensure and does not have much of an appetite. He denies fever or chills. [facility] Medical History CKD (chronic kidney disease) stage 4, GFR 15-29 ml/min Dilated cardiomyopathy Acute exacerbation of CHF (congestive heart failure) Atrial fibrillation with rapid ventricular response B12 deficiency Essential hypertension CAD (coronary artery disease) Obesity Chronic systolic HF (heart failure) Hypertension Nonischemic cardiomyopathy Hypercholesteremia Surgical History History of cardiac cath (~05/2016) H/O hernia repair Family History Father Hypertension Mother Stomach cancer Social History Household Members: Spouse and Children Housing: House Housing Other:: lives in a 2 family home per pt Do you presently have visiting nurse or other home services: 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) Alcohol intake: never Patient Tobacco Use Status: Never used Tobacco e-Cigarette/Vaping Use: Never Used Second Hand Smoke Exposure: No (n/a) Advance Directives Date on File: 05/28/22 service: No Current occupational status: retired Cognitive needs: No Hearing needs: No Vision needs: No Review of Systems Const All systems reviewed & are unremarkable except as noted in HPI and below Denies chills, Denies fever(s), Denies headache(s), Reports poor appetite and Denies weakness ENT Denies headache(s) Card Denies chest pain, Reports irregular heart rhythm, Denies palpitations and Reports dyspnea Resp Denies cough, Denies excessive phlegm production and Reports dyspnea GI Reports abdominal pain, Denies bloating, Denies change in bowel habits, Reports constipation, Denies heartburn, Denies diarrhea, Denies nausea and Denies vomiting Reports difficulty urinating, Denies urinary frequency and Reports urinary hesitancy Musc Denies back pain, Denies muscle weakness and Denies numbness Skin/Breast Denies changing lesions and Denies unusual bruising Neuro Denies headache(s), Denies numbness, Denies paresthesias and Denies weakness Psych Denies anxiety and Denies depression Endo Denies palpitations Shaun/Lymph Denies lymphadenopathy Physical Exam Vital Signs: Last Vital Signs Pulse 92 12/08/23 14:29 BP 164/85 H 12/08/23 14:29 BMI result Body Mass Index 27.9 Const General: cooperative and no acute distress Nutritional Appearance: well nourished Orientation/consciousness: patient oriented x3 Limitations: no limitations HEENT Head: Yes normocephalic and Yes atraumatic Ears: hearing grossly normal bilaterally Resp Effort & Inspection: normal respiratory effort, no audible wheezes, no cough and no respiratory distress Cardio Jugular venous distension: no JVD GI Inspection: Yes normal to inspection Palpation (GI): Soft to palpation, nontender, no guarding and not rigid Percussion: Yes normal to percussion Auscultation: normal bowel sounds Rectal Exam - Male: Yes deferred Skin Other: Warm, dry, no rash Neuro General: patient oriented x3 Extrem General: Yes no clubbing, cyanosis or edema Assessment & Plan Assessment & Plan (1) Cholelithiasis: Code(s): K80.20 - Calculus of gallbladder without cholecystitis without obstruction Category: Medical Qualifiers: Biliary obstruction: without biliary obstruction Cholecystitis presence: without cholecystitis Cholelithiasis location: gallbladder Qualified Code(s): K80.20 - Calculus of gallbladder without cholecystitis without obstruction Plan 78-year-old male patient with multiple medical problems presenting with a vague history of abdominal pain, previously evaluated emergency department. A CT abdomen and pelvis revealed evidence of cholelithiasis but also a thickened bladder wall. It is difficult to know if the gallstones are symptomatic or if his pain is mainly from the urinary bladder. I recommended further evaluation with a HIDA scan. He will return following the study to review the results and discuss treatment options. Orders: Orders NM hepatobiliary w pharm Today K80.20 - Calculus of gallbladder without cholecystitis without obstruction Coding Level of Care Code New Pt Level 4 (43964) Diagnoses Calculus of gallbladder without cholecystitis without obstruction K80.20 Biliary obstruction: without biliary obstruction Cholecystitis presence: without cholecystitis Cholelithiasis location: gallbladder
[2023-12-08 14:29] VITALS: BP 164/85; PULSE 92; BMI 27.9
== END 2023-12-08 14:59 | disposition home or self-care (01) ==
PROVIDERS: PCP Internal Medicine; Referring Provider Internal Medicine; Visit Provider Surgery
DX: K80.20 Calculus of gallbladder without cholecystitis without obstruction (principal)
CPT/HCPCS: 99203

== ENCOUNTER → 2023-12-08 14:19 | Outpatient (BNVA) | payer MEDICARE, SELFPAY ==
[2023-03-13 15:16] VITALS: BP 100/50; BP 108/50; BP 122/64; BMI 23.8
== END ==
PROVIDERS: PCP Internal Medicine; Referring Provider Internal Medicine; Visit Provider Surgery
DX: K80.20 Calculus of gallbladder without cholecystitis without obstruction (principal)
CPT/HCPCS: 99202

== ENCOUNTER → 2024-01-22 08:29 | Outpatient (REF) | payer MEDICARE, SELFPAY ==
[2023-03-13 15:16] VITALS: BP 100/50; BP 108/50; BP 122/64; BMI 23.8
== END ==
LOC: HO.NUCMED 08:29
PROVIDERS: PCP Internal Medicine; Visit Provider Surgery
DX: Z13.89 Encounter for screening for other disorder (principal)

== ENCOUNTER 2024-01-27 12:00 | Outpatient (REF) | payer MEDICARE, SELFPAY ==
[2023-03-13 15:16] VITALS: BP 100/50; BP 108/50; BP 122/64; BMI 23.8
[2024-01-27 12:59] LABS: Anion Gap 12 (12-20); Blood Urea Nitrogen 36 mg/dL (9-16); Calcium 9.6 mg/dL (8.4-10.2); Carbon Dioxide 25 mmol/L (22-29); Chloride 114 mmol/L (96-108); Estimated Glomerular Filt Rate 37; Glucose Random 125 mg/dL (60-115); Potassium 3.8 mmol/L (3.3-5.1); Sodium 147 mmol/L (135-145)
[2024-01-27 13:50] LABS: B Type Natriuretic Peptide 9365 pg/mL (<100)
== END 2024-01-27 12:01 | disposition home or self-care (01) ==
LOC: HO.LAB 12:00
PROVIDERS: PCP Internal Medicine; Visit Provider Internal Medicine Cardiovascular Disease
DX: Z13.89 Encounter for screening for other disorder (principal)
CPT/HCPCS: 36415; 80048; 83880

== ENCOUNTER 2024-01-27 16:29 | Inpatient (IN) | payer MEDICARE, SELFPAY ==
[2023-03-13 15:16] VITALS: BP 100/50; BP 108/50; BP 122/64; BMI 23.8
--- NOTE | ~2024-01-27 | XR_ITS ---
EXAMINATION: XR CHEST CLINICAL INFORMATION: Pain and tightness in chest COMPARISON: December 01, 2022 TECHNIQUE: 2 views of the chest were obtained. FINDINGS: The cardiopericardial silhouette is enlarged. No evidence of pulmonary edema. There appears to be some stable left base scarring or atelectasis. No pneumothorax or significant pleural effusion is seen. The hilar regions are again noted to be prominent but stable compared to previous study. Density seen overlying the mediastinum on lateral view which appears be related to patient's arm down by his side. There is significant degenerative change of the left shoulder. XR/XR chest 2V IMPRESSION: No acute disease. Cardiomegaly without pulmonary edema.
[2024-01-27 16:34] VITALS: BP 134/71; PULSE 87; RESP 20; TEMP 36.4; O2SAT 100; BMI 23.1
--- NOTE | 2024-01-27 16:35 | ED_ITS ---
HPI - General Adult General Chief complaint: Recheck/Abnormal Lab/Rx Stated complaint: had bloodwork this am, told to come here Time Seen by Provider: 01/27/24 16:50 Source: patient and family Mode of arrival: ambulatory History of Present Illness HPI narrative: Patient is a 78-year-old male who presents emergency department with his for evaluation. Patient reportedly had outpatient labs today ordered by Cardiology, was called to come to the emergency department due to an elevated BNP. reports over the past months he has noticed him to be increasingly more weak, ?slow moving?, and increasing shortness of breath over the past week. She states he has been compliant with his medications including his diuretic. He has notable swelling to the bilateral lower extremities, he has been sleeping at night sitting upright in a chair, occasionally reports chest pain but it is unclear if this occurs with any pattern, not able to offer exacerbating or alleviating factors. Related Data Home Medications ?Medication ?Instructions ?Recorded ?Confirmed colchicine 0.6 mg tablet 0.6 mg PO DAILY 01/27/24 01/27/24 Previous Rx's ?Medication ?Instructions ?Recorded Shower Chair #1 ea 12/17/22 raised toilet seat with arm rest #1 ea 12/17/22 amiodarone 200 mg tablet 200 mg PO DAILY 90 days #90 tabs 08/27/23 furosemide 40 mg tablet 40 mg PO DAILY 90 days #90 tabs 08/27/23 valsartan 160 mg tablet 160 mg PO DAILY #90 tabs 09/08/23 spironolactone 25 mg tablet 25 mg PO DAILY 90 days #90 tabs 09/09/23 metoprolol tartrate 50 mg tablet 50 mg PO BID 90 days #180 tabs 12/26/23 Allergies Allergy/AdvReac Type Severity Reaction Status Date / Time No Known Allergies Allergy Verified 01/27/24 16:39 [No Known Allergies*] Review of Systems 2 Review of Systems: Yes all other systems are reviewed and are negative PMFSH Past Medical History Attestation statement: The following information was validated with the patient. Source: old records reviewed Medical History CKD (chronic kidney disease) stage 4, GFR 15-29 ml/min Dilated cardiomyopathy Acute exacerbation of CHF (congestive heart failure) Atrial fibrillation with rapid ventricular response B12 deficiency Essential hypertension CAD (coronary artery disease) Obesity Chronic systolic HF (heart failure) Hypertension Nonischemic cardiomyopathy Hypercholesteremia Surgical History History of cardiac cath (~05/2016) H/O hernia repair Family History Family History Father Hypertension Mother Stomach cancer Social History Social History Household Members: Spouse and Children Housing: House Housing Other:: lives in a 2 family home per pt Do you presently have visiting nurse or 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) Alcohol intake: never Patient Tobacco Use Status: Never used Tobacco Smoked in Last 30 Days: No e-Cigarette/Vaping Use: Never Used Second Hand Smoke Exposure: No (n/a) Use of substances other than those prescribed or required for medical reasons: No Advance Directives: Yes Advance Directives on File: Yes Advance Directives Date on File: 05/28/22 service: No Current occupational status: retired Cognitive needs: No Hearing needs: No Vision needs: No Physical Exam ED Vital Signs: Vital Signs - 24 hr 01/27/24 16:34 01/27/24 17:51 01/27/24 17:52 Temperature 97.5 F Pulse Rate 87 83 Respiratory Rate 20 20 Blood Pressure 134/71 117/71 117/71 Pulse Oximetry 100 Oxygen Delivery Method Room Air Room Air 01/27/24 18:00 Temperature 98.7 F Pulse Rate 80 Respiratory Rate 21 H Blood Pressure 113/66 Pulse Oximetry 96 Oxygen Delivery Method Room Air BMI result Body Mass Index 23.1 Appearance: Alert.?Oriented to person,, vague historian No acute distress.?Normal affect. Eyes: Pupils equal, round and reactive to light.? ENT: Pharynx normal.?? Neck: Normal inspection.? Neck supple.?? CVS: Heart sounds normal. Normal heart rate and rhythm.? Pulses normal.?? Respiratory: No respiratory distress.? Lung sounds clear to auscultation at the apices, diminished with fine rales at the bases bilaterally Abdomen: Soft and non-tender. Normoactive bowel sounds. ?? Skin: Skin warm and dry.? Normal skin color.? Extremities: 4+ pitting bilateral lower extremity edema.? No calf ttp? Neuro: Moves all extremities spontaneously. Sensation intact bilaterally. CN II- XII intact. No focal neuro deficits. Ambulates with normal steady gait. Course Course Course Narrative: This is a Rapid Medical Exam performed in triage by Juju Villaseñor PA-C. Full HPI, ROS and PE to be performed by primary ED provider. 78 year-old M w/ PMHx CKD, dilated cardiomyopathy, CHF, proximal AFib on Eliquis, HLD, CAD presenting to the ED c/o elevated BNP on outpatient labs today, & increasing SOB x 1 wk. Denies recent change in medications. BNP >9000 PE: 4+ bilateral LE pitting edema Plan: EKG, labs, CXR Medications Administered Generic Name Dose Route Start Last Admin Trade Name Freq PRN Reason Stop Dose Admin Enoxaparin Sodium 40 mg 01/27/24 20:15 01/27/24 20:54 Enoxaparin Sodium 40 Mg/0.4 Ml Syringe SUBCUT 40 mg Q24H DEXTER Administration Metoprolol Tartrate 50 mg 01/27/24 21:00 01/27/24 20:54 Metoprolol Tartrate 50 Mg Tablet PO 50 mg BID DEXTER Administration Protocol Discontinued Medications Generic Name Dose Route Start Last Admin Trade Name Freq PRN Reason Stop Dose Admin Furosemide 80 mg 01/27/24 17:03 01/27/24 17:52 Furosemide 100 Mg/10 Ml Vial IVPUSH 01/27/24 17:04 80 mg ONCE ONE Administration Protocol Medical Decision Making Medical Decision Making MDM Narrative: Patient is a 78-year-old male with past medical history of CKD, dilated cardiomyopathy, CHF, paroxysmal AFib on Eliquis, HLD, CAD presenting for lower extremity edema, shortness of breath, outpatient elevated BNP from this afternoon of 9365. On repeat upon arrival to emergency department noted to be 10,469, he has 4+ pitting edema to the bilateral lower extremities, lung sounds are diminished at the bases with fine rales. Treating with furosemide 80 mg IV, anticipating admission as he is currently on outpatient diuresis and has been unsuccessful. Renal function is at baseline. Hypernatremia 150. CBC with chronic leukopenia, anemia that does not meet transfusion criteria, no thrombocytopenia. CXR does appear to have acute pulmonary edema no consolidation or infiltrates. Differential Diagnosis Differential Diagnoses: The differential diagnosis associated with the presentation includes (CHF exacerbation, pleural effusion, generalized weakness, viral syndrome, ACS) Admission/Observation Consideration of admission/observation: Escalation of care including admission/observation considered (See narrative above) Consult Healthcare Provider Management of the patient was discussed with: Hospitalist (See course narrative) Lab Data MDM Lab Attestation statement: I reviewed the patient's lab results. (See narrative above) 01/27/24 17:06 01/27/24 17:06 Labs: Lab Results 01/27/24 Range/Units 17:06 WBC 3.1 L (4.8-10.8) X10*3/uL RBC 4.13 L (4.60-5.80) X10*6/uL Hgb 13.5 L (14.0-18.0) g/dl Hct 41.0 L (42.0-52.0) % MCV 99.3 H (80.0-98.0) fL MCH 32.7 (27.0-33.0) pg MCHC 32.9 (31.0-36.0) g/dl RDW 15.2 (11.0-16.0) % Plt Count 169 (160-400) X10*3/uL MPV 11.0 (9.4-12.4) fL Immature Gran % (Auto) 1.0 H (0.0-0.4) % Neut % (Auto) 59.0 (45-73) % Lymph % (Auto) 23.9 (20-40) % [place] % (Auto) 15.4 H (2-11) % Eos % (Auto) 0.7 (0-4) % Baso % (Auto) 0.0 (0-2) % Lymph # (Auto) 0.7 L (1.2-4.9) X10*3/uL [place] # (Auto) 0.5 (0.1-1.2) X10*3/uL Eos # (Auto) 0.0 (0.0-0.4) X10*3/uL Baso # (Auto) 0.0 (0.0-0.2) X10*3/uL Abs Immat Gran (auto) 0.03 (0.00-0.03) X10*3/uL Absolute Neuts (auto) 1.8 L (2.0-8.3) x10*3/uL Absolute Nucleated RBC 0.000 (0.0-0.012) X10*3/uL Nucleated RBC % (auto) 0.0 (0.0-0.2) /100WBC PT 12.4 (11.1-13.3) SEC INR 1.0 (0.9-1.1) Sodium 150 H (135-145) mmol/L Potassium 3.9 (3.3-5.1) mmol/L Chloride 114 H (96-108) mmol/L Carbon Dioxide 27 (22-29) mmol/L Anion Gap 13 (12-20) BUN 36 H (9-16) mg/dL Creatinine 1.69 H (0.5-1.4) mg/dL Estim Creat Clear Calc 38.8 Estimated GFR 39 Random Glucose 136 H (60-115) mg/dL Calcium 9.8 (8.4-10.2) mg/dL Magnesium 2.2 (1.6-2.6) mg/dL Total Bilirubin 0.5 (0.0-1.0) mg/dL Direct Bilirubin 0.2 (0.0-0.5) mg/dL AST 23 (5-37) U/L ALT 16 (0-40) U/L Alkaline Phosphatase 54 (39-117) U/L Troponin I High Sens 60.0 H (<3.5-35.0) ng/L B-Natriuretic Peptide 68502 H (<100) pg/mL Total Protein 6.0 L (6.5-8.0) g/dL Albumin 3.7 (3.5-5.0) g/dL Independent Interpretation I performed an independent interpretation of an: Plain X-Ray (See narrative above) Radiology Impression Discussion of test interpretation with radiology: I have reviewed the radiologist's reading. Radiologist Impression: XR/XR chest 2V IMPRESSION: No acute disease. Cardiomegaly without pulmonary edema. Independent Historian Clinical information obtained from an independent historian. History obtained from or confirmed by: Spouse (As per HPI) External Record Review External record reviewed: Inpatient record and Outpatient record Critical Care Time Critical Care Time Critical Care Time: Yes Total Critical Care Time: 35 Attestation: I personally attest to this critical care time spent taking care of the patient exclusive of all other billable procedures was approximately 35 minutes including initial evaluation of patient, ordering tests, x-ray interpretation, EKG interpretation, acute CHF exacerbation and IV diuresis, re-evaluation, medical consultation, documentation, re-evaluation. Discharge Plan Discharge Clinical Impression: Acute exacerbation of CHF (congestive heart failure) Patient Disposition: Admitted As Inpatient
--- NOTE | 2024-01-27 16:38 | ECG_ITS ---
Test Reason : abnormal labs Blood Pressure : / mmHG Vent. Rate : 082 BPM Atrial Rate : 082 BPM P-R Int : 180 ms QRS Dur : 148 ms QT Int : 448 ms P-R-T Axes : 053 -15 152 degrees QTc Int : 523 ms Sinus rhythm with Premature atrial complexes Possible Left atrial enlargement Left bundle branch block Abnormal ECG When compared with ECG of 14-NOV-2023 11:18, Premature ventricular complexes are no longer Present Referred By: Juju Villaseñor Electronically Signed By:KELLY LUCIO MD
[2024-01-27 17:12] LABS: MANUAL DIFF FLAG NO
[2024-01-27 17:18] LABS: Prothrombin Time 12.4 SEC (11.1-13.3)
[2024-01-27 17:28] LABS: Alanine Aminotransferase 16 U/L (0-40); Albumin Level 3.7 g/dL (3.5-5.0); Alkaline Phosphatase 54 U/L (39-117); Anion Gap 13 (12-20); Aspartate Amino Transferase 23 U/L (5-37); Bilirubin Direct 0.2 mg/dL (0.0-0.5); Bilirubin Total 0.5 mg/dL (0.0-1.0); Blood Urea Nitrogen 36 mg/dL (9-16); Calcium 9.8 mg/dL (8.4-10.2); Carbon Dioxide 27 mmol/L (22-29); Chloride 114 mmol/L (96-108); Creatinine Clr Calc Pharmacy 38.8; Estimated Glomerular Filt Rate 39; Glucose Random 136 mg/dL (60-115); Magnesium 2.2 mg/dL (1.6-2.6); Potassium 3.9 mmol/L (3.3-5.1); Sodium 150 mmol/L (135-145)
[2024-01-27 17:35] LABS: Eosinophils Percent Auto 0.7 % (0-4); Hemoglobin 13.5 g/dl (14.0-18.0); Imm Gran Abs Auto 0.03 X10*3/uL (0.00-0.03); Lymphocytes Absolute Auto 0.7 X10*3/uL (1.2-4.9); Lymphocytes Percent Auto 23.9 % (20-40); Mean Corpuscular HGB Conc 32.9 g/dl (31.0-36.0); Mean Corpuscular Hemoglobin 32.7 pg (27.0-33.0); Mean Corpuscular Volume 99.3 fL (80.0-98.0); Monocytes Absolute Auto 0.5 X10*3/uL (0.1-1.2); Monocytes Percent Auto 15.4 % (2-11); Neutrophils Absolute Auto 1.8 x10*3/uL (2.0-8.3); Platelet Count 169 X10*3/uL (160-400); Red Blood Count 4.13 X10*6/uL (4.60-5.80); Red Cell Distribution Width 15.2 % (11.0-16.0); White Blood Count 3.1 X10*3/uL (4.8-10.8)
[2024-01-27 17:51] VITALS: BP 117/71; PULSE 83; RESP 20
[2024-01-27 17:52] VITALS: BP 117/71
[2024-01-27] MEDS: Furosemide 100 MG/10 ML VIAL 80 MG IVPUSH (17:52)
[2024-01-27 17:54] LABS: B Type Natriuretic Peptide 10469 pg/mL (<100)
[2024-01-27 18:00] VITALS: BP 113/66; PULSE 80; RESP 21; TEMP 37.1; O2SAT 96
--- NOTE | 2024-01-27 19:29 | PHA.MEDREC ---
Addendum entered by Black Zhao dorina 01/27/24 19:37: Med rec reviewed Original Note: Pharmacy Consult ? Medication Reconciliation Pharmacy has completed the medication reconciliation. Spoke to patient to confirm med list, however patient didn't know what he was taking was instructed to call his . Spoke to patient Jade [phone] so stated that patient no longer takes apixaban 5 mg bid, Atorvastatin 20 mg daily, carvedilol 25 mg bid, and Acetaminophen 500 mg Q6H. stated her daughter comes once a week to fill patients medications.
--- NOTE | 2024-01-27 19:34 | P.HPHOSP_ITS ---
History of Present Illness Date of Service: 01/27/24 Chief Complaint: sob 78M PMH pafib, CKD IV, dilated cardiomyopathy with EF 10% and LBBB (previously refused AICD), CAD, gout, htn, presented with sob. patient is vague historian. reports Feeling short of breath over the last few days to weeks. Worse on exertion, worse on lying down. Denies any chest pain. Reports increased lower extremity swelling. Reports compliance with medications. Denies fever or chills. Outpatient labs revealed elevated BNP above 10,000, told to come to ED. Review of Systems 2 Review of Systems: Yes all other systems are reviewed and are negative [facility] Medical History CKD (chronic kidney disease) stage 4, GFR 15-29 ml/min Dilated cardiomyopathy Acute exacerbation of CHF (congestive heart failure) Atrial fibrillation with rapid ventricular response B12 deficiency Essential hypertension CAD (coronary artery disease) Obesity Chronic systolic HF (heart failure) Hypertension Nonischemic cardiomyopathy Hypercholesteremia Family History Father Hypertension Mother Stomach cancer Surgical History History of cardiac cath (~05/2016) H/O hernia repair Social History Household Members: Spouse and Children Housing: House Housing Other:: lives in a 2 family home per pt Do you presently have visiting nurse or 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) Alcohol intake: never Patient Tobacco Use Status: Never used Tobacco e-Cigarette/Vaping Use: Never Used Second Hand Smoke Exposure: No (n/a) Advance Directives: Yes Advance Directives on File: Yes Advance Directives Date on File: 05/28/22 service: No Current occupational status: retired Cognitive needs: No Hearing needs: No Vision needs: No Meds Allergies Allergy/AdvReac Type Severity Reaction Status Date / Time No Known Allergies Allergy Verified 01/27/24 16:39 [No Known Allergies*] Active Medications: Current Medications Amiodarone HCl (Amiodarone Hcl 200 Mg Tablet) 200 mg PO DAILY DEXTER Colchicine (Colchicine 0.6 Mg Tablet) 0.6 mg PO DAILY DEXTER Furosemide (Furosemide 40 Mg/4 Ml Vial) 40 mg IVPUSH BID@0900,1800 DEXTER; Protocol Metoprolol Tartrate (Metoprolol Tartrate 50 Mg Tablet) 50 mg PO BID DEXTER; Protocol Spironolactone (Spironolactone 25 Mg Tablet) 25 mg PO DAILY DEXTER; Protocol Valsartan (Valsartan 160 Mg Tablet) 160 mg PO DAILY DEXTER; Protocol Home Medications ?Medication ?Instructions ?Recorded ?Confirmed ?Last Taken ?Type colchicine 0.6 mg tablet 0.6 mg PO DAILY 01/27/24 01/27/24 01/27/24 History Physical Exam 2 Vital Signs and Narrative: Vital Signs: Last Vital Signs Temp 98.7 F 01/27/24 18:00 Pulse 80 01/27/24 18:00 Resp 21 H 01/27/24 18:00 BP 113/66 01/27/24 18:00 Pulse Ox 96 01/27/24 18:00 O2 Del Method Room Air 01/27/24 18:00 BMI result Body Mass Index 23.1 General: AO X 3, sob Resp: CTA bilateral, no accessory muscles used CVS: S1,S2,RRR, 3+ bilateral edema GI: soft, non tender, non distended Neuro: motor grossly intact, alert, stutter Psych: appropriate affect, borderline insight Results Labs 01/27/24 17:06 01/27/24 17:06 Labs: Laboratory Results - last 24 hr 01/27/24 17:06 MCV 99.3 H MCH 32.7 MCHC 32.9 RDW 15.2 Plt Count 169 MPV 11.0 Immature Gran % (Auto) 1.0 H Neut % (Auto) 59.0 Lymph % (Auto) 23.9 [place] % (Auto) 15.4 H Eos % (Auto) 0.7 Baso % (Auto) 0.0 Lymph # (Auto) 0.7 L [place] # (Auto) 0.5 Eos # (Auto) 0.0 Baso # (Auto) 0.0 Abs Immat Gran (auto) 0.03 Absolute Neuts (auto) 1.8 L Absolute Nucleated RBC 0.000 Nucleated RBC % (auto) 0.0 PT 12.4 INR 1.0 Anion Gap 13 Estim Creat Clear Calc 38.8 Estimated GFR 39 Random Glucose 136 H Calcium 9.8 Magnesium 2.2 Total Bilirubin 0.5 Direct Bilirubin 0.2 AST 23 ALT 16 Alkaline Phosphatase 54 Troponin I High Sens 60.0 H B-Natriuretic Peptide 35133 H Total Protein 6.0 L Albumin 3.7 Imaging Radiologist's Impressions: Impressions Chest X-Ray 01/27/24 16:49 IMPRESSION: No acute disease. Cardiomegaly without pulmonary edema. Assessment and Plan (1) Acute exacerbation of CHF (congestive heart failure): Status: Acute Plan 78M PMH pafib, CKD IV, dilated cardiomyopathy with EF 10% and LBBB (previously refused AICD), CAD, gout, htn, presented with sob Acute on chronic systolic CHF IV Lasix, cardio eval Continue beta-malgorzata, ARB, Aldactone Monitor electrolytes Hypernatremia unexpected given patient appears hypervolemic monitor closely while diuresing, check urine studies Paroxysmal atrial fibrillation Continue metoprolol, amiodarone was previously on apixaban, no longer on it, patient not sure why. currently in sinus Gout Colchicine Hypertension Metoprolol, Aldactone, valsartan DVT prophylaxis with lovenox Full code Patient with significant symptoms from CHF, at risk for further decompensation due to advanced age frailty and reduced EF therefore expected require at least 2 midnights inpatient Quality Stroke Does the patient have a stroke diagnosis?: No VTE Prior VTE?: No VTE Risk Level:: Medical - moderate - high VTE Device Contraindication: Treatment Not Indicated VTE Drug Contraindication: N/A - Med Ordered
[2024-01-27 20:06] LABS: Appearance Urine Clear; Color Urine Yellow; Glucose Urine UA Negative (Negative); Leukocyte Esterase Urine Negative (Negative); Nitrite Urine Negative (Negative); PH 6.5 (5.0-9.0); Specific Gravity - Urine <= 1.005 (1.005-1.025); Urine Blood Negative (Negative); Urine Ketones Negative (Negative); Urine Protein Negative (Neg-Trace)
[2024-01-27 20:12] LABS: Osmolality Urine 334 mosm/kg (373-1093)
[2024-01-27 20:17] LABS: Creatinine Urine 23.91 mg/dL
[2024-01-27 20:50] VITALS: BP 118/76; PULSE 87; RESP 22; TEMP 37.1; O2SAT 98
[2024-01-27 20:54] VITALS: BP 118/76; PULSE 85
[2024-01-27] MEDS: Metoprolol Tartrate 50 MG TABLET PO (20:54)
[2024-01-27] MEDS: Enoxaparin Sodium 40 MG/0.4 ML SYRINGE SUBCUT (20:54)
--- NOTE | 2024-01-27 23:26 | MHC.EDTECH ---
Pt ambulated to bathroom independently, had BM and now resting in stretcher. Pt stated he is tired and will try to get some sleep- lights dimmed and call stewart within reach.
--- NOTE | 2024-01-27 23:35 | PC.NURSE ---
This consumer loan underwriter assumed care of this Pt at 2300. Pt A&O to self and place, denies any pain. Pt ambulated independently to BR.
[2024-01-28] VITALS (15 sets, daily range): BP systolic 118–136; BP diastolic 73–87; PULSE 65–105; RESP 14–30; TEMP 36.2–37.1; O2SAT 92–98
[2024-01-28] MEDS: 0.9 % Sodium Chloride Flush 3 ML SYRINGE IVFLUSH (00:58)
--- NOTE | 2024-01-28 03:54 | MHC.EDTECH ---
Pt found to be incontinent of urine. T/w assisted Pt with changing his pants and pt was able to wipe himself up. Pt given clean socks and hospital pants. Pt helped back into stretcher and warm blanket given. Lights dimmed and call stewart within reach.
--- NOTE | 2024-01-28 05:11 | PC.NURSE ---
Pt awake, confused, asking where is his family and stating they are here some where . Pt reassured and redirected.
[2024-01-28 06:16] LABS: Hematocrit 41.1 % (42.0-52.0); Hemoglobin 13.7 g/dl (14.0-18.0); Mean Corpuscular HGB Conc 33.3 g/dl (31.0-36.0); Mean Corpuscular Hemoglobin 32.5 pg (27.0-33.0); Mean Corpuscular Volume 97.4 fL (80.0-98.0); Mean Platelet Volume 11.7 fL (9.4-12.4); Platelet Count 173 X10*3/uL (160-400); Red Blood Count 4.22 X10*6/uL (4.60-5.80); Red Cell Distribution Width 15.3 % (11.0-16.0)
[2024-01-28 06:31] LABS: Prothrombin Time 12.4 SEC (11.1-13.3)
[2024-01-28 06:34] LABS: Anion Gap 16 (12-20); Blood Urea Nitrogen 32 mg/dL (9-16); Calcium 9.7 mg/dL (8.4-10.2); Carbon Dioxide 21 mmol/L (22-29); Chloride 114 mmol/L (96-108); Creatinine Clr Calc Pharmacy 41.5; Estimated Glomerular Filt Rate 43; Glucose Fasting 85 mg/dL (60-99); Magnesium 2.3 mg/dL (1.6-2.6); Potassium 3.5 mmol/L (3.3-5.1); Sodium 147 mmol/L (135-145)
--- NOTE | 2024-01-28 09:36 | MHC.CM.PN ---
IMM 01/28/24, Pt. lives with his , HCP on file and confirmed, Jade. Pt. does not have home health services or DME. Family can transport home at DC. PCP confirmed: Deb Pete. DCP: home, self care. CM to follow for DC needs.
[2024-01-28] MEDS: Furosemide 40 MG/4 ML VIAL IVPUSH (10:09)
[2024-01-28] MEDS: Colchicine 0.6 MG TABLET PO (10:09)
[2024-01-28] MEDS: Valsartan 160 MG TABLET PO (10:09)
[2024-01-28] MEDS: Metoprolol Tartrate 50 MG TABLET PO (10:10)
[2024-01-28] MEDS: Spironolactone 25 MG TABLET PO (10:10)
[2024-01-28] MEDS: Amiodarone HCL 200 MG TABLET PO (10:10)
--- NOTE | 2024-01-28 10:22 | PC.NURSE ---
external catheter placed for urine collection and measurement. patient medicated per MAR. alert and oriented x3.
--- NOTE | 2024-01-28 10:39 | PM.CNCAR ---
History of Present Illness History of Present Illness Date of Service: 01/28/24 Requesting physician: Tomas Bailey Consult reason: other (Decompensated congestive heart failure) Chief complaint: chf Narrative: I was consulted to see Tray in cardiology consultation today for acute decompensated congestive heart failure. Patient 78-year-old male known to me for many years, has been noncompliant with treatment in the past over the last year and half has done better with compliance and has had avoided hospitalizations related to decompensated congestive heart failure. However he was seen last in the office in May last year and subsequently had no follow-up appointments. As per the daughter he has been taking his neurohormonal modulators only once a day. Patient came to the hospital with progressive shortness of breath, leg edema, orthopnea, weakness. Patient is noted also to have some confusion as per the family. Patient also has poor appetite over the last month or 2. called our office yesterday and we had him repeat his BNP which was significantly elevated at 9000 range compared to last checked in the 700 range. At that point time we advised him to come to the emergency room. In the emergency room he was noted to be in decompensated congestive heart failure with hypoxemia, increased workup breathing, low blood pressure. Cause of decompensation probably he is in adequate neurohormonal modulators. He did not take extra diuretics as had been discussed in the past. However overall he has lost significant amount of muscle mass and weight. As per the he is very minimally active at home. He seems to have continued increased workup breathing. Review of Systems Constitutional: Constitutional: Reports anorexia, Reports fatigue, Reports lethargy, Reports poor appetite and Reports weight loss Cardiovascular: Cardiovascular: Denies chest pain, Reports leg edema, Denies lightheadedness, Denies Loss of Consciousness, Denies palpitations, Reports dyspnea on exertion and Reports orthopnea Respiratory: Respiratory: Reports dyspnea on exertion Gastrointestinal: Gastrointestinal: Reports no additional gastrointestinal complaints Musculoskeletal: Musculoskeletal: Reports no additional musculoskeletal complaints Neurologic: Reports system reviewed and no additional complaints, except as documented and Reports confusion Psychiatric: Psychiatric: Reports confusion Endocrine: Endocrine: Reports fatigue and Denies palpitations PMF Past Medical History Medical History CKD (chronic kidney disease) stage 4, GFR 15-29 ml/min Dilated cardiomyopathy Acute exacerbation of CHF (congestive heart failure) Atrial fibrillation with rapid ventricular response B12 deficiency Essential hypertension CAD (coronary artery disease) Obesity Chronic systolic HF (heart failure) Hypertension Nonischemic cardiomyopathy Hypercholesteremia Family History Family History Father Hypertension Mother Stomach cancer Surgical History Surgical History History of cardiac cath (~05/2016) H/O hernia repair Social History Social History Household Members: Spouse and Children Housing: House Housing Other:: lives in a 2 family home per pt Do you presently have visiting nurse or other home 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) Alcohol intake: never Patient Tobacco Use Status: Never used Tobacco Smoked in Last 30 Days: No e-Cigarette/Vaping Use: Never Used Second Hand Smoke Exposure: No (n/a) Use of substances other than those prescribed or required for medical reasons: No Advance Directives: Yes Advance Directives on File: Yes Advance Directives Date on File: 05/28/22 service: No Current occupational status: retired Cognitive needs: No Hearing needs: No Vision needs: No Meds Allergies Allergy/AdvReac Type Severity Reaction Status Date / Time No Known Allergies Allergy Verified 01/27/24 16:39 [No Known Allergies*] Active Medications: Current Medications Acetaminophen (Acetaminophen 325 Mg Tablet) 650 mg PO Q6H PRN PRN Reason: Pain, Mild (Pain Scale 1-3), fever or headache Amiodarone HCl (Amiodarone Hcl 200 Mg Tablet) 200 mg PO DAILY [facility] Last Admin: 01/28/24 10:10 Dose: 200 mg Calcium Carbonate (Calcium Carbonate 750 Mg Tab.Chew) 750 mg PO Q4H PRN PRN Reason: Heartburn Colchicine (Colchicine 0.6 Mg Tablet) 0.6 mg PO DAILY [facility] Last Admin: 01/28/24 10:09 Dose: 0.6 mg Enoxaparin Sodium (Enoxaparin Sodium 40 Mg/0.4 Ml Syringe) 40 mg SUBCUT Q24H [facility] Last Admin: 01/27/24 20:54 Dose: 40 mg Furosemide (Furosemide 40 Mg/4 Ml Vial) 40 mg IVPUSH BID@0900,1800 [facility]; Protocol Last Admin: 01/28/24 10:09 Dose: 40 mg Magnesium Hydroxide (Milk Of Magnesia 30 Ml Oral.Susp) 30 ml PO DAILY PRN PRN Reason: Constipation Melatonin (Melatonin 3 Mg Tablet) 6 mg PO BEDTIME PRN PRN Reason: Insomnia Metoprolol Tartrate (Metoprolol Tartrate 50 Mg Tablet) 50 mg PO BID [facility]; Protocol Last Admin: 01/28/24 10:10 Dose: 50 mg Sodium Chloride (0.9 % Sodium Chloride Flush 3 Ml Syringe) 3 ml IVFLUSH QSHIFT [facility] Last Admin: 01/28/24 08:25 Dose: Not Given Spironolactone (Spironolactone 25 Mg Tablet) 25 mg PO DAILY [facility]; Protocol Last Admin: 01/28/24 10:10 Dose: 25 mg Valsartan (Valsartan 160 Mg Tablet) 160 mg PO DAILY [facility]; Protocol Last Admin: 01/28/24 10:09 Dose: 160 mg Home Medications ?Medication ?Instructions ?Recorded ?Confirmed ?Last Taken ?Type colchicine 0.6 mg tablet 0.6 mg PO DAILY 01/27/24 01/27/24 01/27/24 History Physical Exam Vital Signs: Vital Signs: Last Vital Signs Temp 97.6 F 01/28/24 10:03 Pulse 100 01/28/24 10:03 Resp 18 01/28/24 10:03 BP 124/79 01/28/24 10:03 Pulse Ox 98 01/28/24 10:03 O2 Del Method Room Air 01/28/24 10:03 BMI result Body Mass Index 23.1 Const: General: cooperative, alert, awake, in distress moderate and respiratory and confusion Nutritional Appearance: underweight Orientation/consciousness: confusion HEENT: Head: Yes normocephalic and Yes atraumatic Neck: Neck: Yes trachea midline, Yes supple and Yes JVD Resp: Effort & Inspection: normal respiratory effort Auscultation: crackles Cardio: Jugular venous distension: JVD Palpation: abnormal PMI displaced PMI Rate: regular rate Rhythm: abnormal rhythm regularly irregular Heart sounds: S1 normal heart sound present, S2 normal heart sound present, no click, Gallop heart sound present and no murmurs GI: Percussion: Yes normal to percussion Skin: General skin exam: no rashes or lesions noted Neuro: General: no focal motor deficits and confusion Extrem: General: No clubbing, No cyanosis and Yes edema Objective Labs and Meds 01/28/24 05:23 01/28/24 05:23 Lab results: Laboratory Results - last 24 hr 01/27/24 01/27/24 01/28/24 17:06 19:59 05:23 WBC 3.1 L 4.0 L RBC 4.13 L 4.22 L Hgb 13.5 L 13.7 L Hct 41.0 L 41.1 L MCV 99.3 H 97.4 MCH 32.7 32.5 MCHC 32.9 33.3 RDW 15.2 15.3 Plt Count 169 173 MPV 11.0 11.7 Immature Gran % (Auto) 1.0 H Neut % (Auto) 59.0 Lymph % (Auto) 23.9 [place] % (Auto) 15.4 H Eos % (Auto) 0.7 Baso % (Auto) 0.0 Lymph # (Auto) 0.7 L [place] # (Auto) 0.5 Eos # (Auto) 0.0 Baso # (Auto) 0.0 Abs Immat Gran (auto) 0.03 Absolute Neuts (auto) 1.8 L Absolute Nucleated RBC 0.000 0.000 Nucleated RBC % (auto) 0.0 0.0 PT 12.4 12.4 INR 1.0 1.0 Sodium 150 H 147 H Potassium 3.9 3.5 Chloride 114 H 114 H Carbon Dioxide 27 21 L Anion Gap 13 16 BUN 36 H 32 H Creatinine 1.69 H 1.58 H Estim Creat Clear Calc 38.8 41.5 Estimated GFR 39 43 Random Glucose 136 H Fasting Glucose 85 Calcium 9.8 9.7 Magnesium 2.2 2.3 Total Bilirubin 0.5 Direct Bilirubin 0.2 AST 23 ALT 16 Alkaline Phosphatase 54 Troponin I High Sens 60.0 H B-Natriuretic Peptide 54778 H Total Protein 6.0 L Albumin 3.7 Urine Color Yellow Urine Appearance Clear Urine pH 6.5 Ur Specific [place] <= 1.005 Urine Protein Negative Urine Glucose (UA) Negative Urine Ketones Negative Urine Blood Negative Urine Nitrite Negative Ur Leukocyte Esterase Negative Urine Osmolality 334 L Ur Random Sodium 127.0 Urine Creatinine 23.91 EKG shows normal sinus rhythm with left bundle-branch block with PACs Imaging Radiologist's impression: Impressions Chest X-Ray 01/27/24 16:49 IMPRESSION: No acute disease. Cardiomegaly without pulmonary edema. Assessment and Plan (1) Acute exacerbation of CHF (congestive heart failure): Status: Acute Acute congestive heart failure, with severe systolic dysfunction with noncompliance with his medications. Patient currently in decompensated congestive heart failure with multiple comorbidities including cachexia, renal dysfunction, atrial arrhythmias and lower blood pressure. Overall prognosis is guarded. We discuss with patient's family especially his about overall poor prognosis with him. Importance of compliance with medication was discussed. For now I think he needs more aggressive diuresis and would start him on Lasix drip at 5 mg an hour. Resume metoprolol dose as well as valsartan dose at a lower level. Continue spironolactone. He was not able to tolerate Entresto therapy due to cost or low blood pressure she was also not able to be on Jardiance or Farxiga therapy due to cost. Continue rhythm control approach. Consider palliative care evaluation if family agrees. (2) Paroxysmal atrial fibrillation: Status: Acute Paroxysmal atrial fibrillation all suppressed on therapy with amiodarone. Currently having some PACs and runs of atrial tachycardia. This is expected in decompensated heart failure. Continue amiodarone therapy as overall rhythm management will help his heart failure syndrome. Has declined oral anticoagulation probably due to cost issues. Will follow up with you Procedures Date of Service Date of Service: 01/28/24
[2024-01-28] MEDS: Furosemide 200 MG in 0.9 % Sodium Chloride 80 ML IVCONT (12:00)
--- NOTE | 2024-01-28 12:01 | PC.NURSE ---
100ml of urine emptied from patient external cath bag. patient medicated per AUG, lasix drip started. VSS.
--- NOTE | 2024-01-28 13:00 | PC.NURSE ---
patient found to be incontinent of urine and feces despite tex[place] cath. tex[place] cath fell off. patient also noted to have removed IV tubing from IV line, unsure how much medication patient received and how much was on bed. patient cleaned up, repositioned, new condom cath in place. camera sitter in place for safety and interference with medical devices
--- NOTE | 2024-01-28 15:14 | PC.NURSE ---
patient noted to have removed IV line tubing from IV catheter despite camera sitter in place, unsure how much medication patient received and what was spilt on bed. patient IV reconnected and med restarted. patient IV line reinforced with bandage and tape to defer picking at line. camera sitter in place. patient is alert and oriented to self.
--- NOTE | 2024-01-28 15:25 | P.PNIM_ITS ---
Subjective Subjective Date of Service: 01/28/24 Interval History: Seen and evaluated this morning feels little better reports dyspnea with exertion but otherwise ok swelliung improving slowly Review of Systems Review of Systems: Yes all other systems are reviewed and are negative Physical Exam 2 Vital Signs: Vital Signs: Last Vital Signs Temp 97.5 F 01/28/24 14:21 Pulse 73 01/28/24 14:21 Resp 14 01/28/24 14:21 BP 119/82 01/28/24 14:21 Pulse Ox 93 01/28/24 14:21 O2 Del Method Room Air 01/28/24 14:21 BMI result Body Mass Index 23.1 Const: Other: Constitutional : Awake, interactive, not in distress Neck : Normal inspection, Supple Cardiovascular : RRR, no JVP, +2 bilateral extremity edema Respiratory : good bilateral air entry, no crackles, wheezes or rhonchi Gastrointestinal: soft, lax, Normal bowel sounds, Non tender Skin : Warm, Dry Neurological : Alert & oriented to self and place, No focal deficit Objective Data Active Medications Acetaminophen (Acetaminophen 325 Mg Tablet) 650 mg PO Q6H PRN PRN Reason: Pain, Mild (Pain Scale 1-3), fever or headache Amiodarone HCl (Amiodarone Hcl 200 Mg Tablet) 200 mg PO DAILY [facility] Last Admin: 01/28/24 10:10 Dose: 200 mg Documented By: ALYSON Calcium Carbonate (Calcium Carbonate 750 Mg Tab.Chew) 750 mg PO Q4H PRN PRN Reason: Heartburn Colchicine (Colchicine 0.6 Mg Tablet) 0.6 mg PO DAILY [facility] Last Admin: 01/28/24 10:09 Dose: 0.6 mg Documented By: ALYSON Enoxaparin Sodium (Enoxaparin Sodium 40 Mg/0.4 Ml Syringe) 40 mg SUBCUT Q24H [facility] Last Admin: 01/27/24 20:54 Dose: 40 mg Documented By: WEN Furosemide 200 mg/ Sodium (Chloride) 100 mls @ 2.5 mls/hr IVCONT .Q24H [facility] Last Admin: 01/28/24 12:00 Dose: 5 mg/hr, 2.5 mls/hr Documented By: ALYSON Magnesium Hydroxide (Milk Of Magnesia 30 Ml Oral.Susp) 30 ml PO DAILY PRN PRN Reason: Constipation Melatonin (Melatonin 3 Mg Tablet) 6 mg PO BEDTIME PRN PRN Reason: Insomnia Metoprolol Tartrate (Metoprolol Tartrate 50 Mg Tablet) 50 mg PO BID [facility]; Protocol Last Admin: 01/28/24 10:10 Dose: 50 mg Documented By: ALYSON Sodium Chloride (0.9 % Sodium Chloride Flush 3 Ml Syringe) 3 ml IVFLUSH QSHIFT [facility] Last Admin: 01/28/24 08:25 Dose: Not Given Documented By: ALYSON Non-Admin Reason: See Note Spironolactone (Spironolactone 25 Mg Tablet) 25 mg PO DAILY [facility]; Protocol Last Admin: 01/28/24 10:10 Dose: 25 mg Documented By: ALYSON Valsartan (Valsartan 160 Mg Tablet) 160 mg PO DAILY [facility]; Protocol Last Admin: 01/28/24 10:09 Dose: 160 mg Documented By: ALYSON Labs 01/28/24 05:23 01/28/24 05:23 Labs: Laboratory Results - last 24 hr 01/27/24 01/27/24 01/28/24 17:06 19:59 05:23 MCV 99.3 H 97.4 MCH 32.7 32.5 MCHC 32.9 33.3 RDW 15.2 15.3 Plt Count 169 173 MPV 11.0 11.7 Immature Gran % (Auto) 1.0 H Neut % (Auto) 59.0 Lymph % (Auto) 23.9 [place] % (Auto) 15.4 H Eos % (Auto) 0.7 Baso % (Auto) 0.0 Lymph # (Auto) 0.7 L [place] # (Auto) 0.5 Eos # (Auto) 0.0 Baso # (Auto) 0.0 Abs Immat Gran (auto) 0.03 Absolute Neuts (auto) 1.8 L Absolute Nucleated RBC 0.000 0.000 Nucleated RBC % (auto) 0.0 0.0 PT 12.4 12.4 INR 1.0 1.0 Anion Gap 13 16 Estim Creat Clear Calc 38.8 41.5 Estimated GFR 39 43 Random Glucose 136 H Fasting Glucose 85 Calcium 9.8 9.7 Magnesium 2.2 2.3 Total Bilirubin 0.5 Direct Bilirubin 0.2 AST 23 ALT 16 Alkaline Phosphatase 54 Troponin I High Sens 60.0 H B-Natriuretic Peptide 48103 H Total Protein 6.0 L Albumin 3.7 Urine Color Yellow Urine Appearance Clear Urine pH 6.5 Ur Specific [place] <= 1.005 Urine Protein Negative Urine Glucose (UA) Negative Urine Ketones Negative Urine Blood Negative Urine Nitrite Negative Ur Leukocyte Esterase Negative Urine Osmolality 334 L Ur Random Sodium 127.0 Urine Creatinine 23.91 Assessment and Plan (1) Acute exacerbation of CHF (congestive heart failure): Status: Acute (2) CKD stage 3b, GFR 30-44 ml/min: Status: Acute Plan 78M PMH pafib, CKD IV, dilated cardiomyopathy with EF 10% and LBBB (previously refused AICD), CAD, gout, htn, presented with sob Acute on chronic systolic CHF EF 10% last Echo feels little better Change to IV Lasix drip per cardiology evaluationl Continue beta-malgorzata, ARB, Aldactone Monitor electrolytes PT eval follow BMP & I\O acute Hypernatremia Na of 147 this morning monitor closely while diuresing urine studies Paroxysmal atrial fibrillation Continue metoprolol, amiodarone was previously on apixaban, no longer on it, patient not sure why. currently in sinus Gout Colchicine Hypertension Metoprolol, Aldactone, valsartan DVT prophylaxis with lovenox Full code The patient will need overnight hospital stay for treatment of CHF exacerbation at risk for further decompensation due to advanced age frailty and reduced EF Quality Stroke Does the patient have a stroke diagnosis?: No VTE Prior VTE?: No VTE Risk Level:: Medical - moderate - high VTE Device Contraindication: Treatment Not Indicated VTE Drug Contraindication: N/A - Med Ordered
--- NOTE | 2024-01-28 17:16 | PC.NURSE ---
patient resting quietly, respirations equal and unlabored. patient VSS, IV furosemide running at 5mg/hr. patient states he does not need anything at the moment. patient moved closer to nurses station for monitoring, camera sitter in place
--- NOTE | 2024-01-28 18:20 | PC.NURSE ---
patient boosted up in bed and repositioned. patient awake and alert, set up for dinner. 200ml urine emptied out of cath bag
--- NOTE | 2024-01-28 18:47 | PC.NURSE ---
patient removed condom catheter despite camera sitter, patient attempting to get out of bed. patient stated he has to have a bowel movement, patient placed on bed oliver
[2024-01-28] MEDS: Enoxaparin Sodium 40 MG/0.4 ML SYRINGE SUBCUT (20:35)
[2024-01-28] MEDS: Melatonin 3 MG TABLET 6 MG PO (20:36)
[2024-01-28] MEDS: Metoprolol Tartrate 25 MG TABLET PO (20:36)
[2024-01-29] VITALS (9 sets, daily range): BP systolic 93–144; BP diastolic 60–91; PULSE 62–93; RESP 16–18; TEMP 36.1–37.1; O2SAT 93–99
--- NOTE | 2024-01-29 05:46 | PC.NURSE ---
ADMIT TO 443-1...PATIENT AWAKE...DISORIENTED TO PLACE AND RECENT EVENTS....RESPIRATIONS EASY ON ROOM AIR...LASIX DRIP 5 MG/HR..[place] CATHETER INEFFECTIVE...INCONTINANT URINE MULTIPLE TIMES AND OF STOOL X2...CLIMBS OOB TO VOID BUT USUALLY ALREADY INCONTINENT...NSR..RARE PAC AND PVC..DENIES DISCOMFORT...CAMERA AND BED ALARM IN PLACE FOR SAFETY
[2024-01-29 09:05] LABS: Anion Gap 14 (12-20); Blood Urea Nitrogen 30 mg/dL (9-16); Calcium 9.7 mg/dL (8.4-10.2); Chloride 111 mmol/L (96-108); Creatinine Clr Calc Pharmacy 40.4; Estimated Glomerular Filt Rate 41; Glucose Random 96 mg/dL (60-115); Potassium 4.1 mmol/L (3.3-5.1); Sodium 148 mmol/L (135-145)
[2024-01-29 09:14] LABS: Carbon Dioxide 27 mmol/L (22-29)
[2024-01-29] MEDS: Amiodarone HCL 200 MG TABLET PO (09:28)
[2024-01-29] MEDS: Colchicine 0.6 MG TABLET PO (09:28)
[2024-01-29] MEDS: Spironolactone 25 MG TABLET PO (09:28)
[2024-01-29] MEDS: Metoprolol Tartrate 25 MG TABLET PO ×2 (09:28→21:20)
[2024-01-29] MEDS: Valsartan 80 MG TABLET PO (09:28)
[2024-01-29 09:30] LABS: B Type Natriuretic Peptide 8744 pg/mL (<100)
[2024-01-29] MEDS: 0.9 % Sodium Chloride Flush 3 ML SYRINGE IVFLUSH (09:35)
--- NOTE | 2024-01-29 10:43 | PM.PNCARD ---
Subjective Subjective Date of Service: 01/29/24 Principal diagnosis: Decompensated CHF. Interval history: Patient appears a little more confused today. However clinically appears much less short of breath. Family agrees with that. Has diuresed on Lasix drip. Tolerating his medications. Review of Systems Constitutional: Reports no additional constitutional complaints Cardiovascular: Denies chest pain, Denies rapid heart rate, Reports leg edema, Denies palpitations and Reports dyspnea Respiratory: Reports dyspnea Gastrointestinal: Reports no additional gastrointestinal complaints Reports system reviewed and no additional complaints, except as documented and Reports confusion Psychiatric: Reports confusion Endocrine: Denies palpitations Physical Exam Vital Signs: Last Vital Signs Temp 97.2 F 01/29/24 07:45 Pulse 77 01/29/24 07:45 Resp 18 01/29/24 07:45 BP 135/91 H 01/29/24 07:45 Pulse Ox 96 01/29/24 07:45 O2 Del Method Room Air 01/29/24 07:45 BMI result Body Mass Index 23.1 Const General: cooperative, alert, awake, in distress moderate and respiratory and confusion Nutritional Appearance: underweight Orientation/consciousness: confusion HEENT Head: Yes normocephalic and Yes atraumatic Neck Neck: Yes trachea midline, Yes supple and Yes JVD Resp Effort & Inspection: normal respiratory effort Auscultation: clear to auscultation bilaterally Cardio Jugular venous distension: JVD Palpation: abnormal PMI displaced PMI Rate: regular rate Rhythm: abnormal rhythm regularly irregular Heart sounds: S1 normal heart sound present, S2 normal heart sound present, no click, Gallop heart sound present and no murmurs GI Percussion: Yes normal to percussion Skin General skin exam: no rashes or lesions noted Neuro General: no focal motor deficits and confusion Extrem General: No clubbing, No cyanosis and Yes edema Objective Labs and Meds 01/28/24 05:23 01/29/24 07:58 Lab results: Laboratory Results - last 24 hr 01/29/24 07:58 Sodium 148 H Potassium 4.1 Chloride 111 H Carbon Dioxide 27 Anion Gap 14 BUN 30 H Creatinine 1.62 H Estim Creat Clear Calc 40.4 Estimated GFR 41 Random Glucose 96 Calcium 9.7 B-Natriuretic Peptide 8744 H Progress Note: A&P Assessment and plan (1) Acute exacerbation of CHF (congestive heart failure): Status: Acute Assessment and Plan: Acute cardiac decompensation with severe systolic dysfunction. Related to reduced neurohormonal modulation therapy at home and noncompliance. Recommend to resume the same. Has done well with IV diuresis. Continue IV diuresis for 1 more day. Follow-up BMP and BNP tomorrow. Continue current neurohormonal modulation as prescribed. Agree with palliative care evaluation. Will follow with you Time Spent With Patient Time: Total time managing care of this patient today ____ minutes. Progress Note: Quality Stroke Does the patient have a stroke diagnosis?: No Procedures Date of Service Date of Service: 01/29/24
--- NOTE | 2024-01-29 10:47 | PM.PNCARD ---
Subjective Subjective Date of Service: 01/30/24 Principal diagnosis: Decompensated CHF. Physical Exam Vital Signs: Last Vital Signs Temp 97.2 F 01/29/24 07:45 Pulse 77 01/29/24 10:42 Resp 18 01/29/24 07:45 BP 135/91 H 01/29/24 10:42 Pulse Ox 96 01/29/24 10:42 O2 Del Method Room Air 01/29/24 07:45 BMI result Body Mass Index 23.1 Objective Labs and Meds 01/28/24 05:23 01/30/24 05:48 Lab results: Laboratory Results - last 24 hr 01/29/24 07:58 Sodium 148 H Potassium 4.1 Chloride 111 H Carbon Dioxide 27 Anion Gap 14 BUN 30 H Creatinine 1.62 H Estim Creat Clear Calc 40.4 Estimated GFR 41 Random Glucose 96 Calcium 9.7 B-Natriuretic Peptide 8744 H Progress Note: A&P Time Spent With Patient Time: Total time managing care of this patient today ____ minutes. Progress Note: Quality Stroke Does the patient have a stroke diagnosis?: No Procedures Date of Service Date of Service: 01/30/24
--- NOTE | 2024-01-29 10:49 | MHC.CM.PN ---
PT is recommending home with family support and MD mentioned ? of Palliative care;a referral has been made to NA and CM will continue to follow.
--- NOTE | 2024-01-29 12:01 | P.PNIM_ITS ---
Subjective Subjective Date of Service: 01/29/24 Interval History: Seen and evaluated this morning feels little better improving dyspnea with exertion but otherwise ok swelling improving in LE Review of Systems Review of Systems: Yes all other systems are reviewed and are negative Physical Exam 2 Vital Signs: Vital Signs: Last Vital Signs Temp 98.1 F 01/29/24 11:14 Pulse 62 01/29/24 11:14 Resp 16 01/29/24 11:14 BP 113/60 01/29/24 11:14 Pulse Ox 96 01/29/24 11:14 O2 Del Method Room Air 01/29/24 11:14 BMI result Body Mass Index 23.1 Const: Other: Constitutional : Awake, interactive, not in distress Neck : Normal inspection, Supple Cardiovascular : RRR, no JVP, +1 bilateral extremity edema Respiratory : good bilateral air entry, no crackles, wheezes or rhonchi Gastrointestinal: soft, lax, Normal bowel sounds, Non tender Skin : Warm, Dry Neurological : Alert & oriented to self and place, No focal deficit Objective Data Active Medications Acetaminophen (Acetaminophen 325 Mg Tablet) 650 mg PO Q6H PRN PRN Reason: Pain, Mild (Pain Scale 1-3), fever or headache Amiodarone HCl (Amiodarone Hcl 200 Mg Tablet) 200 mg PO DAILY FORMERLY [facility], [facility]1983 Last Admin: 01/29/24 09:28 Dose: 200 mg Documented By: SILVIA Calcium Carbonate (Calcium Carbonate 750 Mg Tab.Chew) 750 mg PO Q4H PRN PRN Reason: Heartburn Colchicine (Colchicine 0.6 Mg Tablet) 0.6 mg PO DAILY FORMERLY [facility], [facility]1983 Last Admin: 01/29/24 09:28 Dose: 0.6 mg Documented By: SILVIA Enoxaparin Sodium (Enoxaparin Sodium 40 Mg/0.4 Ml Syringe) 40 mg SUBCUT Q24H FOR[facility]LY [facility], [facility]1983 Last Admin: 01/28/24 20:35 Dose: 40 mg Documented By: MARY Furosemide 200 mg/ Sodium (Chloride) 100 mls @ 2.5 mls/hr IVCONT .Q24H FORMERLY [facility], [facility]–1983 Last Admin: 01/28/24 12:00 Dose: 5 mg/hr, 2.5 mls/hr Documented By: ALYSON Magnesium Hydroxide (Milk Of Magnesia 30 Ml Oral.Susp) 30 ml PO DAILY PRN PRN Reason: Constipation Melatonin (Melatonin 3 Mg Tablet) 6 mg PO BEDTIME PRN PRN Reason: Insomnia Last Admin: 01/28/24 20:36 Dose: 6 mg Documented By: MARY Metoprolol Tartrate (Metoprolol Tartrate 25 Mg Tablet) 25 mg PO BID FORMERLY [facility], [facility]; Protocol Last Admin: 01/29/24 09:28 Dose: 25 mg Documented By: SILVIA Sodium Chloride (0.9 % Sodium Chloride Flush 3 Ml Syringe) 3 ml IVFLUSH QSHIFT FOR[facility]LY [facility], [facility] Last Admin: 01/29/24 09:35 Dose: 3 ml Documented By: SILVIA Spironolactone (Spironolactone 25 Mg Tablet) 25 mg PO DAILY FOR[facility]LY [facility], [facility]; Protocol Last Admin: 01/29/24 09:28 Dose: 25 mg Documented By: SILVIA Valsartan (Valsartan 80 Mg Tablet) 80 mg PO DAILY FOR[facility]LY [facility], [facility]; Protocol Last Admin: 01/29/24 09:28 Dose: 80 mg Documented By: SILVIA Labs 01/28/24 05:23 01/29/24 07:58 Labs: Laboratory Results - last 24 hr 01/29/24 07:58 Anion Gap 14 Estim Creat Clear Calc 40.4 Estimated GFR 41 Random Glucose 96 Calcium 9.7 B-Natriuretic Peptide 8744 H Assessment and Plan (1) Acute exacerbation of CHF (congestive heart failure): Status: Acute (2) CKD stage 3b, GFR 30-44 ml/min: Status: Acute (3) Dilated cardiomyopathy: Status: Acute Plan 78M PMH pafib, CKD IV, dilated cardiomyopathy with EF 10% and LBBB (previously refused AICD), CAD, gout, htn, presented with sob Acute on chronic systolic CHF w CMP EF 10% last Echo Continue IV Lasix drip per cardiology evaluationl Continue beta-malgorzata, ARB, Aldactone Monitor electrolytes PT eval follow BMP & I\O Started discussion about goals of care and palliative approach which family seems to be agreeing with. acute Hypernatremia Na of 148 this morning monitor closely while diuresing urine studies Paroxysmal atrial fibrillation Continue metoprolol, amiodarone was previously on apixaban, no longer on it, patient not sure why. currently in sinus Gout Colchicine Hypertension Metoprolol, Aldactone, valsartan DVT prophylaxis with lovenox Full code The patient will need overnight hospital stay for treatment of CHF exacerbation at risk for further decompensation due to advanced age frailty and reduced EF Quality Stroke Does the patient have a stroke diagnosis?: No VTE Prior VTE?: No VTE Risk Level:: Medical - moderate - high VTE Device Contraindication: Treatment Not Indicated VTE Drug Contraindication: N/A - Med Ordered
[2024-01-29] MEDS: Furosemide 200 MG in 0.9 % Sodium Chloride 80 ML IVCONT (12:20)
[2024-01-29] MEDS: Enoxaparin Sodium 40 MG/0.4 ML SYRINGE SUBCUT (21:20)
[2024-01-30] VITALS: BP 135/82; PULSE 63; RESP 18; TEMP 36.1; O2SAT 93
[2024-01-30 03:42] VITALS: BP 119/74; PULSE 74; RESP 18; TEMP 36.1; O2SAT 96
[2024-01-30 04:31] VITALS: BMI 21.9
[2024-01-30 07:25] VITALS: BP 109/76; PULSE 69; RESP 18; TEMP 36.3; O2SAT 94
[2024-01-30 07:27] LABS: Anion Gap 13 (12-20); Blood Urea Nitrogen 31 mg/dL (9-16); Calcium 9.5 mg/dL (8.4-10.2); Carbon Dioxide 28 mmol/L (22-29); Chloride 109 mmol/L (96-108); Creatinine Clr Calc Pharmacy 35.2; Estimated Glomerular Filt Rate 38; Glucose Random 85 mg/dL (60-115); Potassium 3.6 mmol/L (3.3-5.1); Sodium 146 mmol/L (135-145)
--- NOTE | 2024-01-30 09:07 | PM.DS ---
DS: Providers Provider Date of Service: 01/30/24 Date of admission: 01/27/24 19:33 Date of discharge: 01/30/24 Primary care physician: Deb Pete MD Consults: 01/27/24 19:31 Consult to Cardiology Routine Consulting Provider: [facility] Reason for consultation: chf Has provider been notified: Yes DS: Diagnosis Discharge Diagnosis (1) Acute exacerbation of CHF (congestive heart failure): Status: Acute (2) CKD stage 3b, GFR 30-44 ml/min: Status: Acute (3) Dilated cardiomyopathy: Status: Acute DS: Summary Hospital Course Hospital Course: Admission note HPI 78M PMH pafib, CKD IV, dilated cardiomyopathy with EF 10% and LBBB (previously refused AICD), CAD, gout, htn, presented with sob. patient is vague historian. reports Feeling short of breath over the last few days to weeks. Worse on exertion, worse on lying down. Denies any chest pain. Reports increased lower extremity swelling. Reports compliance with medications. Denies fever or chills. Outpatient labs revealed elevated BNP above 10,000, told to come to ED. Hospital course - Acute on chronic systolic congestive heart failure with Cardiomyopathy with EF 10% last Echo as he was treated with IV Lasix drip , beta-malgorzata, ARB, Aldactone as he was evaluated by cardiology who recommended fluid management at home and restart Lasix as it was on hold according to his . Started discussion about goals of care and palliative approach which family seems to be agreeing with and wish to talk to his PCP prior to change it. - Acute Hypernatremia, Na trended down during hospital stay to 146. - Paroxysmal atrial fibrillation, On metoprolol, amiodarone. was previously on apixaban, no longer on it for cost issues probably. currently in sinus. Metoprolol lowered to 25 mg bid with good tolerance and HR control for low BP. to continue with lower dose on discharge. Discharge plan Restart Lasix 40 mg daily Decrease Metoprolol to 25 mg twice daily Continue rest of home medications LOW Salt diet Time Attestation Discharge Coordination Time (in mins): 42 Quality: Safe Use of Opioids Does Pt have an Active Cancer Diagnosis on the Problem List?: No Quality: Stroke Does the patient have a stroke diagnosis?: No Physical Exam Vital Signs: Vital Signs: Last Vital Signs Temp 97.4 F 01/30/24 07:25 Pulse 69 01/30/24 07:25 Resp 18 01/30/24 07:25 BP 109/76 01/30/24 07:25 Pulse Ox 94 01/30/24 07:25 O2 Del Method Room Air 01/30/24 07:25 BMI result Body Mass Index 21.9 Const: Other: Constitutional : Awake, interactive, not in distress Neck : Normal inspection, Supple Cardiovascular : RRR, no JVP, Trace bilateral extremity edema Respiratory : good bilateral air entry, no crackles, wheezes or rhonchi Gastrointestinal: soft, lax, Normal bowel sounds, Non tender Skin : Warm, Dry Neurological : Alert & oriented to self and place, No focal deficit DS: Data Data Completed and Pending Completed studies during hospitalization [Text1]: Procedures [facility] of Cardiac Rhythm, Single (12/01/22) Ultrasonography of Heart with Aorta, Transesophageal (12/01/22) Labs on day of discharge: Laboratory Results - last 24 hr 01/29/24 01/30/24 07:58 05:48 Hold Purple Top SEE NOTE Sodium 146 H Potassium 3.6 Chloride 109 H Carbon Dioxide 27 28 Anion Gap 13 BUN 31 H Creatinine 1.76 H Estim Creat Clear Calc 35.2 Estimated GFR 38 Random Glucose 85 Calcium 9.5 B-Natriuretic Peptide 8744 H Imaging Chest x-ray: Radiologist's impression: ITS Impressions Chest X-Ray 01/27/24 16:49 IMPRESSION: No acute disease. Cardiomegaly without pulmonary edema. Discharge Plan Discharge Anticipated Discharge Date/Time: 01/30/24 09:02 Patient Disposition: Home, Self-Care Discharge Diagnosis: Heart failure exacerbation Referrals: Deb Vital MD [Primary Care Provider] - 1 Week Discharge Medications: Continued (DME) Shower Chair Misc See Rx Instructions .Route Qty: 1 0RF Rx Instructions: As directed (DME) raised toilet seat with arm rest See Rx Instructions .Route .MEDSUPPLY Qty: 1 0RF Rx Instructions: As directed amiodarone 200 mg tablet 200 mg PO DAILY 90 Days Qty: 90 1RF Rx Instructions: Start 200mg daily after completing amiodorone 400mg BID on 12/20 valsartan 160 mg tablet 160 mg PO DAILY Qty: 90 3RF spironolactone 25 mg tablet 25 mg PO DAILY 90 Days Qty: 90 1RF Protocol: Hold for SBP< HOLD for SBP < : 90 colchicine 0.6 mg tablet 0.6 mg PO DAILY furosemide 40 mg tablet 40 mg PO DAILY 90 Days Qty: 90 3RF Protocol: Hold for SBP< HOLD for SBP < : 90 Changed metoprolol tartrate 50 mg tablet 25 mg PO BID 90 Days Qty: 180 1RF Protocol: Hold for SBP/HR < HOLD for SBP < : 90 HOLD for HR < : 60 Discharge Orders: Discharge Order (Routine); Ordered 01/30/24 Ordered By: Tmoas Bailey Diet: Low salt diet Activity on Discharge: As tolerated Stand Alone Forms: Patient Portal Discharge page Print Language: Guyanese Care Plan Goals: Restart Lasix 40 mg daily Decrease Metoprolol to 25 mg twice daily Continue rest of home medications LOW Salt diet To follow up with PCP to discuss goals of care, DNR\DNI Health Concerns: Read below Plan of Treatment: Read below Assessment: Read below
[2024-01-30] MEDS: Metoprolol Tartrate 25 MG TABLET PO (09:27)
[2024-01-30] MEDS: Colchicine 0.6 MG TABLET PO (09:27)
[2024-01-30] MEDS: 0.9 % Sodium Chloride Flush 3 ML SYRINGE IVFLUSH (09:28)
[2024-01-30] MEDS: Amiodarone HCL 200 MG TABLET PO (09:28)
[2024-01-30] MEDS: Valsartan 80 MG TABLET PO (09:28)
[2024-01-30] MEDS: Spironolactone 25 MG TABLET PO (09:28)
--- NOTE | 2024-01-30 10:52 | MHC.CM.PN ---
Pt. has been medically cleared for DC. Family to transport home, DCP is home with family care.
--- NOTE | 2024-01-30 13:12 | PM.PNCARD ---
Subjective Subjective Date of Service: 01/30/24 Principal diagnosis: Decompensated CHF. Interval history: Patient feeling better. Breathing better. Hemodynamically stable. Review of Systems Review of Systems Yes all other systems are reviewed and are negative Physical Exam Vital Signs: Last Vital Signs Temp 97.4 F 01/30/24 07:25 Pulse 69 01/30/24 07:25 Resp 18 01/30/24 07:25 BP 109/76 01/30/24 07:25 Pulse Ox 94 01/30/24 07:25 O2 Del Method Room Air 01/30/24 07:25 BMI result Body Mass Index 21.9 Const Other: Constitutional : Awake, interactive, not in distress Neck : Normal inspection, Supple Cardiovascular : RRR, no JVP, +1 bilateral extremity edema Respiratory : good bilateral air entry, no crackles, wheezes or rhonchi Gastrointestinal: soft, lax, Normal bowel sounds, Non tender Skin : Warm, Dry Neurological : Alert & oriented to self and place, No focal deficit Objective Labs and Meds 01/28/24 05:23 01/30/24 05:48 Lab results: Laboratory Results - last 24 hr 01/30/24 05:48 Hold Purple Top SEE NOTE Sodium 146 H Potassium 3.6 Chloride 109 H Carbon Dioxide 28 Anion Gap 13 BUN 31 H Creatinine 1.76 H Estim Creat Clear Calc 35.2 Estimated GFR 38 Random Glucose 85 Calcium 9.5 B-Natriuretic Peptide Cancelled Progress Note: A&P Assessment and plan (1) Acute exacerbation of CHF (congestive heart failure): Status: Acute Assessment and Plan: Acute congestive heart failure with severe systolic dysfunction in this elderly gentleman who is noncompliant with medication. Discussed with him in his family about importance of compliance with medications. Regular taking medication may reduce hospitalization. Patient is contemplating palliative care at home evaluation. Continue current neurohormonal modulation. Was not able to take Entresto in the past due to cost issues. Also not able to take direct oral anticoagulant therapy due to cost issues. Has history of atrial fibrillation has done well with rhythm control approach continue amiodarone therapy. Continue current diuretic dose. Continue metoprolol, spironolactone and valsartan. Patient plan to be discharged home. Will set up for follow-up in 2 weeks Time Spent With Patient Time: Total time managing care of this patient today ____ minutes. Progress Note: Quality Stroke Does the patient have a stroke diagnosis?: No Procedures Date of Service Date of Service: 01/30/24
== END 2024-01-30 11:26 | disposition home or self-care (01) | DRG 291 ==
LOC: HO.ED 18:33 → HO.EDOVER 19:39 → HO.IMC 01-28 14:06 → HO.EDOVER 01-28 15:10 → HO.IMC 01-28 21:09
PROVIDERS: Physician Assistant; Admitting Provider Internal Medicine; Emergency Provider Student in an Organized Health Care Education/Training Program; PCP Internal Medicine; Visit Provider Student in an Organized Health Care Education/Training Program
DX: I13.0 Hypertensive heart and chronic kidney disease with heart failure and stage 1 through stage 4 chronic kidney disease, or unspecified chronic kidney disease (principal); I50.23 Acute on chronic systolic (congestive) heart failure; N18.4 Chronic kidney disease, stage 4 (severe); E87.0 Hyperosmolality and hypernatremia; R64 Cachexia; I44.7 Left bundle-branch block, unspecified; M10.9 Gout, unspecified; I42.0 Dilated cardiomyopathy; Z68.23 Body mass index [BMI] 23.0-23.9, adult; I48.0 Paroxysmal atrial fibrillation; Z91.148 Patient's other noncompliance with medication regimen for other reason; I25.10 Atherosclerotic heart disease of native coronary artery without angina pectoris; Z79.899 Other long term (current) drug therapy
CPT/HCPCS: 36415; 71046; 80048; 80076; 81003; 82570; 83735; 83880; 83935; 84300; 84484; 85025; 85027; 85610; 93005; 97116; 97163; 99285; J1650; J1940

== ENCOUNTER → 2024-01-27 19:33 | Outpatient (BNV) | payer MEDICARE, SELFPAY ==
[2023-03-13 15:16] VITALS: BP 100/50; BP 108/50; BP 122/64; BMI 23.8
== END ==
PROVIDERS: Admitting Provider Internal Medicine; Emergency Provider Student in an Organized Health Care Education/Training Program; PCP Internal Medicine; Visit Provider Internal Medicine Cardiovascular Disease
DX: I50.21 Acute systolic (congestive) heart failure (principal)
CPT/HCPCS: 93010; 99222; 99233

== ENCOUNTER → 2024-01-27 19:33 | Outpatient (BNV) | payer MEDICARE, SELFPAY ==
[2023-03-13 15:16] VITALS: BP 100/50; BP 108/50; BP 122/64; BMI 23.8
== END ==
PROVIDERS: Admitting Provider Internal Medicine; Emergency Provider Student in an Organized Health Care Education/Training Program; PCP Internal Medicine; Visit Provider Internal Medicine
DX: I50.9 Heart failure, unspecified (principal); N18.32 Chronic kidney disease, stage 3b; I42.0 Dilated cardiomyopathy
CPT/HCPCS: 99223; 99232; 99239

== ENCOUNTER 2024-02-16 13:25 | Outpatient (AMB) | payer MEDICARE, SELFPAY ==
[2023-03-13 15:16] VITALS: BP 100/50; BP 108/50; BP 122/64; BMI 23.8
--- NOTE | 2024-02-16 13:58 | MHC.OFFVIS ---
Vital Signs 02/16/24 13:59 Height 6 ft Weight 162 lb 11.218 oz BMI 22.1 BP 110/60 Blood Pressure Location Lt brachial Position Sitting Pulse 67 Pulse Source Monitor Intake Visit Reasons: f/u Intake Note: pt state that he is still having some Chest pain, Ceiling Insulation Blower Required: No Accompanied by: Spouse Allergies No Known Allergies [No Known Allergies*] Allergy (Verified 01/27/24 16:39) Medication List - Last Reconciled 02/16/24 by Charlene Mccray NP-C amiodarone 200 mg PO DAILY 90 days colchicine 0.6 mg PO DAILY furosemide 40 mg See Protocol PO DAILY 90 days metoprolol tartrate 25 mg See Protocol PO BID 90 days [raised toilet seat with arm rest As directed] Shower Chair As directed spironolactone 25 mg See Protocol PO DAILY 90 days valsartan 160 mg PO DAILY HPI HPI f/u: Details: Tray is a 78-year-old male past medical history of hypertension, hyperlipidemia, paroxysmal AFib, dilated cardiomyopathy, heart failure with reduced EF, coronary artery disease who was recently admitted to [facility] with increased shortness of breath and treated for decompensated heart failure. Was diuresed and sent home with Lasix 40 mg daily. He now presents for follow-up. Today he reports he has been doing okay since his hospital discharge a few weeks ago. He does have some weakness, fatigue, shortness of breath if he over exerts. He denies shortness of breath at rest, no PND, orthopnea. He does have lower leg edema which is tells me is much improved. He denies having any chest discomfort at rest or with activity. No palpitations, lightheadedness, presyncope, syncope, falls. He is describing movement in his abdomen which sounds like gas bubbles. He has been mostly sedentary. He says he takes his meds as directed. and daughter are present. They report that he has been doing better lately. [facility] Medical History CKD stage 3b, GFR 30-44 ml/min Paroxysmal atrial fibrillation CKD (chronic kidney disease) stage 4, GFR 15-29 ml/min Dilated cardiomyopathy Acute exacerbation of CHF (congestive heart failure) Atrial fibrillation with rapid ventricular response B12 deficiency Essential hypertension CAD (coronary artery disease) Obesity Chronic systolic HF (heart failure) Hypertension Nonischemic cardiomyopathy Hypercholesteremia Surgical History History of cardiac cath (~05/2016) H/O hernia repair Family History Father Hypertension Mother Stomach cancer Social History Household Members: Family Housing: House Housing Other:: lives in a 2 family home per pt Do you presently have visiting nurse or other home services: No (confused--unable toassess) Alcohol intake: never Patient Tobacco Use Status: Never used Tobacco e-Cigarette/Vaping Use: Never Used Second Hand Smoke Exposure: No (n/a) Advance Directives Date on File: 05/28/22 service: No Current occupational status: retired Cognitive needs: No Hearing needs: No Vision needs: No Review of Systems Const All systems reviewed & are unremarkable except as noted in HPI and below Denies chills, Reports fatigue, Denies fever(s), Denies frequent falls, Reports weakness, Denies weight gain and Denies weight loss ENT Denies dizziness Card Denies chest pain, Reports leg edema, Denies lightheadedness, Denies palpitations, Denies dyspnea and Reports dyspnea on exertion Resp Denies cough, Denies dyspnea and Reports dyspnea on exertion GI Denies hematochezia Musc Denies abnormal gait, Reports muscle weakness, Denies numbness, Denies radiating pain into limb and Denies tingling Neuro Denies abnormal gait, Denies dizziness, Denies frequent falls, Denies numbness, Denies tingling and Reports weakness Endo Reports fatigue and Denies palpitations Physical Exam Vital Signs: Last Vital Signs Pulse 67 02/16/24 13:59 BP 110/60 02/16/24 13:59 BMI result Body Mass Index 22.1 Const General: cooperative, healthy appearing, comfortable and no acute distress Orientation/consciousness: patient oriented x3 Neck Neck: Yes normal visual inspection and Yes no JVD Resp Effort & Inspection: normal respiratory effort Auscultation: clear to auscultation bilaterally, no rales, no rhonchi and no wheezes Cardio Jugular venous distension: no JVD Rate: regular rate Rhythm: regular rhythm Heart sounds: S1 normal heart sound present, S2 normal heart sound present, no murmurs and no rubs Neuro General: patient oriented x3 Extrem Other: edema in lower legs with deep sock markings, 2+ pitting. - improved per family Psych Appearance: grossly normal Mental Status: mental status grossly normal Speech and movement: Normal speech and movement present Office Procedures EKG Details: Today, read by me, sinus rhythm with PACs LVH with QRS widening, possible anterior infarct, rate 67, JT index 109.6 [id number], Complete Assessment & Plan Assessment & Plan (1) Chronic systolic HF (heart failure): Code(s): I50.22 - Chronic systolic (congestive) heart failure Category: Medical Plan: History of advanced systolic heart failure most likely related to hypertension, secondary to nonischemic cardiomyopathy. Last echocardiogram 12/05/2022 showing EF 10-15%, moderate to severe mitral regurgitation. He was admitted to [facility] on 01/27/2024 with increasing shortness of breath and treated for decompensated [place] [address]. He was diuresed and discharged with Lasix 40 mg daily . Last labs 01/30/2024 showed potassium 3.6, creatinine 1.76 which is similar to prior recent values. Today he reports that he has been doing well since discharge. He is mostly sedentary. He has some shortness of breath if he over exerts. He has sock markings present. No rales on exam. Instructed family to give him additional dose of Lasix for 3 days if he has any increase in shortness of breath, edema or weight. Spent time reviewing signs and symptoms of heart failure. Will have him continue on metoprolol, valsartan, spironolactone for neurohormonal modulation. Emergency care if needed for symptoms. Cardiology office visit in 2 months, sooner if needed (2) Dilated cardiomyopathy: Code(s): I42.0 - Dilated cardiomyopathy Category: Medical Plan: As above (3) Paroxysmal atrial fibrillation: Code(s): I48.0 - Paroxysmal atrial fibrillation Category: Medical Plan: History of paroxysmal atrial fibrillation. Currently being treated with rhythm control. He is on amiodarone for rhythm control. He is on metoprolol for heart rate control. EKG done today is showing sinus rhythm with PACs, rate 67, JT index 109.6. No reports of heart palpitations. He is no longer on anticoagulation due to the high cost. Stroke risk off of anticoagulation reviewed with him. (4) On amiodarone therapy: Code(s): Z79.899 - Other intermediate accountant (current) drug therapy Category: Medical Plan: Labs done 01/27/2024 showed AST 23, ALT 16, labs 06/09/2023 showed TSH 2.61. Chest x-ray 01/27/2024 showed no acute disease, cardiomegaly without pulmonary edema. (5) CAD (coronary artery disease): Code(s): I25.10 - Atherosclerotic heart disease of [place] coronary artery without angina pectoris Category: Medical Qualifiers: Coronary Disease-Associated Artery/Lesion type: [place] artery [place] vs. transplanted heart: [place] heart Associated angina: without angina Qualified Code(s): I25.10 - Atherosclerotic heart disease of [place] coronary artery without angina pectoris Plan: Stable with no reports of anginal sounding symptoms. He is on atorvastatin with ideal LDL goal less than 70. He is on metoprolol tartrate 25 mg b.i.d.. (6) High cholesterol: Code(s): E78.00 - Pure hypercholesterolemia, unspecified Category: Medical Plan: [place] LDL goal less than 70. Labs done on 03/13/2023 showed LDL 63. Continue atorvastatin. (7) Hospital discharge follow-up: Code(s): Z09 - Encounter for follow-up examination after completed treatment for conditions other than malignant neoplasm Category: Medical Plan: As above Plan Time spent on chart review, documentation, interview and assessment Coding Level of Care Code Est Pt Level 4 (10516) Diagnoses Chronic systolic HF (heart failure) I50.22 Dilated cardiomyopathy I42.0 Paroxysmal atrial fibrillation I48.0 On amiodarone therapy Z79.899 Coronary artery disease involving [place] coronary artery of [place] heart without angina pectoris I25.10 Coronary Disease-Associated Artery/Lesion type: [place] artery [place] vs. transplanted heart: [place] heart Associated angina: without angina High cholesterol E78.00 Hospital discharge follow-up Z09 CPT Codes EKG - CPT: [id number], Complete ([id number]) Time Spent (min) 36
[2024-02-16 13:59] VITALS: BP 110/60; PULSE 67; BMI 22.1
== END 2024-02-16 14:35 | disposition home or self-care (01) ==
PROVIDERS: PCP Internal Medicine; Visit Provider Nurse Practitioner Family
DX: I50.22 Chronic systolic (congestive) heart failure (principal); I42.0 Dilated cardiomyopathy; I48.0 Paroxysmal atrial fibrillation; Z79.899 Other long term (current) drug therapy; I25.10 Atherosclerotic heart disease of native coronary artery without angina pectoris; E78.00 Pure hypercholesterolemia, unspecified; Z09 Encounter for follow-up examination after completed treatment for conditions other than malignant neoplasm
CPT/HCPCS: 93010; 99214

== ENCOUNTER → 2024-02-16 13:25 | Outpatient (BNVA) | payer MEDICARE, SELFPAY ==
[2023-03-13 15:16] VITALS: BP 100/50; BP 108/50; BP 122/64; BMI 23.8
== END ==
PROVIDERS: PCP Internal Medicine; Visit Provider Nurse Practitioner Family
DX: I48.0 Paroxysmal atrial fibrillation (principal); I42.9 Cardiomyopathy, unspecified; I25.10 Atherosclerotic heart disease of native coronary artery without angina pectoris; I11.0 Hypertensive heart disease with heart failure; I50.22 Chronic systolic (congestive) heart failure; I42.0 Dilated cardiomyopathy; E78.5 Hyperlipidemia, unspecified; E78.00 Pure hypercholesterolemia, unspecified; Z09 Encounter for follow-up examination after completed treatment for conditions other than malignant neoplasm; Z79.899 Other long term (current) drug therapy
CPT/HCPCS: 93005; 99212

== ENCOUNTER 2024-04-19 10:34 | Outpatient (AMB) | payer MEDICARE, SELFPAY ==
[2023-03-13 15:16] VITALS: BP 100/50; BP 108/50; BP 122/64; BMI 23.8
--- NOTE | 2024-04-19 10:36 | MHC.PC.OV ---
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 Accompanied by: Spouse Allergies No Known Allergies [No Known Allergies*] Allergy (Verified 04/19/24 11:10) Medication List - Last Reconciled 04/19/24 by Deb Pete MD amiodarone 200 mg PO DAILY 90 days colchicine 0.6 mg PO DAILY furosemide 40 mg See Protocol PO DAILY 90 days metoprolol tartrate 25 mg See Protocol PO BID 90 days [raised toilet seat with arm rest As directed] Shower Chair As directed spironolactone 25 mg See Protocol PO DAILY 90 days valsartan 160 mg PO DAILY Tobacco use date assessed: 11/23/23 Fall risk assessment: No Falls in past year Last assessed Fall Risk: 04/19/24 Dental Screening Dental Screen Date: 04/19/24 Did you have a dental visit in the last 12 months?: No Did you have a dental problem in the last 6 months where you did not have access to dental care?: No Was dental information given to patient?: Patient has dentist HPI HPI Comments History of Present Illness Details This is a 78-year-old male with chronic systolic congestive heart failure, atrial fibrillation with rapid ventricular response, malnutrition, anemia of chronic kidney disease and chronic kidney disease stage 3 that comes today accompanied by for follow-up on his conditions. He complains of a decrease in appetite with some nausea. Has lost over 20 lb due to this matter. Also has intentional headaches with no neurological deficit. Last BNP was elevated and this will be repeated. Seems euvolemic today. He follows with cardiology for his congestive heart failure and atrial fibrillation. I did order echocardiogram. Will benefit from having Ensure due to malnutrition. Hemoglobin will be monitor and he denies any active bleeding. Will be referred to Nephrology for his chronic kidney disease. [facility] Medical History (Updated 04/19/24 @ 12:16 by Deb Pete MD) Atrial fibrillation with rapid ventricular response CKD stage 3b, GFR 30-44 ml/min Paroxysmal atrial fibrillation CKD (chronic kidney disease) stage 4, GFR 15-29 ml/min Dilated cardiomyopathy Acute exacerbation of CHF (congestive heart failure) B12 deficiency Essential hypertension CAD (coronary artery disease) Obesity Chronic systolic HF (heart failure) Hypertension Nonischemic cardiomyopathy Hypercholesteremia Surgical History History of cardiac cath (~05/2016) H/O hernia repair Family History Father Hypertension Mother Stomach cancer Social History Household Members: Family Housing: House Housing Other:: lives in a 2 family home per pt Do you presently have visiting nurse or other home services: No (confused--unable toassess) Alcohol intake: never Patient Tobacco Use Status: Never used Tobacco e-Cigarette/Vaping Use: Never Used Second Hand Smoke Exposure: No (n/a) Advance Directives Date on File: 05/28/22 service: No Current occupational status: retired Cognitive needs: No Hearing needs: No Vision needs: No Questionnaire Thrive Questionnaire Date Thrive assessed: 01/28/24 BEAR-7 AMB Questionnaire BEAR-7 Date BEAR - 7 assessed: 11/23/23 Source: Developed by Drs. Denilson Murillo, Rosio Munoz, Neno Walsh and colleagues, with an educational radha from [employer]. Review of Systems Const All systems reviewed & are unremarkable except as noted in HPI and below Reports headache(s), Reports poor appetite and Reports weakness ENT Reports headache(s) Card Denies chest pain at rest, Denies chest pain with activity, Denies edema, Denies irregular heart rhythm, Denies claudication, Denies dyspnea, Denies dyspnea on exertion, Denies orthopnea, Denies paroxysmal nocturnal dyspnea and Denies slow heart rate Resp Denies cough, Denies dyspnea and Denies dyspnea on exertion GI Reports nausea Neuro Reports headache(s) and Reports weakness Physical exam (Primary Care) Vital Signs: Last Vital Signs BP 110/72 04/19/24 10:37 BMI result Body Mass Index 20.2 Tobacco/Smoking Status: Tobacco use Status Tobacco use date assessed 11/23/23 04/19/24 10:37 Patient Tobacco Use Status Never used Tobacco 04/19/24 10:37 e-Cigarette/Vaping Use Never Used 04/19/24 10:37 Thrive Assessment: Date of Thrive Assessment Date Thrive assessed 01/28/24 04/19/24 10:37 Const General: ill appearing chronically Nutritional Appearance: malnourished Resp Effort & Inspection: normal respiratory effort Auscultation: clear to auscultation bilaterally Cardio Jugular venous distension: no JVD Rate: regular rate Rhythm: regular rhythm Heart sounds: Murmur heart sound present diastolic Extrem General: Yes full ROM Office Procedures Flu Questionnaire Does the patient have a severe egg allergy?: No Immunizations Fluarix Triv [id number] (PF) 45 mcg (15 mcg x 3)/0.5 mL IM syringe Performing Provider: Deb Pete MD Per[facility] [place] [facility] Documented (not given) by: RONY Becerra on 04/19/24 10:41 Reason Not Given: Patient Refused Coding Level of Care Code Est Pt Level 4 (01855) Complex EM visit Add On G2211 Diagnoses Stage 3b chronic kidney disease N18.32 Chronic kidney disease stage 3 subtype: stage 3b (GFR 30-44) Chronic systolic HF (heart failure) I50.22 Malnutrition E46 Anemia of chronic disease D63.8 Atrial fibrillation with rapid ventricular response I48.91 Time Spent (min) 25 Assessment & Plan Assessment & Plan (1) CKD (chronic kidney disease) stage 3, GFR 30-59 ml/min: Code(s): N18.30 - Chronic kidney disease, stage 3 unspecified Category: Medical Qualifiers: Chronic kidney disease stage 3 subtype: stage 3b (GFR 30-44) Qualified Code(s): N18.32 - Chronic kidney disease, stage 3b Plan: Referred to nephrology. Avoid NSAIDs. Keep blood pressure less than 130/80. (2) Chronic systolic HF (heart failure): Code(s): I50.22 - Chronic systolic (congestive) heart failure Category: Medical Plan: Repeat echocardiogram. The goal is to not gain 5 lb in a week. (3) Malnutrition: Code(s): E46 - Unspecified protein-calorie malnutrition Category: Medical Plan: Start Ensure. (4) Anemia of chronic disease: Code(s): D63.8 - Anemia in other chronic diseases classified elsewhere Category: Medical Plan: Monitor hemoglobin. (5) Atrial fibrillation with rapid ventricular response: Code(s): I48.91 - Unspecified atrial fibrillation Category: Medical Plan: Continue amiodarone. Follow-up with Cardiology. Orders: Orders Thyroid Stimulating Hormone Today R79.89 - Other specified abnormal findings of blood chemistry Complete Blood Count Auto Diff Today D63.8 - Anemia in other chronic diseases classified elsewhere, D64.9 - Anemia, unspecified IRON PROFILE Today D63.8 - Anemia in other chronic diseases classified elsewhere, D64.9 - Anemia, unspecified Uric Acid Today M10.9 - Gout, unspecified Influenza [id number] Immunization Today Z23 - Encounter for immunization CA echo transthoracic complete Today I50.22 - Chronic systolic (congestive) heart failure, R79.89 - Other specified abnormal findings of blood chemistry NT-proBNP Today I50.22 - Chronic systolic (congestive) heart failure Comprehensive [place]. Panel Fast Today I50.22 - Chronic systolic (congestive) heart failure Lipid Panel Today E78.5 - Hyperlipidemia, unspecified, I50.22 - Chronic systolic (congestive) heart failure Free T4 (Free Thyroxine) Today R79.89 - Other specified abnormal findings of blood chemistry Referrals Nephrology Referral N18.30 - Chronic kidney disease, stage 3 unspecified Medications: New food supplemt, lactose-reduced (Ensure oral liquid) 1 ea PO .twice a day 5,688 mL 11RF 24 days E46 - Unspecified protein-calorie malnutrition, I50.22 - Chronic systolic (congestive) heart failure, N18.9 - Chronic kidney disease, unspecified
[2024-04-19 10:37] VITALS: BP 110/72; BMI 20.2
== END 2024-04-19 11:23 | disposition home or self-care (01) ==
LOC: HO.HMCH 10:34
PROVIDERS: PCP Internal Medicine; Visit Provider Internal Medicine
DX: N18.32 Chronic kidney disease, stage 3b (principal); I50.22 Chronic systolic (congestive) heart failure; E46 Unspecified protein-calorie malnutrition; I48.91 Unspecified atrial fibrillation; D63.8 Anemia in other chronic diseases classified elsewhere

== ENCOUNTER → 2024-04-19 10:34 | Outpatient (BNVA) | payer MEDICARE, SELFPAY ==
[2023-03-13 15:16] VITALS: BP 100/50; BP 108/50; BP 122/64; BMI 23.8
== END ==
PROVIDERS: PCP Internal Medicine; Visit Provider Internal Medicine
DX: N18.32 Chronic kidney disease, stage 3b (principal); I50.22 Chronic systolic (congestive) heart failure; E46 Unspecified protein-calorie malnutrition; D63.8 Anemia in other chronic diseases classified elsewhere; I48.91 Unspecified atrial fibrillation
CPT/HCPCS: 90471; 99212

== ENCOUNTER 2024-06-10 10:48 | Outpatient (AMB) | payer MEDICARE, SELFPAY ==
[2023-03-13 15:16] VITALS: BP 100/50; BP 108/50; BP 122/64; BMI 23.8
--- NOTE | 2024-06-10 10:58 | HO.NEPHOV ---
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 Bey consultation and transfer care for management of his chronic kidney disease. He is 79 years of age who has history of coronary artery disease as well as cardiomyopathy. He has history of systolic heart failure. He is on multiple medications including angiotensin receptor malgorzata. His ejection fraction has been around 15-20% in the past. He denies having any significant proteinuria. He does not carry a diagnosis of amyloidosis. He denies having orthostatic symptoms, chest pain, shortness of breath, nausea, vomiting, diarrhea, hematuria, history of had active malignancy, excessive intake of nonsteroidal anti-inflammatories. His serum creatinine had been fluctuant, recent one being 1.76. He denied any active complaints at the time of this office visit. He was accompanied by his family member. [facility] Medical History (Updated 07/03/24 @ 18:28 by Travis Crespo MD) Hypertension Atrial fibrillation with rapid ventricular response CKD stage 3b, GFR 30-44 ml/min Paroxysmal atrial fibrillation CKD (chronic kidney disease) stage 4, GFR 15-29 ml/min Dilated cardiomyopathy Acute exacerbation of CHF (congestive heart failure) B12 deficiency Essential hypertension CAD (coronary artery disease) Obesity Chronic systolic HF (heart failure) Nonischemic cardiomyopathy Hypercholesteremia Surgical History History of cardiac cath (~05/2016) H/O hernia repair Family History Father Hypertension Mother Stomach cancer Social History Household Members: Family Housing: House Housing Other:: lives in a 2 family home per pt Do you presently have visiting nurse or other home services: No (confused--unable toassess) Alcohol intake: never Patient Tobacco Use Status: Never used Tobacco e-Cigarette/Vaping Use: Never Used Second Hand Smoke Exposure: No (n/a) Advance Directives Date on File: 05/28/22 service: No Current occupational status: retired Cognitive needs: No Hearing needs: No Vision needs: No Review of Systems Const All systems reviewed & are unremarkable except as noted in HPI and below Physical Exam Vital Signs: Last Vital Signs BP 112/60 06/10/24 10:59 BMI result Body Mass Index 21.1 Const General: comfortable and no acute distress Orientation/consciousness: patient oriented x3 HEENT Head: Yes normocephalic Mouth: Normal oral and palatal mucosa present Eyes EOM: EOMs intact bilaterally Neck Neck: Yes supple Resp Auscultation: clear to auscultation bilaterally Cardio Jugular venous distension: no JVD Rate: regular rate Heart sounds: Murmur heart sound present GI Palpation (GI): Soft to palpation Auscultation: normal bowel sounds General: Yes no CVA tenderness Back/Spine/Pelvis Back: no CVA tenderness Skin General skin exam: no rashes or lesions noted Neuro General: patient oriented x3 and moves all extremities Extrem General: Yes no pedal edema Results Reviewed Nephrology Results: Hgb 13.7 g/dl (14.0-18.0) L 01/28/24 WBC 4.0 X10*3/uL (4.8-10.8) L 01/28/24 Plt Count 173 X10*3/uL (160-400) 01/28/24 Sodium 146 mmol/L (135-145) H 01/30/24 Potassium 3.6 mmol/L (3.3-5.1) 01/30/24 Chloride 109 mmol/L (96-108) H 01/30/24 Carbon Dioxide 28 mmol/L (22-29) 01/30/24 BUN 31 mg/dL (9-16) H 01/30/24 Creatinine 1.76 mg/dL (0.5-1.4) H 01/30/24 Calcium 9.5 mg/dL (8.4-10.2) 01/30/24 Urine Protein Negative mg/dL (Neg-Trace) 01/27/24 Urine Creatinine 23.91 mg/dL 01/27/24 Assessment & Plan Assessment & Plan (1) CKD (chronic kidney disease) stage 3, GFR 30-59 ml/min: Code(s): N18.30 - Chronic kidney disease, stage 3 unspecified Category: Medical Qualifiers: Chronic kidney disease stage 3 subtype: stage 3b (GFR 30-44) Qualified Code(s): N18.32 - Chronic kidney disease, stage 3b (2) Anemia of chronic disease: Code(s): D63.8 - Anemia in other chronic diseases classified elsewhere Category: Medical (3) Hypertension: Code(s): I10 - Essential (primary) hypertension Category: Medical Qualifiers: Hypertension type: primary hypertension Qualified Code(s): I10 - Essential (primary) hypertension Plan Mr Bey has CKD 3 likely due to vascular disease as well as loss of renal function from his reduced renal perfusion from cardiomyopathy. His urine output is good. He is on valsartan. He denies any active ongoing orthostasis. His blood pressure is at goal. I have ordered CKD blood work for follow-up. I plan to cut back on his valsartan and introduce SGLT2 inhibitor Farxiga at the next visit. He should avoid excessive sodium in the diet and weigh himself every day. I did not make any medication changes at this office visit put discussed all the future management strategies. Answered all questions. Follow-up appointment given. Orders: Orders Complete Blood Count Auto Diff 3 Months N18.32 - Chronic kidney disease, stage 3b Electrolytes 3 Months N18.32 - Chronic kidney disease, stage 3b Protein Creatinine Ratio, Ur 3 Months N18.32 - Chronic kidney disease, stage 3b Immunofixation Pnl, Serum 3 Months N18.32 - Chronic kidney disease, stage 3b Creatinine 3 Months N18.32 - Chronic kidney disease, stage 3b Blood Urea Nitrogen 3 Months N18.32 - Chronic kidney disease, stage 3b Calcium 3 Months N18.32 - Chronic kidney disease, stage 3b Parathyroid Hormone Intact 3 Months N18.32 - Chronic kidney disease, stage 3b Vitamin D 25-OH Total 3 Months N18.32 - Chronic kidney disease, stage 3b Immunofixation, Random Urine 3 Months N18.32 - Chronic kidney disease, stage 3b Coding Level of Care Code New Pt Level 4 (55329) Diagnoses Stage 3b chronic kidney disease N18.32 Chronic kidney disease stage 3 subtype: stage 3b (GFR 30-44) Anemia of chronic disease D63.8 Primary hypertension I10 Hypertension type: primary hypertension
[2024-06-10 10:59] VITALS: BP 112/60; BMI 21.1
== END 2024-06-10 11:22 | disposition home or self-care (01) ==
PROVIDERS: PCP Internal Medicine; Referring Provider Internal Medicine; Visit Provider Internal Medicine Nephrology
DX: I12.9 Hypertensive chronic kidney disease with stage 1 through stage 4 chronic kidney disease, or unspecified chronic kidney disease (principal); N18.32 Chronic kidney disease, stage 3b; D63.1 Anemia in chronic kidney disease
CPT/HCPCS: 99204

== ENCOUNTER → 2024-06-10 10:48 | Outpatient (BNVA) | payer MEDICARE, SELFPAY ==
[2023-03-13 15:16] VITALS: BP 100/50; BP 108/50; BP 122/64; BMI 23.8
== END ==
PROVIDERS: PCP Internal Medicine; Referring Provider Internal Medicine; Visit Provider Internal Medicine Nephrology
DX: I13.0 Hypertensive heart and chronic kidney disease with heart failure and stage 1 through stage 4 chronic kidney disease, or unspecified chronic kidney disease (principal); I12.9 Hypertensive chronic kidney disease with stage 1 through stage 4 chronic kidney disease, or unspecified chronic kidney disease; I50.9 Heart failure, unspecified; N18.32 Chronic kidney disease, stage 3b; D63.8 Anemia in other chronic diseases classified elsewhere; I42.9 Cardiomyopathy, unspecified
CPT/HCPCS: 99202

== ENCOUNTER 2024-08-23 09:15 | Outpatient (AMB) | payer MEDICARE, SELFPAY ==
[2023-03-13 15:16] VITALS: BP 100/50; BP 108/50; BP 122/64; BMI 23.8
[2024-08-23 09:19] VITALS: BP 100/62; PULSE 61; BMI 19.4
--- NOTE | 2024-08-23 09:19 | MHC.OFFVIS ---
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 Present Allergies No Known Allergies [No Known Allergies*] Allergy (Verified 08/23/24 11:08) Medication List - Last Reconciled 08/23/24 by Charlene Mccray NP-C amiodarone 200 mg PO DAILY 90 days colchicine 0.6 mg PO DAILY food supplemt, lactose-reduced (Ensure oral liquid) 1 ea PO .twice a day 24 days furosemide 40 mg See Protocol PO DAILY 90 days metoprolol tartrate 25 mg See Protocol PO BID 90 days ondansetron 8 mg PO Q12H PRN 5 days [raised toilet seat with arm rest As directed] Shower Chair As directed spironolactone 25 mg See Protocol PO DAILY 90 days sumatriptan succinate 25 mg PO Q2-4H PRN 30 days valsartan 160 mg PO DAILY HPI HPI f/u: Details: Tray is a 79-year-old male past medical history of hypertension, hyperlipidemia, paroxysmal AFib, dilated cardiomyopathy, heart failure with reduced EF and declines ICD, coronary artery disease who presents for follow-up. Today he reports that he has had no appetite in the last few months. His is present states that he is barely eating and only drinking ensure at times. He has been compliant with his medications. He tells me he will get a sharp pain in his right chest that goes down to his abdomen at times. He is mostly sedentary and sits in the chair much of the day. No shortness of breath, PND, orthopnea or edema. No palpitations, lightheadedness, falls. His primary issue is that he is not hungry. Weight is down 27 lb since his last visit here in January. [facility] Medical History Hypertension Atrial fibrillation with rapid ventricular response CKD stage 3b, GFR 30-44 ml/min Paroxysmal atrial fibrillation CKD (chronic kidney disease) stage 4, GFR 15-29 ml/min Dilated cardiomyopathy Acute exacerbation of CHF (congestive heart failure) B12 deficiency Essential hypertension CAD (coronary artery disease) Obesity Chronic systolic HF (heart failure) Nonischemic cardiomyopathy Hypercholesteremia Surgical History History of cardiac cath (~05/2016) H/O hernia repair Family History Father Hypertension Mother Stomach cancer Social History Household Members: Family Housing: House Housing Other:: lives in a 2 family home per pt Do you presently have visiting nurse or other home services: No (confused--unable toassess) Alcohol intake: never Patient Tobacco Use Status: Never used Tobacco e-Cigarette/Vaping Use: Never Used Second Hand Smoke Exposure: No (n/a) Advance Directives Date on File: 05/28/22 service: No Current occupational status: retired Cognitive needs: No Hearing needs: No Vision needs: No Review of Systems Const All systems reviewed & are unremarkable except as noted in HPI and below Reports fatigue, Reports poor appetite and Reports weight loss ENT Denies dizziness Card Reports chest pain, Denies chest pain at rest, Denies chest pain with activity, Denies rapid heart rate, Denies pedal edema, Denies edema, Denies leg edema, Denies lightheadedness, Denies palpitations, Denies dyspnea, Denies dyspnea on exertion and Denies orthopnea Resp Denies cough, Denies dyspnea and Denies dyspnea on exertion GI Denies hematochezia and Denies change in stool character Musc Denies abnormal gait, Denies limited range of motion, Denies muscle cramps, Denies muscle weakness, Denies numbness, Denies radiating pain into limb, Denies stiffness and Denies tingling Neuro Denies abnormal gait, Denies dizziness, Denies numbness and Denies tingling Endo Reports fatigue and Denies palpitations Physical Exam Vital Signs: BMI result Body Mass Index 19.4 Const Other: Flat affect, visible weight loss, somewhat frail appearance. General: cooperative, comfortable and no acute distress Orientation/consciousness: patient oriented x3 Neck Neck: Yes normal visual inspection Resp Effort & Inspection: normal respiratory effort Auscultation: clear to auscultation bilaterally, no rales, no rhonchi and no wheezes Cardio Jugular venous distension: no JVD Rate: regular rate Rhythm: regular rhythm Heart sounds: S1 normal heart sound present, S2 normal heart sound present, no murmurs and no rubs Neuro General: patient oriented x3 Extrem General: Yes normal to inspection, No no pedal edema and No calf tenderness Psych Appearance: grossly normal Mental Status: mental status grossly normal Speech and movement: Normal speech and movement present Office Procedures EKG Details: Today, read by me, sinus rhythm with first-degree AV block, nonspecific intraventricular conduction delay, can not exclude prior inferior infarct, rate 65, JT index 109.5 [id number], Complete Assessment & Plan Assessment & Plan (1) Chronic systolic HF (heart failure): Code(s): I50.22 - Chronic systolic (congestive) heart failure Category: Medical Plan: History of advanced systolic heart failure most likely related to hypertension, secondary to nonischemic cardiomyopathy. Last echocardiogram 12/05/2022 showing EF 10-15%, moderate to severe mitral regurgitation. He was admitted to [facility] on 01/27/2024 with decompensated heart failure. He was diuresed and discharged with Lasix 40 mg daily. No recurrent admissions since that time. On exam today he does not appear fluid overloaded. He is reporting lack of appetite and is down 27 lb since his last visit. Recommended the increase use of ensure and further discuss with PCP. Lab orders in place and requested that he obtain them. Should check TSH since he is on amiodarone. Spent time reviewing signs and symptoms of heart failure. Will have him continue on metoprolol, valsartan, spironolactone for neurohormonal modulation. Blood pressure 100/62. I will be reducing his valsartan dose. Emergency care if needed for symptoms. Cardiology office visit in 3 months, sooner if needed (2) Dilated cardiomyopathy: Code(s): I42.0 - Dilated cardiomyopathy Category: Medical Plan: Repeat echocardiogram order in place. Patient has declined ICD placement. (3) Paroxysmal atrial fibrillation: Code(s): I48.0 - Paroxysmal atrial fibrillation Category: Medical Plan: History of paroxysmal atrial fibrillation. Currently being treated with rhythm control. He is on amiodarone for rhythm control. He is on metoprolol for heart rate control. EKG done today is showing sinus rhythm with first-degree AV block, intraventricular conduction delay, JT index 109.5. He is no longer on anticoagulation due to the high cost, his decision. Stroke risk off of anticoagulation reviewed with him. 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 Chest x-ray 01/27/2024 showed no acute disease, cardiomegaly without pulmonary edema. Repeat lab orders in place. (5) CAD (coronary artery disease): Code(s): I25.10 - Atherosclerotic heart disease of [place] coronary artery without angina pectoris Category: Medical Qualifiers: Associated angina: without angina Coronary Disease-Associated Artery/Lesion type: [place] artery [place] vs. transplanted heart: [place] heart Qualified Code(s): I25.10 - Atherosclerotic heart disease of [place] coronary artery without angina pectoris Plan: Stable with no reports of anginal sounding symptoms. He is on atorvastatin with ideal LDL goal less than 70. He is on metoprolol tartrate 25 mg b.i.d.. (6) High cholesterol: Code(s): E78.00 - Pure hypercholesterolemia, unspecified Category: Medical Plan: [place] LDL goal less than 70. Labs done on 03/13/2023 showed LDL 63. Continue atorvastatin. Repeat lipid profile order in place. (7) Weight loss: Code(s): R63.4 - Abnormal weight loss Category: Medical Plan: As above Plan Time spent on chart review, documentation, interview and assessment Medications: New valsartan Dose reduced 80 mg PO DAILY 90 days 90 tabs 1RF Discontinued valsartan Discontinued Reason: Doctor's Order 160 mg PO DAILY 90 tabs 3RF E78.00 - Pure hypercholesterolemia, unspecified, E78.5 - Hyperlipidemia, unspecified, I25.10 - Atherosclerotic heart disease of [place] coronary artery without angina pectoris Coding Level of Care Code Est Pt Level 4 (94279) Complex EM visit Add On G2211 Diagnoses Chronic systolic HF (heart failure) I50.22 Dilated cardiomyopathy I42.0 Paroxysmal atrial fibrillation I48.0 On amiodarone therapy Z79.899 Coronary artery disease involving [place] coronary artery of [place] heart without angina pectoris I25.10 Associated angina: without angina Coronary Disease-Associated Artery/Lesion type: [place] artery [place] vs. transplanted heart: [place] heart High cholesterol E78.00 Weight loss R63.4 CPT Codes EKG - CPT: 20047-[id number], Complete ([id number]) Time Spent (min) 32
--- OUTSIDE RECORDS SUMMARY | 2024-08-23 10:11 | XMS_ITS | Encounter Summary ---
Author Organization [facility] Address [address] [facility] [facility] [address] [place] [address] Phone Care Team Providers Care Enterprise Sales Person Name Role Phone Deb Vital MD Primary Care Provider [phone] Reason for Visit * Reason Comments Med Refill Encounter Details Date Type Department Care Team (Late st Contact Info) Description 05/09/2024 [facility]ill [facility] [address] [place] [phone] Jimmie Bartholomew MD [address] [facility] [address] [place] [address] Social History Tobacco Use Types Packs/Day Years Used Date Smoking Tobacco: Never Smokeless Tobacco: Never Alcohol Use Standard Drinks/Week Comments Never 0 (1 standard drink = 0.6 oz pur e alcohol) Sex and Gender Information Value Date Recorded Sex Assigned at Not on file Legal Sex Male 4:59 PM EST Gender Identity Not on file Sexual Orientation Not on file documented as of this encounter Plan of Treatment Not on file documented as of this encounter Visit Diagnoses Not on filedocumented in this encounter Care Teams Enterprise Sales Person Relationship Specialty Start Date End Date Deb Vital MD [address] [place], [place] PCP - General Internal Medicine 06/17/22 documented as of this encounter
--- OUTSIDE RECORDS SUMMARY | 2024-08-23 10:11 | XMS_ITS ---
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 - ICD-10-CM) ACTIVE 12/08/2022 DILATED CARDIOMYOPATHY (I42.0 - ICD-10-CM) ACTIVE 12/08/2022 PURE HYPERCHOLESTEROLEMIA, U NSPECIFIED (E78.00 - ICD-10-CM) ACTIVE 12/08/2022 ESSENTIAL (PRIMARY) HYPERTENSION (I10 - ICD-10-CM) ACT ARMANI 12/08/2022 CARDIOMYOPATHY, UNSPECIFIED (I42.9 - ICD-10-CM) ACTIVE 12/08/2022 OTHER OBESITY (E66.8 - ICD-10-CM) ACTIVE 023 ACUTE ON CHRONIC DIASTOLIC ( CONGESTIVE) HEART FAILURE (I50.33 - ICD-10-CM) ACTIVE 12/08/2022 CHRONIC KIDNEY DISEASE, STAG E 3 UNSPECIFIED (N18.30 - ICD-10-CM) ACTIVE 12/08/2022 HALFWAY (CURRENT) USE OF A NTICOAGULANTS (Z79.01 - ICD-10-CM) ACTIVE 12/08/2022 PRESENCE OF AORTOCORONARY BYPASS GRAFT (Z95.1 - ICD-10 -CM) ACTIVE 12/08/2022 HYPERLIPIDEMIA, UNSPECIFIED (E78.5 - ICD-10-CM) ACTIVE 12/08/2022 OTHER CARDIOMYOPATHIES (I42.8 - ICD-10-CM) ACTIVE 12/08/2022 Encounters Encounter Performer Performer Role Encounter Diagnoses Location Date Discharge - Discharged to home or self care - *Home Care Agency To Be Determined - Private home/apt. with home health services [facility] 12/08/2022 05:18 pm EDT - 12/13/2022 09:00 am EDT Immunizations Vaccine Date TB 2 Step Mantoux Skin Test 12/09/2022 0 1:30 pm EDT Social History
--- OUTSIDE RECORDS SUMMARY | 2024-08-23 10:11 | XMS_ITS | Clinical Summary ---
Author Organization [facility] Address [address] [place] [address] Phone Care Team Providers Care Cytotechnologist Supervisor Name Role Phone Deb Vital MD Primary Care Provider [phone] Allergies No known active allergies Medications atorvastatin (LIPITOR) 20 MG tablet 08/19/2022 Active carvedilol (COREG) 25 MG tablet 08/19/2022 Active furosemide (LASIX) 40 MG tablet 07/18/2022 Active valsartan (DIOVAN) 40 MG tablet Take 40 mg by mouth 09/17/2022 Active cyancobalamine (VITAMIN B-12) 500 MCG tablet Take 500 mcg by mouth 1 (one) time each day Active Empagliflozin (Jardiance) 10 MG tablet Take 10 mg by mouth 1 (one) time each day in the morning Active spironolactone (ALDACTONE) 25 MG tablet Take 25 mg by mouth 1 (one) time each day Active colchicine 0.6 MG tablet Take 1 tablet (0.6 mg total) by mouth 1 (one) time each day 90 tablet 3 08/20/2023 08/19/19 25 Active Problems No known active problems Social History Tobacco Use Types Packs/Day Years Used Date Smoking Tobacco: Never Smokeless Tobacco: Never Tobacco Cessation:Counseling Given: Not Answered Alcohol Use Standard Drinks/Week Comments Never 0 (1 standard drink = 0.6 oz pur e alcohol) Sex and Gender Information Value Date Recorded Sex Assigned at Not on file Legal Sex Male 4:59 PM EST Gender Identity Not on file Sexual Orientation Not on file Last Filed Vital Signs Vital Sign Reading Time Taken Comments Blood Pressure 134/74 08/20/2023 11:10 AM EST Pulse 88 08/20/2023 11:10 AM EST Temperature - - Respiratory Rate - - Oxygen Saturation 96% 10/09/2022 2:14 PM EDT Inhaled Oxygen Concentration - - Weight 84.8 kg (187 lb) 08/20/2023 11:10 AM EST Height - - Body Mass Index - - Plan of Treatment Health Maintenance Due Date Last Done Comments Pneumococcal Vaccine: 65+ Ye ars (1 of 2 - PCV) 1951 Influenza Vaccine (#1) 2024 Hepatitis B Vaccine Aged Out No longe r eligible based on patient's age to complete this topic Insurance [facility] [employer] Care Teams Cytotechnologist Supervisor Relationship Specialty Start Date End Date Deb Vital MD [address] [place] [address] PCP - General Internal Medicine 06/17/22
== END 2024-08-23 10:22 | disposition home or self-care (01) ==
PROVIDERS: PCP Internal Medicine; Visit Provider Nurse Practitioner Family
DX: I50.22 Chronic systolic (congestive) heart failure (principal); I42.0 Dilated cardiomyopathy; I48.0 Paroxysmal atrial fibrillation; Z79.899 Other long term (current) drug therapy; I25.10 Atherosclerotic heart disease of native coronary artery without angina pectoris; E78.00 Pure hypercholesterolemia, unspecified; R63.4 Abnormal weight loss
CPT/HCPCS: 93010; 99214; G2211

== ENCOUNTER → 2024-08-23 09:15 | Outpatient (BNVA) | payer MEDICARE, SELFPAY ==
[2023-03-13 15:16] VITALS: BP 100/50; BP 108/50; BP 122/64; BMI 23.8
== END ==
PROVIDERS: PCP Internal Medicine; Visit Provider Nurse Practitioner Family
DX: I13.0 Hypertensive heart and chronic kidney disease with heart failure and stage 1 through stage 4 chronic kidney disease, or unspecified chronic kidney disease (principal); N18.32 Chronic kidney disease, stage 3b; I50.22 Chronic systolic (congestive) heart failure; E46 Unspecified protein-calorie malnutrition; M21.90 Unspecified acquired deformity of unspecified limb; I42.0 Dilated cardiomyopathy; I48.0 Paroxysmal atrial fibrillation; I25.10 Atherosclerotic heart disease of native coronary artery without angina pectoris; E78.00 Pure hypercholesterolemia, unspecified; R63.4 Abnormal weight loss; Z79.899 Other long term (current) drug therapy
CPT/HCPCS: 93005; 96127; 99212

== ENCOUNTER 2024-08-23 10:17 | Outpatient (AMB) | payer MEDICARE, SELFPAY ==
[2023-03-13 15:16] VITALS: BP 100/50; BP 108/50; BP 122/64; BMI 23.8
--- NOTE | 2024-08-23 10:45 | A.OFFPC_ITS ---
Vital Signs 08/23/24 10:47 Height 6 ft Weight 142 lb BMI 19.3 BP 108/66 Blood Pressure Location Lt brachial Position Sitting Intake Visit Reasons: chf Intake Note: Patient here for a follow up CHF Supervisor Harvesting Required: No Accompanied by: Spouse Allergies No Known Allergies [No Known Allergies*] Allergy (Verified 08/23/24 11:08) Medication List - Last Reconciled 08/23/24 by Deb Pete MD amiodarone 200 mg PO DAILY 90 days colchicine 0.6 mg PO DAILY food supplemt, lactose-reduced (Ensure oral liquid) 1 ea PO .twice a day 24 days furosemide 40 mg See Protocol PO DAILY 90 days metoprolol tartrate 25 mg See Protocol PO BID 90 days ondansetron 8 mg PO Q12H PRN 5 days [raised toilet seat with arm rest As directed] Shower Chair As directed spironolactone 25 mg See Protocol PO DAILY 90 days sumatriptan succinate 25 mg PO Q2-4H PRN 30 days valsartan 160 mg PO DAILY Tobacco use date assessed: 08/23/24 Fall risk assessment: No Falls in past year Last assessed Fall Risk: 08/23/24 Dental Screening Dental Screen Date: 08/23/24 Did you have a dental visit in the last 12 months?: No Did you have a dental problem in the last 6 months where you did not have access to dental care?: No Was dental information given to patient?: Patient declined HPI HPI Comments History of Present Illness Details The patient is an 79-year-old male presenting with follow-up concerns regarding his chronic medical conditions. He has a history of stage 3 chronic kidney disease, cardiomyopathy with an ejection fraction of 10-15%, and atrial fibrillation with rapid ventricular response. 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 The patient has observed significant weight loss following a past hospitalization, accompanied by a marked decrease in appetite, though there's been recent improvement. Current medications include amiodarone, colchicine, and other medications for his cardiovascular and renal health. He adheres to using nutritional supplements to support his diet. Consultations with nephrology continue, with the latest assessment noted in May 2024. Although some minor leg swelling is observed, he is primarily asymptomatic concerning his cardiac and renal issues. Notably, the patient exhibits joint deformities, suggesting rheumatoid arthritis-like changes, though he denies associated pain. He has malnutrition due to his multiple chronic conditions and will benefit from continuing Ensure. [facility] Medical History Hypertension Atrial fibrillation with rapid ventricular response CKD stage 3b, GFR 30-44 ml/min Paroxysmal atrial fibrillation CKD (chronic kidney disease) stage 4, GFR 15-29 ml/min Dilated cardiomyopathy Acute exacerbation of CHF (congestive heart failure) B12 deficiency Essential hypertension CAD (coronary artery disease) Obesity Chronic systolic HF (heart failure) Nonischemic cardiomyopathy Hypercholesteremia Surgical History History of cardiac cath (~05/2016) H/O hernia repair Family History Father Hypertension Mother Stomach cancer Social History Household Members: Family Housing: House Housing Other:: lives in a 2 family home per pt Do you presently have visiting nurse or other home services: No (confused--unable toassess) Alcohol intake: never Patient Tobacco Use Status: Never used Tobacco e-Cigarette/Vaping Use: Never Used Second Hand Smoke Exposure: No (n/a) Advance Directives Date on File: 05/28/22 service: No Current occupational status: retired Cognitive needs: No Hearing needs: No Vision needs: No Questionnaire PHQ-9 Over the last 2 weeks, how often have you been bothered by any of the following problems? 1. Little interest or pleasure in doing things: not at all 2. Feeling down, depressed, or hopeless: not at all 3. Trouble falling or staying asleep, or sleeping too much: not at all 4. Feeling tired or having little energy: not at all 5. Poor appetite or overeating: not at all 6. Feeling bad about yourself - or that you are a failure or have let yourself or your family down: not at all 7. Trouble concentrating on things, such as reading the newspaper or watching television: not at all 8. Moving or speaking so slowly that other people could have noticed. Or the opposite - being so fidgety or restless that you have been moving around a lot more than usual: not at all 9. Thoughts that you would be better off or of hurting yourself in some way: not at all Total score: 0 Depression Screening Interpretation: Negative Depression Screening Done: Yes 48921 - PHQ-9 Billing: Yes Source: Developed by Drs. Denilson Murillo, Rosio Munoz, Neno Walsh and colleagues, with an educational radha from [employer]. Thrive Questionnaire Date Thrive assessed: 08/23/24 I am a: Patient What is your living situation today?: I have a steady place to live Within the past 12 months, did the food you bought not last and you didn't have the money to get more?: Never true Within the past 12 months, did you worry whether your food would run out before you got money to buy more?: Never true Do you have trouble paying for medicines?: No Do you have trouble getting transportation to medical appointments?: No Do you have trouble paying your heating and electricity bill?: No Do you have trouble taking care of your child, family member or friend?: No Do you have trouble with day-to-day activities such as bathing, preparing meals, shopping, managing finances, etc.?: No Are you currently unemployed and looking for a job?: No Are you interested in more education?: No Please select the resources that you would like help with: None Currently or been in a relationship where the following occur: No concerns reported THRIVE Score: 0 AUDIT C Alcohol Use Questionnaire (AUDIT-C) 1. How often do you have a drink containing alcohol?: Never Total Score: 0 Score Reviewed/Action Taken: No BEAR-7 AMB Questionnaire BEAR-7 Date BEAR - 7 assessed: 08/23/24 Feeling nervous, anxious, or on edge: 0 = Not at all Not being able to stop or control worryin = Not at all Worrying too much about different things: 0 = Not at all Trouble relaxin = Not at all Being so restless that it is hard to sit still: 0 = Not at all Becoming easily annoyed or irritable: 0 = Not at all Feeling afraid as if something awful might happen: 0 = Not at all Total BEAR-7 score (0-4 normal; 5-9 mild; 10-14 moderate; 15-21 severe): 0 Source: Developed by Drs. Denilson Murillo, Rosio Munoz, Neno Walsh and colleagues, with an educational radha from [employer]. BEAR-7 Assessment Billing BEAR-7 Assessment Tool: BEAR-7 Assessment 69014 Review of Systems Const All systems reviewed & are unremarkable except as noted in HPI and below Card Denies chest pain at rest, Denies chest pain with activity, Denies edema, Denies irregular heart rhythm, Denies claudication, Denies dyspnea, Denies dyspnea on exertion, Denies orthopnea, Denies paroxysmal nocturnal dyspnea and Denies slow heart rate Resp Denies cough, Denies dyspnea and Denies dyspnea on exertion Physical exam (Primary Care) Vital Signs: Last Vital Signs BP 108/66 08/23/24 10:47 BMI result Body Mass Index 19.3 BMI Assessment/Plan discussion: Low BMI Low, Plan discussed: lifestyle, increase calorie intake and dietary Tobacco/Smoking Status: Tobacco use Status Tobacco use date assessed 08/23/24 08/23/24 10:58 Patient Tobacco Use Status Never used Tobacco 08/23/24 10:58 e-Cigarette/Vaping Use Never Used 08/23/24 10:58 PHQ-9: PHQ-9 Score PHQ-9: Total score 0 08/23/24 11:10 Depression Screening Interpretation: Negative Thrive Assessment: Date of Thrive Assessment Date Thrive assessed 08/23/24 08/23/24 10:58 Currently or been in a relationship where the following occur: No concerns reported Resp Effort & Inspection: normal respiratory effort Auscultation: clear to auscultation bilaterally Cardio Jugular venous distension: no JVD Rate: regular rate Rhythm: regular rhythm Heart sounds: S1 normal heart sound present, S2 normal heart sound present and Murmur heart sound present Extrem General: Yes full ROM Coding Level of Care Code Est Pt Level 4 (98098) Complex EM visit Add On G2211 Diagnoses Atrial fibrillation with rapid ventricular response I48.91 Stage 3b chronic kidney disease N18.32 Chronic kidney disease stage 3 subtype: stage 3b (GFR 30-44) Malnutrition E46 Deformity of joint M21.90 Primary hypertension I10 Hypertension type: primary hypertension Chronic systolic HF (heart failure) I50.22 Additional Codes BEAR-7 Assessment Billing - BEAR-7 Assessment Tool: BEAR-7 Assessment 56279 ([id number]) PHQ-9 - 65624 - PHQ-9 Billing: Yes ([id number]) Time Spent (min) 25 Assessment & Plan Assessment & Plan (1) Atrial fibrillation with rapid ventricular response: Code(s): I48.91 - Unspecified atrial fibrillation Category: Medical (2) CKD (chronic kidney disease) stage 3, GFR 30-59 ml/min: Code(s): N18.30 - Chronic kidney disease, stage 3 unspecified Category: Medical Qualifiers: Chronic kidney disease stage 3 subtype: stage 3b (GFR 30-44) Qualified Code(s): N18.32 - Chronic kidney disease, stage 3b (3) Malnutrition: Code(s): E46 - Unspecified protein-calorie malnutrition Category: Medical (4) Deformity of joint: Code(s): M21.90 - Unspecified acquired deformity of unspecified limb Category: Medical (5) Hypertension: Code(s): I10 - Essential (primary) hypertension Category: Medical Qualifiers: Hypertension type: primary hypertension Qualified Code(s): I10 - Essential (primary) hypertension (6) Chronic systolic HF (heart failure): Code(s): I50.22 - Chronic systolic (congestive) heart failure Category: Medical Plan The current treatment regimen for cardiomyopathy and chronic kidney disease remains unchanged. An echocardiogram has been ordered to evaluate cardiac function. Referrals to rheumatology are initiated to assess joint deformities. Nutritional support with Ensure will continue due to past significant weight loss, with ongoing monitoring of nutritional and caloric intake. Laboratory work is planned prior to the next nephrology visit. The patient is advised to monitor symptoms and report any changes. Patient was informed and verbally consented to the use of an ambient scribe for clinic note documentation during this visit. I discussed the patient's ongoing management for cardiomyopathy and kidney disease. The need for an updated echocardiogram was explained to evaluate current cardiac function. I elaborated on the potential autoimmune nature of the joint deformities and recommended a rheumatology evaluation. Nutritional support was reaffirmed with the use of Ensure. We discussed the plan for blood work in coordination with nephrology care. Future monitoring and symptom management strategies were outlined, highlighting the importance of reporting any new symptoms promptly. Orders: Orders Complete Blood Count Auto Diff 4 Months R63.4 - Abnormal weight loss NT-proBNP 4 Months I50.22 - Chronic systolic (congestive) heart failure Comprehensive [place]. Panel Fast 4 Months I50.22 - Chronic systolic (congestive) heart failure Vitamin B12 and Folate 4 Months E53.8 - Deficiency of other specified B group vitamins Vitamin D 25-OH Total 4 Months E55.9 - Vitamin D deficiency, unspecified CA echo transthoracic complete Today I50.22 - Chronic systolic (congestive) heart failure Thyroid Stimulating Hormone 4 Months R63.4 - Abnormal weight loss Referrals Rheumatology Referral M21.90 - Unspecified acquired deformity of unspecified limb Medications: Refilled food supplemt, lactose-reduced (Ensure oral liquid) 1 ea PO .twice a day 5,688 mL 11RF 24 days E46 - Unspecified protein-calorie malnutrition, I50.22 - Chronic systolic (congestive) heart failure, N18.9 - Chronic kidney disease, unspecified Patient Instructions: - Continue current medication regimen as prescribed. - Maintain nutritional supplementation with Ensure as recommended. - Schedule and complete laboratory tests before the next nephrology appointment. - Report any new symptoms or significant changes in health. - Follow recommendations for referred rheumatology evaluation.
[2024-08-23 10:47] VITALS: BP 108/66; BMI 19.3
--- OUTSIDE RECORDS SUMMARY | 2024-08-23 12:27 | XMS_ITS | Clinical Summary ---
Author Organization [facility] Address [address] [place] [address] Phone Care Team Providers Care Etl Tester Name Role Phone Deb Vital MD Primary Care Provider [phone] Allergies No known active allergies Medications atorvastatin [...] patient's age to complete this topic Insurance [facility] MEDICARE [facility] MEDICARE Care Teams Etl Tester Relationship Specialty Start Date End Date Deb Vital MD [address] [place] [address] PCP - General Internal Medicine 06/17/22
--- OUTSIDE RECORDS SUMMARY | 2024-08-23 12:27 | XMS_ITS | Encounter Summary ---
Author Organization [facility] Address [address] [facility] [address] [place] [address] Phone Care Team Providers Care Mold Inspector Name Role Phone Deb Vital MD Primary Care Provider [phone] Reason for Visit * Reason Comments Med Refill Encounter Details Date Type Department Care Team (Late st Contact Info) Description 05/09/2024 Refill [facility] [address] [place] [phone] Jimmie Bartholomew MD [address] [facility] [address] [place] [address] Social History Tobacco Use Types [...] on filedocumented in this encounter Care Teams Mold Inspector Relationship Specialty Start Date End Date Deb Vital MD [address] [place], [place] PCP - General Internal Medicine 06/17/22 documented as of this encounter
== END 2024-08-23 11:22 | disposition home or self-care (01) ==
PROVIDERS: PCP Internal Medicine; Visit Provider Internal Medicine
DX: I12.9 Hypertensive chronic kidney disease with stage 1 through stage 4 chronic kidney disease, or unspecified chronic kidney disease (principal); I48.91 Unspecified atrial fibrillation; N18.32 Chronic kidney disease, stage 3b; E46 Unspecified protein-calorie malnutrition; I50.22 Chronic systolic (congestive) heart failure; M21.90 Unspecified acquired deformity of unspecified limb

== ENCOUNTER 2024-09-02 09:25 | Emergency (ER) | payer MEDICARE, SELFPAY ==
[2023-03-13 15:16] VITALS: BP 100/50; BP 108/50; BP 122/64; BMI 23.8
--- NOTE | ~2024-09-02 | XR_ITS ---
EXAMINATION: XR CHEST CLINICAL INFORMATION: peripheral edema COMPARISON: Chest x-ray 01/09/2024 TECHNIQUE: Frontal view of the chest was obtained. FINDINGS: The lungs are expanded and clear acute process. The heart size is enlarged. Pulmonary vascularity is normal. There is mild degenerative disc changes and hypertrophic osteoarthropathy left lateral humeral joint. XR/XR chest 1V IMPRESSION: Mild cardiomegaly. No acute pulmonary process seen. Moderate to significant degenerative changes left shoulder joint. Electronically signed by: Gavino Moreno MD 09/02/2024 10:16 AM EDT
[2024-09-02 09:34] VITALS: BP 115/61; PULSE 83; RESP 18; TEMP 36.3; O2SAT 97; BMI 21.7
--- NOTE | 2024-09-02 09:48 | ECG_ITS ---
Test Reason : chf Blood Pressure : */* mmHG Vent. Rate : 74 BPM Atrial Rate : 74 BPM P-R Int : 246 ms QRS Dur : 170 ms QT Int : 462 ms P-R-T Axes : 95 -26 128 degrees QTcB Int : 512 ms Sinus rhythm with 1st degree A-V block Right atrial enlargement Left bundle branch block Abnormal ECG When compared with ECG of 27-Jan-2024 16:56, Premature atrial complexes are no longer Present ID interval has increased Referred By: Lasha Weiss Electronically Signed By: DULCE LEMUS
[2024-09-02 10:21] LABS: MANUAL DIFF FLAG NO
--- NOTE | 2024-09-02 10:29 | ED.GENADULT ---
HPI - General Adult General Chief complaint: General Medical Stated complaint: Swelling both feet Time Seen by Provider: 09/02/24 09:48 Source: patient Mode of arrival: ambulatory Limitations: no limitations History of Present Illness HPI narrative: This is an 79-year-old man with a past medical history of paroxysmal atrial fibrillation, CKD, dilated cardiomyopathy with EF 10% and left bundle-branch block (previously refused AICD), CAD, gout, hypertension who presents for evaluation of edema. Patient's family present at time of history and exam. Family states that they noticed a swollen to his feet over the last day or so. They state noting maybe a bit of swelling to his left hand as well, which has since decreased since taking his medications this morning. They state that he has been taking his medications as prescribed. Patient states no chest pain or dyspnea. The patient offers no complaints and states feeling well. They state that he has a walker that he has been using at home. He states that he is somewhat sedentary and does note elevate his legs or use compressive stockings. He states no GI, symptoms or changes to urinary output. Related Data Previous Rx's ?Medication ?Instructions ?Recorded Shower Chair #1 ea 12/17/22 raised toilet seat with arm rest #1 ea 12/17/22 furosemide 40 mg tablet 40 mg PO DAILY 90 days #90 tabs 01/30/24 metoprolol tartrate 50 mg tablet 25 mg PO BID 90 days #180 tabs 01/30/24 amiodarone 200 mg tablet 200 mg PO DAILY 90 days #90 tabs 02/22/24 spironolactone 25 mg tablet 25 mg PO DAILY 90 days #90 tabs 02/22/24 ondansetron 8 mg disintegrating 8 mg PO Q12H PRN nausea and 04/19/24 tablet vomiting 5 days #10 tabs sumatriptan succinate 25 mg tablet 25 mg PO Q2-4H PRN migraine 05/09/24 headache 30 days #9 tabs food supplemt, lactose-reduced 1 ea PO .twice a day 24 days 08/23/24 (Ensure oral liquid) #5,688 mL valsartan 80 mg tablet 80 mg PO DAILY 90 days #90 tabs 08/23/24 colchicine 0.6 mg tablet 0.6 mg PO DAILY 30 days #30 tabs 09/01/24 Allergies Allergy/AdvReac Type Severity Reaction Status Date / Time No Known Allergies Allergy Verified 09/02/24 09:38 [No Known Allergies*] Review of Systems Review of Systems: ROS as per HPI [facility] Past Medical History Medical History Hypertension Atrial fibrillation with rapid ventricular response CKD stage 3b, GFR 30-44 ml/min Paroxysmal atrial fibrillation CKD (chronic kidney disease) stage 4, GFR 15-29 ml/min Dilated cardiomyopathy Acute exacerbation of CHF (congestive heart failure) B12 deficiency Essential hypertension CAD (coronary artery disease) Obesity Chronic systolic HF (heart failure) Nonischemic cardiomyopathy Hypercholesteremia Surgical History History of cardiac cath (~05/2016) H/O hernia repair Family History Family History Father Hypertension Mother Stomach cancer Social History Social History Household Members: Family Housing: House Housing Other:: lives in a 2 family home per pt Do you presently have visiting nurse or other home services: No (confused--unable toassess) Alcohol intake: never Patient Tobacco Use Status: Never used Tobacco e-Cigarette/Vaping Use: Never Used Second Hand Smoke Exposure: No (n/a) Advance Directives: Yes Advance Directives on File: Yes Advance Directives Date on File: 05/28/22 Do you have a plan to hurt others: No Plan service: No Current occupational status: retired Cognitive needs: No Hearing needs: No Vision needs: No Physical Exam ED Vital Signs: Vital Signs - 24 hr 09/02/24 09:34 Temperature 97.4 F Pulse Rate 83 Respiratory Rate 18 Blood Pressure 115/61 Pulse Oximetry 97 Oxygen Delivery Method Room Air BMI result Body Mass Index 21.7 Gen: NAD, AOx3 HEENT: NCAT, EOMI, normal conjunctiva CV: RRR, 1+ peripheral edema to bilateral feet without overlying skin changes, no pretibial pitting edema Pulm: CTAB, no increased work of breathing GI: Soft, NTND, no rebound, guarding or rigidity MSK: No asymmetrical calf edema/erythema/TTP Neuro: Grossly non focal Medical Decision Making Medical Decision Making MDM Narrative: Differential diagnosis includes, but is not limited to CHF exacerbation, dependent edema. Patient is afebrile and hemodynamically stable on room air. Exam is benign and reassuring. I reviewed labs, EKG and chest x-ray as below. Patient does have evidence of chronic kidney disease and in review of the medical chart his serum creatinine as with fluctuated. BNP is elevated, but improved when compared to previous. Patient has does not have any increased work of breathing and chest x-ray is clear of any pleural effusions or pulmonary edema to suggest acute decompensated congestive heart failure. I suspect that these findings are chronic in nature. However, a shared decision-making he is performed with the patient and family regarding potential hospitalization for further medical optimization and given his significantly decreased EF did discuss the option of AICD given risk of fatal arrhythmias. They declined at this time. On re-examination, patient is well-appearing and in no acute distress. ?I have recommended the patient elevate his legs above the level of the heart several times a day as well as to consider using compressive stockings. There is no indication for further emergent evaluation in this otherwise well-appearing patient as above. ?Patient is provided written and verbal instructions, educational materials, recommendations for outpatient follow-up, strict return precautions and teach back is performed. ?Patient states understanding and agreement with plan of care. ?Patient is discharged home in stable and improved condition. Admission/Observation Consideration of admission/observation: Escalation of care including admission/observation considered Lab Data MDM Lab Attestation statement: I reviewed the patient's lab results. Labs demonstrate stable chronic anemia with hemoglobin 11.8 (previous 13.7), thrombocytopenia with platelet count of 138 (previous 173), creatinine 2.24 (previous 1.58-3.38), BNP 7930 (previous 8744). 09/02/24 10:14 09/02/24 10:14 Labs: Lab Results 09/02/24 Range/Units 10:14 WBC 6.4 (4.8-10.8) X10*3/uL RBC 3.55 L (4.60-5.80) X10*6/uL Hgb 11.8 L (14.0-18.0) g/dl Hct 35.0 L (42.0-52.0) % MCV 98.6 H (80.0-98.0) fL MCH 33.2 H (27.0-33.0) pg MCHC 33.7 (31.0-36.0) g/dl RDW 13.9 (11.0-16.0) % Plt Count 138 L (160-400) X10*3/uL MPV 10.9 (9.4-12.4) fL Immature Gran % (Auto) 0.3 (0.0-0.4) % Neut % (Auto) 81.3 H (45-73) % Lymph % (Auto) 4.9 L (20-40) % Mcdonough % (Auto) 13.5 H (2-11) % Eos % (Auto) 0.0 (0-4) % Baso % (Auto) 0.0 (0-2) % Lymph # (Auto) 0.3 L (1.2-4.9) X10*3/uL Mcdonough # (Auto) 0.9 (0.1-1.2) X10*3/uL Eos # (Auto) 0.0 (0.0-0.4) X10*3/uL Baso # (Auto) 0.0 (0.0-0.2) X10*3/uL Abs Immat Gran (auto) 0.02 (0.00-0.03) X10*3/uL Absolute Neuts (auto) 5.2 (2.0-8.3) x10*3/uL Absolute Nucleated RBC 0.000 (0.0-0.012) X10*3/uL Nucleated RBC % (auto) 0.0 (0.0-0.2) /100WBC Hold Blue Top SEE NOTE Sodium 145 (135-145) mmol/L Potassium 4.4 D (3.3-5.1) mmol/L Chloride 112 H (96-108) mmol/L Carbon Dioxide 24 (22-29) mmol/L Anion Gap 13 (12-20) BUN 94 H (9-16) mg/dL Creatinine 2.24 H (0.5-1.4) mg/dL Estim Creat Clear Calc 24.8 Estimated GFR 28 Random Glucose 97 (60-115) mg/dL Calcium 9.8 (8.4-10.2) mg/dL Total Bilirubin 0.3 (0.0-1.0) mg/dL AST 26 (5-37) U/L ALT 17 (0-40) U/L Alkaline Phosphatase 63 (39-117) U/L B-Natriuretic Peptide 7930 H (<100) pg/mL Total Protein 7.7 (6.5-8.0) g/dL Albumin 4.0 (3.5-5.0) g/dL Discharge Plan Discharge Clinical Impression: Edema, peripheral Patient Disposition: Home, Self-Care Instructions: Leg Edema (ED) Additional Instructions: Tray was evaluated in the emergency room. His evaluation was overall reassuring. As we discussed, his vitals including oxygen level were very reassuring, but his blood work did show evidence of his kidney and heart disease. We discussed the option of hospital admission, but you as family felt comfortable taking him home at this time. Please elevate his legs above the level of his heart as much as possible throughout the day. Please also consider purchasing compressive stockings. Please follow up with his primary care, kidney and heart doctor in the next 5-7 days. Please return to the emergency room if develops any new or concerning symptoms including, but not limited to difficulty breathing. Prescriptions: No Action (DME) Shower Chair Misc See Rx Instructions .Route Qty: 1 0RF Rx Instructions: As directed (DME) raised toilet seat with arm rest See Rx Instructions .Route .MEDSUPPLY Qty: 1 0RF Rx Instructions: As directed amiodarone 200 mg tablet 200 mg PO DAILY 90 Days Qty: 90 1RF Rx Instructions: Start 200mg daily after completing amiodorone 400mg BID on 12/20 spironolactone 25 mg tablet 25 mg PO DAILY 90 Days Qty: 90 1RF Protocol: Hold for SBP< HOLD for SBP < : 90 sumatriptan succinate 25 mg tablet 25 mg PO Q2-4H PRN (Reason: migraine headache) 30 Days Qty: 9 0RF Rx Instructions: do not exceed 8 doses per 24 hrs colchicine 0.6 mg tablet 0.6 mg PO DAILY 30 Days Qty: 30 0RF furosemide 40 mg tablet 40 mg PO DAILY 90 Days Qty: 90 3RF Protocol: Hold for SBP< HOLD for SBP < : 90 metoprolol tartrate 50 mg tablet 25 mg PO BID 90 Days Qty: 180 1RF Protocol: Hold for SBP/HR < HOLD for SBP < : 90 HOLD for HR < : 60 ondansetron 8 mg tablet,disintegrating 8 mg PO Q12H PRN (Reason: nausea and vomiting) 5 Days Qty: 10 0RF Ensure Liquid 1 ea PO .twice a day 24 Days Qty: 5688 11RF valsartan 80 mg tablet 80 mg PO DAILY 90 Days Qty: 90 1RF Rx Instructions: Dose reduced Print Language: Congolese
[2024-09-02 10:33] LABS: Hemoglobin 11.8 g/dl (14.0-18.0); Imm Gran Abs Auto 0.02 X10*3/uL (0.00-0.03); Imm Gran Pct Auto 0.3 % (0.0-0.4); Lymphocytes Absolute Auto 0.3 X10*3/uL (1.2-4.9); Lymphocytes Percent Auto 4.9 % (20-40); Mean Corpuscular HGB Conc 33.7 g/dl (31.0-36.0); Mean Corpuscular Hemoglobin 33.2 pg (27.0-33.0); Mean Corpuscular Volume 98.6 fL (80.0-98.0); Mean Platelet Volume 10.9 fL (9.4-12.4); Monocytes Absolute Auto 0.9 X10*3/uL (0.1-1.2); Monocytes Percent Auto 13.5 % (2-11); Neutrophils Absolute Auto 5.2 x10*3/uL (2.0-8.3); Neutrophils Percent Auto 81.3 % (45-73); Platelet Count 138 X10*3/uL (160-400); Red Blood Count 3.55 X10*6/uL (4.60-5.80); Red Cell Distribution Width 13.9 % (11.0-16.0); White Blood Count 6.4 X10*3/uL (4.8-10.8)
[2024-09-02 10:37] LABS: Alanine Aminotransferase 17 U/L (0-40); Alkaline Phosphatase 63 U/L (39-117); Anion Gap 13 (12-20); Aspartate Amino Transferase 26 U/L (5-37); Bilirubin Total 0.3 mg/dL (0.0-1.0); Blood Urea Nitrogen 94 mg/dL (9-16); Calcium 9.8 mg/dL (8.4-10.2); Carbon Dioxide 24 mmol/L (22-29); Chloride 112 mmol/L (96-108); Creatinine Clr Calc Pharmacy 24.8; Estimated Glomerular Filt Rate 28; Glucose Random 97 mg/dL (60-115); Potassium 4.4 mmol/L (3.3-5.1); Sodium 145 mmol/L (135-145); Total Protein 7.7 g/dL (6.5-8.0)
[2024-09-02 11:19] LABS: B Type Natriuretic Peptide 7930 pg/mL (<100)
--- OUTSIDE RECORDS SUMMARY | 2024-09-02 11:30 | XMS_ITS | Encounter Summary ---
Author Organization [facility] Address [address] [facility] [address] [place] [address] Phone Care Team Providers Care Wire Drawing Machine Tender Name Role Phone Deb Vital MD Primary Care Provider [phone] Reason for Visit * Reason Comments Med Refill Encounter Details Date Type Department Care Team (Late st Contact Info) Description 05/09/2024 Refill [facility] [address] [place] [phone] Jimmie Bartholomew MD [address] [facility] [address] [place] [address] Social History Tobacco Use Types [...] on filedocumented in this encounter Care Teams Wire Drawing Machine Tender Relationship Specialty Start Date End Date Deb Vital MD [address] [place], [place] PCP - General Internal Medicine 06/17/22 documented as of this encounter
--- OUTSIDE RECORDS SUMMARY | 2024-09-02 11:30 | XMS_ITS | Clinical Summary ---
Author Organization [facility] [address] [place] [address] Phone Care Team Providers Care Utility Agent Name Role Phone Deb Vital MD Primary Care Provider Allergies No known active allergies Medications atorvastatin [...] 25 Active Problems No known active problems Encounters Date Type Department Care Team Description 08/29/2024 Refill [facility] [address] [place] [address] Jimmie Bartholomew MD from Last 3 Months Social History Tobacco Use Types Packs/Day Years [...] patient's age to complete this topic Insurance [facility] MEDICARE [facility] MEDICARE Care Teams Utility Agent Relationship Specialty Start Date End Date Deb Vital MD [address] [place], [place] PCP - General Internal Medicine 06/17/22
--- OUTSIDE RECORDS SUMMARY | 2024-09-02 11:30 | XMS_ITS ---
Author Organization [facility] [place] Care Team Providers Care Mason Tender Restoration Labor Name Role Phone Tamia Orozco Unavailable Unavailable Ailyn Choudhury Unavailable Unavailable Devyn Marte Unavailable Unavailable Allergies and adverse reactions No Known Allergies Care Team Name Role Address Phone Organization Dates Tamia Orozco Attending Physician [address] [facility] [address], [place], [address], [place] (Office): : : [facility] [place] 12/08/2022 - 12/13/2022 Ailyn Choudhury Attending Physician [address] [facility] [address], [place], [address], [place] (Office): : [facility] [place] 12/08/2022 - 12/13/2022 Devyn Marte Attending Physician [address] [facility] [address], [place], [address], [place] (Office): : [facility] [place] 12/08/2022 - 12/13/2022 Immunizations Immunization Status Vaccine Details Vaccine Code CodeSystem Date Notes TB 2 Step Mantoux Skin Test completed tuberculin skin test; purified protein derivative solution, intradermal lotNumber: [id number] expiry: 02/21/2024 Mfg: [employer] Given 0.1 ml Left Forearm intradermally Step 1 of Multi-step with next step required 96 CVX created date: 12/09/2022 consent date: 12/09/2022 administere d date: 12/09/2022 Mental Status Section Date Assessment Total Score Description 12/13/2022 BIMS 15 cognitively int act CAM 0 No delirium ind icated PHQ-9 00 12/12/2022 BIMS 15 cognitively int act CAM 0 No delirium ind icated PHQ-9 00 Problems Problem # Description Date of onset Resolved Date Code CodeSystem Concern Status 1 ACUTE ON CHRONIC DIASTOLIC (CONGESTIVE) HEART FAILURE 12/09/[address] active 2 ATHEROSCLEROTIC HEART DISEASE OF [place] CORONARY ARTERY WITHOUT ANGINA PECTORIS 12/09/[address] active 3 CARDIOMYOPATHY, UNSPECIFIED 12/09/[address] active 4 CHRONIC KIDNEY DISEASE, STAGE 3 UNSPECIFIED 12/09/[address] active 5 CHRONIC SYSTOLIC (CONGESTIVE) HEART FAILURE 12/09/[address] active 6 DILATED CARDIOMYOPATHY 12/09/[address] active 7 ESSENTIAL (PRIMARY) HYPERTENSION 12/09/[address] active 8 HEART FAILURE, UNSPECIFIED 12/09/[address] active 9 HYPERLIPIDEMIA, UNSPECIFIED 12/09/[address] active 10 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 (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) USE OF ANTICOAGULANTS 12/09/[address] active 11 OTHER CARDIOMYOPATHIES 12/09/[address] active 12 OTHER OBESITY 12/09/[address] active 13 PRESENCE OF AORTOCORONARY BYPASS GRAFT 12/09/[address] active 14 PURE HYPERCHOLESTEROLEMI A, UNSPECIFIED 12/09/[address] active Reason for Referral No Reasons for Referral Entered Social History Social History Observation Description Start Date End Date Code Code System Current Smoking Status Tobacco smoking consumption unknown 396409790 SNOMED CT Sex Assigned At Male 1945 [address]204-[address] [facility] Vital Signs Code Code System Vitals Name Values and Units Timing Information 9279-[address] [facility] Respiratory Rate Value=18.0 Units=/m in 12/13/2022 8462-[address] [facility] Blood Pressure-Diastolic Value=62 Un its=mmHg 12/13/2022 8480-[address] [facility] Blood Pressure-Systolic Value=86 Uni ts=mmHg 12/13/2022 10959-[address] [facility] Weight Caarv=612.6 Units=Lbs 67862-[address] [facility] Pain Level Value=0.0 12/13/2022 8310-[address] [facility] Body Temperature Value=97.3 Units=?? F 12/13/2022 8867-[address] [facility] Heart rate Value=64.0 Units=/min 66166-[address] [facility] O2 % BldC Oximetry Value=99.0 Units= % 12/13/2022 8302-[address] [facility] Height Value=70.0 Units=Inches 12/10/2022
--- OUTSIDE RECORDS SUMMARY | 2024-09-02 11:30 | XMS_ITS | Encounter Summary ---
Author Organization [facility] Address [address] [facility] [address] [place] [address] Phone Care Team Providers Care Video Game Maker Name Role Phone Deb Vital MD Primary Care Provider [phone] Reason for Visit * Reason Comments Med Refill Encounter Details Date Type Department Care Team (Late st Contact Info) Description 08/29/2024 Refill [facility] [address] [facility] [place] [place] [phone] Jimmie Bartholomew MD [address] [facility] [address] [place] [address] Social History Tobacco Use Types [...] on filedocumented in this encounter Care Teams Video Game Maker Relationship Specialty Start Date End Date Deb Vital MD [address] [place], [place] PCP - General Internal Medicine 06/17/22 documented as of this encounter
[2024-09-02 12:11] VITALS: BP 126/69; PULSE 78; RESP 20; TEMP 36.6; O2SAT 96
== END 2024-09-02 12:12 | disposition home or self-care (01) ==
PROVIDERS: Emergency Provider Emergency Medicine; PCP Internal Medicine
DX: R60.0 Localized edema (principal); I25.10 Atherosclerotic heart disease of native coronary artery without angina pectoris; I13.0 Hypertensive heart and chronic kidney disease with heart failure and stage 1 through stage 4 chronic kidney disease, or unspecified chronic kidney disease; N18.4 Chronic kidney disease, stage 4 (severe); I44.7 Left bundle-branch block, unspecified; I44.0 Atrioventricular block, first degree; Z79.899 Other long term (current) drug therapy
CPT/HCPCS: 36415; 71045; 80053; 83880; 85025; 93005; 99283; 99284

== ENCOUNTER → 2024-09-02 09:48 | Outpatient (BNV) | payer MEDICARE, SELFPAY ==
[2023-03-13 15:16] VITALS: BP 100/50; BP 108/50; BP 122/64; BMI 23.8
== END ==
PROVIDERS: Emergency Provider Emergency Medicine; PCP Internal Medicine; Visit Provider Internal Medicine
DX: I44.0 Atrioventricular block, first degree (principal); I51.7 Cardiomegaly; I44.7 Left bundle-branch block, unspecified
CPT/HCPCS: 93010

== ENCOUNTER → 2024-09-02 09:49 | Outpatient (BNV) | payer MEDICARE, SELFPAY ==
[2023-03-13 15:16] VITALS: BP 100/50; BP 108/50; BP 122/64; BMI 23.8
== END ==
PROVIDERS: Emergency Provider Emergency Medicine; PCP Internal Medicine; Visit Provider Radiology Diagnostic Radiology
DX: M19.012 Primary osteoarthritis, left shoulder (principal)
CPT/HCPCS: 71045

== ENCOUNTER → 2024-09-08 08:56 | Outpatient (REF) | payer MEDICARE, SELFPAY ==
[2023-03-13 15:16] VITALS: BP 100/50; BP 108/50; BP 122/64; BMI 23.8
--- NOTE | 2024-09-08 08:59 | CA_ITS ---
Transthoracic Echocardiogram Patient (Last, First, Middle): Tray Bey, Gender: Male Date of : 1945 Age: 79 Procedure Date: 09/08/2024 Procedure Type: Transthoracic Echocardiogram Location: OP Height: 177.8 cm Weight: 64.5 kg BSA: 1.81 m2 Heart Rate: 67 bpm BP: 120 / 65 mmHg Gasoline Dragline Operator: TRAVIS Referring MD: Deb Pete MD Tax Assessor: Lorenzo Jordan MD Symptoms: I50.22 - Chronic systolic (congestive) heart failure Study Quality: Adequate ECG Rhythm: Sinus Conclusions: - 1. Dilated left ventricle with severe LV systolic dysfunction with LVEF of 10-15% with grade 3 diastolic dysfunction 2. Severely dilated left atrium 3. Moderate to severe mitral regurgitation 4. Normal measured RV systolic pressure 5. No gross pericardial effusion Findings Left Ventricle Severely increased left ventricular cavity size. There is normal left ventricular wall thickness. The left ventricular systolic function is severely decreased. The visually estimated ejection fraction is between 10 15%. There is severe global hypokinesis. Spectral Doppler is indicative of a restrictive filling pattern. E/E prime ratio is >15, consistent with elevated filling pressures. Evidence suggests grade III (severe) diastolic dysfunction. Right Ventricle Normal right ventricular cavity size and systolic function. Atria The left atrium is severely dilated. There is lipomatous hypertrophy of the interatrial septum. There is no evidence of interatrial shunt. The right atrium is likely dilated. Aortic Valve Normal aortic valve structure and function. There is no aortic valve stenosis. There is no aortic valve regurgitation. Mitral Valve There is mild anterior and posterior mitral leaflet thickening. There is moderate to severe mitral valve regurgitation. There is no mitral valve stenosis. Pulmonic Valve The pulmonic valve is likely normal. There is trace pulmonic valve regurgitation. Tricuspid Valve Normal tricuspid valve structure. There is trace tricuspid valve regurgitation. The right ventricular systolic pressure is normal. Normal right atrial pressure. Great Vessels All visible segments of the aorta are normal in size. The pulmonary artery was not well visualized. There is no dilatation of the ascending aorta measuring 3.20 cm. Venous The inferior vena cava is normal in size and collapses greater than 50% with inspiration. Pericardium/Pleural There is no evidence of pericardial effusion. Prior Study Comparison No significant change compared to prior study dated: 12/05/2022. Measurements 2D Linear Measurements IVSd: 0.97 0.6-0.9/0.6-1.0 cm LVIDd: 7.75 3.9-5.3/4.2-5.9 cm LVIDd Index: 4.28 2.4-3.2/2.2-3.1 cm/m2 LVIDs: 7.37 2.0-3.6 cm LVPWd: 0.93 0.7-1.1 cm LA Diam: 5.10 2.7-3.8/3.0-4.0 cm LAIDs Index: 2.82 1.5-2.3 cm/m2 LV Mass: 450.47 67-162/88-224 g LV Mass Index: 248.88 43-95/49-115 g/m2 LVOT Diam: 2.50 3.0+(-)1.3 cm 2D Systolic Function EF 4C: 10.30 >55% EF 2C: 24.70 >55% EF BiP: 15.00 >55% Mitral Valve MV Pk E: 0.99 MV PK A: 0.62 MV Decel Time: 132.00 E/A: 1.60 E'Lateral: 3.98 E'Medial: 3.68 E/E' Med: 26.90 E/E' Lat: 24.90 PHT: 39.00 MVA PHT: 5.64 Decel Louisa: 7.52 MR Vol - PW Dopp: 21.23 MR VTI: 1.93 MR ERO: 11.00 MR Alias Eugenio: 0.39 MR RAD: 0.50 Aortic Valve AoV Pk Eugenio: 1.51 AoV Mn Eugenio: 1.05 AoV VTI: 0.26 AoV Pk Grad: 9.00 Aov Mn Grad: 5.00 ROJELIO Cont.VTI: 2.23 LVOT LVOT Pk Eugenio: 0.79 LVOT Mn Eugenio: 0.49 LVOT VTI: 0.12 LVOT Pk Grad: 2.00 LVOT Mn Grad: 1.00 LVOT Diam: 2.50 LVOT Area: 4.91 Diastolic Function MV Pk E: 0.99 MV Pk A: 0.62 E/A: 1.60 E'Medial: 3.68 E/E' Med: 26.90 E' Laterial: 3.98 E/E' Lat: 24.90 Tricuspid Valve TR Pk Eugenio: 1.26 TR Pk Grad: 6.00 RA Press: 3.00 RVSP: 9.00 Great Vessels Aorta Sinus of Valsalva: 3.40 2.0-3.5 cm Ao Asc: 3.20 2.1-3.4 cm Pulmonary Valve PV Pk Eugenio: 0.85 Peak PV Grad: 3.00 Updated in Other Vendor System with Status of Final Lorenzo Jordan MD electronically signed on 09/09/2024 2:51:03 PM with status of Final
--- OUTSIDE RECORDS SUMMARY | 2024-09-08 09:28 | XMS_ITS | Encounter Summary ---
Author Organization [facility] Address [address] [facility] [address] [place] [address] Phone Care Team Providers Care Structural Design Engineer Name Role Phone Deb Vital MD Primary Care Provider [phone] Reason for Visit * Reason Comments Med Refill Encounter Details Date Type Department Care Team (Late st Contact Info) Description 08/29/2024 Refill [facility] [address] [place] [phone] Jimmie Bartholomew MD [address] [facility] [address] [place] [address] Social History Tobacco Use Types [...] on filedocumented in this encounter Care Teams Structural Design Engineer Relationship Specialty Start Date End Date Deb Vital MD [address] [place], [place] PCP - General Internal Medicine 06/17/22 documented as of this encounter
--- OUTSIDE RECORDS SUMMARY | 2024-09-08 09:28 | XMS_ITS | Clinical Summary ---
Author Organization [facility] [address] [place] [address] Phone Care Team Providers Care Hospice Registered Nurse Name Role Phone Deb Vital MD Primary Care Provider [phone] Allergies No known active allergies Medications atorvastatin [...] 08/29/2024 Refill [facility] [address] [place] [address] Jimmie Bartholomew MD from Last 3 [...] patient's age to complete this topic Insurance [facility] MEDICARE [facility] MEDICARE Care Teams Hospice Registered Nurse Relationship Specialty Start Date End Date Deb Vital MD [address] [place], [place] PCP - General Internal Medicine 06/17/22
--- OUTSIDE RECORDS SUMMARY | 2024-09-08 09:28 | XMS_ITS | Encounter Summary ---
Author Organization [facility] Address [address] [facility] [address] [place] [address] Phone Care Team Providers Care Bobtail Driver Name Role Phone Deb Vital MD Primary Care Provider [phone] Reason for Visit * Reason Comments Med Refill Encounter Details Date Type Department Care Team (Late st Contact Info) Description 05/09/2024 Refill [facility] [address] [place] [phone] Jimmie Bartholomew MD [address] [facility] [address] [place] [address] Social History Tobacco Use Types [...] on filedocumented in this encounter Care Teams Bobtail Driver Relationship Specialty Start Date End Date Deb Vital MD [address] [place], [place] PCP - General Internal Medicine 06/17/22 documented as of this encounter
--- OUTSIDE RECORDS SUMMARY | 2024-09-08 09:28 | XMS_ITS ---
Author Organization [facility] Care Team Providers Care Care Specialist Name Role Phone Tamia Orozco Unavailable Unavailable Ailyn Choudhury Unavailable Unavailable Devyn Marte Unavailable Unavailable Allergies and adverse reactions No Known Allergies Care Team Name Role Address Phone Organization Dates Tamia Orozco Attending Physician [address] [facility] [address], [place], [address], [place] (Office): : : [facility] [place] [facility] 12/08/2022 - 12/13/2022 Ailyn Choudhury Attending Physician [address] [facility] [address], [place], [address], [place] (Office): : [facility] [place] [facility] 12/08/2022 - 12/13/2022 Devyn Marte Attending Physician [address] [facility] [address], [place], [address], [place] (Office): : [facility] [place] [facility] 12/08/2022 - 12/13/2022 Immunizations Immunization Status Vaccine Details Vaccine Code CodeSystem Date Notes TB 2 Step Mantoux Skin Test completed tuberculin skin test; purified protein derivative solution, intradermal lotNumber: [id number] expiry: 02/21/2024 Mfg: par pharmaceutical Given 0.1 [...] ON CHRONIC DIASTOLIC (CONGESTIVE) HEART FAILURE 12/09/[address] active 2 ATHEROSCLEROTIC HEART DISEASE OF [place] CORONARY ARTERY WITHOUT ANGINA PECTORIS 12/09/[address] active 3 CARDIOMYOPATHY, UNSPECIFIED 12/09/[address] active 4 CHRONIC KIDNEY DISEASE, STAGE 3 UNSPECIFIED 12/09/[address] active 5 CHRONIC SYSTOLIC (CONGESTIVE) HEART FAILURE 12/09/[address] active 6 DILATED CARDIOMYOPATHY 12/09/[address] active 7 ESSENTIAL (PRIMARY) HYPERTENSION 12/09/[address] active 8 HEART FAILURE, UNSPECIFIED 12/09/[address] active 9 HYPERLIPIDEMIA, UNSPECIFIED 12/09/[address] active 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 12/09/[address] active 11 OTHER CARDIOMYOPATHIES 12/09/[address] active 12 OTHER OBESITY 12/09/[address] active 13 PRESENCE OF AORTOCORONARY BYPASS GRAFT 12/09/[address] active 14 PURE HYPERCHOLESTEROLEMI A, UNSPECIFIED 12/09/[address] active Reason for Referral No Reasons for Referral Entered Social History Social History Observation Description Start Date End Date Code Code System Current Smoking Status Tobacco smoking consumption unknown 335682917 SNOMED CT Sex Assigned At Male 1945 89687-6 [facility] Vital Signs Code Code System Vitals Name Values and Units Timing Information 9279-1 [facility] Respiratory Rate Value=18.0 Units=/m in 12/13/2022 8462-4 [facility] Blood Pressure-Diastolic Value=62 Un its=mmHg 12/13/2022 8480-6 [facility] Blood Pressure-Systolic Value=86 Uni ts=mmHg 12/13/2022 18024-9 [facility] Weight Ocran=725.6 Units=Lbs 64916-6 [facility] Pain Level Value=0.0 12/13/2022 8310-5 [facility] Body Temperature Value=97.3 Units=?? F 12/13/2022 8867-4 [facility] Heart rate Value=64.0 Units=/min 48583-9 [facility] O2 % BldC Oximetry Value=99.0 Units= % 12/13/2022 8302-2 [facility] Height Value=70.0 Units=Inches 12/10/2022
== END ==
LOC: HO.CARD 08:56
PROVIDERS: PCP Internal Medicine; Visit Provider Internal Medicine
DX: I50.22 Chronic systolic (congestive) heart failure (principal)
CPT/HCPCS: 93306

== ENCOUNTER → 2024-09-08 08:59 | Outpatient (BNV) | payer MEDICARE, SELFPAY ==
[2023-03-13 15:16] VITALS: BP 100/50; BP 108/50; BP 122/64; BMI 23.8
== END ==
PROVIDERS: PCP Internal Medicine; Visit Provider Internal Medicine Cardiovascular Disease
DX: I50.22 Chronic systolic (congestive) heart failure (principal); I34.0 Nonrheumatic mitral (valve) insufficiency
CPT/HCPCS: 93306

== ENCOUNTER 2024-09-09 10:02 | Outpatient (AMB) | payer MEDICARE, SELFPAY ==
[2023-03-13 15:16] VITALS: BP 100/50; BP 108/50; BP 122/64; BMI 23.8
--- NOTE | 2024-09-09 10:07 | HO.NEPHOV_ITS ---
Vital Signs 09/09/24 10:08 Height 5 ft 9 in Weight 150 lb 4 oz BMI 22.2 BP 110/70 Blood Pressure Location Lt brachial Position Sitting Intake Visit Reasons: CKD Email Campaign Manager Required: No Accompanied by: Spouse Allergies No Known Allergies [No Known Allergies*] Allergy (Verified 09/09/24 10:08) HPI Comments Details: Mr. Bey was seen in follow up for management of his chronic kidney disease. He is 79 years of age who has history of coronary artery disease as well as cardiomyopathy. He has history of systolic heart failure. He is on multiple medications including angiotensin receptor malgorzata. His ejection fraction has been around 15-20% in the past. He denies having any significant proteinuria. He does not carry a diagnosis of amyloidosis. He denies having orthostatic symptoms, chest pain, shortness of breath, nausea, vomiting, diarrhea, hematuria, history of had active malignancy, excessive intake of nonsteroidal anti-inflammatories. His serum creatinine had been fluctuant, recent one being 2.24. He denied any active complaints at the time of this office visit. He was accompanied by his family member. [facility] Medical History Hypertension Atrial fibrillation with rapid ventricular response CKD stage 3b, GFR 30-44 ml/min Paroxysmal atrial fibrillation CKD (chronic kidney disease) stage 4, GFR 15-29 ml/min Dilated cardiomyopathy Acute exacerbation of CHF (congestive heart failure) B12 deficiency Essential hypertension CAD (coronary artery disease) Obesity Chronic systolic HF (heart failure) Nonischemic cardiomyopathy Hypercholesteremia Surgical History History of cardiac cath (~05/2016) H/O hernia repair Family History Father Hypertension Mother Stomach cancer Social History Household Members: Family Housing: House Housing Other:: lives in a 2 family home per pt Do you presently have visiting nurse or other home services: No (confused--unable toassess) Alcohol intake: never Patient Tobacco Use Status: Never used Tobacco e-Cigarette/Vaping Use: Never Used Second Hand Smoke Exposure: No (n/a) Advance Directives Date on File: 05/28/22 service: No Current occupational status: retired Cognitive needs: No Hearing needs: No Vision needs: No Review of Systems Const All systems reviewed & are unremarkable except as noted in HPI and below Physical Exam Const General: comfortable and no acute distress Orientation/consciousness: patient oriented x3 HEENT Head: Yes normocephalic Mouth: Normal oral and palatal mucosa present Eyes EOM: EOMs intact bilaterally Neck Neck: Yes supple Resp Auscultation: clear to auscultation bilaterally Cardio Jugular venous distension: no JVD Rate: regular rate GI Palpation (GI): Soft to palpation Auscultation: normal bowel sounds General: Yes no CVA tenderness Back/Spine/Pelvis Back: no CVA tenderness Skin General skin exam: no rashes or lesions noted Neuro General: patient oriented x3 and moves all extremities Results Reviewed Nephrology Results: Hgb 11.8 g/dl (14.0-18.0) L 09/02/24 WBC 6.4 X10*3/uL (4.8-10.8) 09/02/24 Plt Count 138 X10*3/uL (160-400) L 09/02/24 Sodium 145 mmol/L (135-145) 09/02/24 Potassium 4.4 mmol/L (3.3-5.1) 09/02/24 Chloride 112 mmol/L (96-108) H 09/02/24 Carbon Dioxide 24 mmol/L (22-29) 09/02/24 BUN 94 mg/dL (9-16) H 09/02/24 Creatinine 2.24 mg/dL (0.5-1.4) H 09/02/24 Calcium 9.8 mg/dL (8.4-10.2) 09/02/24 Assessment & Plan Assessment & Plan (1) CKD (chronic kidney disease) stage 3, GFR 30-59 ml/min: Code(s): N18.30 - Chronic kidney disease, stage 3 unspecified Category: Medical Qualifiers: Chronic kidney disease stage 3 subtype: stage 3b (GFR 30-44) Qualified Code(s): N18.32 - Chronic kidney disease, stage 3b (2) Anemia of chronic disease: Code(s): D63.8 - Anemia in other chronic diseases classified elsewhere Category: Medical (3) Chronic systolic HF (heart failure): Code(s): I50.22 - Chronic systolic (congestive) heart failure Category: Medical (4) Acute kidney injury superimposed on CKD: Code(s): N17.9 - Acute kidney failure, unspecified; N18.9 - Chronic kidney disease, unspecified Category: Medical Plan Mr Bey has CKD 3 likely due to vascular disease as well as loss of renal function from his reduced renal perfusion from cardiomyopathy. His urine output is good. He is on valsartan. He denies any active ongoing orthostasis. His blood pressure is at goal. I have ordered CKD blood work for follow-up. I red uced his valsartan to 40 mg daily and introduced Farxiga 5 mg daily. I also reduced his lasix to 40 mg every other day. He should avoid excessive sodium in the diet and weigh himself every day. I did not make any medication changes at this office visit put discussed all the future management strategies. Answered all questions. Follow-up appointment given. Orders: Orders Creatinine 4 Weeks N17.9 - Acute kidney failure, unspecified, N18.9 - Chronic kidney disease, unspecified Electrolytes 4 Weeks N17.9 - Acute kidney failure, unspecified, N18.9 - Chronic kidney disease, unspecified Electrolytes 2 Weeks N17.9 - Acute kidney failure, unspecified, N18.9 - Chronic kidney disease, unspecified Blood Urea Nitrogen 2 Weeks N17.9 - Acute kidney failure, unspecified, N18.9 - Chronic kidney disease, unspecified Blood Urea Nitrogen 4 Weeks N17.9 - Acute kidney failure, unspecified, N18.9 - Chronic kidney disease, unspecified Creatinine 2 Weeks N17.9 - Acute kidney failure, unspecified, N18.9 - Chronic kidney disease, unspecified Medications: New dapagliflozin propanediol (Farxiga) 5 mg PO DAILY 30 tabs 3RF Coding Level of Care Code Est Pt Level 4 (98772) Diagnoses Stage 3b chronic kidney disease N18.32 Chronic kidney disease stage 3 subtype: stage 3b (GFR 30-44) Anemia of chronic disease D63.8 Chronic systolic HF (heart failure) I50.22 Acute kidney injury superimposed on CKD N17.9; N18.9
[2024-09-09 10:08] VITALS: BP 110/70; BMI 22.2
--- OUTSIDE RECORDS SUMMARY | 2024-09-09 11:50 | XMS_ITS | Encounter Summary ---
Author Organization [facility] Address [address] [facility] [address] [place] [address] Phone Care Team Providers Care Bug Trimmer Name Role Phone Deb Vital MD Primary Care Provider [phone] Reason for Visit * Reason Comments Med Refill Encounter Details Date Type Department Care Team (Late st Contact Info) Description 08/29/2024 [facility]ill [facility] [address] [place] [phone] Jimmie Bartholomew MD [address] [place] [address] Social History Tobacco Use Types [...] on filedocumented in this encounter Care Teams Bug Trimmer Relationship Specialty Start Date End Date Deb Vital MD [address] [place], [place] PCP - General Internal Medicine 06/17/22 documented as of this encounter
--- OUTSIDE RECORDS SUMMARY | 2024-09-09 11:50 | XMS_ITS | Clinical Summary ---
Author Organization [facility] [address] [place] [address] Phone Care Team Providers Care Lcpc Name Role Phone Deb Vital MD Primary Care Provider [phone] Allergies No known active allergies Medications atorvastatin [...] 08/29/2024 [facility]ill [facility] [address] [place] [address] Jimmie Bartholomew MD from Last 3 [...] age to complete this topic Insurance [facility] MEDICARE FORMERLY [facility] MEDICARE Care Teams Lcpc Relationship Specialty Start Date End Date Deb Vital MD [address] [place], [place] PCP - General Internal Medicine 06/17/22
--- OUTSIDE RECORDS SUMMARY | 2024-09-09 11:50 | XMS_ITS | Encounter Summary ---
Author Organization [facility] Address [address] [facility] [address] [place] [address] Phone Care Team Providers Care Aviation Electronics Technician Name Role Phone Deb Vital MD Primary Care Provider [phone] Reason for Visit * Reason Comments Med Refill Encounter Details Date Type Department Care Team (Late st Contact Info) Description 05/09/2024 Refill [facility] [address] [place] [phone] Jimmie Bartholomew MD [address] [facility] [address] [place] [address] Social History Tobacco Use Types [...] on filedocumented in this encounter Care Teams Aviation Electronics Technician Relationship Specialty Start Date End Date Deb Vital MD [address] [place], [place] PCP - General Internal Medicine 06/17/22 documented as of this encounter
--- OUTSIDE RECORDS SUMMARY | 2024-09-09 11:50 | XMS_ITS ---
Author Organization [facility] Care Team Providers Care Soil Fertility Extension Specialist Name Role Phone Tamia Orozco Unavailable Unavailable Ailyn Choudhury Unavailable Unavailable Devyn Marte Unavailable Unavailable Allergies and adverse reactions No Known Allergies Care Team Name Role Address Phone Organization Dates Tamia Orozco Attending Physician [address] [facility] [address], [place], [address], [place] (Office): : : [facility] [place] [facility] [place] 12/08/2022 - 12/13/2022 Ailyn Choudhury Attending Physician [address] [facility] [address], [place], [address], [place] (Office): : [facility] [place] [facility] [place] 12/08/2022 - 12/13/2022 Devyn Marte Attending Physician [address] [facility] [address], [place], [address], [place] (Office): : [facility] [place] [facility] [place] 12/08/2022 - 12/13/2022 Immunizations Immunization Status Vaccine Details Vaccine Code CodeSystem Date Notes TB 2 Step Mantoux Skin Test completed tuberculin skin test; purified protein derivative solution, intradermal lotNumber: [id number] expiry: 02/21/2024 Mfg: par pharmaceutical Given 0.1 [...] ON CHRONIC DIASTOLIC (CONGESTIVE) HEART FAILURE 12/09/[address] active 2 ATHEROSCLEROTIC HEART DISEASE OF [place] CORONARY ARTERY WITHOUT ANGINA PECTORIS 12/09/[address] active 3 CARDIOMYOPATHY, UNSPECIFIED 12/09/[address] active 4 CHRONIC KIDNEY DISEASE, STAGE 3 UNSPECIFIED 12/09/[address] active 5 CHRONIC SYSTOLIC (CONGESTIVE) HEART FAILURE 12/09/[address] active 6 DILATED CARDIOMYOPATHY 12/09/[address] active 7 ESSENTIAL (PRIMARY) HYPERTENSION 12/09/[address] active 8 HEART FAILURE, UNSPECIFIED 12/09/[address] active 9 HYPERLIPIDEMIA, UNSPECIFIED 12/09/[address] active 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 12/09/[address] active 11 OTHER CARDIOMYOPATHIES 12/09/[address] active 12 OTHER OBESITY 12/09/[address] active 13 PRESENCE OF AORTOCORONARY BYPASS GRAFT 12/09/[address] active 14 PURE HYPERCHOLESTEROLEMI A, UNSPECIFIED 12/09/[address] active Reason for Referral No Reasons for Referral Entered Social History Social History Observation Description Start Date End Date Code Code System Current Smoking Status Tobacco smoking consumption unknown 794781263 SNOMED CT Sex Assigned At Male 1945 37851-4 [facility] Vital Signs Code Code System Vitals Name Values and Units Timing Information 9279-1 [facility] Respiratory Rate Value=18.0 Units=/m in 12/13/2022 8462-4 [facility] Blood Pressure-Diastolic Value=62 Un its=mmHg 12/13/2022 8480-6 [facility] Blood Pressure-Systolic Value=86 Uni ts=mmHg 12/13/2022 61614-1 [facility] Weight Xiuqt=610.6 Units=Lbs 24723-5 [facility] Pain Level Value=0.0 12/13/2022 8310-5 [facility] Body Temperature Value=97.3 Units=?? F 12/13/2022 8867-4 [facility] Heart rate Value=64.0 Units=/min 45507-8 [facility] O2 % BldC Oximetry Value=99.0 Units= % 12/13/2022 8302-2 [facility] Height Value=70.0 Units=Inches 12/10/2022
== END 2024-09-09 10:28 | disposition home or self-care (01) ==
LOC: HO.HKA 10:03
PROVIDERS: PCP Internal Medicine; Visit Provider Internal Medicine Nephrology
DX: N18.32 Chronic kidney disease, stage 3b (principal); D63.8 Anemia in other chronic diseases classified elsewhere; I50.22 Chronic systolic (congestive) heart failure; N17.9 Acute kidney failure, unspecified; N18.9 Chronic kidney disease, unspecified
CPT/HCPCS: 99214

== ENCOUNTER → 2024-09-09 10:02 | Outpatient (BNVA) | payer MEDICARE, SELFPAY ==
[2023-03-13 15:16] VITALS: BP 100/50; BP 108/50; BP 122/64; BMI 23.8
== END ==
PROVIDERS: PCP Internal Medicine; Visit Provider Internal Medicine Nephrology
DX: I12.9 Hypertensive chronic kidney disease with stage 1 through stage 4 chronic kidney disease, or unspecified chronic kidney disease (principal); N18.32 Chronic kidney disease, stage 3b; I50.22 Chronic systolic (congestive) heart failure; D63.8 Anemia in other chronic diseases classified elsewhere; N17.9 Acute kidney failure, unspecified
CPT/HCPCS: 99212

== ENCOUNTER → 2024-11-03 14:43 | Outpatient (BNVA) | payer MEDICARE, SELFPAY ==
[2023-03-13 15:16] VITALS: BP 100/50; BP 108/50; BP 122/64; BMI 23.8
== END ==
PROVIDERS: PCP Internal Medicine; Visit Provider Dietitian, Registered

== ENCOUNTER 2024-11-04 10:23 | Outpatient (AMB) | payer MEDICARE, SELFPAY ==
[2023-03-13 15:16] VITALS: BP 100/50; BP 108/50; BP 122/64; BMI 23.8
--- NOTE | 2024-11-04 10:37 | HO.NEPHOV_ITS ---
Vital Signs 11/04/24 10:43 Height 5 ft 9 in Weight 149 lb 4 oz BMI 22.0 BP 102/80 Blood Pressure Location Rt brachial Position Sitting Pulse 57 Pulse Source Pulse Oximeter Pulse Oximetry (%) 99 Oxygen Delivery Method Room Air Intake Visit Reasons: 1 MO FU-Conf w/ Pointing Machine Operator Required: No Accompanied by: Spouse Allergies No Known Allergies [No Known Allergies*] Allergy (Verified 11/04/24 10:43) HPI Comments Details: Mr. Bey was seen in follow up for management of his chronic kidney disease. He is 79 years of age who has history of coronary artery disease as well as cardiomyopathy. He has history of systolic heart failure. He is on multiple medications including angiotensin receptor malgorzata. His ejection fraction has been around 15-20% in the past. He denies having any significant proteinuria. He does not carry a diagnosis of amyloidosis. He denies having orthostatic symptoms, chest pain, shortness of breath, nausea, vomiting, diarrhea, hematuria, history of had active malignancy, excessive intake of nonsteroidal anti-inflammatories. His serum creatinine had been fluctuant, recent one being 2.24. He denied any active complaints at the time of this office visit. He was accompanied by his family member. [facility] Medical History Hypertension Atrial fibrillation with rapid ventricular response CKD stage 3b, GFR 30-44 ml/min Paroxysmal atrial fibrillation CKD (chronic kidney disease) stage 4, GFR 15-29 ml/min Dilated cardiomyopathy Acute exacerbation of CHF (congestive heart failure) B12 deficiency Essential hypertension CAD (coronary artery disease) Obesity Chronic systolic HF (heart failure) Nonischemic cardiomyopathy Hypercholesteremia Surgical History History of cardiac cath (~05/2016) H/O hernia repair Family History Father Hypertension Mother Stomach cancer Social History Household Members: Family Housing: House Housing Other:: lives in a 2 family home per pt Do you presently have visiting nurse or other home services: No (confused--unable toassess) Alcohol intake: never Patient Tobacco Use Status: Never used Tobacco e-Cigarette/Vaping Use: Never Used Second Hand Smoke Exposure: No (n/a) Advance Directives Date on File: 05/28/22 service: No Current occupational status: retired Cognitive needs: No Hearing needs: No Vision needs: No Review of Systems Const All systems reviewed & are unremarkable except as noted in HPI and below Physical Exam Vital Signs: Last Vital Signs Pulse 57 11/04/24 10:43 BP 102/80 11/04/24 10:43 Pulse Ox 99 11/04/24 10:43 Oxygen Delivery Method Room Air 11/04/24 10:43 BMI result Body Mass Index 22.0 Const General: comfortable and no acute distress Orientation/consciousness: patient oriented x3 HEENT Head: Yes normocephalic Mouth: Normal oral and palatal mucosa present Eyes EOM: EOMs intact bilaterally Neck Neck: Yes supple Resp Auscultation: clear to auscultation bilaterally Cardio Jugular venous distension: no JVD Rate: regular rate GI Palpation (GI): Soft to palpation Auscultation: normal bowel sounds General: Yes no CVA tenderness Back/Spine/Pelvis Back: no CVA tenderness Skin General skin exam: no rashes or lesions noted Neuro General: patient oriented x3 and moves all extremities Extrem General: Yes no pedal edema Results Reviewed Nephrology Results: Hgb 11.8 g/dl (14.0-18.0) L 09/02/24 WBC 6.4 X10*3/uL (4.8-10.8) 09/02/24 Plt Count 138 X10*3/uL (160-400) L 09/02/24 Sodium 145 mmol/L (135-145) 09/02/24 Potassium 4.4 mmol/L (3.3-5.1) 09/02/24 Chloride 112 mmol/L (96-108) H 09/02/24 Carbon Dioxide 24 mmol/L (22-29) 09/02/24 BUN 94 mg/dL (9-16) H 09/02/24 Creatinine 2.24 mg/dL (0.5-1.4) H 09/02/24 Calcium 9.8 mg/dL (8.4-10.2) 09/02/24 Assessment & Plan Assessment & Plan (1) CKD (chronic kidney disease) stage 3, GFR 30-59 ml/min: Code(s): N18.30 - Chronic kidney disease, stage 3 unspecified Category: Medical Qualifiers: Chronic kidney disease stage 3 subtype: stage 3b (GFR 30-44) Qualified Code(s): N18.32 - Chronic kidney disease, stage 3b Plan Mr Bey has CKD 3 likely due to vascular disease as well as loss of renal function from his reduced renal perfusion from cardiomyopathy. His urine output is good. He is on valsartan. He denies any active ongoing orthostasis. His blood pressure is at goal. I reduced his valsartan to 40 mg daily and introduced Farxiga 5 mg daily. I also reduced his lasix to 40 mg every other day. ( at the last visit). He should avoid excessive sodium in the diet and jolanta gh himself every day. Blood work today I did not make any medication changes at this office visit put discussed all the future management strategies. Answered all questions. Follow-up appointment given. Orders: Orders Creatinine Today N18.32 - Chronic kidney disease, stage 3b Blood Urea Nitrogen Today N18.32 - Chronic kidney disease, stage 3b Phosphorus Today N18.32 - Chronic kidney disease, stage 3b Complete Blood Count Auto Diff Today N18.32 - Chronic kidney disease, stage 3b Electrolytes Today N18.32 - Chronic kidney disease, stage 3b Calcium Today N18.32 - Chronic kidney disease, stage 3b Coding Level of Care Code Est Pt Level 4 (57478) Diagnoses Stage 3b chronic kidney disease N18.32 Chronic kidney disease stage 3 subtype: stage 3b (GFR 30-44)
--- OUTSIDE RECORDS SUMMARY | 2024-11-04 10:42 | XMS_ITS | Encounter Summary ---
Author Organization [facility] Address [address] [facility] [address] [place] [address] Phone Care Team Providers Care Firearms Inspector Name Role Phone eDb Vital MD Primary Care Provider Reason for Visit * Reason Comments Med Refill Encounter Details Date Type Department Care Team (Late st Contact Info) Description 05/09/2024 Refill [facility] [address] [place] [phone] Jimmie Bartholomew MD [address] [facility] [address] [place] [address] Social History Tobacco Use Types [...] on filedocumented in this encounter Care Teams Firearms Inspector Relationship Specialty Start Date End Date Deb Vital MD [address] [place], [place] PCP - General Internal Medicine 06/17/22 documented as of this encounter
--- OUTSIDE RECORDS SUMMARY | 2024-11-04 10:42 | XMS_ITS | Clinical Summary ---
Author Organization [facility] [address] [place] [address] Phone Care Team Providers Care Health Director Name Role Phone Deb Vital MD Primary Care Provider [phone] Allergies No known active allergies Medications atorvastatin [...] mouth 1 (one) time each day Active Active Problems No known active problems Encounters Date Type Department Care Team Description 08/29/2024 [facility]ill [facility] [address] [place] [phone] Jimmie Bartholomew MD from Last 3 Months [...] Due Date Last Done Comments Pneumococcal Vaccine: 50+ Ye ars (1 of 2 - PCV) 1964 Influenza Vaccine (Season Ended) 2025 Hepatitis B Vaccine Aged Out No longe r eligible based on patient's age to complete this topic Insurance [facility] Medicare [facility] Medicare Care Teams Health Director Relationship Specialty Start Date End Date Deb Vital MD [address] [place] [address] PCP - General Internal Medicine 06/17/22
--- OUTSIDE RECORDS SUMMARY | 2024-11-04 10:42 | XMS_ITS | Encounter Summary ---
Author Organization [facility] Address [address] [facility] [address] [place] [address] Phone Care Team Providers Care Senior Wind Turbine Technician Name Role Phone Deb Vital MD Primary Care Provider [phone] Reason for Visit * Reason Comments Med Refill Encounter Details Date Type Department Care Team (Late st Contact Info) Description 08/29/2024 Refill [facility] [address] [place] [phone] Jimmie Bartholomew MD [address] [facility] [address] [place] [address] Social History Tobacco Use Types [...] on filedocumented in this encounter Care Teams Senior Wind Turbine Technician Relationship Specialty Start Date End Date Deb Vital MD [address] [place], [place] PCP - General Internal Medicine 06/17/22 documented as of this encounter
[2024-11-04 10:43] VITALS: BP 102/80; PULSE 57; O2SAT 99; BMI 22.0
== END 2024-11-04 11:01 | disposition home or self-care (01) ==
LOC: HO.HKA 10:24
PROVIDERS: PCP Internal Medicine; Visit Provider Internal Medicine Nephrology
DX: N18.32 Chronic kidney disease, stage 3b (principal)
CPT/HCPCS: 99214

== ENCOUNTER 2024-11-04 11:06 | Outpatient (REF) | payer MEDICARE, SELFPAY ==
[2023-03-13 15:16] VITALS: BP 100/50; BP 108/50; BP 122/64; BMI 23.8
--- OUTSIDE RECORDS SUMMARY | 2024-11-04 11:34 | XMS_ITS | Clinical Summary ---
Author Organization [facility] [address] [place] [address] Phone Care Team Providers Care Boiler House Supervisor Name Role Phone eDb Vital MD Primary Care Provider [phone] Allergies No known active allergies Medications atorvastatin [...] 08/29/2024 Refill [facility] [address] [place] [phone] Jimmie Bartholomew MD from Last 3 Months [...] patient's age to complete this topic Insurance [facility] Medicare [facility] Medicare Care Teams Boiler House Supervisor Relationship Specialty Start Date End Date Deb Vital MD [address] [place] [address] PCP - General Internal Medicine 06/17/22
--- OUTSIDE RECORDS SUMMARY | 2024-11-04 11:34 | XMS_ITS | Encounter Summary ---
Author Organization [facility] [place] Address [address] [facility] [address] [place] [address] Phone Care Team Providers Care Employee Adviser Name Role Phone Deb Vital MD Primary Care Provider [phone] Reason for Visit * Reason Comments Med Refill Encounter Details Date Type Department Care Team (Late st Contact Info) Description 05/09/2024 Refill [facility] [address] [place] [phone] Jimmie Bartholomew MD [address] [facility] [address] [place] [address] Social History Tobacco Use Types [...] on filedocumented in this encounter Care Teams Employee Adviser Relationship Specialty Start Date End Date Deb Vital MD [address] [place], [place] PCP - General Internal Medicine 06/17/22 documented as of this encounter
--- OUTSIDE RECORDS SUMMARY | 2024-11-04 11:34 | XMS_ITS | Encounter Summary ---
Author Organization [facility] [place] Address [address] [facility] [address] [place] [address] Phone Care Team Providers Care Bench Assembler Name Role Phone Deb Vital MD Primary Care Provider [phone] Reason for Visit * Reason Comments Med Refill Encounter Details Date Type Department Care Team (Late st Contact Info) Description 08/29/2024 Refill [facility] [address] [place] [phone] Jimmie Bartholomew MD [address] [facility] [address] [place] [address] Social History Tobacco Use Types [...] on filedocumented in this encounter Care Teams Bench Assembler Relationship Specialty Start Date End Date Deb Vital MD [address] [place], [place] PCP - General Internal Medicine 06/17/22 documented as of this encounter
[2024-11-04 13:50] LABS: MANUAL DIFF FLAG NO
[2024-11-04 13:59] LABS: Basophils Percent Auto 0.3 % (0-2); Eosinophils Absolute Auto 0.1 X10*3/uL (0.0-0.4); Eosinophils Percent Auto 1.4 % (0-4); Hematocrit 36.8 % (42.0-52.0); Hemoglobin 11.8 g/dl (14.0-18.0); Imm Gran Abs Auto 0.01 X10*3/uL (0.00-0.03); Imm Gran Pct Auto 0.3 % (0.0-0.4); Lymphocytes Percent Auto 28.1 % (20-40); Mean Corpuscular HGB Conc 32.1 g/dl (31.0-36.0); Mean Corpuscular Hemoglobin 33.4 pg (27.0-33.0); Mean Corpuscular Volume 104.2 fL (80.0-98.0); Mean Platelet Volume 11.4 fL (9.4-12.4); Monocytes Absolute Auto 0.4 X10*3/uL (0.1-1.2); Neutrophils Absolute Auto 2.1 x10*3/uL (2.0-8.3); Neutrophils Percent Auto 57.9 % (45-73); Platelet Count 189 X10*3/uL (160-400); Red Blood Count 3.53 X10*6/uL (4.60-5.80); Red Cell Distribution Width 15.3 % (11.0-16.0); White Blood Count 3.6 X10*3/uL (4.8-10.8)
[2024-11-04 14:17] LABS: Anion Gap 12 (12-20); Blood Urea Nitrogen 37 mg/dL (9-16); Calcium 9.6 mg/dL (8.4-10.2); Carbon Dioxide 27 mmol/L (22-29); Chloride 111 mmol/L (96-108); Estimated Glomerular Filt Rate 37; Phosphorus 3.3 mg/dL (2.7-4.5); Potassium 4.1 mmol/L (3.3-5.1); Sodium 146 mmol/L (135-145)
== END 2024-11-04 11:07 | disposition home or self-care (01) ==
LOC: HO.10HDL 11:06
PROVIDERS: Visit Provider Internal Medicine Nephrology
DX: N18.32 Chronic kidney disease, stage 3b (principal); Z79.899 Other long term (current) drug therapy
CPT/HCPCS: 36415; 80051; 82310; 82565; 84100; 84520; 85025; 99212

== ENCOUNTER 2024-11-29 08:36 | Outpatient (AMB) | payer MEDICARE, SELFPAY ==
[2023-03-13 15:16] VITALS: BP 100/50; BP 108/50; BP 122/64; BMI 23.8
[2024-11-29 08:57] VITALS: BP 100/52; PULSE 60; BMI 22.5
--- NOTE | 2024-11-29 08:57 | MHC.OFFVIS ---
Vital Signs 11/29/24 08:57 Height 5 ft 9 in Weight 152 lb 8.958 oz BMI 22.5 BP 100/52 L Blood Pressure Location Lt brachial Position Sitting Pulse 60 Pulse Source Monitor Intake Visit Reasons: 3 month follow-up per DC Carbonation Equipment Tender Required: No Certified Solid Waste Facility Operator: Certified Solid Waste Facility Operator Present Allergies No Known Allergies [No Known Allergies*] Allergy (Verified 11/29/24 09:00) Medication List - Last Reconciled 11/29/24 by Charlene Mccray NP-C amiodarone 200 mg PO DAILY 90 days colchicine 0.6 mg PO DAILY 30 days empagliflozin (Jardiance) 5 mg (1/2 x 10 mg) PO DAILY food supplemt, lactose-reduced (Ensure oral liquid) 1 ea PO .twice a day 24 days furosemide 40 mg See Protocol PO DAILY 90 days metoprolol tartrate 25 mg See Protocol PO BID 90 days ondansetron 8 mg PO Q12H PRN 5 days [raised toilet seat with arm rest As directed] Shower Chair As directed spironolactone 25 mg See Protocol PO DAILY 90 days sumatriptan succinate 25 mg PO Q2-4H PRN 30 days valsartan 80 mg PO DAILY 90 days HPI HPI 3 month follow-up per DC: Details: Tray is a 79-year-old male past medical history of hypertension, hyperlipidemia, paroxysmal AFib declines anticoagulation, dilated cardiomyopathy, heart failure with reduced EF and declines ICD, coronary artery disease who presents for follow-up. Today he reports that he has been doing about the same for the last few months. He still has no appetite but has been drinking protein drinks daily. He has been compliant with his medications. He has not been having recent chest discomfort at rest or during activity. He is mostly sedentary and sits in the chair much of the day. No shortness of breath, PND, orthopnea or edema. No palpitations, lightheadedness, falls. His primary issue is that he is not hungry. Weight is up 10 lb since last here in August. [facility] Medical History Hypertension Atrial fibrillation with rapid ventricular response CKD stage 3b, GFR 30-44 ml/min Paroxysmal atrial fibrillation CKD (chronic kidney disease) stage 4, GFR 15-29 ml/min Dilated cardiomyopathy Acute exacerbation of CHF (congestive heart failure) B12 deficiency Essential hypertension CAD (coronary artery disease) Obesity Chronic systolic HF (heart failure) Nonischemic cardiomyopathy Hypercholesteremia Surgical History History of cardiac cath (~05/2016) H/O hernia repair Family History Father Hypertension Mother Stomach cancer Social History Household Members: Family Housing: House Housing Other:: lives in a 2 family home per pt Do you presently have visiting nurse or other home services: No (confused--unable toassess) Alcohol intake: never Patient Tobacco Use Status: Never used Tobacco e-Cigarette/Vaping Use: Never Used Second Hand Smoke Exposure: No (n/a) Advance Directives Date on File: 05/28/22 service: No Current occupational status: retired Cognitive needs: No Hearing needs: No Vision needs: No Review of Systems Const All systems reviewed & are unremarkable except as noted in HPI and below Reports fatigue, Reports lethargy and Reports weight loss ENT Denies dizziness Card Denies chest pain, Denies chest pain at rest, Denies chest pain with activity, Denies rapid heart rate, Denies pedal edema, Denies edema, Denies leg edema, Denies lightheadedness, Denies palpitations, Denies dyspnea, Denies dyspnea on exertion and Denies orthopnea Resp Denies cough, Denies dyspnea and Denies dyspnea on exertion GI Denies hematochezia and Denies change in stool character Musc Denies abnormal gait, Denies limited range of motion, Denies muscle cramps, Denies muscle weakness, Denies numbness, Denies radiating pain into limb, Denies stiffness and Denies tingling Neuro Denies abnormal gait, Denies dizziness, Denies numbness and Denies tingling Endo Reports fatigue and Denies palpitations Physical Exam Vital Signs: Last Vital Signs Pulse 60 11/29/24 08:57 BP 100/52 L 11/29/24 08:57 BMI result Body Mass Index 22.5 Const Other: Flat affect, visible weight loss, somewhat frail appearance. General: cooperative, comfortable and no acute distress Orientation/consciousness: patient oriented x3 Neck Neck: Yes normal visual inspection Resp Effort & Inspection: normal respiratory effort Auscultation: clear to auscultation bilaterally, no rales, no rhonchi and no wheezes Cardio Jugular venous distension: no JVD Rate: regular rate Rhythm: regular rhythm Heart sounds: S1 normal heart sound present, S2 normal heart sound present, no murmurs and no rubs Neuro General: patient oriented x3 Extrem General: Yes normal to inspection, No no pedal edema and No calf tenderness Psych Appearance: grossly normal Mental Status: mental status grossly normal Speech and movement: Normal speech and movement present Office Procedures EKG Details: Today, read by me, sinus rhythm with first-degree AV block, PACs, 2 junctional beats, left bundle branch block, QTC 508 milliseconds, JT index 106.8, rate 60 [id number], Complete Assessment & Plan Assessment & Plan (1) Chronic systolic HF (heart failure): Code(s): I50.22 - Chronic systolic (congestive) heart failure Category: Medical Plan: History of advanced systolic heart failure most likely related to hypertension, secondary to nonischemic cardiomyopathy. Last hospital admission for decompensated heart failure 01/27/2024. Last echocardiogram 09/08/2024 showing EF 10-15%, grade 3 diastolic dysfunction, severely dilated left atrium and moderate to severe MR. EF and MR is unchanged from prior echo. He does not appear fluid overloaded on exam today. Blood pressure low normal 100/52, asymptomatic. Will have him continue on metoprolol, valsartan, spironolactone for neurohormonal modulation. Signs and symptoms of heart failure reviewed with him. Emergency care if needed for symptoms. (2) Dilated cardiomyopathy: Code(s): I42.0 - Dilated cardiomyopathy Category: Medical Plan: Echo shows EF 10-15%. On appropriate guideline directed medical therapy. Patient has declined ICD placement. (3) Paroxysmal atrial fibrillation: Code(s): I48.0 - Paroxysmal atrial fibrillation Category: Medical Plan: History of paroxysmal atrial fibrillation. Currently being treated with rhythm control using amiodarone. He is on metoprolol for heart rate control. EKG done today is showing sinus rhythm with first-degree AV block, intraventricular conduction delay, 2 junctional beats noted, JT index 106.8. Reviewed with Dr Jordan - will reduce Metoprolol by half, changing to xl 25mg daily, continue amiodarone. He is no longer on anticoagulation due to the high cost, his decision to not pursue. Stroke risk off of anticoagulation reviewed with him and again today. (4) On amiodarone therapy: Code(s): Z79.899 - Other nursing home (current) drug therapy Category: Medical Plan: Labs done 09/02/2024 shows AST 26 ALT 17. Last TSH 2.61 on 06/09/2023. TSH order is pending in system and patient was reminded to obtain. Chest x-ray 09/02/2024 showed no acute disease, mild cardiomegaly. (5) CAD (coronary artery disease): Code(s): I25.10 - Atherosclerotic heart disease of [place] coronary artery without angina pectoris Category: Medical Qualifiers: Associated angina: without angina Coronary Disease-Associated Artery/Lesion type: [place] artery [place] vs. transplanted heart: [place] heart Qualified Code(s): I25.10 - Atherosclerotic heart disease of [place] coronary artery without angina pectoris Plan: Stable with no reports of anginal sounding symptoms. He is on atorvastatin with ideal LDL goal less than 70. He is on metoprolol tartrate 25 mg b.i.d.. (6) High cholesterol: Code(s): E78.00 - Pure hypercholesterolemia, unspecified Category: Medical Plan: [place] LDL goal less than 70. Labs done on 03/13/2023 showed LDL 63. Continue atorvastatin. Repeat lipid profile order in place, reminded to obtain. (7) Weight loss: Code(s): R63.4 - Abnormal weight loss Category: Medical Plan: Reports of no appetite. Had lost significant weight but now appears to have gained 10 lb since August. He is drinking protein drinks at home. TSH pending (8) First degree atrioventricular block: Code(s): I44.0 - Atrioventricular block, first degree Category: Medical Plan: First-degree AV block noted on EKG, present in this past year. noted to have 2 junctional beats on EKG. Will check holter and Metoprolol being reduced. Will plan for EKG next visit. Plan Time spent on chart review, documentation, intravenous assessment Orders: Orders ECG 3 day holter monitor 1 Week I44.0 - Atrioventricular block, first degree, I49.5 - Sick sinus syndrome Medications: New metoprolol succinate ER Dose reduced 25 mg PO DAILY 30 tabs 5RF Discontinued metoprolol tartrate Discontinued Reason: Doctor's Order 25 mg See Protocol PO BID 90 days 180 tabs 1RF Coding Level of Care Code Est Pt Level 4 (54542) Complex EM visit Add On G2211 Diagnoses Chronic systolic HF (heart failure) I50.22 Dilated cardiomyopathy I42.0 Paroxysmal atrial fibrillation I48.0 On amiodarone therapy Z79.899 Coronary artery disease involving [place] coronary artery of [place] heart without angina pectoris I25.10 Associated angina: without angina Coronary Disease-Associated Artery/Lesion type: [place] artery [place] vs. transplanted heart: [place] heart High cholesterol E78.00 Weight loss R63.4 First degree atrioventricular block I44.0 CPT Codes EKG - CPT: 28264-[id number], Complete ([id number]) Time Spent (min) 28
--- OUTSIDE RECORDS SUMMARY | 2024-11-29 08:58 | XMS_ITS | Encounter Summary ---
Author Organization [facility] Address [address] [facility] [address] [place] [address] Phone Care Team Providers Care Shoe Repairer Name Role Phone Deb Vital MD Primary Care Provider [phone] Reason for Visit * Reason Comments Med Refill Encounter Details Date Type Department Care Team (Late st Contact Info) Description 05/09/2024 Refill [facility] [address] [place] [phone] Jimmie Bartholomew MD [address] [facility] [address] [place] [address] Social History Tobacco Use Types [...] on filedocumented in this encounter Care Teams Shoe Repairer Relationship Specialty Start Date End Date Deb Vital MD [address] [place], [place] PCP - General Internal Medicine 06/17/22 documented as of this encounter
== END 2024-11-29 09:29 | disposition home or self-care (01) ==
LOC: HO.HCS 08:37
PROVIDERS: PCP Internal Medicine; Visit Provider Nurse Practitioner Family
DX: I50.22 Chronic systolic (congestive) heart failure (principal); I42.0 Dilated cardiomyopathy; I48.0 Paroxysmal atrial fibrillation; Z79.899 Other long term (current) drug therapy; I25.10 Atherosclerotic heart disease of native coronary artery without angina pectoris; E78.00 Pure hypercholesterolemia, unspecified; R63.4 Abnormal weight loss; I44.0 Atrioventricular block, first degree
CPT/HCPCS: 93010; 99214; G2211

== ENCOUNTER → 2024-11-29 08:36 | Outpatient (BNVA) | payer MEDICARE, SELFPAY ==
[2023-03-13 15:16] VITALS: BP 100/50; BP 108/50; BP 122/64; BMI 23.8
== END ==
PROVIDERS: PCP Internal Medicine; Visit Provider Nurse Practitioner Family
DX: I13.0 Hypertensive heart and chronic kidney disease with heart failure and stage 1 through stage 4 chronic kidney disease, or unspecified chronic kidney disease (principal); I50.22 Chronic systolic (congestive) heart failure; N18.4 Chronic kidney disease, stage 4 (severe); I25.10 Atherosclerotic heart disease of native coronary artery without angina pectoris; I42.0 Dilated cardiomyopathy; I44.0 Atrioventricular block, first degree; I48.0 Paroxysmal atrial fibrillation; E78.00 Pure hypercholesterolemia, unspecified; R63.4 Abnormal weight loss; Z79.899 Other long term (current) drug therapy
CPT/HCPCS: 93005; 99212

== ENCOUNTER 2025-03-30 10:33 | Outpatient (AMB) | payer MEDICARE, SELFPAY ==
[2023-03-13 15:16] VITALS: BP 100/50; BP 108/50; BP 122/64; BMI 23.8
--- NOTE | 2025-03-30 10:56 | A.OFFVIS_ITS ---
Vital Signs 03/30/25 11:12 Height 5 ft 9 in Weight 153 lb 10.595 oz BMI 22.7 BP 120/80 Blood Pressure Location Lt brachial Position Sitting Pulse 63 Pulse Source Pulse Oximeter Pulse Oximetry (%) 98 Oxygen Delivery Method Room Air Intake Visit Reasons: deformity of limb Intake Note: New patient presents for deformity of limb. Patient c/o bilateral wrist pain, neck pain, bilateral shoulder, bilateral hand pain, Rt knee pain and RT ankle pain. Patient stated he has had these symptoms for one year. Patient is not sure what pain medication has taken. Allergies No Known Allergies (No Known Allergies*) Allergy (Verified 03/30/25 11:11) Medication List - Last Reconciled 03/30/25 by Lana Man MD amiodarone 200 mg PO DAILY 90 days colchicine 0.6 mg PO DAILY 30 days empagliflozin (Jardiance) 5 mg (1/2 x 10 mg) PO DAILY food supplemt, lactose-reduced (Ensure oral liquid) 1 ea PO .twice a day 24 days furosemide 40 mg See Protocol PO DAILY 90 days metoprolol succinate ER 25 mg PO DAILY ondansetron 8 mg PO Q12H PRN 5 days [raised toilet seat with arm rest As directed] Shower Chair As directed spironolactone 25 mg See Protocol PO DAILY 90 days sumatriptan succinate 25 mg PO Q2-4H PRN 30 days valsartan 80 mg PO DAILY 90 days HPI Comments Details: Patient is an 79-year-old male with diabetes, hypertension, CKD, AFib, chronic systolic heart failure, hyperlipidemia complicated by coronary artery disease. Referred by primary for evaluation of limb deformity Patient here today with Unsure of why they were sent to rheumatology Has had a deformity of his hands for 40+ years as per Patient notes that he had sport accidents that contributed to his deformities Denies prolonged AM stiffness No joint swelling No family history of autoimmune disease Denies joint pain [facility] Medical History Hypertension Atrial fibrillation with rapid ventricular response CKD stage 3b, GFR 30-44 ml/min Paroxysmal atrial fibrillation CKD (chronic kidney disease) stage 4, GFR 15-29 ml/min Dilated cardiomyopathy Acute exacerbation of CHF (congestive heart failure) B12 deficiency Essential hypertension CAD (coronary artery disease) Obesity Chronic systolic HF (heart failure) Nonischemic cardiomyopathy Hypercholesteremia Surgical History History of cardiac cath (~05/2016) H/O hernia repair Family History Father Hypertension Mother Stomach cancer Social History Household Members: Family Housing: House Housing Other:: lives in a 2 family home per pt Do you presently have visiting nurse or other home services: No (confused--unable toassess) Alcohol intake: never Patient Tobacco Use Status: Never used Tobacco e-Cigarette/Vaping Use: Never Used Second Hand Smoke Exposure: No (n/a) Advance Directives Date on File: 05/28/22 service: No Current occupational status: retired Cognitive needs: No Hearing needs: No Vision needs: No Physical Exam Exam Exam: Vital signs reviewed Physical Examination CONSTITUITIONAL Patient alert and cooperative. Well appearing and in no apparent painful distress MSK Hands * Right Hand: Not able to make a fist. No swelling or tenderness to palpation of the MCPs, PIPs or DIPs. Flexion deformities at the PIPs throughout * Left Hand: Not able to make a fist. No swelling or tenderness to palpation of the MCPs, PIPs or DIPs. Flexion deformities at the PIPs throughout with the 3rd PIP flexed to 90 degrees Wrists * Right Wrist: No swelling or TTP * Left Wrist: No swelling or TTP Elbows * Right Elbow: Decreased ROM. No swelling or TTP. No TTP of the medial epicondyle. No TTP of the lateral epicondyle * Left Elbow: Decreased ROM. No swelling or TTP. No TTP of the medial epicondyle. No TTP of the lateral epicondyle Shoulders * Right shoulder: Decreased ROM. No swelling noted. No TTP of the AC joint. No TTP of the subacromial bursa. No TTP of the posterior shoulder * Left shoulder: Decreased ROM. No swelling noted. No TTP of the AC joint. No TTP of the subacromial bursa. No TTP of the posterior shoulder 3 Knees * Right knee: Full ROM. No swelling noted. No TTP of the knee joint line. No TTP of pes anserine bursa * Left knee: Full ROM. No swelling noted. No TTP of the knee joint line. No TTP of pes anserine bursa. * Crepitations felt bilaterally Ankles * Right ankle: Good ankle dorsiflexion and plantar flexion. No swelling. No TTP of the ankle joint * Left ankle: Good ankle dorsiflexion and plantar flexion. No swelling. No TTP of the ankle joint Feet * Right foot: Negative squeeze test * Left foot: Negative squeeze test Tender points? * No tenderness to palpation of the bilateral trapezius, supraspinatus, anterior costochondral junctions, bilateral suboccipital muscle insertions SKIN No rashes Vital Signs: Last Vital Signs Pulse 63 03/30/25 11:12 BP 120/80 03/30/25 11:12 Pulse Ox 98 03/30/25 11:12 Oxygen Delivery Method Room Air 03/30/25 11:12 BMI result Body Mass Index 22.7 Results Reviewed Results Reviewed: Laboratory Tests 09/02/24 11/04/24 10:14 11:10 WBC 3.6 L RBC 3.53 L Hgb 11.8 L Hct 36.8 L Plt Count 189 D Sodium 146 H Potassium 4.1 Chloride 111 H Carbon Dioxide 27 BUN 37 H Creatinine 1.77 H Estimated GFR 37 AST 26 ALT 17 Assessment & Plan Assessment & Plan (1) Deformity of joint: Code(s): M21.90 - Unspecified acquired deformity of unspecified limb Category: Medical Plan: #Hand Deformity Patient is an 79-year-old male with several chronic comorbidities here today for evaluation of hand deformities. No evidence of active synovitis on examination. On his history is not consistent with an inflammatory arthritis. 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 No need for further rheumatology follow up at this time. Out of completion we will check x-rays and labs Plan - XR Bilateral Hands - Check RF and CCP for completion - No need to to follow up with rheumatology Plan I spent 45 minutes reviewing the record and labs, taking a history, examining the patient, discussing the treatment plan, ordering diagnostic work up and documenting in the medical record Orders: Orders XR hand LT min 3V Today M21.90 - Unspecified acquired deformity of unspecified limb XR wrist RT min 3V Today M21.90 - Unspecified acquired deformity of unspecified limb XR hand RT min 3V Today M21.90 - Unspecified acquired deformity of unspecified limb XR wrist LT min 3V Today M21.90 - Unspecified acquired deformity of unspecified limb Rheumatoid Factor Today M21.90 - Unspecified acquired deformity of unspecified limb Cyclic Citrullinated Peptide Today M21.90 - Unspecified acquired deformity of unspecified limb Coding Level of Care Code New Pt Level 4 (48650) Diagnoses Deformity of joint M21.90
[2025-03-30 11:12] VITALS: BP 120/80; PULSE 63; O2SAT 98; BMI 22.7
== END 2025-03-30 11:42 | disposition home or self-care (01) ==
LOC: HO.RHES 10:34
PROVIDERS: PCP Internal Medicine; Visit Provider Student in an Organized Health Care Education/Training Program
DX: M21.90 Unspecified acquired deformity of unspecified limb (principal)
CPT/HCPCS: 99204

== ENCOUNTER → 2025-03-30 10:33 | Outpatient (BNVA) | payer MEDICARE, SELFPAY ==
[2023-03-13 15:16] VITALS: BP 100/50; BP 108/50; BP 122/64; BMI 23.8
== END ==
PROVIDERS: PCP Internal Medicine; Visit Provider Student in an Organized Health Care Education/Training Program
DX: M21.942 Unspecified acquired deformity of hand, left hand (principal); M21.941 Unspecified acquired deformity of hand, right hand; E11.9 Type 2 diabetes mellitus without complications
CPT/HCPCS: 99202

== ENCOUNTER 2025-06-07 11:21 | Outpatient (AMB) | payer MEDICARE, SELFPAY ==
[2023-03-13 15:16] VITALS: BP 100/50; BP 108/50; BP 122/64; BMI 23.8
--- NOTE | 2025-06-07 11:35 | HO.NEPHOV_ITS ---
Vital Signs 06/07/25 11:38 Height 5 ft 9 in Weight 150 lb 4 oz BMI 22.2 BP 100/60 Blood Pressure Location Lt brachial Position Sitting Intake Visit Reasons: F/U-Conf w/daughter Engineering Specialist Technician Required: No Accompanied by: Spouse Allergies No Known Allergies (No Known Allergies*) Allergy (Verified 06/07/25 11:38) HPI Comments Details: Mr. Bey was seen in follow up for management of his chronic kidney disease. He is 79 years of age who has history of coronary artery disease as well as cardiomyopathy. He has history of systolic heart failure. He is on multiple medications including angiotensin receptor malgorzata. His ejection fraction has been around 15-20% in the past. He denies having any significant proteinuria. He does not carry a diagnosis of amyloidosis. He denies having orthostatic symptoms, chest pain, shortness of breath, nausea, vomiting, diarrhea, hematuria, history of had active malignancy, excessive intake of nonsteroidal anti-inflammatories. His last serum creatinine was 1.77. He denied any active complaints at the time of this office visit. He was accompanied by his family member. [facility] Medical History Hypertension Atrial fibrillation with rapid ventricular response CKD stage 3b, GFR 30-44 ml/min Paroxysmal atrial fibrillation CKD (chronic kidney disease) stage 4, GFR 15-29 ml/min Dilated cardiomyopathy Acute exacerbation of CHF (congestive heart failure) B12 deficiency Essential hypertension CAD (coronary artery disease) Obesity Chronic systolic HF (heart failure) Nonischemic cardiomyopathy Hypercholesteremia Surgical History History of cardiac cath (~05/2016) H/O hernia repair Family History Father Hypertension Mother Stomach cancer Social History Household Members: Family Housing: House Housing Other:: lives in a 2 family home per pt Do you presently have visiting nurse or other home services: No (confused--unable toassess) Alcohol intake: never Patient Tobacco Use Status: Never used Tobacco e-Cigarette/Vaping Use: Never Used Second Hand Smoke Exposure: No (n/a) Advance Directives Date on File: 05/28/22 service: No Current occupational status: retired Cognitive needs: No Hearing needs: No Vision needs: No Review of Systems Const All systems reviewed & are unremarkable except as noted in HPI and below Physical Exam Vital Signs: Last Vital Signs BP 100/60 06/07/25 11:38 BMI result Body Mass Index 22.2 Const General: comfortable and no acute distress Orientation/consciousness: patient oriented x3 HEENT Head: Yes normocephalic Mouth: Normal oral and palatal mucosa present Eyes EOM: EOMs intact bilaterally Neck Neck: Yes supple Resp Auscultation: clear to auscultation bilaterally Cardio Jugular venous distension: no JVD Rate: regular rate GI Palpation (GI): Soft to palpation Auscultation: normal bowel sounds General: Yes no CVA tenderness Back/Spine/Pelvis Back: no CVA tenderness Skin General skin exam: no rashes or lesions noted Neuro General: patient oriented x3 and moves all extremities Results Reviewed Nephrology Results: Hgb, (14.0-18.0) 11.8 g/dl L 11/04/24 WBC, (4.8-10.8) 3.6 X10*3/uL L 11/04/24 Plt Count, (160-400) 189 X10*3/uL Δ 11/04/24 Sodium, (135-145) 146 mmol/L H 11/04/24 Potassium, (3.3-5.1) 4.1 mmol/L 11/04/24 Chloride, (96-108) 111 mmol/L H 11/04/24 Carbon Dioxide, (22-29) 27 mmol/L 11/04/24 BUN, (9-16) 37 mg/dL H 11/04/24 Creatinine, (0.5-1.4) 1.77 mg/dL H 11/04/24 Calcium, (8.4-10.2) 9.6 mg/dL 11/04/24 Phosphorus, (2.7-4.5) 3.3 mg/dL 11/04/24 Assessment & Plan Assessment & Plan (1) CKD (chronic kidney disease) stage 3, GFR 30-59 ml/min: Code(s): N18.30 - Chronic kidney disease, stage 3 unspecified Category: Medical Qualifiers: Chronic kidney disease stage 3 subtype: stage 3b (GFR 30-44) Qualified Code(s): N18.32 - Chronic kidney disease, stage 3b Plan Mr Bey has CKD 3 likely due to vascular disease as well as loss of renal function from his reduced renal perfusion from cardiomyopathy. His urine output is good. He is on valsartan and farxiga. He denies any active ongoing orthostasis. His blood pressure is at goal. He should avoid excessive sodium in the diet and weigh himself every day. Blood work today & in 4 M; I did not make any medication changes at this office visit put discussed all the future management strategies. Answered all questions. Follow-up appointment given. Orders: Orders Electrolytes Today N18.32 - Chronic kidney disease, stage 3b Calcium Today N18.32 - Chronic kidney disease, stage 3b Complete Blood Count Auto Diff Today N18.32 - Chronic kidney disease, stage 3b Electrolytes 4 Months N18.32 - Chronic kidney disease, stage 3b Creatinine Today N18.32 - Chronic kidney disease, stage 3b Blood Urea Nitrogen Today N18.32 - Chronic kidney disease, stage 3b Blood Urea Nitrogen 4 Months N18.32 - Chronic kidney disease, stage 3b Creatinine 4 Months N18.32 - Chronic kidney disease, stage 3b Uric Acid Today N18.32 - Chronic kidney disease, stage 3b Coding Level of Care Code Est Pt Level 4 (57177) Diagnoses Stage 3b chronic kidney disease N18.32 Chronic kidney disease stage 3 subtype: stage 3b (GFR 30-44)
[2025-06-07 11:38] VITALS: BP 100/60; BMI 22.2
--- OUTSIDE RECORDS SUMMARY | 2025-06-07 15:04 | XMS_ITS | Encounter Summary ---
Author Organization [facility] Address [address] [facility] [address] [place] [address] Phone Care Team Providers Care Rotary Drum Dyer Name Role Phone Deb Vital MD Primary Care Provider [phone] Reason for Visit * Reason Comments Med Refill Encounter Details Date Type Department Care Team ([facility] st Contact Info) Description 08/29/2024 Refill [facility] [address] [place] [phone] Jimmie Bartholomew MD [address] [facility] [facility] [address] [place] [address] Social History Tobacco Use Types [...] on filedocumented in this encounter Care Teams Rotary Drum Dyer Relationship Specialty Start Date End Date Deb Vital MD [address] [place], [place] PCP - General Internal Medicine 06/17/22 documented as of this encounter
--- OUTSIDE RECORDS SUMMARY | 2025-06-07 15:04 | XMS_ITS | Encounter Summary ---
Author Organization [facility] Address [address] [facility] [address] [place] [address] Phone Care Team Providers Care Activities Specialist Name Role Phone Deb Vital MD Primary Care Provider [phone] Reason for Visit * Reason Comments Med Refill Encounter Details Date Type Department Care Team ([facility] st Contact Info) Description 05/09/2024 Refill [facility] [address] [place] [phone] Jimmie Bartholomew MD [address] [facility] [address] [place] [address] Social History Tobacco Use Types [...] on filedocumented in this encounter Care Teams Activities Specialist Relationship Specialty Start Date End Date Deb Vital MD [address] [place], [place] PCP - General Internal Medicine 06/17/22 documented as of this encounter
== END 2025-06-07 12:11 | disposition home or self-care (01) ==
LOC: HO.HKA 11:22
PROVIDERS: PCP Internal Medicine; Visit Provider Internal Medicine Nephrology
DX: N18.32 Chronic kidney disease, stage 3b (principal)
CPT/HCPCS: 99214

== ENCOUNTER 2025-06-07 12:19 | Outpatient (REF) | payer MEDICARE, SELFPAY ==
[2023-03-13 15:16] VITALS: BP 100/50; BP 108/50; BP 122/64; BMI 23.8
[2025-06-07 13:24] LABS: MANUAL DIFF FLAG NO
[2025-06-07 13:29] LABS: Hematocrit 42.9 % (42.0-52.0); Hemoglobin 13.4 g/dl (14.0-18.0); Imm Gran Abs Auto 0.01 X10*3/uL (0.00-0.03); Imm Gran Pct Auto 0.3 % (0.0-0.4); Lymphocytes Absolute Auto 0.4 X10*3/uL (1.2-4.9); Mean Corpuscular HGB Conc 31.2 g/dl (31.0-36.0); Mean Corpuscular Hemoglobin 32.8 pg (27.0-33.0); Mean Corpuscular Volume 104.9 fL (80.0-98.0); NRBC Abs Auto 0.000 X10*3/uL (0.0-0.012); NRBC Pct Auto 0.0 /100WBC (0.0-0.2); Platelet Count 209 X10*3/uL (160-400); Red Blood Count 4.09 X10*6/uL (4.60-5.80); White Blood Count 3.9 X10*3/uL (4.8-10.8)
[2025-06-07 13:41] LABS: Anion Gap 18 (12-20); Blood Urea Nitrogen 74 mg/dL (9-16); Calcium 9.7 mg/dL (8.4-10.2); Carbon Dioxide 22 mmol/L (22-29); Chloride 116 mmol/L (96-108); Estimated Glomerular Filt Rate 21; Potassium 4.9 mmol/L (3.3-5.1); Sodium 151 mmol/L (135-145); Uric Acid 11.9 mg/dL (3.4-7.0)
== END 2025-06-07 12:20 ==
LOC: HO.10HDL 12:19
PROVIDERS: Visit Provider Internal Medicine Nephrology
DX: N18.32 Chronic kidney disease, stage 3b (principal)
CPT/HCPCS: 36415; 80051; 82310; 82565; 84520; 84550; 85025; 99212

== ENCOUNTER 2025-06-17 08:13 | Inpatient (IN) | payer MEDICARE, SELFPAY ==
[2023-03-13 15:16] VITALS: BP 100/50; BP 108/50; BP 122/64; BMI 23.8
[2025-06-17] VITALS (8 sets, daily range): BP systolic 98–119; BP diastolic 58–73; PULSE 63–91; RESP 16–28; TEMP 36.2–37.2; O2SAT 96–100; BMI 21.7; BMI 20.2
--- NOTE | ~2025-06-17 | XR_ITS ---
CLINICAL HISTORY: weakness, SOB 1 view chest x-ray Comparison: 09/02/2024 Findings: There is consolidation in the right lung base, possible pneumonia atelectasis. Normal size heart. No acute fracture. IMPRESSION: 1. Right basilar consolidation, differential considerations noted. This document has been electronically signed by: Riaz Oropeza MD on 06/17/2025 11:02:06
--- NOTE | ~2025-06-17 | CT_ITS ---
CLINICAL HISTORY: encephalopathy CT head without contrast Comparison: None Findings: No intracranial mass, midline shift, hydrocephalus, or acute hemorrhage. No CT evidence of acute ischemia. Mild right occipital encephalomalacia is present (3; 10 and 7; 158). Minimal chronic microangiopathic white matter ischemic changes are present. There is left cerebellar hemisphere encephalomalacia (3; 18-24). Visualized paranasal sinuses and mastoid air cells normal. Orbits unremarkable. No skull fracture Impression: 1. No acute intracranial abnormalities. This document has been electronically signed by: Cuco West MD on 06/20/2025 17:44:36
--- NOTE | ~2025-06-17 | US_ITS ---
CLINICAL HISTORY: Acute on CKD --- Additional Notes or Special Instructions: kidney ureter bladder US Renal Comparison: None provided Findings: Right kidney 8.3 cm in length. Left kidney 9.1 cm in length. Bilateral renal parenchymal thinning. Normal bilateral renal echogenicity. No collecting system dilatation of either kidney. Normal color Doppler. The bladder wall appears thickened and trabeculated. Prevoid volume 122 mL. Postvoid volume not obtained Bilateral ureteral jets present Prostate volume 28.5 mL There are gallstones within the gallbladder. IMPRESSION: 1. There is thickening of the bladder wall. This may be related to chronic bladder outlet obstruction. Correlate with urinalysis to exclude cystitis. 2. There is bilateral renal volume loss. 3. There is cholelithiasis. This document has been electronically signed by: Ailyn Rosenthal MD on 06/18/2025 11:45:25
--- NOTE | ~2025-06-17 | CT_ITS ---
CLINICAL HISTORY: sob chf vs pna CT chest without contrast Comparison: CR - XR CHEST 1V - 06/17/25 09:50 EST CR/SR - XR CHEST 1 VIEW - 09/02/24 10:00 EDT Findings: Mediastinal lymph nodes measure up to 1.0 cm in short axis. Marked cardiomegaly. Severe calcified coronary artery disease. Moderate calcification of the aortic valve. Normal size thoracic aorta with severe calcified atherosclerotic disease. Mild amount of bilateral ground-glass opacity with smooth interlobular septal thickening. No pneumothorax. Small right and trace left pleural effusions. No acute osseous abnormality. Chronic fractures of the left 5th through 7th ribs. Severe bilateral glenohumeral degenerative change, hyog-fuaxitz-[id number]-right with a large amount of degenerative ossific fragments. Infiltration of the subcutaneous fat may indicate anasarca. Small left chest wall lipoma measuring 0.5 x 2.4 x 1.4 cm. No acute pathology in the imaged portion of the upper abdomen. Impression: Mild cardiogenic pulmonary edema. Ascites in the upper abdomen. This document has been electronically signed by: Vale Martinez MD on 06/17/2025 16:03:54
--- NOTE | 2025-06-17 08:28 | ECG_ITS ---
Test Reason : WEAKNESS Blood Pressure : */* mmHG Vent. Rate : 83 BPM Atrial Rate : 83 BPM P-R Int : 238 ms QRS Dur : 182 ms QT Int : 464 ms P-R-T Axes : 28 -37 136 degrees QTcB Int : 545 ms Sinus rhythm with Premature atrial complexes with 1st degree A-V block Left axis deviation Left bundle branch block Abnormal ECG When compared with ECG of 02-Sep-2024 10:09, No significant change was found Referred By: Generic ED Physician Electronically Signed By: KELLY LUCIO MD
--- OUTSIDE RECORDS SUMMARY | 2025-06-17 08:45 | XMS_ITS | Clinical Summary ---
Author Organization [facility] Address [address] [place] [address] Phone Care Team Providers Care Search Lead Name Role Phone Deb Vital MD Primary [...] Active Active Problems No known active problems Social [...] of 2 - PCV) 1964 Influenza Vaccine (#1) 2025 Hepatitis B Vaccine Aged Out No longe r eligible based on patient's age to complete this topic Insurance [facility] Medicare [facility] Medicare Care Teams Search Lead Relationship Specialty Start Date End Date Deb Vital MD [address] [place], [place] PCP - General Internal Medicine 06/17/22
--- OUTSIDE RECORDS SUMMARY | 2025-06-17 08:45 | XMS_ITS | Encounter Summary ---
Author Organization [facility] Address [address] [facility] [address] [place] [address] Phone Care Team Providers Care Optometrist Assistant Name Role Phone Deb Vital MD Primary Care Provider [phone] Reason for Visit * Reason Comments Med Refill Encounter Details Date Type Department Care Team ([facility] st Contact Info) Description 05/09/2024 Refill [facility] [address] [place] [phone] Jimmie Bartholomew MD [address] [facility] [address] [place] [address] Social History Tobacco Use Types [...] on filedocumented in this encounter Care Teams Optometrist Assistant Relationship Specialty Start Date End Date Deb Vital MD [address] [place], [place] PCP - General Internal Medicine 06/17/22 documented as of this encounter
--- OUTSIDE RECORDS SUMMARY | 2025-06-17 08:45 | XMS_ITS | Encounter Summary ---
Author Organization [facility] [place] Address [address] [facility] [address] [place] [address] Phone Care Team Providers Care Cabin Worker Name Role Phone Deb Vital MD Primary Care Provider [phone] Reason for Visit * Reason Comments Med Refill Encounter Details Date Type Department Care Team ([facility] st Contact Info) Description 08/29/2024 Refill [facility] [address] [place] [phone] Jimmie Bartholomew MD [address] [facility] [address] [place] [address] Social History Tobacco Use Types [...] on filedocumented in this encounter Care Teams Cabin Worker Relationship Specialty Start Date End Date Deb Vital MD [address] [place], [place] PCP - General Internal Medicine 06/17/22 documented as of this encounter
[2025-06-17 09:12] LABS: MANUAL DIFF FLAG NO
[2025-06-17 09:15] LABS: Hematocrit 37.5 % (42.0-52.0); Hemoglobin 12.0 g/dl (14.0-18.0); Imm Gran Abs Auto 0.02 X10*3/uL (0.00-0.03); Imm Gran Pct Auto 0.6 % (0.0-0.4); Lymphocytes Absolute Auto 0.2 X10*3/uL (1.2-4.9); Mean Corpuscular HGB Conc 32.0 g/dl (31.0-36.0); Mean Corpuscular Hemoglobin 32.2 pg (27.0-33.0); Mean Corpuscular Volume 100.5 fL (80.0-98.0); NRBC Abs Auto 0.000 X10*3/uL (0.0-0.012); NRBC Pct Auto 0.0 /100WBC (0.0-0.2); Platelet Count 166 X10*3/uL (160-400); Red Blood Count 3.73 X10*6/uL (4.60-5.80); White Blood Count 3.1 X10*3/uL (4.8-10.8)
[2025-06-17 09:24] LABS: Anion Gap 14 (12-20); Blood Urea Nitrogen 68 mg/dL (9-16); Calcium 9.2 mg/dL (8.4-10.2); Carbon Dioxide 19 mmol/L (22-29); Chloride 116 mmol/L (96-108); Creatinine Clr Calc Pharmacy 19.4; Estimated Glomerular Filt Rate 19; Potassium 4.4 mmol/L (3.3-5.1); Sodium 145 mmol/L (135-145)
--- NOTE | 2025-06-17 09:32 | ED_ITS ---
HPI - General Adult General Chief complaint: General Medical Stated complaint: no mobility, breathing is off Time Seen by Provider: 06/17/25 09:31 Source: patient and family (patient's and daughters) Mode of arrival: wheelchair Limitations: physical limitation (patient deferred to family to answer questions) History of Present Illness ED Provider: Marie Walden PA-C HPI narrative: Patient is a 79 year old male with a history of paroxysmal atrial fibrillation, dilated cardiomyopathy with EF 10%, left bundle-branch block, chronic systolic heart failure, CKD stage 4, CAD, gout, and hypertension presenting to the emergency department today with increased shortness of breath and decreased PO intake. Patient's and daughters at the bed side state that the patient has had increased shortness of breath with exertion and decreased oral intake. Patient's family states that the patient has not been eating and drinking well but he continues to make urine. Related Data Home Medications ?Medication ?Instructions ?Recorded ?Confirmed cholecalciferol (vitamin D3) 25 25 mcg PO DAILY 06/17/25 mcg (1,000 unit) tablet cyanocobalamin (vitamin B-12) 1,000 mcg PO DAILY 06/1706/17/25 1,000 mcg tablet valsartan 80 mg tablet 40 mg PO DAILY 06/17/2505/23 Previous Rx's ?Medication ?Instructions ?Recorded Shower Chair #1 ea 12/17/22 raised toilet seat with arm rest #1 ea 12/17/22 sumatriptan succinate 25 mg tablet 25 mg PO Q2-4H PRN migraine 12/20/24 headache 30 days #9 tabs amiodarone 200 mg tablet 200 mg PO DAILY 90 days #90 tabs 04/17/25 spironolactone 25 mg tablet 25 mg PO DAILY 90 days #90 tabs 04/17/25 metoprolol succinate 25 mg 25 mg PO DAILY #90 tabs tablet,extended release 24 hr colchicine 0.6 mg tablet 0.6 mg PO DAILY 30 days #30 tabs 05/22/25 Allergies Allergy/AdvReac Type Severity Reaction Status Date / Time No Known Allergies (No Known Allergy Verified 06/17/25 08:19 Allergies*) Review of Systems 2 Constitutional: Constitutional: Reports as per HPI Eyes: Eyes: Reports as per HPI ENT: Reports as per HPI Cardiovascular: Cardiovascular: Reports as per HPI Respiratory: Respiratory: Reports as per HPI Gastrointestinal: Gastrointestinal: Reports as per HPI Genitourinary: Genitourinary: Reports as per HPI Musculoskeletal: Musculoskeletal: Reports as per HPI Integumentary/Breasts: Skin/Breast: Reports as per HPI Neurologic: Reports as per HPI Psychiatric: Psychiatric: Reports as per HPI Endocrine: Endocrine: Reports as per HPI Hematologic/Lymphatic: Hematologic/Lymphatic: Reports as per HPI Allergic/Immunologic: Allergic/Immunologic: Reports as per HPI [facility] Past Medical History Attestation statement: The following information was validated with the patient. (all information validated with the patient's and children) Source: old records reviewed, obtained from family (patient's and children provided all history and review of systems) and nursing notes reviewed Medical History Hypertension Atrial fibrillation with rapid ventricular response CKD stage 3b, GFR 30-44 ml/min Paroxysmal atrial fibrillation CKD (chronic kidney disease) stage 4, GFR 15-29 ml/min Dilated cardiomyopathy Acute exacerbation of CHF (congestive heart failure) B12 deficiency Essential hypertension CAD (coronary artery disease) Obesity Chronic systolic HF (heart failure) Nonischemic cardiomyopathy Hypercholesteremia Surgical History History of cardiac cath (~05/2016) H/O hernia repair Family History Family History Father Hypertension Mother Stomach cancer Social History Social History Household Members: Family Housing: House Housing Other:: lives in a 2 family home per pt Do you presently have visiting nurse or other home services: No (confused--unable toassess) Alcohol intake: never Patient Tobacco Use Status: Never used Tobacco Smoked in Last 30 Days: No e-Cigarette/Vaping Use: Never Used Second Hand Smoke Exposure: No (n/a) Use of substances other than those prescribed or required for medical reasons: No Advance Directives: Yes Advance Directives on File: Yes Advance Directives Date on File: 05/28/22 Do you have a plan to hurt others: No Plan service: No Current occupational status: retired Cognitive needs: No Hearing needs: No Vision needs: No Physical Exam ED Vital Signs: Vital Signs - 24 hr 06/17/25 08:17 06/17/25 09:45 Temperature 97.1 F 98.2 F Respiratory Rate 18 Blood Pressure 119/58 L Oxygen Delivery Method Room Air BMI result Body Mass Index 21.7 Const General: cooperative, no acute distress, alert and awake Nutritional Appearance: well nourished Orientation/consciousness: oriented to person and oriented to place HENOR Head: Yes normal to inspection and Yes atraumatic Ears: hearing grossly normal bilaterally and external ears normal General nose exam: Normal external nose present, no nasal discharge noted and no epistaxis Face and sinus: Yes normal facial exam, No abrasion and No laceration Mouth: Normal oral and palatal mucosa present, no drooling and no muffled voice Eyes General: appearance normal, both eyes and all related structures Periorbital: periorbital findings normal Eyelids: Yes eyelids normal Conjunctivae: conjunctivae normal Pupils: Equal, round and reactive pupils present EOM: EOMs intact bilaterally Neck Neck: Yes normal visual inspection and Yes full ROM Resp Effort & Inspection: able to speak in complete sentences Cardio Rate: regular rate Neuro General: oriented to person, oriented to place, moves all extremities and CN's II-XI intact bilaterally Cranial nerves: Yes Equal, round and reactive pupils present Extrem General: Yes normal to inspection, Yes full ROM and Yes capillary refill normal Psych Appearance: grossly normal Medications Administered Generic Name Dose Route Start Last Admin Trade Name Freq PRN Reason Stop Dose Admin Heparin Sodium (Porcine) 5,000 unit 06/17/25 12:15 06/17/25 12:47 Heparin Sodium,Porcine 5,000 Unit/Ml Vial SUBCUT 5,000 unit Q12H DEXTER Administration Doxycycline Hyclate 100 mg/ 250 mls @ 166.67 mls/hr 06/17/25 13:00 06/17/25 12:48 Sodium Chloride IV 166.67 mls/hr Q12H DEXTER Administration Discontinued Medications Generic Name Dose Route Start Last Admin Trade Name Freq PRN Reason Stop Dose Admin Sodium Chloride 1,000 mls @ 125 mls/hr 06/17/25 10:00 06/17/25 12:16 Ns IV 06/17/25 17:37 Infused .Q8H DEXTER Infusion Ceftriaxone Sodium 2 gm/ 50 mls @ 100 mls/hr 06/17/25 11:05 06/17/25 12:19 Sodium Chloride IV 06/17/25 11:34 Infused ONCE ONE Infusion Medical Decision Making Medical Decision Making MDM Narrative: Patient is a 79 year old male with a history of paroxysmal atrial fibrillation, dilated cardiomyopathy with EF 10%, left bundle-branch block, chronic systolic heart failure, CKD stage 4, CAD, gout, and hypertension presenting to the emergency department today with increased shortness of breath and decreased PO intake. Patient's physical exam showed an overall lethargic male who arouses to verbal and physical stimuli but doesn't stay awake long enough to participate in meaningful conversation. Patient protecting his airway, tolerating his secretions. Patient's blood work showed an elevated CR of 3.11, BUN of 68, BNP of 843975.2, and inital trop of 44.6 . Patient's EKG showed no obvious evidence of arrhythmia, ischemia, or infarct. Patient's chest x-ray showed evidence of right basilar consolidation - possible PNA. Patient negative for COVID-19, Influenza, and RSV. Patient's clinical presentation is most consistent with an LIANA in the setting of decreased PO intake and right sided pneumonia. Patient's BNP is likely chronically elevated give his extensive cardiac history. Patient's troponin is likely elevated secondary to demand / kidney function. No evidence of cardiac ischemia at this time. Patient's clinical presentation is not consistent with sepsis (@1250). Patient given IV fluids at 125ml/hr given his history of 10% EF + heart failure. Patient given IV ceftriaxone for his PNA. I spoke with the hospitalist team who agreed to admission. I explained my physical exam findings as well as all test results to the patient, the patient's daughters, and the patient's . I answered all questions asked by the patient, the patient's daughters, and the patient's . Patient's daughters and verbalized agreement and understanding with this treatment plan and admission. Note: I had an extensive conversation with the patient, his , and his daughters about goals of care. They stated the patient was to remain full code and everything is to be done at this time. They stated they would start to have conversations around future goals after this hospitalization. Differential Diagnosis Differential Diagnoses: The differential diagnosis associated with the presentation includes LIANA Weakness Pneumonia Influenza RSV COVID-19 Admission/Observation Consideration of admission/observation: Escalation of care including admission/observation considered Patient admitted as noted in the MDM Rationale portion of this note. Consult Healthcare Provider Management of the patient was discussed with: Hospitalist (agreed to admission as noted in the MDM Rationale portion of this note. ) Lab Data [facility] Lab Attestation statement: I reviewed the patient's lab results. My interpretation of these results are in the MDM Rationale portion of this note. 06/17/25 09:05 06/17/25 09:05 Labs: Lab Results 06/17/25 06/17/25 Range/Units 09:05 11:46 WBC 3.1 L (4.8-10.8) X10*3/uL RBC 3.73 L (4.60-5.80) X10*6/uL Hgb 12.0 L (14.0-18.0) g/dl Hct 37.5 L (42.0-52.0) % MCV 100.5 H (80.0-98.0) fL MCH 32.2 (27.0-33.0) pg MCHC 32.0 (31.0-36.0) g/dl RDW 14.9 (11.0-16.0) % Plt Count 166 (160-400) X10*3/uL MPV 11.5 (9.4-12.4) fL Immature Gran % (Auto) 0.6 H (0.0-0.4) % Neut % (Auto) 79.3 H (45-73) % Lymph % (Auto) 7.8 L (20-40) % [place] % (Auto) 11.0 (2-11) % Eos % (Auto) 1.3 (0-4) % Baso % (Auto) 0.0 (0-2) % Lymph # (Auto) 0.2 L (1.2-4.9) X10*3/uL [place] # (Auto) 0.3 (0.1-1.2) X10*3/uL Eos # (Auto) 0.0 (0.0-0.4) X10*3/uL Baso # (Auto) 0.0 (0.0-0.2) X10*3/uL Abs Immat Gran (auto) 0.02 (0.00-0.03) X10*3/uL Absolute Neuts (auto) 2.5 (2.0-8.3) x10*3/uL Absolute Nucleated RBC 0.000 (0.0-0.012) X10*3/uL Nucleated RBC % (auto) 0.0 (0.0-0.2) /100WBC Sodium 145 (135-145) mmol/L Potassium 4.4 (3.3-5.1) mmol/L Chloride 116 H (96-108) mmol/L Carbon Dioxide 19 L (22-29) mmol/L Anion Gap 14 (12-20) BUN 68 H (9-16) mg/dL Creatinine 3.11 H (0.5-1.4) mg/dL Estim Creat Clear Calc 19.4 Estimated GFR 19 Random Glucose 98 (60-115) mg/dL Lactic Acid 1.4 (0.5-2.0) mmol/L Calcium 9.2 (8.4-10.2) mg/dL Troponin I High Sens 44.6 H (<3.5-35.0) ng/L NT-Pro-B Natriuret Pep 668522.2 H (<300) pg/mL Influenza Type A (PCR) NEGATIVE (Negative) Influenza Type B (PCR) NEGATIVE (Negative) RSV RNA Qual (PCR) NEGATIVE (Negative) SARS-CoV-2 RNA (RT-PCR) NEGATIVE (Negative) Independent Interpretation I performed an independent interpretation of an: EKG and Plain X-Ray Interpretation: My interpretation is in agreement with the radiologist's impression of this imaging study as written below. CLINICAL HISTORY: weakness, SOB 1 view chest x-ray Comparison: 09/02/2024 Findings: There is consolidation in the right lung base, possible pneumonia atelectasis. Normal size heart. No acute fracture. IMPRESSION: 1. Right basilar consolidation, differential considerations noted. This document has been electronically signed by: Riaz Oropeza MD on 06/17/2025 11:02:06 Dictated By: Riaz Oropeza MD Signed By: Electronically signed by Riaz Oropeza MD 06/17/25 1103 I independently interpreted this EKG and am in agreement with the below findings: Vent. Rate: 83 BPM Atrial Rate: 83 BPM P-R Int: 238 ms QRS Dur: 182 ms QT Int: 464 ms P-R-T Axes: 28 -37 136 degrees QTcB Int: 545 ms Sinus rhythm with sinus arrhythmia with 1st degree A-V block Left bundle branch block When compared with ECG of 02-Sep-2024 10:09, No significant change was found DD/ 0853 Radiology Impression Discussion of test interpretation with radiology: I have reviewed the radiologist's reading. Independent Historian Clinical information obtained from an independent historian. History obtained from or confirmed by: Spouse (patient's provided all history of illness and review of systems) and Other (patient's daughters provided all history and review of symptoms) Critical Care Time Critical Care Time Critical Care Time: Yes Total Critical Care Time: 49 Attestation: I spent 49 minutes of Critical Care Time with this patient. This does not include time spent on separately reported billable procedures. Discharge Plan Discharge Clinical Impression: Pneumonia, Weakness, LIANA (acute kidney injury), Elevated brain natriuretic peptide (BNP) level Patient Disposition: Admitted As Inpatient
[2025-06-17 09:39] LABS: Troponin-I High Sensitivity 44.6 ng/L (<3.5-35.0)
[2025-06-17 09:49] LABS: Resp Syncy Virus RNA Qual PCR NEGATIVE (Negative); SARS COV2 PCR INHOUSE NEGATIVE (Negative)
--- NOTE | 2025-06-17 10:58 | PC.NURSE ---
Brought in by family with reports of decreased po intake , weakness, and breathing funny . Patient denies pain or discomfort. Daughter Amena`s #is [phone] if Jade is unable to be reached
--- NOTE | 2025-06-17 12:17 | PM.IMHP ---
History of Present Illness Date of Service: 06/17/25 Attending physician on admission: Ney Fermin Chief Complaint: shortness of breath This is an 79M with a history of cardiomyopathy with low EF (declined ICD), HTN, HLD, CKD3, paroxysmal afib (declines AC), CAD who was brought to the ED for reported weakness, and shortness of breath. The patient is awake and alert but is a very vague historian. In the ED he was not hypoxic. His vitals did not indicate tachypnea although he appears tachypneic on exam. CXR showed concern for pneumonia and he was started on antibiotics. Lab work significant for increasing creatinine at 3.11, troponin 44.6, pro-BNP 120,274. Blood pressure on the lower side at 98/72. lactic acid within normal limits. Review of Systems Review of Systems: Limited ROS from patient Yes all other systems are reviewed and are negative Cardiovascular: Cardiovascular: Reports dyspnea and Reports dyspnea on exertion Respiratory: Respiratory: Reports dyspnea and Reports dyspnea on exertion Neurologic: Reports confusion Psychiatric: Psychiatric: Reports confusion [facility] Medical History Hypertension Atrial fibrillation with rapid ventricular response CKD stage 3b, GFR 30-44 ml/min Paroxysmal atrial fibrillation CKD (chronic kidney disease) stage 4, GFR 15-29 ml/min Dilated cardiomyopathy Acute exacerbation of CHF (congestive heart failure) B12 deficiency Essential hypertension CAD (coronary artery disease) Obesity Chronic systolic HF (heart failure) Nonischemic cardiomyopathy Hypercholesteremia Family History Father Hypertension Mother Stomach cancer Surgical History History of cardiac cath (~05/2016) H/O hernia repair Social History Household Members: Family Housing: House Housing Other:: lives in a 2 family home per pt Do you presently have visiting nurse or other home services: No (confused--unable toassess) Alcohol intake: never Patient Tobacco Use Status: Never used Tobacco Smoked in Last 30 Days: No e-Cigarette/Vaping Use: Never Used Second Hand Smoke Exposure: No (n/a) Use of substances other than those prescribed or required for medical reasons: No Advance Directives: Yes Advance Directives on File: Yes Advance Directives Date on File: 05/28/22 Do you have a plan to hurt others: No Plan service: No Current occupational status: retired Cognitive needs: No Hearing needs: No Vision needs: No Meds Allergies Allergy/AdvReac Type Severity Reaction Status Date / Time No Known Allergies (No Known Allergy Verified 06/17/25 08:19 Allergies*) Active Medications: Current Medications Acetaminophen (Acetaminophen 325 Mg Tablet) 650 mg PO Q6H PRN PRN Reason: Pain, Mild 1-3,fever,headache Calcium Carbonate (Calcium Carbonate 750 Mg Tab.Chew) 750 mg PO Q4H PRN PRN Reason: Heartburn Heparin Sodium (Porcine) (Heparin Sodium,Porcine 5,000 Unit/Ml Vial) 5,000 unit SUBCUT Q12H [facility] Magnesium Hydroxide (Milk Of Magnesia 30 Ml Oral.Susp) 30 ml PO DAILY PRN PRN Reason: Constipation Melatonin (Melatonin 3 Mg Tablet) 6 mg PO BEDTIME PRN PRN Reason: Insomnia Sodium Chloride (0.9 % Sodium Chloride Flush 3 Ml Syringe) 3 ml IVFLUSH QSHIFT [facility] Home Medications ?Medication ?Instructions ?Recorded ?Confirmed ?Last Taken ?Type cholecalciferol (vitamin D3) 25 25 mcg PO DAILY 06/17/25 06/17/25 Unknown History mcg (1,000 unit) tablet cyanocobalamin (vitamin B-12) 1,000 mcg PO DAILY 06/17/25 06/17/25 Unknown History 1,000 mcg tablet valsartan 80 mg tablet 40 mg PO DAILY 06/17/25 06/17/25 Unknown History Physical Exam Vital Signs and Narrative: Vital Signs: Last Vital Signs Temp 98.2 F 06/17/25 09:45 Pulse 63 06/17/25 12:14 Resp 18 06/17/25 08:17 BP 98/72 06/17/25 12:14 O2 Del Method Room Air 06/17/25 09:45 BMI result Body Mass Index 21.7 Const: Other: Thin, frail appearing General: cooperative, alert, awake and confusion Nutritional Appearance: thin Orientation/consciousness: oriented to person and confusion Resp: Other: mild tachypnea. no wheezes or rales Effort & Inspection: able to speak in complete sentences Cardio: Rate: regular rate GI: Inspection: No distended Palpation (GI): Soft to palpation and nontender Neuro: Other: grossly nonfocal; slow to answer General: oriented to person and confusion Extrem: Other: b/l leg edema 2+ bilaterally General: Yes pedal edema Results Labs 06/17/25 09:05 06/17/25 09:05 Labs: Laboratory Results - last 24 hr 06/17/25 06/17/25 09:05 11:46 MCV 100.5 H MCH 32.2 MCHC 32.0 RDW 14.9 Plt Count 166 MPV 11.5 Immature Gran % (Auto) 0.6 H Neut % (Auto) 79.3 H Lymph % (Auto) 7.8 L [place] % (Auto) 11.0 Eos % (Auto) 1.3 Baso % (Auto) 0.0 Lymph # (Auto) 0.2 L [place] # (Auto) 0.3 Eos # (Auto) 0.0 Baso # (Auto) 0.0 Abs Immat Gran (auto) 0.02 Absolute Neuts (auto) 2.5 Absolute Nucleated RBC 0.000 Nucleated RBC % (auto) 0.0 Anion Gap 14 Estim Creat Clear Calc 19.4 Estimated GFR 19 Random Glucose 98 Lactic Acid 1.4 Calcium 9.2 Troponin I High Sens 44.6 H NT-Pro-B Natriuret Pep 935103.2 H Influenza Type A (PCR) NEGATIVE Influenza Type B (PCR) NEGATIVE RSV RNA Qual (PCR) NEGATIVE SARS-CoV-2 RNA (RT-PCR) NEGATIVE Assessment and Plan (1) Acute kidney injury superimposed on CKD: Status: Acute (2) Chronic systolic HF (heart failure): Status: Acute (3) Pneumonia: Status: Acute Plan This is an 79 year old male with history of dilated cardiomyopathy with EF 10% (declined ICD), LBBB, pAF not on AC, HTN, HLD, CAD, gout, brought in for confusion and shortness of breath. acute toxic metabolic encephalopathy possibly due to infection previous notes indicate vague historia, some degree of baseline cognitive impairment seems likely. will confirm with family CAP PSI score 100, CURB 65 score 3 IV ceftriaxone, IV doxy check pro-calcitonin check RPP chest chest CT LIANA on CKD4 soft bp on multiple cardiac meds hold valsartan, spironolactone jardiance has been recently decreased as outpatient nephrology consult trend BMP acute on chronic HFrEF pro-BNP markedly increased no hypoxia and no significant fluid on cxr check chest CT for further characterization paroxysmal atrial fibrillation continue reduced dose of metoprolol, amiodorone not on AC (was previously on Eliquis but pt/family elected to discontinue due to cost per outpatient notes) Gout colchicine on hold for worsening renal function dvt ppx - heparin code status - full code; given multiple chronic medical issues 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
--- NOTE | 2025-06-17 13:01 | PHA.MEDREC ---
Pharmacy Consult ? Medication Reconciliation Pharmacy has completed the medication reconciliation. Spoke with patients mattyther who confirmed patient is no longer on jardiance, patient stopped jardiance per their renal provider 2- 3 weeks ago and has not heard back about restarting. Daughter also confirmed patient is currently only taking half a tablet of their valsartan.
[2025-06-17 13:16] LABS: Procalcitonin 0.21 ng/mL
--- NOTE | 2025-06-17 13:25 | PM.CNNEP ---
History of Present Illness Reason for Consult Consult date: 06/17/25 Chief Complaint Chief complaint: AMS History of Present Illness Narrative: 79-year-old gentleman with PMH of CAD, ischemic cardiomyopathy with EF 10-15%, grade 3 diastolic dysfunction, CKD stage 4, hypertension, paroxysmal atrial fibrillation, gout presented to the ED with complaints of shortness of breath. Chest x-ray suggestive of pulmonary edema, proBNP increased to 120 K, procalcitonin normal. His creatinine was about 2.96 15 days ago, increased to 3.11 so renal is consulted. Review of Systems Review of Systems unable to obtain [facility] Past Medical History Medical History Hypertension Atrial fibrillation with rapid ventricular response CKD stage 3b, GFR 30-44 ml/min Paroxysmal atrial fibrillation CKD (chronic kidney disease) stage 4, GFR 15-29 ml/min Dilated cardiomyopathy Acute exacerbation of CHF (congestive heart failure) B12 deficiency Essential hypertension CAD (coronary artery disease) Obesity Chronic systolic HF (heart failure) Nonischemic cardiomyopathy Hypercholesteremia Family History Family History Father Hypertension Mother Stomach cancer Surgical History Surgical History History of cardiac cath (~05/2016) H/O hernia repair Social History Social History Household Members: Family Housing: House Housing Other:: lives in a 2 family home per pt Do you presently have visiting nurse or other home services: No (confused--unable toassess) Alcohol intake: never Patient Tobacco Use Status: Never used Tobacco Smoked in Last 30 Days: No e-Cigarette/Vaping Use: Never Used Second Hand Smoke Exposure: No (n/a) Use of substances other than those prescribed or required for medical reasons: No Advance Directives: Yes Advance Directives on File: Yes Advance Directives Date on File: 05/28/22 Do you have a plan to hurt others: No Plan service: No Current occupational status: retired Cognitive needs: No Hearing needs: No Vision needs: No Meds Allergies Allergy/AdvReac Type Severity Reaction Status Date / Time No Known Allergies (No Known Allergy Verified 06/17/25 08:19 Allergies*) Active Medications: Current Medications Acetaminophen (Acetaminophen 325 Mg Tablet) 650 mg PO Q6H PRN PRN Reason: Pain, Mild 1-3,fever,headache Amiodarone HCl (Amiodarone Hcl 200 Mg Tablet) 200 mg PO DAILY [facility] Calcium Carbonate (Calcium Carbonate 750 Mg Tab.Chew) 750 mg PO Q4H PRN PRN Reason: Heartburn Cyanocobalamin (Vitamin B12) (Cyanocobalamin (Vitamin B-12) 1,000 Mcg Tablet) 1,000 mcg PO DAILY [facility] Heparin Sodium (Porcine) (Heparin Sodium,Porcine 5,000 Unit/Ml Vial) 5,000 unit SUBCUT Q12H [facility] Last Admin: 06/17/25 12:47 Dose: 5,000 unit Ceftriaxone Sodium 1 gm/ (Sodium Chloride) 50 mls @ 100 mls/hr IV Q24H [facility] Doxycycline Hyclate 100 mg/ (Sodium Chloride) 250 mls @ 166.67 mls/hr IV Q12H [facility] Last Admin: 06/17/25 12:48 Dose: 166.67 mls/hr Magnesium Hydroxide (Milk Of Magnesia 30 Ml Oral.Susp) 30 ml PO DAILY PRN PRN Reason: Constipation Melatonin (Melatonin 3 Mg Tablet) 6 mg PO BEDTIME PRN PRN Reason: Insomnia Metoprolol Succinate (Metoprolol Succinate Er 12.5 Mg Halftab.Er.24h) 12.5 mg PO DAILY [facility]; Protocol Sodium Chloride (0.9 % Sodium Chloride Flush 3 Ml Syringe) 3 ml IVFLUSH QSHIFT [facility] Vitamin D (Cholecalciferol (Vitamin D3) 25 Mcg Tablet) 25 mcg PO DAILY [facility] Home Medications ?Medication ?Instructions ?Recorded ?Confirmed ?Last Taken ?Type cholecalciferol (vitamin D3) 25 25 mcg PO DAILY 06/17/25 06/17/25 Unknown History mcg (1,000 unit) tablet cyanocobalamin (vitamin B-12) 1,000 mcg PO DAILY 06/17/25 06/17/25 Unknown History 1,000 mcg tablet valsartan 80 mg tablet 40 mg PO DAILY 06/17/25 06/17/25 Unknown History Physical Exam Vital Signs: Last Vital Signs Temp 98.2 F 06/17/25 09:45 Pulse 63 06/17/25 12:14 Resp 18 06/17/25 08:17 BP 98/72 06/17/25 12:14 O2 Del Method Room Air 06/17/25 09:45 BMI result Body Mass Index 21.7 General: not in any acute distress, ill appearing Nutritional Appearance: well nourished and overweight Eyes: appearance normal, both eyes and all related structures; Alignment and Position: alignment normal and position normal Neck: No lymphadenopathy, no thyromegaly Resp: bilateral air entry equal, bibasilar crackles heard Cardio: Regular rate, regular rhythm; Heart sounds: S1 normal heart sound present and S2 normal heart sound present GI: soft, nontender, no guarding, no hepatosplenomegaly : bladder normal to inspection, bladder normal to palpation, no renal angle tenderness Skin: no rashes or lesions noted and elasticity normal Neuro: alert, oriented x 3, moves all extremities Results Lab Results 06/17/25 09:05 06/17/25 09:05 Lab results: Chemistry 06/17/25 09:05 Sodium 145 Potassium 4.4 Carbon Dioxide 19 L BUN 68 H Creatinine 3.11 H Calcium 9.2 Hematology 06/17/25 09:05 WBC 3.1 L Hgb 12.0 L Plt Count 166 Assessment and Plan (1) Acute kidney injury superimposed on CKD: Status: Acute (2) Cardiorenal syndrome: Status: Acute Plan Acute on chronic kidney disease: Patient has progressive CKD with most recent creatinine 2.96 15 days ago, currently admitted with shortness of breath secondary to pulmonary edema leading to increase in the creatinine to 3.11 Bedside echo showed dilated IVC is 2.3 cm, non collapsing; severely reduced LV systolic function. ProBNP is 120 K, procalcitonin is normal Given the echo findings and the labs please diurese the patient with IV Lasix we should improve his symptoms. We will get urinalysis, urine electrolytes, urine osmoles, urine eosinophil. We will get ultrasound KUB. Since his blood pressures are soft please withhold metoprolol Time spent with this patient is about 40 minutes on evaluation, chart review, bedside echo, encounter, documentation. Procedures Date of Service Date of Service: 06/17/25
[2025-06-17] MEDS: Furosemide 200 MG in 0.9 % Sodium Chloride 80 ML IVCONT (17:07)
[2025-06-17] MEDS: 0.9 % Sodium Chloride Flush 3 ML SYRINGE IVFLUSH (17:07)
[2025-06-17 17:38] LABS: Appearance Urine Cloudy; Glucose Urine UA Negative (Negative); PH 5.0 (5.0-9.0); Specific Gravity - Urine 1.025 (1.005-1.025); UMIC TRIGGER UACC YES
--- NOTE | 2025-06-17 17:38 | PC.NURSE ---
Per MD cancel UA with microscopic and run UA cc with reflex micro and culture
[2025-06-17 17:50] LABS: UACC Culture Trigger YES
[2025-06-17 18:20] LABS: CDiff Gene PCR NEGATIVE (Negative)
--- NOTE | 2025-06-17 18:57 | MHC.EDTECH ---
Patient was incontinent of stool nurse and this tech washed and clean patient changed linen and hospital gown. Place patient on purewick on patient
--- NOTE | 2025-06-17 19:26 | HO.NURTONUR ---
Addendum entered by Nicol Desouza RN 06/17/25 19:54: Repeat EKG this PM shows no change, sent to Dr. Liang. Pt denies pain at this time. 02 sat difficult to maintain at times - best sat for consistency is forehead. Denies SOB/WOB at this time. Original Note: Patient presenting to ED today w/ progressive weakness & SOB. PMH: cardiomyopathy with low EF (declined ICD), HTN, HLD, CKD3, paroxysmal afib (declines AC), CAD Bedside echo showed dilated IVC is 2.3 cm, non collapsing; severely reduced LV systolic function. BNP > 120k. On lasix gtt @ 2.5mg/hr. 20L AC. Patient alert but confused, repetitive. 2A roll to bed. Sats WNL on RA Male purewick in place, minimal OP. CT CHest: Mild cardiogenic pulmonary edema. Ascites in the upper abdomen.
--- NOTE | 2025-06-17 19:32 | ECG_ITS ---
Test Reason : ? ARRHYTHMIA Blood Pressure : */* mmHG Vent. Rate : 84 BPM Atrial Rate : 84 BPM P-R Int : 232 ms QRS Dur : 174 ms QT Int : 450 ms P-R-T Axes : 37 -32 139 degrees QTcB Int : 531 ms Sinus rhythm with sinus arrhythmia with 1st degree A-V block with Fusion complexes Left axis deviation Left bundle branch block Abnormal ECG When compared with ECG of 17-Jun-2025 08:53, Fusion complexes are now Present Referred By: Jen Jeffrey Electronically Signed By: KELLY LUCIO MD
--- NOTE | 2025-06-17 20:03 | PC.NURSE ---
Addendum entered by Nicol Desouza RN 06/17/25 20:05: Provider request to place on 1L O2, potential need for CPAP if continues. Original Note: Messaged overnight provider RE: patient's breathing: patient is having these episodes that look like sleep apena - sats dip to 80's / looks like he almost stops breathing but then he comes right back up to 95% or better. I don't see CAMERON in his history just wanted you to be aware. awaiting response.
[2025-06-18] VITALS (8 sets, daily range): BP systolic 101–117; BP diastolic 58–79; PULSE 82–89; RESP 16–20; TEMP 36.1–36.6; O2SAT 97–100
[2025-06-18 07:33] LABS: Blood Urea Nitrogen 62 mg/dL (9-16); Calcium 8.9 mg/dL (8.4-10.2); Creatinine Clr Calc Pharmacy 21.1; Estimated Glomerular Filt Rate 24
[2025-06-18 07:50] LABS: Anion Gap 16 (12-20); Carbon Dioxide 14 mmol/L (22-29); Chloride 119 mmol/L (96-108); Potassium 4.3 mmol/L (3.3-5.1); Sodium 145 mmol/L (135-145)
[2025-06-18 07:53] LABS: MANUAL DIFF FLAG NO
[2025-06-18 07:57] LABS: Hematocrit 40.8 % (42.0-52.0); Hemoglobin 12.6 g/dl (14.0-18.0); Imm Gran Abs Auto 0.01 X10*3/uL (0.00-0.03); Imm Gran Pct Auto 0.3 % (0.0-0.4); Lymphocytes Absolute Auto 0.3 X10*3/uL (1.2-4.9); Mean Corpuscular HGB Conc 30.9 g/dl (31.0-36.0); Mean Corpuscular Hemoglobin 32.2 pg (27.0-33.0); Mean Corpuscular Volume 104.3 fL (80.0-98.0); NRBC Abs Auto 0.000 X10*3/uL (0.0-0.012); NRBC Pct Auto 0.0 /100WBC (0.0-0.2); Platelet Count 132 X10*3/uL (160-400); Red Blood Count 3.91 X10*6/uL (4.60-5.80); White Blood Count 3.6 X10*3/uL (4.8-10.8)
[2025-06-18 08:02] LABS: EOS Counted 0 CELLS; EOS QC POS YES; EOS Stain Quality OK YES; WBC, Counted 100 CELLS
[2025-06-18 08:23] LABS: Chlamydia pneumoniae PCR Not Detected (Not Detect.); Coronavirus 229E PCR Not Detected (Not Detect.); Coronavirus HKU1 PCR Not Detected (Not Detect.); Coronavirus NL63 PCR Not Detected (Not Detect.); Coronavirus OC43 PCR Not Detected (Not Detect.); RSV PCR Not Detected (Not Detect.); Rhino/Enterovirus PCR Not Detected (Not Detect.)
[2025-06-18 08:40] LABS: Influenza A H1 PCR Not Detected (Not Detect.); Influenza A H1-2009 PCR Not Detected (Not Detect.); Influenza A H3 PCR Not Detected (Not Detect.); SARS-CoV-2 PCR Not Detected (Not Detect.)
[2025-06-18 08:56] LABS: E. coli EAEC Not Detected (Not Detect.); E. coli EPEC Not Detected (Not Detect.); E. coli ETEC Not Detected (Not Detect.); E. coli STEC Not Detected (Not Detect.); Shigella sp./EIEC Not Detected (Not Detect.)
[2025-06-18] MEDS: Metoprolol Succinate ER 12.5 MG HALFTAB.ER.24H PO (08:57)
[2025-06-18 10:04] LABS: VBG HCO3 13 mmol/L (22-26); VBG O2 % Saturation 95.0 %
[2025-06-18 10:04] LABS: Venous Blood Gas Refer to POC result
--- NOTE | 2025-06-18 11:47 | P.CONCA_ITS ---
History of Present Illness History of Present Illness Date of Service: 06/18/25 Requesting physician: Ney Fermin Consult reason: congestive heart failure Chief complaint: AMS Narrative: I was consulted to see Tray in cardiology consultation today for worsening overall clinical status with frailty and failure to thrive at home with worsening shortness of breath as per the daughter. History was obtained at bedside from the daughter and the . Patient is confused and not able to give much history. Patient has longstanding history of severe cardiomyopathy, suspected nonischemic although he is not pursue through follow up in the past and workup in the past with markedly diminished LV ejection fraction with severely dilated left ventricle. In the past he has had history of noncompliance but more recently over the last few years has been tolerating medications. He has had multiple hospitalization related to heart failure. He came to the hospital as he was progressively getting weaker as per the family not eating well losing weight but had although same time worsening shortness of breath. History is difficult to obtain from the patient although on admission he was noted to have markedly elevated BNP at [id number] with markedly elevated creatinine compared to baseline consistent with a acute kidney insufficiency. He is noted to have leg edema. He was also noted to have low blood pressure on admission and was started yesterday after evaluation with low-dose Lasix drip. Intake and output charts have not been properly maintained. Although blood pressures improved. Clinically still appears to be short of breath and fluid overloaded. Chest CTA was done yesterday which was consistent with a acute cardiogenic pulmonary edema as well as ascites. Overall he has had progressive heart failure syndrome. His current inpatient regimen includes amiodarone 200 mg daily, antibiotics and Lasix drip. Review of Systems 2 Review of Systems: Yes Unobtainable due to mental status Neurologic: Reports confusion Psychiatric: Psychiatric: Reports confusion FOR[facility]LY [facility], [facility] Past Medical History Medical History Hypertension Atrial fibrillation with rapid ventricular response CKD stage 3b, GFR 30-44 ml/min Paroxysmal atrial fibrillation CKD (chronic kidney disease) stage 4, GFR 15-29 ml/min Dilated cardiomyopathy Acute exacerbation of CHF (congestive heart failure) B12 deficiency Essential hypertension CAD (coronary artery disease) Obesity Chronic systolic HF (heart failure) Nonischemic cardiomyopathy Hypercholesteremia Family History Family History Father Hypertension Mother Stomach cancer Surgical History Surgical History History of cardiac cath (~05/2016) H/O hernia repair Social History Social History Household Members: Significant Other Housing: Apartment Housing Other:: lives in a 2 family home per pt Do you presently have visiting nurse or other home services: No (pt. unable to answer.) Alcohol intake: never Patient Tobacco Use Status: Never used Tobacco e-Cigarette/Vaping Use: Never Used Second Hand Smoke Exposure: No (n/a) Advance Directives Date on File: 05/28/22 service: No Current occupational status: retired Cognitive needs: No Hearing needs: No Vision needs: No Meds Allergies Allergy/AdvReac Type Severity Reaction Status Date / Time No Known Allergies (No Known Allergy Verified 06/17/25 08:19 Allergies*) Active Medications: Current Medications Acetaminophen (Acetaminophen 325 Mg Tablet) 650 mg PO Q6H PRN PRN Reason: Pain, Mild 1-3,fever,headache Amiodarone HCl (Amiodarone Hcl 200 Mg Tablet) 200 mg PO DAILY [facility] Last Admin: 06/18/25 08:57 Dose: 200 mg Calcium Carbonate (Calcium Carbonate 750 Mg Tab.Chew) 750 mg PO Q4H PRN PRN Reason: Heartburn Cyanocobalamin (Vitamin B12) (Cyanocobalamin (Vitamin B-12) 1,000 Mcg Tablet) 1,000 mcg PO DAILY [facility] Last Admin: 06/18/25 08:57 Dose: 1,000 mcg Heparin Sodium (Porcine) (Heparin Sodium,Porcine 5,000 Unit/Ml Vial) 5,000 unit SUBCUT Q12H [facility] Last Admin: 06/18/25 11:01 Dose: 5,000 unit Ceftriaxone Sodium 1 gm/ (Sodium Chloride) 50 mls @ 100 mls/hr IV Q24H [facility] Last Infusion: 06/18/25 11:34 Dose: Infused Doxycycline Hyclate 100 mg/ (Sodium Chloride) 250 mls @ 166.67 mls/hr IV Q12H [facility] Last Infusion: 06/18/25 02:38 Dose: Infused Furosemide 200 mg/ Sodium (Chloride) 100 mls @ 2.5 mls/hr IVCONT .Q24H [facility] Last Infusion: 06/18/25 09:57 Dose: 5 mg/hr, 2.5 mls/hr Magnesium Hydroxide (Milk Of Magnesia 30 Ml Oral.Susp) 30 ml PO DAILY PRN PRN Reason: Constipation Melatonin (Melatonin 3 Mg Tablet) 6 mg PO BEDTIME PRN PRN Reason: Insomnia Sodium Bicarbonate (Sodium Bicarbonate 650 Mg Tablet) 650 mg PO TID [facility] Last Admin: 06/18/25 09:39 Dose: 650 mg Sodium Chloride (0.9 % Sodium Chloride Flush 3 Ml Syringe) 3 ml IVFLUSH QSHIFT [facility] Last Admin: 06/18/25 08:57 Dose: Not Given Vitamin D (Cholecalciferol (Vitamin D3) 25 Mcg Tablet) 25 mcg PO DAILY [facility] Last Admin: 06/18/25 08:57 Dose: 25 mcg Home Medications ?Medication ?Instructions ?Recorded ?Confirmed ?Last Taken ?Type cholecalciferol (vitamin D3) 25 25 mcg PO DAILY 06/17/25 Unknown History mcg (1,000 unit) tablet cyanocobalamin (vitamin B-12) 1,000 mcg PO DAILY 06/1706/17/25 Unknown History 1,000 mcg tablet valsartan 80 mg tablet 40 mg PO DAILY 06/17/2505/23 Unknown History Physical Exam 2 Vital Signs: Vital Signs: Last Vital Signs Temp 98 F 06/18/25 11:33 Pulse 85 06/18/25 11:33 Resp 18 06/18/25 11:33 BP 102/58 L 06/18/25 11:33 Pulse Ox 100 06/18/25 11:33 O2 Del Method Nasal Cannula 06/18/25 11:33 O2 Flow Rate 2 06/18/25 11:33 BMI result Body Mass Index 20.2 Const: General: cooperative, alert, awake, acute distress mild and respiratory and confusion Nutritional Appearance: cachectic Orientation/consciousness: confusion HEENT: Head: Yes normocephalic and Yes atraumatic Neck: Neck: Yes trachea midline, Yes supple and Yes JVD Resp: Effort & Inspection: normal respiratory effort Auscultation: crackles and diminished lung sounds Cardio: Jugular venous distension: JVD Palpation: abnormal PMI displaced PMI Rate: regular rate Rhythm: regular rhythm Heart sounds: S1 normal heart sound present, S2 normal heart sound present, no click, Gallop heart sound present S3 gallop and Murmur heart sound present GI: Inspection: Yes distended Auscultation: normal bowel sounds Skin: General skin exam: no rashes or lesions noted Neuro: General: no focal motor deficits and confusion Extrem: General: No clubbing, No cyanosis and Yes edema Objective Labs and Meds 06/18/25 07:44 06/18/25 07:08 Lab results: Laboratory Results - last 24 hr 06/17/25 06/17/25 06/17/25 09:05 11:46 17:25 WBC RBC Hgb Hct MCV MCH MCHC RDW Plt Count MPV Immature Gran % (Auto) Neut % (Auto) Lymph % (Auto) [place] % (Auto) Eos % (Auto) Baso % (Auto) Lymph # (Auto) [place] # (Auto) Eos # (Auto) Baso # (Auto) Abs Immat Gran (auto) Absolute Neuts (auto) Absolute Nucleated RBC Nucleated RBC % (auto) VBG pH VBG pCO2 VBG pO2 VBG HCO3 VBG O2 Saturation VBG Base Excess Sodium Potassium Chloride Carbon Dioxide Anion Gap BUN Creatinine Estim Creat Clear Calc Estimated GFR Random Glucose Lactic Acid 1.4 Calcium Procalcitonin 0.21 Urine Color Yellow Urine Appearance Cloudy Urine pH 5.0 Ur Specific [place] 1.025 Urine Protein 100 (2+) H Urine Glucose (UA) Negative Urine Ketones Trace Urine Blood Negative Urine Nitrite Negative Ur Leukocyte Esterase Moderate (2+) H Urine RBC 0-2 Urine WBC 6-10 Ur Squamous Epith Cells 3-5 Calcium Oxalate Crystal Present Urine Bacteria 4+ Hyaline Casts 6-10 Urine Eosinophils % 0.0 Urine Osmolality 649 Ur Random Sodium 37.0 Stl C. cayetanensis PCR Not Detected Stool Rotavirus A PCR Not Detected Stl Adenov F 40/41 PCR Not Detected Stool Astrovirus (PCR) Not Detected Stool Campylobacter PCR Not Detected Stool Cryptosporidium PCR Not Detected Stl Sh Tox Pr E STEC PCR Not Detected Stool E coli O157 PCR Not applicable Stl Enterotoxigenic E PCR Not Detected Stool EPEC (PCR) Not Detected Stool EAEC (PCR) Not Detected Stl E. histolytica PCR Not Detected Stool Giardia Lamblia PCR Not Detected Stl P. shigelloides PCR Not Detected Stool Salmonella PCR Not Detected Stool Sapovirus (PCR) Not Detected Stl Shigella/EIEC PCR Not Detected St Y.enterocolitica PCR Not Detected Stool Vibrio (PCR) Not Detected Stl Vibrio cholerae PCR Not Detected Stl Norovirus GI/GII PCR Not Detected Respiratory Panel [place] See Note Adenovirus (Rapid PCR) Not Detected B.pert (TEM-PCR) Not Detected B.parapertussis DNA PCR Not Detected C. pneumoniae DNA (PCR) Not Detected C. diff Tox B Gene (PCR) NEGATIVE Coronavirus OC43 (PCR) Not Detected Coronavirus HKU1 (PCR) Not Detected Coronavirus 229E (PCR) Not Detected Coronavirus NL63 (PCR) Not Detected Human Metapneumovir PCR Not Detected Influenza A (RT-PCR) Not Detected Influenza A (H1) PCR Not Detected Influ A (H1/09) PCR Not Detected Influenza A (H3) PCR Not Detected Influenza B (RT-PCR) Not Detected M. pneumoniae (PCR) Not Detected Parainfluenza 1 (PCR) Not Detected Parainfluenza 2 (PCR) Not Detected Parainfluenza 3 (PCR) Not Detected Parainfluenza 4 (PCR) Not Detected RSV (PCR) Not Detected Entero/Rhino (PCR) Not Detected SARS-CoV-2 RNA (RT-PCR) Not Detected 06/18/25 06/18/25 06/18/25 07:08 07:44 10:00 WBC 3.6 L RBC 3.91 L Hgb 12.6 L Hct 40.8 L MCV 104.3 H MCH 32.2 MCHC 30.9 L RDW 15.1 Plt Count 132 L MPV 11.2 Immature Gran % (Auto) 0.3 Neut % (Auto) 82.5 H Lymph % (Auto) 7.6 L [place] % (Auto) 8.7 Eos % (Auto) 0.6 Baso % (Auto) 0.3 Lymph # (Auto) 0.3 L [place] # (Auto) 0.3 Eos # (Auto) 0.0 Baso # (Auto) 0.0 Abs Immat Gran (auto) 0.01 Absolute Neuts (auto) 2.9 Absolute Nucleated RBC 0.000 Nucleated RBC % (auto) 0.0 VBG pH 7.45 H VBG pCO2 19 VBG pO2 75 VBG HCO3 13 L VBG O2 Saturation 95.0 VBG Base Excess -7.8 Sodium 145 Potassium 4.3 Chloride 119 H Carbon Dioxide 14 L Anion Gap 16 BUN 62 H Creatinine 2.61 H Estim Creat Clear Calc 21.1 Estimated GFR 24 Random Glucose 71 Lactic Acid Calcium 8.9 Procalcitonin Urine Color Urine Appearance Urine pH Ur Specific [place] Urine Protein Urine Glucose (UA) Urine Ketones Urine Blood Urine Nitrite Ur Leukocyte Esterase Urine RBC Urine WBC Ur Squamous Epith Cells Calcium Oxalate Crystal Urine Bacteria Hyaline Casts Urine Eosinophils % Urine Osmolality Ur Random Sodium Stl C. cayetanensis PCR Stool Rotavirus A PCR Stl Adenov F 40/41 PCR Stool Astrovirus (PCR) Stool Campylobacter PCR Stool Cryptosporidium PCR Stl Sh Tox Pr E STEC PCR Stool E coli O157 PCR Stl Enterotoxigenic E PCR Stool EPEC (PCR) Stool EAEC (PCR) Stl E. histolytica PCR Stool Giardia Lamblia PCR Stl P. shigelloides PCR Stool Salmonella PCR Stool Sapovirus (PCR) Stl Shigella/EIEC PCR St Y.enterocolitica PCR Stool Vibrio (PCR) Stl Vibrio cholerae PCR Stl Norovirus GI/GII PCR Respiratory Panel [place] Adenovirus (Rapid PCR) B.pert (TEM-PCR) B.parapertussis DNA PCR C. pneumoniae DNA (PCR) C. diff Tox B Gene (PCR) Coronavirus OC43 (PCR) Coronavirus HKU1 (PCR) Coronavirus 229E (PCR) Coronavirus NL63 (PCR) Human Metapneumovir PCR Influenza A (RT-PCR) Influenza A (H1) PCR Influ A (H1/09) PCR Influenza A (H3) PCR Influenza B (RT-PCR) M. pneumoniae (PCR) Parainfluenza 1 (PCR) Parainfluenza 2 (PCR) Parainfluenza 3 (PCR) Parainfluenza 4 (PCR) RSV (PCR) Entero/Rhino (PCR) SARS-CoV-2 RNA (RT-PCR) Assessment and Plan (1) Decompensated heart failure: Status: Acute Patient presents with what appears to be decompensated heart failure with markedly advanced heart failure with significant LV systolic dysfunction known from before with worsening renal function which could be due to cardiorenal syndrome both due to poor perfusion as well as renal congestion with overall poor functional status and worsening frailty and also encephalopathy related to his heart failure syndrome. Patient is overall prognosis is poor and this was discussed with the family at bedside. They want to continue with management including resuscitation. 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 Given his low blood pressure would hold off on all neurohormonal modulation at this point time and focus on diuresis. His renal function with creatinine has improved a little bit. Will increase his Lasix to 5 mg an hour drip and give him metolazone. Strict intake and output chart needs to be pursued. Overall again as mentioned prognosis is poor and guarded. Continue monitor renal function as well as electrolytes. Continue amiodarone therapy to suppress cardiac arrhythmias. Supportive care needs to be pursued. Greater than 30 minutes was spent in managing his complex care. Case discussed with hospitalist team. Procedures Date of Service Date of Service: 06/18/25
--- NOTE | 2025-06-18 15:24 | P.PNNP_ITS ---
Subjective Subjective Date of Service: 06/18/25 Interval history: No new events overnight Urine output about 800 cc, creatinine down to 2.61 Blood pressure is stable Physical Exam 2 Vital Signs: Vital Signs: Last Vital Signs Temp 97 F 06/18/25 15:11 Pulse 87 06/18/25 15:11 Resp 18 06/18/25 15:11 BP 101/77 06/18/25 15:11 Pulse Ox 97 06/18/25 15:11 O2 Del Method Nasal Cannula 06/18/25 15:11 O2 Flow Rate 1 06/18/25 15:11 BMI result Body Mass Index 20.2 General: not in any acute distress, ill appearing Nutritional Appearance: well nourished and overweight Eyes: appearance normal, both eyes and all related structures Neck: No lymphadenopathy, no thyromegaly Resp: bilateral air entry equal, no added sounds present Cardio: Regular rate, regular rhythm; normal S1-S2 GI: soft, nontender, no guarding, no hepatosplenomegaly : bladder normal to inspection, bladder normal to palpation, no renal angle tenderness Skin: no rashes or lesions noted and elasticity normal Neuro: alert, oriented x 3, moves all extremities Objective Data Labs 06/18/25 07:44 06/18/25 07:08 Labs: Laboratory Results - last 24 hr 06/17/25 06/18/25 06/18/25 17:25 07:08 07:44 WBC 3.6 L RBC 3.91 L Hgb 12.6 L Hct 40.8 L MCV 104.3 H MCH 32.2 MCHC 30.9 L RDW 15.1 Plt Count 132 L MPV 11.2 Immature Gran % (Auto) 0.3 Neut % (Auto) 82.5 H Lymph % (Auto) 7.6 L [place] % (Auto) 8.7 Eos % (Auto) 0.6 Baso % (Auto) 0.3 Lymph # (Auto) 0.3 L [place] # (Auto) 0.3 Eos # (Auto) 0.0 Baso # (Auto) 0.0 Abs Immat Gran (auto) 0.01 Absolute Neuts (auto) 2.9 Absolute Nucleated RBC 0.000 Nucleated RBC % (auto) 0.0 VBG pH VBG pCO2 VBG pO2 VBG HCO3 VBG O2 Saturation VBG Base Excess Sodium 145 Potassium 4.3 Chloride 119 H Carbon Dioxide 14 L Anion Gap 16 BUN 62 H Creatinine 2.61 H Estim Creat Clear Calc 21.1 Estimated GFR 24 Random Glucose 71 Calcium 8.9 Urine Color Yellow Urine Appearance Cloudy Urine pH 5.0 Ur Specific [place] 1.025 Urine Protein 100 (2+) H Urine Glucose (UA) Negative Urine Ketones Trace Urine Blood Negative Urine Nitrite Negative Ur Leukocyte Esterase Moderate (2+) H Urine RBC 0-2 Urine WBC 6-10 Ur Squamous Epith Cells 3-5 Calcium Oxalate Crystal Present Urine Bacteria 4+ Hyaline Casts 6-10 Urine Eosinophils % 0.0 Urine Osmolality 649 Ur Random Sodium 37.0 Stl C. cayetanensis PCR Not Detected Stool Rotavirus A PCR Not Detected Stl Adenov F 40/41 PCR Not Detected Stool Astrovirus (PCR) Not Detected Stool Campylobacter PCR Not Detected Stool Cryptosporidium PCR Not Detected Stl Sh Tox Pr E STEC PCR Not Detected Stool E coli O157 PCR Not applicable Stl Enterotoxigenic E PCR Not Detected Stool EPEC (PCR) Not Detected Stool EAEC (PCR) Not Detected Stl E. histolytica PCR Not Detected Stool Giardia Lamblia PCR Not Detected Stl P. shigelloides PCR Not Detected Stool Salmonella PCR Not Detected Stool Sapovirus (PCR) Not Detected Stl Shigella/EIEC PCR Not Detected St Y.enterocolitica PCR Not Detected Stool Vibrio (PCR) Not Detected Stl Vibrio cholerae PCR Not Detected Stl Norovirus GI/GII PCR Not Detected Respiratory Panel [place] See Note Adenovirus (Rapid PCR) Not Detected B.pert (TEM-PCR) Not Detected B.parapertussis DNA PCR Not Detected C. pneumoniae DNA (PCR) Not Detected C. diff Tox B Gene (PCR) NEGATIVE Coronavirus OC43 (PCR) Not Detected Coronavirus HKU1 (PCR) Not Detected Coronavirus 229E (PCR) Not Detected Coronavirus NL63 (PCR) Not Detected Human Metapneumovir PCR Not Detected Influenza A (RT-PCR) Not Detected Influenza A (H1) PCR Not Detected Influ A (H1/09) PCR Not Detected Influenza A (H3) PCR Not Detected Influenza B (RT-PCR) Not Detected M. pneumoniae (PCR) Not Detected Parainfluenza 1 (PCR) Not Detected Parainfluenza 2 (PCR) Not Detected Parainfluenza 3 (PCR) Not Detected Parainfluenza 4 (PCR) Not Detected RSV (PCR) Not Detected Entero/Rhino (PCR) Not Detected SARS-CoV-2 RNA (RT-PCR) Not Detected 06/18/25 10:00 WBC RBC Hgb Hct MCV MCH MCHC RDW Plt Count MPV Immature Gran % (Auto) Neut % (Auto) Lymph % (Auto) [place] % (Auto) Eos % (Auto) Baso % (Auto) Lymph # (Auto) [place] # (Auto) Eos # (Auto) Baso # (Auto) Abs Immat Gran (auto) Absolute Neuts (auto) Absolute Nucleated RBC Nucleated RBC % (auto) VBG pH 7.45 H VBG pCO2 19 VBG pO2 75 VBG HCO3 13 L VBG O2 Saturation 95.0 VBG Base Excess -7.8 Sodium Potassium Chloride Carbon Dioxide Anion Gap BUN Creatinine Estim Creat Clear Calc Estimated GFR Random Glucose Calcium Urine Color Urine Appearance Urine pH Ur Specific [place] Urine Protein Urine Glucose (UA) Urine Ketones Urine Blood Urine Nitrite Ur Leukocyte Esterase Urine RBC Urine WBC Ur Squamous Epith Cells Calcium Oxalate Crystal Urine Bacteria Hyaline Casts Urine Eosinophils % Urine Osmolality Ur Random Sodium Stl C. cayetanensis PCR Stool Rotavirus A PCR Stl Adenov F 40/41 PCR Stool Astrovirus (PCR) Stool Campylobacter PCR Stool Cryptosporidium PCR Stl Sh Tox Pr E STEC PCR Stool E coli O157 PCR Stl Enterotoxigenic E PCR Stool EPEC (PCR) Stool EAEC (PCR) Stl E. histolytica PCR Stool Giardia Lamblia PCR Stl P. shigelloides PCR Stool Salmonella PCR Stool Sapovirus (PCR) Stl Shigella/EIEC PCR St Y.enterocolitica PCR Stool Vibrio (PCR) Stl Vibrio cholerae PCR Stl Norovirus GI/GII PCR Respiratory Panel [place] Adenovirus (Rapid PCR) B.pert (TEM-PCR) B.parapertussis DNA PCR C. pneumoniae DNA (PCR) C. diff Tox B Gene (PCR) Coronavirus OC43 (PCR) Coronavirus HKU1 (PCR) Coronavirus 229E (PCR) Coronavirus NL63 (PCR) Human Metapneumovir PCR Influenza A (RT-PCR) Influenza A (H1) PCR Influ A (H1/09) PCR Influenza A (H3) PCR Influenza B (RT-PCR) M. pneumoniae (PCR) Parainfluenza 1 (PCR) Parainfluenza 2 (PCR) Parainfluenza 3 (PCR) Parainfluenza 4 (PCR) RSV (PCR) Entero/Rhino (PCR) SARS-CoV-2 RNA (RT-PCR) Microbiology Microbiology Results: Microbiology 06/17/25 11:46 Blood - Venous Blood Culture - Preliminary No growth after 24 hours. 06/17/25 11:46 Blood - Venous Blood Culture - Preliminary No growth after 24 hours. 06/17/25 Unknown Urine clean catch - Clean Catch Midstream Urine Culture - Preliminary No growth to date. Procedures Date of Service Date of Service: 06/18/25 Assessment & Plan Assessment and plan (1) Acute kidney injury superimposed on CKD: Status: Acute (2) High anion gap metabolic acidosis: Status: Acute Plan Acute on chronic kidney disease: Cardiorenal syndrome: Acute on chronic kidney disease secondary to cardiorenal syndrome, presented with a creatinine of 3.11, decreased to 2.61 this morning with some diuresis. He is on Lasix drip at 5 milligrams/hour with which his urine output has been about 800 cc but a total fluid balance net negative. Can increase the Lasix drip to 10 milligrams/hour and maybe switch to IV pushes tomorrow. Bedside echo showed dilated IVC is 2.3 cm, non collapsing; severely reduced LV systolic function. Urinalysis showing 2+ protein, leukocyte esterase positive, 6-10 WBCs, oxalate crystals+. Negative urine eosinophils, very concentrated urine suggestive of poor renal perfusion. ProBNP is 120 K, procalcitonin is normal Retroperitoneal ultrasound did not show any obstruction, bilateral small kidneys Time Spent With Patient Time: Total time managing care of this patient today ____ minutes. Progress Note: Quality Stroke Does the patient have a stroke diagnosis?: No
--- NOTE | 2025-06-18 15:37 | P.PNIM_ITS ---
Subjective Subjective Date of Service: 06/18/25 Interval History: acute toxic metabolic encephalopathy Review of Systems sob somewhat improving mental status seems similar Review of Systems: Yes all other systems are reviewed and are negative Physical Exam 2 Exam: Exam: Appearance: Alert.? Oriented X3.? cvs: rrr, [id number]. res: air entry diminshed ,few faint rales abd: no rebound or guarding ,nt, bs present. ext pulses present , no cyanosis . neuro: axo3 , nonfocal. Vital Signs: Vital Signs: Last Vital Signs Temp 97 F 06/18/25 15:11 Pulse 87 06/18/25 15:11 Resp 18 06/18/25 15:11 BP 101/77 06/18/25 15:11 Pulse Ox 97 06/18/25 15:11 O2 Del Method Nasal Cannula 06/18/25 15:11 O2 Flow Rate 1 06/18/25 15:11 BMI result Body Mass Index 20.2 Objective Data Active Medications Acetaminophen (Acetaminophen 325 Mg Tablet) 650 mg PO Q6H PRN PRN Reason: Pain, Mild 1-3,fever,headache Amiodarone HCl (Amiodarone Hcl 200 Mg Tablet) 200 mg PO DAILY [facility] Last Admin: 06/18/25 08:57 Dose: 200 mg Documented By: PAULETTE Calcium Carbonate (Calcium Carbonate 750 Mg Tab.Chew) 750 mg PO Q4H PRN PRN Reason: Heartburn Cyanocobalamin (Vitamin B12) (Cyanocobalamin (Vitamin B-12) 1,000 Mcg Tablet) 1,000 mcg PO DAILY [facility] Last Admin: 06/18/25 08:57 Dose: 1,000 mcg Documented By: PAULETTE Heparin Sodium (Porcine) (Heparin Sodium,Porcine 5,000 Unit/Ml Vial) 5,000 unit SUBCUT Q12H [facility] Last Admin: 06/18/25 11:01 Dose: 5,000 unit Documented By: PAULETTE Ceftriaxone Sodium 1 gm/ (Sodium Chloride) 50 mls @ 100 mls/hr IV Q24H [facility] Last Infusion: 06/18/25 11:34 Dose: Infused Documented By: PAULETTE Doxycycline Hyclate 100 mg/ (Sodium Chloride) 250 mls @ 166.67 mls/hr IV Q12H [facility] Last Infusion: 06/18/25 14:34 Dose: Infused Documented By: PAULETTE Furosemide 200 mg/ Sodium (Chloride) 100 mls @ 2.5 mls/hr IVCONT .Q24H [facility] Last Infusion: 06/18/25 09:57 Dose: 5 mg/hr, 2.5 mls/hr Documented By: PAULETTE Magnesium Hydroxide (Milk Of Magnesia 30 Ml Oral.Susp) 30 ml PO DAILY PRN PRN Reason: Constipation Melatonin (Melatonin 3 Mg Tablet) 6 mg PO BEDTIME PRN PRN Reason: Insomnia Sodium Bicarbonate (Sodium Bicarbonate 650 Mg Tablet) 650 mg PO TID [facility] Last Admin: 06/18/25 15:03 Dose: 650 mg Documented By: PAULETTE Sodium Chloride (0.9 % Sodium Chloride Flush 3 Ml Syringe) 3 ml IVFLUSH QSHIFT [facility] Last Admin: 06/18/25 15:05 Dose: Not Given Documented By: PAULETTE Non-Admin Reason: IV Running Vitamin D (Cholecalciferol (Vitamin D3) 25 Mcg Tablet) 25 mcg PO DAILY [facility] Last Admin: 06/18/25 08:57 Dose: 25 mcg Documented By: PAULETTE Labs 06/18/25 07:44 06/18/25 07:08 Labs: Laboratory Results - last 24 hr 06/17/25 06/18/25 06/18/25 17:25 07:08 07:44 MCV 104.3 H MCH 32.2 MCHC 30.9 L RDW 15.1 Plt Count 132 L MPV 11.2 Immature Gran % (Auto) 0.3 Neut % (Auto) 82.5 H Lymph % (Auto) 7.6 L Stan[place] % (Auto) 8.7 Eos % (Auto) 0.6 Baso % (Auto) 0.3 Lymph # (Auto) 0.3 L Stan[place] # (Auto) 0.3 Eos # (Auto) 0.0 Baso # (Auto) 0.0 Abs Immat Gran (auto) 0.01 Absolute Neuts (auto) 2.9 Absolute Nucleated RBC 0.000 Nucleated RBC % (auto) 0.0 VBG pH VBG pCO2 VBG pO2 VBG HCO3 VBG O2 Saturation VBG Base Excess Anion Gap 16 Estim Creat Clear Calc 21.1 Estimated GFR 24 Random Glucose 71 Calcium 8.9 Urine Color Yellow Urine Appearance Cloudy Urine pH 5.0 Ur Specific [place] 1.025 Urine Protein 100 (2+) H Urine Glucose (UA) Negative Urine Ketones Trace Urine Blood Negative Urine Nitrite Negative Ur Leukocyte Esterase Moderate (2+) H Urine RBC 0-2 Urine WBC 6-10 Ur Squamous Epith Cells 3-5 Calcium Oxalate Crystal Present Urine Bacteria 4+ Hyaline Casts 6-10 Urine Eosinophils % 0.0 Urine Osmolality 649 Ur Random Sodium 37.0 Stl C. cayetanensis PCR Not Detected Stool Rotavirus A PCR Not Detected Stl Adenov F 40/41 PCR Not Detected Stool Astrovirus (PCR) Not Detected Stool Campylobacter PCR Not Detected Stool Cryptosporidium PCR Not Detected Stl Sh Tox Pr E STEC PCR Not Detected Stool E coli O157 PCR Not applicable Stl Enterotoxigenic E PCR Not Detected Stool EPEC (PCR) Not Detected Stool EAEC (PCR) Not Detected Stl E. histolytica PCR Not Detected Stool Giardia Lamblia PCR Not Detected Stl P. shigelloides PCR Not Detected Stool Salmonella PCR Not Detected Stool Sapovirus (PCR) Not Detected Stl Shigella/EIEC PCR Not Detected St Y.enterocolitica PCR Not Detected Stool Vibrio (PCR) Not Detected Stl Vibrio cholerae PCR Not Detected Stl Norovirus GI/GII PCR Not Detected Respiratory Panel [place] See Note Adenovirus (Rapid PCR) Not Detected B.pert (TEM-PCR) Not Detected B.parapertussis DNA PCR Not Detected C. pneumoniae DNA (PCR) Not Detected C. diff Tox B Gene (PCR) NEGATIVE Coronavirus OC43 (PCR) Not Detected Coronavirus HKU1 (PCR) Not Detected Coronavirus 229E (PCR) Not Detected Coronavirus NL63 (PCR) Not Detected Human Metapneumovir PCR Not Detected Influenza A (RT-PCR) Not Detected Influenza A (H1) PCR Not Detected Influ A (H1/09) PCR Not Detected Influenza A (H3) PCR Not Detected Influenza B (RT-PCR) Not Detected M. pneumoniae (PCR) Not Detected Parainfluenza 1 (PCR) Not Detected Parainfluenza 2 (PCR) Not Detected Parainfluenza 3 (PCR) Not Detected Parainfluenza 4 (PCR) Not Detected RSV (PCR) Not Detected Entero/Rhino (PCR) Not Detected SARS-CoV-2 RNA (RT-PCR) Not Detected 06/18/25 10:00 MCV MCH MCHC RDW Plt Count MPV Immature Gran % (Auto) Neut % (Auto) Lymph % (Auto) Stan[place] % (Auto) Eos % (Auto) Baso % (Auto) Lymph # (Auto) Stanly # (Auto) Eos # (Auto) Baso # (Auto) Abs Immat Gran (auto) Absolute Neuts (auto) Absolute Nucleated RBC Nucleated RBC % (auto) VBG pH 7.45 H VBG pCO2 19 VBG pO2 75 VBG HCO3 13 L VBG O2 Saturation 95.0 VBG Base Excess -7.8 Anion Gap Estim Creat Clear Calc Estimated GFR Random Glucose Calcium Urine Color Urine Appearance Urine pH Ur Specific [place] Urine Protein Urine Glucose (UA) Urine Ketones Urine Blood Urine Nitrite Ur Leukocyte Esterase Urine RBC Urine WBC Ur Squamous Epith Cells Calcium Oxalate Crystal Urine Bacteria Hyaline Casts Urine Eosinophils % Urine Osmolality Ur Random Sodium Stl C. cayetanensis PCR Stool Rotavirus A PCR Stl Adenov F 40/41 PCR Stool Astrovirus (PCR) Stool Campylobacter PCR Stool Cryptosporidium PCR Stl Sh Tox Pr E STEC PCR Stool E coli O157 PCR Stl Enterotoxigenic E PCR Stool EPEC (PCR) Stool EAEC (PCR) Stl E. histolytica PCR Stool Giardia Lamblia PCR Stl P. shigelloides PCR Stool Salmonella PCR Stool Sapovirus (PCR) Stl Shigella/EIEC PCR St Y.enterocolitica PCR Stool Vibrio (PCR) Stl Vibrio cholerae PCR Stl Norovirus GI/GII PCR Respiratory Panel [place] Adenovirus (Rapid PCR) B.pert (TEM-PCR) B.parapertussis DNA PCR C. pneumoniae DNA (PCR) C. diff Tox B Gene (PCR) Coronavirus OC43 (PCR) Coronavirus HKU1 (PCR) Coronavirus 229E (PCR) Coronavirus NL63 (PCR) Human Metapneumovir PCR Influenza A (RT-PCR) Influenza A (H1) PCR Influ A (H1/09) PCR Influenza A (H3) PCR Influenza B (RT-PCR) M. pneumoniae (PCR) Parainfluenza 1 (PCR) Parainfluenza 2 (PCR) Parainfluenza 3 (PCR) Parainfluenza 4 (PCR) RSV (PCR) Entero/Rhino (PCR) SARS-CoV-2 RNA (RT-PCR) Microbiology Microbiology Results: Microbiology 06/17/25 11:46 Blood Culture - Preliminary Blood - Venous No growth after 24 hours. 06/17/25 11:46 Blood Culture - Preliminary Blood - Venous No growth after 24 hours. 06/17/25 Unknown Urine Culture - Preliminary Urine clean catch - Clean Catch Midstream No growth to date. Assessment and Plan (1) Elevated brain natriuretic peptide (BNP) level: Status: Acute (2) Chronic systolic HF (heart failure): Status: Acute Plan 79 year old male with history of dilated cardiomyopathy with EF 10% (declined ICD), LBBB, pAF not on AC, HTN, HLD, CAD, gout, brought in for confusion and shortness of breath. acute toxic metabolic encephalopathy possibly due to infection previous notes indicate vague historia, some degree of baseline cognitive impairment seems likely. will confirm with family likely chf(acute on chronic HFrEF)-etiology unclear ,less likely CAP IV ceftriaxone, IV doxy [id number] RPP-negative chest CT :Mild cardiogenic pulmonary edema. plan: bnp increasing Check echo Monitor I&O Adjusted Lasix drip, continue IV antibiotics until blood culture negative at 48 hours LIANA on CKD4 soft bp on multiple cardiac meds hold valsartan, spironolactone jardiance has been recently decreased as outpatient nephrology consult trend BMP paroxysmal atrial fibrillation continue reduced dose of metoprolol, amiodorone not on AC (was previously on Eliquis but pt/family elected to discontinue due to cost per outpatient notes) Gout colchicine on hold for worsening renal function dvt ppx - heparin code status - full code; given multiple chronic medical issues 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
[2025-06-18] MEDS: Furosemide 200 MG in 0.9 % Sodium Chloride 80 ML IVCONT (16:31)
[2025-06-18] MEDS: 0.9 % Sodium Chloride Flush 3 ML SYRINGE IVFLUSH (20:37)
[2025-06-19 03:37] VITALS: BP 103/77; PULSE 85; RESP 17; TEMP 36.3; O2SAT 92
[2025-06-19 07:33] VITALS: BP 115/66; PULSE 78; RESP 20; TEMP 36.6; O2SAT 100
[2025-06-19] MEDS: 0.9 % Sodium Chloride Flush 3 ML SYRINGE IVFLUSH ×3 (09:41→20:22)
--- NOTE | 2025-06-19 10:43 | PM.PNCARD ---
Subjective Subjective Date of Service: 06/19/25 Interval history: Patient states that he is feeling slightly better. On furosemide drip. Not having any shortness of breath or chest pains and he is resting comfortably. Review of Systems Review of Systems Yes all other systems are reviewed and are negative Constitutional: Reports as per HPI and Reports no additional constitutional complaints Eyes: Reports as per HPI and Denies no additional eye complaints Denies system reviewed and no additional complaints, except as documented and Reports as per HPI Cardiovascular: Reports as per HPI, Reports no additional cardiovascular complaints, Denies acrocyanosis, Denies cool extremities, Denies chest pain, Denies leg edema, Denies lightheadedness, Denies palpitations and Denies dyspnea Respiratory: Reports as per HPI, Denies no additional respiratory complaints and Denies dyspnea Gastrointestinal: Reports as per HPI and Denies no additional gastrointestinal complaints Genitourinary: Reports no additional male genitourinary complaints and Reports as per HPI Musculoskeletal: Reports no additional musculoskeletal complaints and Reports as per HPI Skin/Breast: Reports system reviewed and no additional complaints, except as docu Reports system reviewed and no additional complaints, except as documented and Reports as per HPI Psychiatric: Reports no additional psychiatric complaints and Reports as per HPI Endocrine: Reports no additional endocrine complaints, Reports as per HPI and Denies palpitations Hematologic/Lymphatic: Reports no additional hematologic/lymphatic complaints and Reports as per HPI Allergic/Immunologic: Reports no additional allergic/immunologic complaints and Reports as per HPI Physical Exam Vital Signs: Last Vital Signs Temp 97.9 F 06/19/25 07:33 Pulse 78 06/19/25 07:33 Resp 20 06/19/25 07:33 BP 115/66 06/19/25 07:33 Pulse Ox 100 06/19/25 07:33 O2 Del Method Nasal Cannula 06/19/25 07:33 O2 Flow Rate 1 06/19/25 07:33 BMI result Body Mass Index 20.2 Const General: comfortable and no acute distress Orientation/consciousness: patient oriented x3 HEENT Other: Unremarkable Head: Yes normal to inspection Neck Neck: Yes normal visual inspection Chest Chest palpation & inspection: normal inspection of the chest Resp Auscultation: crackles and diminished lung sounds Cardio Palpation: normal PMI Heart sounds: S1 normal heart sound present, S2 normal heart sound present, no gallops, no murmurs and no rubs GI Palpation (GI): Soft to palpation Back/Spine/Pelvis Other: unremarkable Skin General skin exam: no rashes or lesions noted Neuro General: patient oriented x3 Extrem General: Yes normal to inspection Psych Mental Status: mental status grossly normal Objective Labs and Meds 06/18/25 07:44 06/18/25 07:08 Lab results: Laboratory Results - last 24 hr 06/19/25 08:20 NT-Pro-B Natriuret Pep 31175.6 H Progress Note: A&P Assessment and plan (1) Acute on chronic combined systolic and diastolic CHF (congestive heart failure): Status: Acute (2) Nonrheumatic mitral (valve) insufficiency: Status: Acute (3) Paroxysmal atrial fibrillation: Status: Acute Plan Per last echocardiogram from August, LVEF 10-15%. Several increased cavity size. Advanced diastolic dysfunction with [id number] mitral regurgitation. Currently being treated for decompensated heart failure. On Lasix drip. However, not clear if the input output charting is accurate or not and has a shows rather a positive balance. Creatinine is also elevated 2.6 most likely from cardiorenal syndrome although it is better from prior creatinine of 3.1. Per sign-out, could not do neurohormonals because of low blood pressure issues. With regard to the PAF history, on amiodarone. EKG shows sinus with left bundle-branch block. It seems that he has not been on anticoagulation based on outpatient notes-per their own choice. Overall, advanced age, frailty, decompensated heart failure, comorbidities and with guarded prognosis. Discussed with significant other at bedside. Time Spent With Patient Time: Total time managing care of this patient today ____ minutes. Progress Note: Quality Stroke Does the patient have a stroke diagnosis?: No Procedures Date of Service Date of Service: 06/19/25
[2025-06-19 11:53] VITALS: BP 101/73; PULSE 90; RESP 20; TEMP 36.9; O2SAT 100
--- NOTE | 2025-06-19 12:31 | P.PNNP_ITS ---
Subjective Subjective Date of Service: 06/19/25 Interval history: no new labs from this morning other than BNP which is down to 90k Physical Exam 2 Vital Signs: Vital Signs: Last Vital Signs Temp 98.4 F 06/19/25 11:53 Pulse 90 06/19/25 11:53 Resp 20 06/19/25 11:53 BP 101/73 06/19/25 11:53 Pulse Ox 100 06/19/25 11:53 O2 Del Method Nasal Cannula 06/19/25 11:53 O2 Flow Rate 2 06/19/25 11:53 BMI result Body Mass Index 20.2 General: not in mild acute distress, ill appearing Nutritional Appearance: well nourished and overweight Eyes: appearance normal, both eyes and all related structures; Alignment and Position: alignment normal and position normal Neck: No lymphadenopathy, no thyromegaly Resp: bilateral air entry equal, no added sounds present Cardio: Regular rate, regular rhythm;S1 S2 normal GI: soft, nontender, no guarding, no hepatosplenomegaly : bladder normal to inspection, bladder normal to palpation, no renal angle tenderness Skin: no rashes or lesions noted and elasticity normal Neuro: alert, oriented x 3, moves all extremities Objective Data Labs 06/18/25 07:44 06/18/25 07:08 Labs: Laboratory Results - last 24 hr 06/19/25 08:20 NT-Pro-B Natriuret Pep 77746.6 H Microbiology Microbiology Results: Microbiology 06/17/25 Unknown Urine clean catch - Clean Catch Midstream Urine Culture - Final 06/17/25 11:46 Blood - Venous Blood Culture - Preliminary No growth after 24 hours. 06/17/25 11:46 Blood - Venous Blood Culture - Preliminary No growth after 24 hours. Procedures Date of Service Date of Service: 06/19/25 Assessment & Plan Assessment and plan (1) Acute kidney injury superimposed on CKD: Status: Acute (2) Cardiorenal syndrome: Status: Acute Plan Acute on chronic kidney disease: Cardiorenal syndrome: Acute on chronic kidney disease secondary to cardiorenal syndrome, presented with a creatinine of 3.11, decreased to 2.61yesterday morning with some diuresis. He is on Lasix drip at 5 milligrams/hour with which his urine output has been about 600 cc but a total fluid balance is net positive. Will increase the Lasix drip to 10 milligrams/hour and if the fluid balance still remains positive can add metolazone. Bedside echo showed dilated IVC is 2.3 cm, non collapsing; severely reduced LV systolic function. Urinalysis showing 2+ protein, leukocyte esterase positive, 6-10 WBCs, oxalate crystals+. Negative urine eosinophils, urine osmols very concentrated urine suggestive of poor renal perfusion. ProBNP is 90 K, procalcitonin is normal Retroperitoneal ultrasound did not show any obstruction, bilateral small kidneys Also get LFTs with next set of labs to look for possible congestive hepatopathy Time Spent With Patient Time: Total time managing care of this patient today ____ minutes. Progress Note: Quality Stroke Does the patient have a stroke diagnosis?: No
--- NOTE | 2025-06-19 15:20 | MHC.CM.PN ---
IMM 06/19/25 DELIVERED TO PT'S /HCP [facility] AT BEDSIDE D/T AMS/CONFUSION, [facility] REPORTS PT LIVES W/HER, USES A WALKER FOR AMBULATION, NO HOME SERVICES, [facility] PROVIDES CARE FOR PT. [facility]'S GOAL FOR DC IS NEW [facility] AND TASK TO [facility] FOR HOME HEALTH, REF/TASK PLACED. [facility] VERIFIES PCP/HCP ON FILE ARE CORRECT. DP: HOME W/SERVICES W/FAMILY FOR TRANSPORT.
[2025-06-19 15:28] VITALS: BP 104/70; PULSE 74; RESP 20; TEMP 36.6; O2SAT 98
[2025-06-19 15:59] LABS: Anion Gap 14 (12-20); Blood Urea Nitrogen 60 mg/dL (9-16); Calcium 9.1 mg/dL (8.4-10.2); Carbon Dioxide 17 mmol/L (22-29); Chloride 116 mmol/L (96-108); Creatinine Clr Calc Pharmacy 22.4; Estimated Glomerular Filt Rate 25; Potassium 4.6 mmol/L (3.3-5.1); Sodium 142 mmol/L (135-145)
[2025-06-19] MEDS: Furosemide 200 MG in 0.9 % Sodium Chloride 80 ML IVCONT (17:54)
[2025-06-19 19:30] VITALS: BP 160/67; PULSE 81; RESP 18; TEMP 36.6; O2SAT 100
[2025-06-20] VITALS (7 sets, daily range): BP systolic 87–114; BP diastolic 61–75; PULSE 78–105; RESP 16–24; TEMP 36.3–37; O2SAT 94–100
[2025-06-20] MEDS: 0.9 % Sodium Chloride Flush 3 ML SYRINGE IVFLUSH ×3 (08:16→19:54)
[2025-06-20] MEDS: Metoprolol Tartrate 12.5 MG HALFTAB PO ×2 (09:10→19:51)
[2025-06-20 10:24] LABS: Anion Gap 15 (12-20); Blood Urea Nitrogen 62 mg/dL (9-16); Calcium 9.4 mg/dL (8.4-10.2); Carbon Dioxide 23 mmol/L (22-29); Chloride 109 mmol/L (96-108); Creatinine Clr Calc Pharmacy 22.1; Estimated Glomerular Filt Rate 25; Magnesium 2.1 mg/dL (1.6-2.6); Potassium 4.6 mmol/L (3.3-5.1); Sodium 142 mmol/L (135-145)
--- NOTE | 2025-06-20 11:01 | P.PNCA_ITS ---
Subjective Subjective Date of Service: 06/20/25 Interval history: Feeling better. Shortness of breath is improving. Otherwise, no definitive cardiac symptoms. It seems to be mostly resting in bed. Review of Systems Review of Systems Yes all other systems are reviewed and are negative Constitutional: Reports as per HPI and Reports no additional constitutional complaints Eyes: Reports as per HPI and Denies no additional eye complaints Denies system reviewed and no additional complaints, except as documented and Reports as per HPI Cardiovascular: Reports as per HPI, Reports no additional cardiovascular complaints, Denies acrocyanosis, Denies cool extremities, Denies chest pain, Denies leg edema, Denies lightheadedness, Denies palpitations and Denies dyspnea Respiratory: Reports as per HPI, Denies no additional respiratory complaints and Denies dyspnea Gastrointestinal: Reports as per HPI and Denies no additional gastrointestinal complaints Genitourinary: Reports no additional male genitourinary complaints and Reports as per HPI Musculoskeletal: Reports no additional musculoskeletal complaints and Reports as per HPI Skin/Breast: Reports system reviewed and no additional complaints, except as docu Reports system reviewed and no additional complaints, except as documented and Reports as per HPI Psychiatric: Reports no additional psychiatric complaints and Reports as per HPI Endocrine: Reports no additional endocrine complaints, Reports as per HPI and Denies palpitations Hematologic/Lymphatic: Reports no additional hematologic/lymphatic complaints and Reports as per HPI Allergic/Immunologic: Reports no additional allergic/immunologic complaints and Reports as per HPI Physical Exam Vital Signs: Last Vital Signs Temp 98.4 F 06/20/25 07:18 Pulse 105 H 06/20/25 07:18 Resp 16 06/20/25 07:18 BP 104/73 06/20/25 07:18 Pulse Ox 94 06/20/25 07:18 O2 Del Method Room Air 06/20/25 07:18 O2 Flow Rate 2 06/20/25 04:00 BMI result Body Mass Index 20.2 Const General: comfortable and no acute distress Orientation/consciousness: patient oriented x3 HEENT Other: Unremarkable Head: Yes normal to inspection Neck Neck: Yes normal visual inspection Chest Chest palpation & inspection: normal inspection of the chest Resp Auscultation: crackles and diminished lung sounds Cardio Palpation: normal PMI Heart sounds: S1 normal heart sound present, S2 normal heart sound present, no gallops, no murmurs and no rubs GI Palpation (GI): Soft to palpation Back/Spine/Pelvis Other: unremarkable Skin General skin exam: no rashes or lesions noted Neuro General: patient oriented x3 Extrem General: Yes normal to inspection Psych Mental Status: mental status grossly normal Objective Labs and Meds 06/18/25 07:44 06/20/25 09:19 Lab results: Laboratory Results - last 24 hr 06/19/25 06/20/25 15:30 09:19 Sodium 142 142 Potassium 4.6 4.6 Chloride 116 H 109 H Carbon Dioxide 17 L 23 Anion Gap 14 15 BUN 60 H 62 H Creatinine 2.46 H 2.50 H Estim Creat Clear Calc 22.4 22.1 Estimated GFR 25 25 Random Glucose 111 118 H Calcium 9.1 9.4 Magnesium 2.1 Progress Note: A&P Assessment and plan (1) Acute on chronic combined systolic and diastolic CHF (congestive heart failure): Status: Acute (2) Nonrheumatic mitral (valve) insufficiency: Status: Acute (3) Paroxysmal atrial fibrillation: Status: Acute Plan Per last echocardiogram from August, LVEF 10-15%. Several increased cavity size. Advanced diastolic dysfunction with ayffrjle-bj-fquelk mitral regurgitation. Currently being treated for decompensated heart failure. On Lasix drip. Consider switching to oral. Per input/output charting,-10 L this admission. Creatinine is also elevated 2.5, seems chronically elevated. Per sign-out, could not do neurohormonals because of low blood pressure issues. On telemetry, an 18 beat run of NSVT, monomorphic. Not unexpected considering his low LVEF. Electrolyte seem reasonable. Consider small dose of beta- malgorzata. With regard to the PAF history, on amiodarone. EKG shows sinus with left bundle-branch block. It seems that he has not been on anticoagulation based on outpatient notes-per their own choice. Overall, advanced age, frailty, decompensated heart failure, comorbidities and with guarded prognosis. Ambulate and see how he does. Discussed with significant other at bedside. Time Spent With Patient Time: Total time managing care of this patient today ____ minutes. Progress Note: Quality Stroke Does the patient have a stroke diagnosis?: No Procedures Date of Service Date of Service: 06/20/25
--- NOTE | 2025-06-20 11:58 | P.PNNP_ITS ---
Subjective Subjective Date of Service: 06/20/25 Interval history: Breathing better, on room air Creatinine remained stable around 2.5 Error in monitoring urine output, possibly around 1200 cc Physical Exam 2 Vital Signs: Vital Signs: Last Vital Signs Temp 97.3 F 06/20/25 11:01 Pulse 78 06/20/25 11:01 Resp 16 06/20/25 11:01 BP 114/64 06/20/25 11:49 Pulse Ox 99 06/20/25 11:01 O2 Del Method Room Air 06/20/25 11:01 O2 Flow Rate 2 06/20/25 04:00 BMI result Body Mass Index 20.2 General: not in any acute distress, ill appearing Nutritional Appearance: well nourished and overweight Eyes: appearance normal, both eyes and all related structures; Alignment and Position: alignment normal and position normal Neck: No lymphadenopathy, no thyromegaly Resp: bilateral air entry equal, no added sounds present Cardio: Regular rate, regular rhythm; Heart sounds: S1 normal heart sound present and S2 normal heart sound present GI: soft, nontender, no guarding, no hepatosplenomegaly : bladder normal to inspection, bladder normal to palpation, no renal angle tenderness Skin: no rashes or lesions noted and elasticity normal Neuro: alert, oriented x 3, moves all extremities Objective Data Labs 06/18/25 07:44 06/20/25 09:19 Labs: Laboratory Results - last 24 hr 06/19/25 06/20/25 15:30 09:19 Sodium 142 142 Potassium 4.6 4.6 Chloride 116 H 109 H Carbon Dioxide 17 L 23 Anion Gap 14 15 BUN 60 H 62 H Creatinine 2.46 H 2.50 H Estim Creat Clear Calc 22.4 22.1 Estimated GFR 25 25 Random Glucose 111 118 H Calcium 9.1 9.4 Magnesium 2.1 NT-Pro-B Natriuret Pep 35730.6 H Microbiology Microbiology Results: Microbiology 06/17/25 11:46 Blood - Venous Blood Culture - Preliminary No growth after 48 hours. 06/17/25 11:46 Blood - Venous Blood Culture - Preliminary No growth after 48 hours. 06/17/25 Unknown Urine clean catch - Clean Catch Midstream Urine Culture - Final Procedures Date of Service Date of Service: 06/20/25 Assessment & Plan Assessment and plan (1) Cardiorenal syndrome: Status: Acute (2) Acute kidney injury superimposed on CKD: Status: Acute Plan Acute on chronic kidney disease: Cardiorenal syndrome: Acute on chronic kidney disease secondary to cardiorenal syndrome, presented with a creatinine of 3.11, decreased to 2.50 with some diuresis. He is on Lasix drip at 2.5 milligrams/hour with which his urine output has been about 1200 cc but a total fluid balance net negative. Will add metolazone 10mg daily, can switch IV lasix to PO torsemide or bumex and can monitor for the response Bedside echo showed dilated IVC is 2.3 cm, non collapsing; severely reduced LV systolic function. Urinalysis showing 2+ protein, leukocyte esterase positive, 6-10 WBCs, oxalate crystals+. Negative urine eosinophils, very concentrated urine suggestive of poor renal perfusion. ProBNP is 120 K, procalcitonin is normal Retroperitoneal ultrasound did not show any obstruction, bilateral small kidneys will get LFT in AM to look for evidence of congestive hepatopathy. Time Spent With Patient Time: Total time managing care of this patient today ____ minutes. Progress Note: Quality Stroke Does the patient have a stroke diagnosis?: No
[2025-06-20] MEDS: Milk of Magnesia 30 ML ORAL.SUSP PO (13:51)
--- NOTE | 2025-06-20 16:11 | HO.PM.IMPN ---
Subjective Subjective Date of Service: 06/20/25 Interval History: chf , nsvt 18 beat episode Review of Systems mental status somewhat improving sob also improving Physical Exam Exam: Exam: sob somewhat improving mental status seems similar Appearance: Alert.? Oriented X3.? cvs: [id number], [id number]. res: air entry diminshed ,few faint rales abd: no rebound or guarding ,nt, bs present. ext pulses present , no cyanosis . neuro: axo3 , nonfocal. Vital Signs: Vital Signs: Last Vital Signs Temp 98.4 F 06/20/25 15:24 Pulse 79 06/20/25 15:24 Resp 16 06/20/25 15:24 BP 103/64 06/20/25 15:24 Pulse Ox 96 06/20/25 15:24 O2 Del Method Room Air 06/20/25 15:24 O2 Flow Rate 2 06/20/25 04:00 BMI result Body Mass Index 20.2 Objective Data Active Medications Acetaminophen (Acetaminophen 325 Mg Tablet) 650 mg PO Q6H PRN PRN Reason: Pain, Mild 1-3,fever,headache Amiodarone HCl (Amiodarone Hcl 200 Mg Tablet) 200 mg PO DAILY [facility] Last Admin: 06/20/25 08:15 Dose: 200 mg Documented By: BRISA Calcium Carbonate (Calcium Carbonate 750 Mg Tab.Chew) 750 mg PO Q4H PRN PRN Reason: Heartburn Cyanocobalamin (Vitamin B12) (Cyanocobalamin (Vitamin B-12) 1,000 Mcg Tablet) 1,000 mcg PO DAILY [facility] Last Admin: 06/20/25 08:15 Dose: 1,000 mcg Documented By: BRISA Doxycycline Monohydrate (Doxycycline Monohydrate 100 Mg Capsule) 100 mg PO Q12H [facility] Last Admin: 06/20/25 11:41 Dose: 100 mg Documented By: BRISA Heparin Sodium (Porcine) (Heparin Sodium,Porcine 5,000 Unit/Ml Vial) 5,000 unit SUBCUT Q12H [facility] Last Admin: 06/20/25 11:41 Dose: 5,000 unit Documented By: BRISA Ceftriaxone Sodium 1 gm/ (Sodium Chloride) 50 mls @ 100 mls/hr IV Q24H [facility] Last Infusion: 06/20/25 12:17 Dose: Infused Documented By: BRISA Furosemide 200 mg/ Sodium (Chloride) 100 mls @ 1.25 mls/hr IVCONT .Q24H [facility] Last Infusion: 06/20/25 11:42 Dose: 2.5 mg/hr, 1.25 mls/hr Documented By: BRISA Magnesium Hydroxide (Milk Of Magnesia 30 Ml Oral.Susp) 30 ml PO DAILY PRN PRN Reason: Constipation Last Admin: 06/20/25 13:51 Dose: 30 ml Documented By: BRISA Melatonin (Melatonin 3 Mg Tablet) 6 mg PO BEDTIME PRN PRN Reason: Insomnia Metolazone (Metolazone 5 Mg Tablet) 10 mg PO DAILY [facility] Last Admin: 06/20/25 13:46 Dose: 10 mg Documented By: BRSIA Metoprolol Tartrate (Metoprolol Tartrate 12.5 Mg Halftab) 12.5 mg PO BID [facility]; Protocol Last Admin: 06/20/25 09:10 Dose: 12.5 mg Documented By: BRISA Sodium Bicarbonate (Sodium Bicarbonate 650 Mg Tablet) 650 mg PO TID [facility] Last Admin: 06/20/25 13:46 Dose: 650 mg Documented By: BRISA Sodium Chloride (0.9 % Sodium Chloride Flush 3 Ml Syringe) 3 ml IVFLUSH QSHIFT [facility] Last Admin: 06/20/25 13:46 Dose: 3 ml Documented By: BRISA Vitamin D (Cholecalciferol (Vitamin D3) 25 Mcg Tablet) 25 mcg PO DAILY [facility] Last Admin: 06/20/25 08:15 Dose: 25 mcg Documented By: BRISA Labs 06/18/25 07:44 06/20/25 09:19 Labs: Laboratory Results - last 24 hr 06/20/25 09:19 Anion Gap 15 Estim Creat Clear Calc 22.1 Estimated GFR 25 Random Glucose 118 H Calcium 9.4 Magnesium 2.1 NT-Pro-B Natriuret Pep 75560.6 H Microbiology Microbiology Results: Microbiology 06/17/25 11:46 Blood Culture - Preliminary Blood - Venous No growth after 48 hours. 06/17/25 11:46 Blood Culture - Preliminary Blood - Venous No growth after 48 hours. Assessment and Plan (1) Elevated brain natriuretic peptide (BNP) level: Status: Acute (2) Chronic systolic HF (heart failure): Status: Acute Plan 79 year old male with history of dilated cardiomyopathy with EF 10% (declined ICD), LBBB, pAF not on AC, HTN, HLD, CAD, gout, brought in for confusion and shortness of breath. acute toxic metabolic encephalopathy improving previous notes indicate vague historia, some degree of baseline cognitive impairment seems likely continue to moniter -may need further workup if does not improve. will check ct head , b12 levels likely chf(acute on chronic HFrEF)-etiology unclear ,less likely CAP [id number] RPP-negative chest CT :Mild cardiogenic pulmonary edema. plan: bnp increasing Monitor I&O: 10 liter negative Adjusted Lasix drip, awitched to po doxy,until blood culture negative at 48 hours neprology considering to switch diuretics to metolazone added small dose bb , no new episode of nsvt, electrolytes seems ok. cardiology following LIANA on CKD4 soft bp Retroperitoneal ultrasound did not show any obstruction, bilateral small kidneys hold valsartan, spironolactone jardiance has been recently decreased as outpatient nephrology following trend BMP paroxysmal atrial fibrillation continue reduced dose of metoprolol, amiodorone not on AC (was previously on Eliquis but pt/family elected to discontinue due to cost per outpatient notes) Gout colchicine on hold for worsening renal function dvt ppx - heparin code status - full code; given multiple chronic medical issues overall intermediate prognosis is poor; discuss with family regarding goals of care Ongoing need for stay in the hospital for management of worsening renal function, CHF vs pneumonia requiring IV antibiotics, close cardiopulmonary monitoring, advanced imaging and specialist evaluation in a frail elderly patient with worsening cognitive function and multiple active medical issues Quality Stroke Does the patient have a stroke diagnosis?: No VTE Prior VTE?: No VTE Risk Level:: Medical - moderate - high VTE Device Contraindication: Treatment Not Indicated VTE Drug Contraindication: N/A - Med Ordered
--- NOTE | 2025-06-20 17:11 | HO.PM.IMPN ---
Subjective Subjective Date of Service: 06/20/25 Interval History: Date of service 06/19/25 Review of Systems acute toxic metabolic encephalopathy-sob /mental status improving Physical Exam Exam: Exam: Appearance: Alert.? Oriented X3.? cvs: [id number], [id number]. res: air entry diminshed ,few faint rales abd: no rebound or guarding ,nt, bs present. ext pulses present , no cyanosis . neuro: axo3 , nonfocal. Vital Signs: Vital Signs: Last Vital Signs Temp 98.4 F 06/20/25 15:24 Pulse 79 06/20/25 15:24 Resp 16 06/20/25 15:24 BP 103/64 06/20/25 15:24 Pulse Ox 96 06/20/25 15:24 O2 Del Method Room Air 06/20/25 15:24 O2 Flow Rate 2 06/20/25 04:00 BMI result Body Mass Index 20.2 Objective Data Active Medications Acetaminophen (Acetaminophen 325 Mg Tablet) 650 mg PO Q6H PRN PRN Reason: Pain, Mild 1-3,fever,headache Amiodarone HCl (Amiodarone Hcl 200 Mg Tablet) 200 mg PO DAILY [facility] Last Admin: 06/20/25 08:15 Dose: 200 mg Documented By: BRISA Calcium Carbonate (Calcium Carbonate 750 Mg Tab.Chew) 750 mg PO Q4H PRN PRN Reason: Heartburn Cyanocobalamin (Vitamin B12) (Cyanocobalamin (Vitamin B-12) 1,000 Mcg Tablet) 1,000 mcg PO DAILY [facility] Last Admin: 06/20/25 08:15 Dose: 1,000 mcg Documented By: BRISA Doxycycline Monohydrate (Doxycycline Monohydrate 100 Mg Capsule) 100 mg PO Q12H [facility] Last Admin: 06/20/25 11:41 Dose: 100 mg Documented By: BRISA Heparin Sodium (Porcine) (Heparin Sodium,Porcine 5,000 Unit/Ml Vial) 5,000 unit SUBCUT Q12H [facility] Last Admin: 06/20/25 11:41 Dose: 5,000 unit Documented By: BRISA Magnesium Hydroxide (Milk Of Magnesia 30 Ml Oral.Susp) 30 ml PO DAILY PRN PRN Reason: Constipation Last Admin: 06/20/25 13:51 Dose: 30 ml Documented By: BRISA Melatonin (Melatonin 3 Mg Tablet) 6 mg PO BEDTIME PRN PRN Reason: Insomnia Metolazone (Metolazone 5 Mg Tablet) 10 mg PO DAILY [facility] Last Admin: 06/20/25 13:46 Dose: 10 mg Documented By: BRISA Metoprolol Tartrate (Metoprolol Tartrate 12.5 Mg Halftab) 12.5 mg PO BID [facility]; Protocol Last Admin: 06/20/25 09:10 Dose: 12.5 mg Documented By: BRISA Sodium Bicarbonate (Sodium Bicarbonate 650 Mg Tablet) 650 mg PO TID [facility] Last Admin: 06/20/25 13:46 Dose: 650 mg Documented By: BRISA Sodium Chloride (0.9 % Sodium Chloride Flush 3 Ml Syringe) 3 ml IVFLUSH QSHIFT [facility] Last Admin: 06/20/25 13:46 Dose: 3 ml Documented By: BRISA Vitamin D (Cholecalciferol (Vitamin D3) 25 Mcg Tablet) 25 mcg PO DAILY [facility] Last Admin: 06/20/25 08:15 Dose: 25 mcg Documented By: BRISA Labs 06/18/25 07:44 06/20/25 09:19 Labs: Laboratory Results - last 24 hr 06/20/25 09:19 Anion Gap 15 Estim Creat Clear Calc 22.1 Estimated GFR 25 Random Glucose 118 H Calcium 9.4 Magnesium 2.1 NT-Pro-B Natriuret Pep 39116.6 H Microbiology Microbiology Results: Microbiology 06/17/25 11:46 Blood Culture - Preliminary Blood - Venous No growth after 48 hours. 06/17/25 11:46 Blood Culture - Preliminary Blood - Venous No growth after 48 hours. Assessment and Plan (1) Decompensated heart failure: Status: Acute Plan date of service 06/19/25 79 year old male with history of dilated cardiomyopathy with EF 10% (declined ICD), LBBB, pAF not on AC, HTN, HLD, CAD, gout, brought in for confusion and shortness of breath. acute toxic metabolic encephalopathy possibly due to infection previous notes indicate vague historia, some degree of baseline cognitive impairment seems likely. will confirm with family likely chf(acute on chronic HFrEF)-etiology unclear ,less likely CAP IV ceftriaxone, IV doxy [id number] RPP-negative chest CT :Mild cardiogenic pulmonary edema. 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
[2025-06-21] VITALS: BP 114/74; PULSE 79; RESP 18; TEMP 36.4; O2SAT 94
[2025-06-21 03:33] VITALS: BP 96/70; RESP 20; TEMP 36.1; O2SAT 100
[2025-06-21 04:26] VITALS: O2SAT 95
[2025-06-21 07:24] VITALS: PULSE 78; RESP 16; TEMP 36.4; O2SAT 92
[2025-06-21 07:35] VITALS: BP 138/81
[2025-06-21 07:38] LABS: Alanine Aminotransferase 22 U/L (0-40); Albumin Level 3.0 g/dL (3.5-5.0); Alkaline Phosphatase 79 U/L (39-117); Anion Gap 13 (12-20); Aspartate Amino Transferase 42 U/L (5-37); Blood Urea Nitrogen 65 mg/dL (9-16); Calcium 9.1 mg/dL (8.4-10.2); Carbon Dioxide 24 mmol/L (22-29); Chloride 109 mmol/L (96-108); Creatinine Clr Calc Pharmacy 24.1; Estimated Glomerular Filt Rate 28; Potassium 4.1 mmol/L (3.3-5.1); Sodium 142 mmol/L (135-145); Total Protein 5.9 g/dL (6.5-8.0)
[2025-06-21 08:10] LABS: Folate 5.1 ng/mL (> or = 4.0); Vitamin B12 1842 pg/mL (200-900)
[2025-06-21] MEDS: Metoprolol Tartrate 12.5 MG HALFTAB PO (09:27)
[2025-06-21] MEDS: 0.9 % Sodium Chloride Flush 3 ML SYRINGE IVFLUSH (09:29)
--- NOTE | 2025-06-21 10:21 | PM.PNCARD ---
Subjective Subjective Date of Service: 06/21/25 Interval history: Patient states that he is feeling okay. His is at the bedside. Review of Systems Review of Systems Yes all other systems are reviewed and are negative Constitutional: Reports as per HPI and Reports no additional constitutional complaints Eyes: Reports as per HPI and Denies no additional eye complaints Denies system reviewed and no additional complaints, except as documented and Reports as per HPI Cardiovascular: Reports as per HPI, Reports no additional cardiovascular complaints, Denies acrocyanosis, Denies cool extremities, Denies chest pain, Denies leg edema, Denies lightheadedness, Denies palpitations and Denies dyspnea Respiratory: Reports as per HPI, Denies no additional respiratory complaints and Denies dyspnea Gastrointestinal: Reports as per HPI and Denies no additional gastrointestinal complaints Genitourinary: Reports no additional male genitourinary complaints and Reports as per HPI Musculoskeletal: Reports no additional musculoskeletal complaints and Reports as per HPI Skin/Breast: Reports system reviewed and no additional complaints, except as docu Reports system reviewed and no additional complaints, except as documented and Reports as per HPI Psychiatric: Reports no additional psychiatric complaints and Reports as per HPI Endocrine: Reports no additional endocrine complaints, Reports as per HPI and Denies palpitations Hematologic/Lymphatic: Reports no additional hematologic/lymphatic complaints and Reports as per HPI Allergic/Immunologic: Reports no additional allergic/immunologic complaints and Reports as per HPI Physical Exam Vital Signs: Last Vital Signs Temp 97.6 F 06/21/25 07:24 Pulse 78 06/21/25 07:24 Resp 16 06/21/25 07:24 BP 138/81 06/21/25 07:35 Pulse Ox 92 06/21/25 07:24 O2 Del Method Nasal Cannula 06/21/25 07:24 O2 Flow Rate 2 06/21/25 07:24 BMI result Body Mass Index 20.2 Const General: comfortable and no acute distress Orientation/consciousness: patient oriented x3 HEENT Other: Unremarkable Head: Yes normal to inspection Neck Neck: Yes normal visual inspection Chest Chest palpation & inspection: normal inspection of the chest Resp Auscultation: crackles and diminished lung sounds Cardio Palpation: normal PMI Heart sounds: S1 normal heart sound present, S2 normal heart sound present, no gallops, no murmurs and no rubs GI Palpation (GI): Soft to palpation Back/Spine/Pelvis Other: unremarkable Skin General skin exam: no rashes or lesions noted Neuro General: patient oriented x3 Extrem General: Yes normal to inspection Psych Mental Status: mental status grossly normal Objective Labs and Meds 06/18/25 07:44 06/21/25 06:24 Lab results: Laboratory Results - last 24 hr 06/20/25 06/21/25 09:19 06:24 Sodium 142 142 Potassium 4.6 4.1 Chloride 109 H 109 H Carbon Dioxide 23 24 Anion Gap 15 13 BUN 62 H 65 H Creatinine 2.50 H 2.29 H Estim Creat Clear Calc 22.1 24.1 Estimated GFR 25 28 Random Glucose 118 H 79 Calcium 9.4 9.1 Magnesium 2.1 Total Bilirubin 0.4 AST 42 H ALT 22 Alkaline Phosphatase 79 NT-Pro-B Natriuret Pep 80890.6 H 64595.6 H Total Protein 5.9 L Albumin 3.0 L Vitamin B12 1842 H Folate 5.1 Progress Note: A&P Assessment and plan (1) Acute on chronic combined systolic and diastolic CHF (congestive heart failure): Status: Acute (2) Nonrheumatic mitral (valve) insufficiency: Status: Acute (3) Paroxysmal atrial fibrillation: Status: Acute Plan Per last echocardiogram from August, LVEF 10-15%. Several increased cavity size. Advanced diastolic dysfunction with [id number] mitral regurgitation. Currently being treated for decompensated heart failure. Per input/output charting,-11.5 L this admission. Creatinine is also elevated 2.3, seems chronically elevated. Per sign-out, could not do neurohormonals because of low blood pressure issues. On telemetry, an 18 beat run of NSVT, monomorphic-however, this is improved and nothing in the last 24 hours. Not unexpected considering his low LVEF. Electrolyte seem reasonable. He is on a small dose of beta-malgorzata. With regard to the PAF history, on amiodarone. EKG shows sinus with left bundle-branch block. It seems that he has not been on anticoagulation based on outpatient notes-per their own choice. Overall, advanced age, frailty, decompensated heart failure, comorbidities and with guarded prognosis. Ambulate and see how he does. Discharge planning. Discussed with significant other. Time Spent With Patient Time: Total time managing care of this patient today ____ minutes. Progress Note: Quality Stroke Does the patient have a stroke diagnosis?: No Procedures Date of Service Date of Service: 06/21/25
[2025-06-21 11:47] VITALS: BP 108/72; PULSE 64; RESP 16; TEMP 36.8; O2SAT 99
--- NOTE | 2025-06-21 11:52 | PM.DS ---
DS: Providers Provider Date of admission: 06/17/25 12:03 Date of discharge: 06/21/25 Primary care physician: Deb Pete MD Consults: 06/17/25 12:24 Consult to Cardiology Routine Consulting Provider: [facility] [place] [facility] Reason for consultation: CHF Has provider been notified: No Consult to Nephrology Routine Consulting Provider: [facility] [place] [facility] Reason for consultation: worsening renal function Has provider been notified: No DS: Diagnosis Discharge Diagnosis (1) Acute on chronic combined systolic and diastolic CHF (congestive heart failure): Status: Acute (2) Nonrheumatic mitral (valve) insufficiency: Status: Acute (3) Paroxysmal atrial fibrillation: Status: Acute DS: Summary Hospital Course Hospital Course: from initial hpi: 79M with a history of cardiomyopathy with low EF (declined ICD), HTN, HLD, CKD3, paroxysmal afib (declines AC), CAD who was brought to the ED for reported weakness, and shortness of breath. The patient is awake and alert but is a very vague historian. In the ED he was not hypoxic. His vitals did not indicate tachypnea although he appears tachypneic on exam. CXR showed concern for pneumonia and he was started on antibiotics. Lab work significant for increasing creatinine at 3.11, troponin 44.6, pro-BNP 120,274. Blood pressure on the lower side at 98/72. lactic acid within normal limits. hospital course: Patient was admitted for acute toxic metabolic encephalopathy due to acute on chronic systolic CHF. Was treated with IV Lasix continuous infusion, diuresed well in the transitioned over to oral. Course also complicated by acute on chronic kidney disease stage 4 due to acute tubular necrosis due to cardiorenal. This did improve with diuresis. For paroxysmal atrial fibrillation patient was continued on metoprolol, amiodarone he is not on anticoagulation. Patient's symptoms has improved though his prognosis is overall guarded, he will be discharged home. Time Attestation Discharge Coordination Time (in mins): 37 Quality: Safe Use of Opioids Does Pt have an Active Cancer Diagnosis on the Problem List?: No Quality: Stroke Does the patient have a stroke diagnosis?: No Physical Exam Vital Signs: Vital Signs: Last Vital Signs Temp 97.6 F 06/21/25 07:24 Pulse 78 06/21/25 07:24 Resp 16 06/21/25 07:24 BP 138/81 06/21/25 07:35 Pulse Ox 92 06/21/25 07:24 O2 Del Method Nasal Cannula 06/21/25 07:24 O2 Flow Rate 2 06/21/25 07:24 BMI result Body Mass Index 20.2 Const: General: comfortable and no acute distress Orientation/consciousness: patient oriented x3 HEENT: Other: Unremarkable Head: Yes normal to inspection Neck: Neck: Yes normal visual inspection Chest: Chest palpation & inspection: normal inspection of the chest Resp: Auscultation: crackles and diminished lung sounds Cardio: Palpation: normal PMI Heart sounds: S1 normal heart sound present, S2 normal heart sound present, no gallops, no murmurs and no rubs GI: Palpation (GI): Soft to palpation Back/Spine/Pelvis: Other: unremarkable Skin: General skin exam: no rashes or lesions noted Neuro: General: patient oriented x3 Extrem: General: Yes normal to inspection Psych: Mental Status: mental status grossly normal DS: Data Data Completed and Pending Completed studies during hospitalization [Text1]: Procedures Sabianist of Cardiac Rhythm, Single (12/01/22) Ultrasonography of Heart with Aorta, Transesophageal (12/01/22) Labs on day of discharge: Laboratory Results - last 24 hr 06/21/25 06:24 Sodium 142 Potassium 4.1 Chloride 109 H Carbon Dioxide 24 Anion Gap 13 BUN 65 H Creatinine 2.29 H Estim Creat Clear Calc 24.1 Estimated GFR 28 Random Glucose 79 Calcium 9.1 Total Bilirubin 0.4 AST 42 H ALT 22 Alkaline Phosphatase 79 NT-Pro-B Natriuret Pep 71036.6 H Total Protein 5.9 L Albumin 3.0 L Vitamin B12 1842 H Folate 5.1 Preliminary micro results at discharge 06/17/25 11:46 Blood Culture - Preliminary Blood - Venous No growth after 48 hours. 06/17/25 11:46 Blood Culture - Preliminary Blood - Venous No growth after 48 hours. Discharge Plan Discharge Anticipated Discharge Date/Time: 06/21/25 11:49 Patient Disposition: Home Health Service Discharge Diagnosis: chf Referrals: Deb Vital MD [Primary Care Provider, Internal Medicine] - 1 Week Discharge Medications: New furosemide [Lasix] 40 mg tablet 40 mg PO DAILY Qty: 90 0RF Continued (DME) Shower Chair Misc See Rx Instructions .Route Qty: 1 0RF Rx Instructions: As directed (DME) raised toilet seat with arm rest See Rx Instructions .Route .MEDSUPPLY Qty: 1 0RF Rx Instructions: As directed sumatriptan succinate 25 mg tablet 25 mg PO Q2-4H PRN (Reason: migraine headache) 30 Days Qty: 9 0RF Rx Instructions: do not exceed 8 doses per 24 hrs spironolactone 25 mg tablet 25 mg PO DAILY 90 Days Qty: 90 1RF Protocol: Hold for SBP< HOLD for SBP < : 90 amiodarone 200 mg tablet 200 mg PO DAILY 90 Days Qty: 90 1RF Rx Instructions: Start 200mg daily after completing amiodorone 400mg BID on 12/20 metoprolol succinate 25 mg tablet extended release 24 hr 25 mg PO DAILY Qty: 90 3RF colchicine 0.6 mg tablet 0.6 mg PO DAILY 30 Days Qty: 30 0RF cyanocobalamin (vitamin B-12) 1,000 mcg Tablet 1,000 mcg PO DAILY cholecalciferol (vitamin D3) 25 mcg (1,000 unit) Tablet 25 mcg PO DAILY Discontinued valsartan 80 mg tablet 40 mg PO DAILY Rx Instructions: Dose reduced Discharge Orders: Discharge Order (Routine); Ordered 06/21/25 Ordered By: Krish Benton Diet: Advance to usual diet Activity on Discharge: As tolerated Stand Alone Forms: Patient Portal Discharge page Print Language: Arabic Care Plan Goals: manage end stage heart failure Health Concerns: chf Plan of Treatment: meds as prescribed Assessment: see above
--- NOTE | 2025-06-21 12:05 | MHC.CM.PN ---
Patient has been medically cleared for dc to home today, with services; [facility] is aware of today's dc.
--- NOTE | 2025-06-21 12:09 | W.MHC.F2F ---
Service Date Service Date: 06/21/25 Encounter Date of encounter: 06/21/25 Reasons for Services Signs and symptoms assessed: severe weakness from chf Reason for nursing home: medication management, medication treatment and teach disease management Homebound: Leaving the home is medically contraindicated at this time without the asist of a device and/or another person due th the listed conditions above and below. Reason homebound: cognitively impaired / unsafe and weakness related to hospital stay Certification: Based on the above findings, I certify that this patient is confined to the home and needs intermittent nursing home care, physical therapy and/or speech therapy, or continues to need occupational therapy. The patient is under my care, and I have initiated the establishment of the plan of care. The patient will be followed by a physician who will periodically review the plan of care. Time Spent With Patient Time: Total time managing care of this patient today ____ minutes.
--- NOTE | 2025-06-21 12:30 | P.PNNP_ITS ---
Subjective Subjective Date of Service: 06/21/25 Interval history: Seen AM. Events noted. All recent data reviewed Physical Exam 2 Vital Signs: Vital Signs: Last Vital Signs Temp 98.2 F 06/21/25 11:47 Pulse 64 06/21/25 11:47 Resp 16 06/21/25 11:47 BP 108/72 06/21/25 11:47 Pulse Ox 99 06/21/25 11:47 O2 Del Method Nasal Cannula 06/21/25 11:47 O2 Flow Rate 2 06/21/25 11:47 BMI result Body Mass Index 20.2 Const: General: no acute distress Eyes: EOM: EOMs intact bilaterally Resp: Auscultation: diminished lung sounds Cardio: Rate: regular rate GI: Palpation (GI): Soft to palpation Neuro: General: moves all extremities Objective Data Labs 06/18/25 07:44 06/21/25 06:24 Labs: Laboratory Results - last 24 hr 06/21/25 06:24 Sodium 142 Potassium 4.1 Chloride 109 H Carbon Dioxide 24 Anion Gap 13 BUN 65 H Creatinine 2.29 H Estim Creat Clear Calc 24.1 Estimated GFR 28 Random Glucose 79 Calcium 9.1 Total Bilirubin 0.4 AST 42 H ALT 22 Alkaline Phosphatase 79 NT-Pro-B Natriuret Pep 00682.6 H Total Protein 5.9 L Albumin 3.0 L Vitamin B12 1842 H Folate 5.1 Microbiology Microbiology Results: Microbiology 06/17/25 11:46 Blood - Venous Blood Culture - Preliminary No growth after 48 hours. 06/17/25 11:46 Blood - Venous Blood Culture - Preliminary No growth after 48 hours. 06/17/25 Unknown Urine clean catch - Clean Catch Midstream Urine Culture - Final Procedures Date of Service Date of Service: 06/21/25 Assessment & Plan Assessment and plan (1) Acute kidney injury superimposed on CKD: Status: Acute Plan Acute on chronic kidney disease due to Cardiorenal syndrome. Presented with a creatinine of 3.11, decreased to 2.29 with diuresis. Has severely reduced LV systolic function. Retroperitoneal ultrasound did not show any obstruction, bilateral small kidneys. Continue current supportive care for now Progress Note: Quality Stroke Does the patient have a stroke diagnosis?: No
== END 2025-06-21 14:50 | disposition home health service (06) | DRG 291 ==
LOC: HO.ED 11:06 → HO.EDOVER 12:40 → HO.IMC 19:51
PROVIDERS: Internal Medicine; Internal Medicine Critical Care Medicine; Physician Assistant Medical; Admitting Provider Physician Assistant Medical; Emergency Provider Emergency Medicine; PCP Internal Medicine; Visit Provider Internal Medicine
DX: I13.0 Hypertensive heart and chronic kidney disease with heart failure and stage 1 through stage 4 chronic kidney disease, or unspecified chronic kidney disease (principal); G92.8 Other toxic encephalopathy; I50.23 Acute on chronic systolic (congestive) heart failure; J18.9 Pneumonia, unspecified organism; I47.20 Ventricular tachycardia, unspecified; N17.9 Acute kidney failure, unspecified; N18.4 Chronic kidney disease, stage 4 (severe); M10.9 Gout, unspecified; I42.0 Dilated cardiomyopathy; I25.10 Atherosclerotic heart disease of native coronary artery without angina pectoris; I48.0 Paroxysmal atrial fibrillation; Z20.822 Contact with and (suspected) exposure to COVID-19; Z79.899 Other long term (current) drug therapy
CPT/HCPCS: 36415; 70450; 71045; 71250; 76770; 80048; 80053; 81001; 82607; 82746; 82803; 83605; 83735; 83880; 83935; 84145; 84300; 84484; 85025; 85999; 87040; 87086; 87493; 87507; 87633; 87637; 93005; 99285; J0696; J1271; J1644; J1938

== ENCOUNTER → 2025-06-17 08:28 | Outpatient (BNV) | payer MEDICARE, SELFPAY ==
[2023-03-13 15:16] VITALS: BP 100/50; BP 108/50; BP 122/64; BMI 23.8
== END ==
PROVIDERS: Admitting Provider Physician Assistant Medical; Emergency Provider Emergency Medicine; PCP Internal Medicine; Visit Provider Internal Medicine Cardiovascular Disease
DX: I44.0 Atrioventricular block, first degree (principal); I44.7 Left bundle-branch block, unspecified
CPT/HCPCS: 93010

== ENCOUNTER → 2025-06-17 09:33 | Outpatient (BNV) | payer MEDICARE, SELFPAY ==
[2023-03-13 15:16] VITALS: BP 100/50; BP 108/50; BP 122/64; BMI 23.8
== END ==
PROVIDERS: Emergency Provider Emergency Medicine; PCP Internal Medicine; Visit Provider Specialist
DX: G93.40 Encephalopathy, unspecified (principal); R53.1 Weakness; R06.02 Shortness of breath
CPT/HCPCS: 71045; 71250

== ENCOUNTER 2025-06-17 12:03 | Outpatient (BNV) | payer MEDICARE, SELFPAY ==
[2023-03-13 15:16] VITALS: BP 100/50; BP 108/50; BP 122/64; BMI 23.8
== END 2025-06-18 08:00 ==
PROVIDERS: Admitting Provider Physician Assistant Medical; Emergency Provider Emergency Medicine; PCP Internal Medicine; Visit Provider Radiology Diagnostic Radiology
DX: N17.9 Acute kidney failure, unspecified (principal); N18.9 Chronic kidney disease, unspecified; K80.20 Calculus of gallbladder without cholecystitis without obstruction; N32.89 Other specified disorders of bladder
CPT/HCPCS: 76770

== ENCOUNTER 2025-06-17 12:03 | Outpatient (BNV) | payer MEDICARE, SELFPAY ==
[2023-03-13 15:16] VITALS: BP 100/50; BP 108/50; BP 122/64; BMI 23.8
== END 2025-06-20 17:11 ==
PROVIDERS: Admitting Provider Physician Assistant Medical; Emergency Provider Emergency Medicine; PCP Internal Medicine; Visit Provider Radiology Diagnostic Radiology
DX: G93.40 Encephalopathy, unspecified (principal)
CPT/HCPCS: 70450

== ENCOUNTER → 2025-06-17 12:03 | Outpatient (BNV) | payer MEDICARE, SELFPAY ==
[2023-03-13 15:16] VITALS: BP 100/50; BP 108/50; BP 122/64; BMI 23.8
== END ==
PROVIDERS: Admitting Provider Physician Assistant Medical; Emergency Provider Emergency Medicine; PCP Internal Medicine; Visit Provider Internal Medicine Cardiovascular Disease
DX: I50.43 Acute on chronic combined systolic (congestive) and diastolic (congestive) heart failure (principal); I34.0 Nonrheumatic mitral (valve) insufficiency; I48.0 Paroxysmal atrial fibrillation
CPT/HCPCS: 99233

== ENCOUNTER → 2025-06-17 12:03 | Outpatient (BNV) | payer MEDICARE, SELFPAY ==
[2023-03-13 15:16] VITALS: BP 100/50; BP 108/50; BP 122/64; BMI 23.8
== END ==
PROVIDERS: Admitting Provider Physician Assistant Medical; Emergency Provider Emergency Medicine; PCP Internal Medicine; Visit Provider Physician Assistant Medical
DX: N17.9 Acute kidney failure, unspecified (principal); N18.9 Chronic kidney disease, unspecified; I50.22 Chronic systolic (congestive) heart failure; J18.9 Pneumonia, unspecified organism; R79.89 Other specified abnormal findings of blood chemistry
CPT/HCPCS: 99223; 99232

== ENCOUNTER → 2025-06-17 12:03 | Outpatient (BNV) | payer MEDICARE, SELFPAY ==
[2023-03-13 15:16] VITALS: BP 100/50; BP 108/50; BP 122/64; BMI 23.8
== END ==
PROVIDERS: Admitting Provider Physician Assistant Medical; Emergency Provider Emergency Medicine; PCP Internal Medicine; Visit Provider Internal Medicine Critical Care Medicine
DX: N17.9 Acute kidney failure, unspecified (principal); N18.9 Chronic kidney disease, unspecified; I13.10 Hypertensive heart and chronic kidney disease without heart failure, with stage 1 through stage 4 chronic kidney disease, or unspecified chronic kidney disease
CPT/HCPCS: 99223; 99233

== ENCOUNTER → 2025-06-17 12:03 | Outpatient (BNV) | payer MEDICARE, SELFPAY ==
[2023-03-13 15:16] VITALS: BP 100/50; BP 108/50; BP 122/64; BMI 23.8
== END ==
PROVIDERS: Admitting Provider Physician Assistant Medical; Emergency Provider Emergency Medicine; PCP Internal Medicine; Visit Provider Internal Medicine Nephrology
DX: N17.9 Acute kidney failure, unspecified (principal); N18.9 Chronic kidney disease, unspecified
CPT/HCPCS: 99232